=== PATIENT | female | born 1960 | race Caucasian/White ===

== ENCOUNTER → 2016-07-17 | Outpatient (CLI) | payer OTHER, MEDICARE ==
[~2016-07-17] MED LIST: ALBINS/ INH; ALBU18002 INH; ALBU2SYP9 NEB; AMLH/550 PO; AMT50 PO; ANT25 PO; ASCO10003 PO; ASPEC81 PO; ASPI81TA28 PO; ATV/1 PO; AZITTAB PO; BMX1 PO; BUME2TAB3 PO; BUPR100T13 PO; BUPR200T2 PO; CALC600T9; CALC625T PO; CHOL1000 PO; CHOL1TAB42 PO; CLON0.5T3 PO; CRAN1TAB9; CRAN500C2 PO; CRFUDL PO; CYCL5TAB PO; CYM/30 PO; CYM/60 PO; CYNI1000 IM; CYNI1000 INJ; DFL100 PO; DIPH25CA65 PO; DIPH25TA; DIPH50TA10 PO; DOCU-94 PO; DULO60CA44 PO; FISHOIL PO; FLUO40CA8 PO; FLUT0.15 NAE; FRS/40 PO; GABA1CAP5 PO; GABA400C PO; GREE1CAP; HYDR-3126 PO; IMP/50 PO; IPRASOL4 INH; LAMO100T16 PO; LDDP5 TD; LMC100 PO; LORA-741 PO; LVQ750 PO; MAGN400T6 PO; MCRK20 PO; MECL-91 PO; MELA1CAP9 PO; METHTAB2 PO; METO2.5T PO; MGCCMP100 MT; MGNO400 PO; MOME200A INH; MOML PO; NITR-5 PO; NITR1CAP16 PO; NITR1CAP33 PO; NORT50CA PO; OMEG10007 PO; OXYC-106 PO; OXYC-57 PO; OXYC-59 PO; OXYC1TAB3 PO; PANT40TA PO; POTA-327 PO; POTA20TA16 PO; PRENTAB26 PO; SENN-61 PO; SULF800T23 PO; TRAZ1TAB5 PO; TRAZ50TA35 PO; TRIM100T20 PO; VITA400C15 PO; VITAMIN B12 INJ; VNTHFA/IN INH; ZTHM250 PO
== END | disposition home or self-care (01) ==
LOC: C.LABPBG 14:42
PROVIDERS: ATTEND Urology
DX: N39.0 Urinary tract infection, site not specified (principal)

== ENCOUNTER 2016-07-29 12:44 | Emergency (ER) | payer OTHER, MEDICARE ==
[~2016-07-29] VITALS: Ht 167.6 cm; Wt 166.0 kg
[~2016-07-29 12:44] MED LIST changes: -ALBINS/ INH; -ALBU18002 INH; -ALBU2SYP9 NEB; -AMLH/550 PO; -ANT25 PO; -ASCO10003 PO; -ASPI81TA28 PO; -ATV/1 PO; -AZITTAB PO; -BMX1 PO; -BUME2TAB3 PO; -BUPR100T13 PO; -BUPR200T2 PO; -CALC625T PO; -CHOL1000 PO; -CHOL1TAB42 PO; -CRAN500C2 PO; -CRFUDL PO; -CYCL5TAB PO; -CYM/30 PO; -CYM/60 PO; -CYNI1000 IM; -CYNI1000 INJ; -DFL100 PO; -DIPH25CA65 PO; -DOCU-94 PO; -DULO60CA44 PO; -FLUT0.15 NAE; -GABA1CAP5 PO; -GABA400C PO; -IPRASOL4 INH; -LAMO100T16 PO; -LDDP5 TD; -LMC100 PO; -MAGN400T6 PO; -MCRK20 PO; -MECL-91 PO; -METO2.5T PO; -MGCCMP100 MT; -MGNO400 PO; -MOME200A INH; -MOML PO; -NITR-5 PO; -NITR1CAP16 PO; -NITR1CAP33 PO; -NORT50CA PO; -OMEG10007 PO; -OXYC-106 PO; -OXYC-59 PO; -OXYC1TAB3 PO; -PANT40TA PO; -POTA20TA16 PO; -SENN-61 PO; -SULF800T23 PO; -TRAZ1TAB5 PO; -TRAZ50TA35 PO; -TRIM100T20 PO; -VITAMIN B12 INJ; -VNTHFA/IN INH; -ZTHM250 PO
[2016-07-29 12:45] VITALS: TEMP 36.7; Ht 167.6 cm; Wt 166.0 kg
[2016-07-29] MEDS ORDERED: HYDROmorphone INJ 1 MG/ML SYR IM STA ×2 (13:15→14:45)
--- NOTE | 2016-07-29 13:23 | EMERGENCY ROOM VISIT NOTE ---
History First contact with patient: 13:05 Chief Complaint: FALL Stated Complaint: FALL/KNEE PAIN/SOB History of Present Illness The patient is a 56 year old female who presents to the Emergency Room via ALS for evaluation of a fall. The patient reports that she lost her balance while getting out of bed this morning and fell between the bed and the wall. She reports having difficulty getting up after falling. She states that she did hit her head and complains of pain in her head, neck, low back, bilateral shoulders and bilateral knees. She believes that the shoulder pain is due to pushing herself up after she fell. There was no loss of consciousness. She took hydrocodone prior to arrival with no relief. She rates her overall discomfort a 9/10. The patient does have a history of asthma and reports that she was having difficulty breathing after the fall. She received a DuoNeb treatment en route with relief of shortness of breath. The fall was not associated with chest pain, dizziness or lightheadedness. She denies any chest pain, abdominal pain, numbness, weakness, nausea/vomiting, blurred vision or slurred speech. Review of Systems A complete 6 point review of systems was reviewed with the patient with pertinent positives and negatives as per history of present illness. All else were negative. Past Medical/Surgical History Medical Problems: (1) DJD (degenerative joint disease) of knee Surgical Problems: (1) Hx of gastric bypass (2) Hx of hysterectomy (3) Hx of shoulder surgery Social History Smoking Status: Former Smoker Alcohol Use: none Marital Status: Housing Status: lives with family Occupation Status: unemployed Current/Historical Medications Scheduled Albuterol Sulf (Proventil 0.083% 2.5MG/3ML), 2.5 MG INH QID Ascorbic Acid (Vitamin C), 1,000 MG PO DAILY Aspirin (Aspirin Ec), 81 MG PO DAILY Bumetanide (Bumex), 2 MG PO QAM Bupropion (Wellbutrin Sr), 400 MG PO DAILY Calcium Polycarbophil (Fibercon), 1 TAB PO DAILY Cholecalciferol (Vitamin D3), 5,000 UNITS PO DAILY Cranberry (Vaccinium Macrocarp (Cranberry), 500 MG PO DAILY Diphenhydramine Hcl (Benadryl Allergy), 75 MG PO HS Duloxetine HCl (Cymbalta), 30 MG PO DAILY Duloxetine Hcl (Cymbalta), 60 MG PO DAILY Fish Oil ([place]-3), 1 CAP PO DAILY Fluticasone Propionate (Nasal) (Flonase Allergy Relief), 2 SPRAYS EDITH HS Hydroxyzine Hcl (Atarax), 50 MG PO TID Lamotrigine (Lamictal), 100 MG PO DAILY Metolazone (Zaroxolyn), 2.5 MG PO 3XWK Mometasone Furoate-Formoterol (Dulera 200/5 Mcg), 2 PUFFS INH BID Nortriptyline (Pamelor), 50 MG PO HS Pantoprazole (Protonix), 40 MG PO DAILY Trazodone Hcl (Trazodone), 50 MG PO HS Trimethoprim (Proloprim), 100 MG PO HS Scheduled PRN Albuterol Hfa (Ventolin Hfa), 2-4 PUFFS INH QID PRN for SOB/Wheezing Cyclobenzaprine Hcl (Flexeril), 5 MG PO TID PRN for Muscle Spasms Lorazepam (Ativan), 1 MG PO BID PRN for Anxiety Oxycodone/Acetaminophen 10MG/325MG (Percocet 10MG/325MG), 1 TAB PO Q6H PRN for Pain Allergies Coded Allergies: Adhesives (Verified Allergy, Intermediate, REDNESS WITH BANDAIDS, 07/29/16) Cephalexin (Verified Allergy, Unknown, ?, 07/29/16) Physical Exam Vital Signs Date Time Temp Pulse Resp B/P Pulse Ox O2 Delivery O2 Flow Rate FiO2 07/29/16 16:00 81 16 113/74 92 07/29/16 14:38 85 20 113/77 97 Nasal Cannula 3.0 07/29/16 13:42 84 07/29/16 13:38 96 Nasal Cannula 3.0 07/29/16 13:30 96 Nasal Cannula 3.0 07/29/16 13:28 83 Room Air 07/29/16 12:45 36.7 81 15 112/58 92 Room Air Physical Exam VITALS: Vitals are noted on the nurse's note and reviewed by myself. Vital signs stable. GENERAL: This is a 56-year-old female, morbidly obese, lying supine in no acute distress. SKIN: Capillary reflex less than 2 seconds. HEENT: Normocephalic. PERRLA. EOMI. TMs clear bilaterally with no hemotympanum. Nares patent. Mucous membranes moist. NECK: Point tenderness over the lower cervical spine. HEART: Regular rate and rhythm without murmurs gallops or rubs. LUNGS: Clear to auscultation bilaterally without wheezes, rales or rhonchi. No retractions or accessory muscle use. ABDOMEN: Positive bowel sounds x 4. Soft, nontender to palpation. MUSCULOSKELETAL: There is tenderness of the lumbar spine. There is ecchymosis at the right medial tibia/fibula. There is tenderness to palpation of bilateral knees in the right proximal tib/fib. NEURO: Patient was alert and oriented to person place and time. Normal sensation to light and sharp touch. No focal neurological deficits. Medical Decision & Procedures ER Provider Diagnostic Interpretation: CT HEAD WITHOUT CONTRAST (CT) IMPRESSION: No acute intracranial findings CT OF THE CERVICAL SPINE IMPRESSION: No evidence of acute fracture or traumatic subluxation. LUMBAR SPINE 5 VIEWS IMPRESSION: 1. No acute bony abnormality is identified in the lumbosacral spine. 2. Osteopenia and mild spondylotic change as above. LEFT KNEE 3 VIEWS IMPRESSION: 1. Mild soft tissue swelling and small joint effusion. No fracture is seen. 2. A left knee arthroplasty is in near-anatomic alignment. RIGHT KNEE 3 VIEWS IMPRESSION: Postsurgical changes. No acute fractures identified. RIGHT TIBIA AND FIBULA 2 VIEWS IMPRESSION: Mild soft tissue swelling with no radiographic evidence of right tibial or fibular fracture. RIGHT HIP 2 VIEWS IMPRESSION: No fracture or dislocation within the right hip. Medications Administered Medications (Trade) Dose Ordered Sig/Lilly Route Start Time Stop Time Status Last Admin Dose Admin Hydromorphone HCl (Dilaudid Inj) 1 mg NOW STAT IM 07/29/16 13:15 07/29/16 13:20 DC 07/29/16 13:31 1 MG Hydromorphone HCl (Dilaudid Inj) 1 mg NOW STAT IM 07/29/16 14:45 07/29/16 14:46 DC 07/29/16 14:57 1 MG Medical Decision Differential diagnosis includes intracranial hemorrhage, closed head injury, contusion, sprain, fracture, among others. The patient was evaluated as above. Imaging studies were performed and read by radiology as above. The patient was medicated with 1 mg Dilaudid IM. She did require an additional dose of 1 mg Dilaudid. The patient was reassessed multiple times during their stay in the emergency department and remained in stable condition. The patient is a 56-year-old female who presents today for evaluation after a ground-level fall. Due to the patient's complaints, multiple imaging studies were performed and read by radiology. CT of the head and neck were unremarkable. X-rays of bilateral knees, lumbar spine and right hip were performed and show no acute fractures. The patient does have an area of ecchymosis over the right tibia/fibula, but no fractures identified in the area. She does have bilateral knee replacements and was instructed to follow- up with her orthopedic surgeon. The patient has hydrocodone at home which she will continue to use for pain. She did have an asthma exacerbation prior to arrival in the emergency department which had resolved. She requested a refill of her albuterol nebulizer treatments and was given this. Conservative measures were discussed with the patient. She was instructed to follow-up with her primary care provider in 2-3 days for further evaluation and return for any worsening symptoms. Based on the patient's presentation, lab results, and imaging studies, I feel the patient is stable for outpatient treatment. Discharge instructions were reviewed with the patient. The patient was independently evaluated by Dr. Hernandez, ED attending physician, who agreed with my assessment and treatment plan. The patient verbalized understanding of my assessment and treatment plan and was discharged home in good condition. Impression Primary Impression: Fall Additional Impression: Contusion of multiple sites Departure Information Dispostion Home / Self-Care Condition GOOD Prescriptions Albuterol Sulf (PROVENTIL 0.083% 2.5MG/3ML) 2.5 Mg/3 Ml Nebu 2.5 MG INH QID, #10 EA Prov: Yoselyn Camilo .JT 07/29/16 Referrals Troy Aparicio M.D. (PCP) Patient Instructions My [facility] Additional Instructions You were treated today for a fall. X-rays and CT scans did not show any acute fractures. You do have some swelling of the right knee and should follow-up with orthopedics within one week for evaluation. Use the walker at home. Continue hydrocodone at home as needed for pain. Follow-up with your primary care provider within 3-4 days for a recheck. Problem Qualifiers Primary Impression: Fall Encounter type: initial encounter Qualified Codes: W19.XXXA - Unspecified fall, initial encounter
[2016-07-29 13:30] VITALS: O2SAT 96
[2016-07-29] MEDS ORDERED: BUME2TAB3 PO ×2 (13:35→13:50)
[2016-07-29] MEDS ORDERED: CYM/30 PO (13:50)
[2016-07-29] MEDS ORDERED: CALC625T PO (13:50)
[2016-07-29] MEDS ORDERED: VNTHFA/IN INH (13:50)
[2016-07-29] MEDS ORDERED: TRAZ50TA35 PO (13:50)
[2016-07-29] MEDS ORDERED: DIPH25CA65 PO (13:50)
[2016-07-29] MEDS ORDERED: NORT50CA PO (13:50)
[2016-07-29] MEDS ORDERED: ATV/1 PO (13:50)
[2016-07-29] MEDS ORDERED: METO2.5T PO (13:50)
[2016-07-29] MEDS ORDERED: CHOL1000 PO (13:50)
[2016-07-29] MEDS ORDERED: FLUT0.15 NAE (13:50)
[2016-07-29] MEDS ORDERED: LAMO100T16 PO (13:50)
[2016-07-29] MEDS ORDERED: HYDR-3126 PO (13:50)
[2016-07-29] MEDS ORDERED: CYCL5TAB PO (13:50)
[2016-07-29] MEDS ORDERED: OMEG10007 PO (13:50)
[2016-07-29] MEDS ORDERED: ASCO10003 PO (13:50)
[2016-07-29] MEDS ORDERED: PANT40TA PO (13:50)
[2016-07-29] MEDS ORDERED: TRIM100T20 PO (13:50)
[2016-07-29] MEDS ORDERED: BUPR200T2 PO (13:50)
[2016-07-29] MEDS ORDERED: CRAN500C2 PO (13:50)
[2016-07-29] MEDS ORDERED: OXYC-59 PO (13:50)
[2016-07-29] MEDS ORDERED: DULO60CA44 PO (13:50)
--- NOTE | 2016-07-29 13:56 | DIAGNOSTIC IMAGING REPORT ---
CT HEAD WITHOUT CONTRAST (CT) CLINICAL HISTORY: Head pain status post trauma COMPARISON STUDY: No previous studies for comparison. TECHNIQUE: Axial CT of the brain is performed from the vertex to the skull base. IV contrast was not administered for this examination. CT DOSE: FINDINGS: No intra or extra-axial mass lesions are visualized. There is no CT evidence of acute cortical infarction. There is no evidence of midline shift. There is no acute hemorrhage. No calvarial fractures are visualized. There is no evidence of pathologic ventricular dilatation. There is a small amount of fluid within the left maxillary sinus. IMPRESSION: No acute intracranial findings Electronically signed by: Bandar Palacios M.D. 07/29/2016 1:55 PM Dictated Date/Time: 07/29/2016 1:54 PM
--- NOTE | 2016-07-29 13:59 | DIAGNOSTIC IMAGING REPORT ---
CT OF THE CERVICAL SPINE CLINICAL HISTORY: Neck pain status post trauma COMPARISON STUDY: No previous studies for comparison. CT DOSE: 1182.01 mGy.cm TECHNIQUE: CT scan of the cervical spine was performed from the skull base to the thoracic inlet. Images are reviewed in the axial, sagittal, and coronal planes. IV contrast was not administered for this examination. FINDINGS: The visualized portions of the lung apices reveal no evidence of pneumothorax. The prevertebral soft tissues are normal. No fractures or subluxations are visualized. There are mild degenerative changes present. There is a corticated ossicle adjacent the odontoid tip which is felt to be old. IMPRESSION: No evidence of acute fracture or traumatic subluxation. Electronically signed by: Bandar Palacios M.D. 07/29/2016 1:57 PM Dictated Date/Time: 07/29/2016 1:55 PM
--- NOTE | 2016-07-29 14:46 | DIAGNOSTIC IMAGING REPORT ---
RIGHT KNEE 3 VIEWS CLINICAL HISTORY: Right knee pain status post trauma COMPARISON: None. DISCUSSION: There are postsurgical changes of a total right knee arthroplasty. No acute fractures or dislocations are visualized. IMPRESSION: Postsurgical changes. No acute fractures identified. Electronically signed by: Bandar Palacios M.D. 07/29/2016 2:45 PM Dictated Date/Time: 07/29/2016 2:45 PM
--- NOTE | 2016-07-29 14:47 | DIAGNOSTIC IMAGING REPORT ---
LUMBAR SPINE 5 VIEWS CLINICAL HISTORY: Fall with low back pain. FINDINGS: Five views of the lumbar spine are correlated with abdominal CT dated 12/21/2014. The examination is degraded by large body habitus. The skeletal structures are osteopenic. There is no radiographic evidence of fracture or malalignment. Vertebral body height and alignment are maintained throughout the lumbar spine. The transverse and spinous processes appear intact. There is no evidence of spondylolysis. Small anterior osteophytes are seen throughout. Facet arthropathy is noted in the lower lumbar region. Mild degenerative disc space narrowing is present at L4-L5 and L5-S1. The remaining disc spaces appear preserved. The visualized sacrum and bony pelvis appear intact. Sclerotic change is noted in the sacroiliac joints. There is a nonobstructed abdominal bowel gas pattern noting mild to moderate colonic fecal retention. IMPRESSION: 1. No acute bony abnormality is identified in the lumbosacral spine. 2. Osteopenia and mild spondylotic change as above. Dictated: 07/29/2016 2:43 PM Transcribed: 07/29/2016 2:46 PM [facility] Electronically signed by: Luiz Welsh M.D. 07/29/2016 2:47 PM Dictated Date/Time: 07/29/2016 2:43 PM
--- NOTE | 2016-07-29 14:47 | DIAGNOSTIC IMAGING REPORT ---
LEFT KNEE 3 VIEWS CLINICAL HISTORY: Fall with left knee pain. FINDINGS: AP, crosstable lateral, and sunrise views of the left knee are compared to study dated 03/09/2012. The skeletal structures are osteopenic. No fracture is identified. A left knee arthroplasty is in near anatomic alignment. There has been undersurface remodeling of the patella. A small joint effusion is noted. There is mild prepatellar soft tissue swallowing. IMPRESSION: 1. Mild soft tissue swelling and small joint effusion. No fracture is seen. 2. A left knee arthroplasty is in near-anatomic alignment. Electronically signed by: Luiz Welsh M.D. 07/29/2016 2:46 PM Dictated Date/Time: 07/29/2016 2:45 PM
--- NOTE | 2016-07-29 14:50 | DIAGNOSTIC IMAGING REPORT ---
RIGHT TIBIA AND FIBULA 2 VIEWS CLINICAL HISTORY: Fall with right leg pain. FINDINGS: AP and crosstable lateral views of the right tibia and fibula are correlated with radiographs of the right knee performed concurrently on 07/29/2016. The skeletal structures are osteopenic. No fracture is identified. A right knee arthroplasty is partially visualized. The ankle joint is grossly maintained. Mild soft tissue edema is present in the calf. There is a large dorsal calcaneal enthesophyte. IMPRESSION: Mild soft tissue swelling with no radiographic evidence of right tibial or fibular fracture. Electronically signed by: Luiz Welsh M.D. 07/29/2016 2:49 PM Dictated Date/Time: 07/29/2016 2:48 PM
--- NOTE | 2016-07-29 15:01 | DIAGNOSTIC IMAGING REPORT ---
RIGHT HIP 2 VIEWS HISTORY: right hip pain, fall Right COMPARISON: None. FINDINGS: There is no fracture or dislocation. Soft tissues are unremarkable. Mild osteoarthritis within the right hip. The visualized pelvic bones are intact. IMPRESSION: No fracture or dislocation within the right hip. Electronically signed by: Layton Regalado M.D. 07/29/2016 3:00 PM Dictated Date/Time: 07/29/2016 2:58 PM
[2016-07-29] MEDS ORDERED: ALBINS/ INH (15:21)
[2016-07-29 16:00] VITALS: BP 113/74; PULSE 81; O2SAT 92
--- NOTE | 2016-07-29 16:20 | EMERGENCY ROOM VISIT NOTE ---
ED Visit Note First contact with patient: 13:05 I have personally seen and evaluated the patient with the physician assistant coach. I agree with the diagnostic/management decisions and have personally been involved in these decisions and agree with the diagnosis.
[2016-09-09] MEDS ORDERED: MGNO400 PO (11:50)
[2016-09-09] MEDS ORDERED: BMX1 PO (11:50)
[2016-09-09] MEDS ORDERED: MCRK20 PO (11:50)
[2016-10-01] MEDS ORDERED: BUPR100T13 PO (10:19)
[2016-10-01] MEDS ORDERED: PANT40TA PO (10:19)
[2016-10-01] MEDS ORDERED: SENN-61 PO (10:19)
[2016-10-01] MEDS ORDERED: LAMO100T16 PO (10:19)
[2016-10-01] MEDS ORDERED: NITR1CAP16 PO (10:19)
[2016-10-01] MEDS ORDERED: OXYC1TAB3 PO (10:19)
[2016-10-01] MEDS ORDERED: METO2.5T PO (10:19)
[2016-10-01] MEDS ORDERED: VITAMIN B12 INJ (10:20)
[2016-10-07] MEDS ORDERED: PANT40TA PO (13:04)
[2016-10-07] MEDS ORDERED: LMC100 PO (13:04)
[2016-10-07] MEDS ORDERED: OXYC1TAB3 PO (13:04)
[2016-10-07] MEDS ORDERED: CRFUDL PO (13:04)
[2016-10-07] MEDS ORDERED: AMLH/550 PO (13:04)
[2016-10-07] MEDS ORDERED: DFL100 PO (13:04)
[2016-11-04] MEDS ORDERED: ALBU2SYP9 NEB (10:19)
[2016-11-04] MEDS ORDERED: TRAZ1TAB5 PO (10:19)
[2016-11-04] MEDS ORDERED: GABA400C PO (10:19)
[2016-11-04] MEDS ORDERED: NORT50CA PO (10:19)
[2016-11-04] MEDS ORDERED: DOCU-94 PO (10:19)
[2016-11-04] MEDS ORDERED: CYM/60 PO (10:19)
[2016-11-04] MEDS ORDERED: POTA20TA16 PO (10:19)
[2016-11-04] MEDS ORDERED: FLUT0.15 NAE (10:19)
[2016-11-04] MEDS ORDERED: CHOL1TAB42 PO (10:20)
[2016-11-04] MEDS ORDERED: MOML PO (10:20)
[2016-11-04] MEDS ORDERED: ALBU18002 INH (12:08)
[2016-11-04] MEDS ORDERED: ASPI81TA28 PO (13:50)
[2016-11-04] MEDS ORDERED: MOME200A INH (13:50)
[2016-11-04] MEDS ORDERED: BUME2TAB3 PO (17:37)
[2016-11-06] MEDS ORDERED: ZTHM250 PO (07:37)
[2017-01-11] MEDS ORDERED: LDDP5 TD (11:10)
[2017-01-11] MEDS ORDERED: MGCCMP100 MT (11:10)
== END 2016-07-29 16:00 | disposition home or self-care (01) ==
LOC: EDBD 12:44 → C.EDC 12:48
DX: S80.11XA Contusion of right lower leg, initial encounter (principal); W06.XXXA Fall from bed, initial encounter; E66.01 Morbid (severe) obesity due to excess calories; J45.909 Unspecified asthma, uncomplicated; Z87.891 Personal history of nicotine dependence; Z96.653 Presence of artificial knee joint, bilateral; Z98.84 Bariatric surgery status; Z79.82 Long term (current) use of aspirin

== ENCOUNTER 2016-08-29 11:12 | Inpatient (IN) | payer OTHER, MEDICARE ==
[~2016-08-29] VITALS: Ht 165.1 cm; Wt 174.1 kg
[~2016-08-29 11:12] MED LIST changes: +ALBINS/ INH; -AMT50 PO; +ASCO10003 PO; -ASPEC81 PO; +ATV/1 PO; +BUME2TAB3 PO; +BUPR200T2 PO; -CALC600T9; +CALC625T PO; +CHOL1000 PO; -CLON0.5T3 PO; -CRAN1TAB9; +CRAN500C2 PO; +CYCL5TAB PO; +CYM/30 PO; +DIPH25CA65 PO; -DIPH25TA; -DIPH50TA10 PO; +DULO60CA44 PO; -FISHOIL PO; -FLUO40CA8 PO; +FLUT0.15 NAE; -FRS/40 PO; -GREE1CAP; -IMP/50 PO; +LAMO100T16 PO; -LORA-741 PO; -LVQ750 PO; -MELA1CAP9 PO; -METHTAB2 PO; +METO2.5T PO; +NORT50CA PO; +OMEG10007 PO; -OXYC-57 PO; +OXYC-59 PO; +PANT40TA PO; -POTA-327 PO; -PRENTAB26 PO; +TRAZ50TA35 PO; +TRIM100T PO; -VITA400C15 PO; +VNTHFA/IN INH
[2016-08-29 12:03] LABS: BASO % 0.2 %; BASO ABS # 0.02 K/uL (0-0.2); COMPLETE YES; EOS % 1.4 %; HEMATOCRIT 33.1 % (37-47); IG% 1.6 %; LYMPH % 18.2 %; MEAN CELL VOLUME 82.3 fL (80-100); MEAN CORPUSCULAR HEMOGLOBIN 26.9 pg (25-34); MEAN CORPUSCULAR HGB CONC 32.6 g/dl (32-36); MEAN PLATELET VOLUME 9.6 fL (7.4-10.4); MONO % 8.9 %; NEUT % 69.7 %; PLATELET COUNT 340 K/uL (130-400); RED BLOOD COUNT 4.02 M/uL (4.2-5.4); WHITE BLOOD COUNT 8.79 K/uL (4.8-10.8)
[2016-08-29] MEDS ORDERED: CYNI1000 INJ (12:08)
[2016-08-29] MEDS ORDERED: GABA1CAP5 PO (12:08)
[2016-08-29] MEDS ORDERED: NITR1CAP33 PO (12:08)
--- NOTE | 2016-08-29 12:08 | EMERGENCY ROOM VISIT NOTE ---
History Report prepared by Rudy: Zachary Cano Under the Supervision of: Rosalio CalixO. First contact with patient: 11:23 Chief Complaint: FALL Stated Complaint: FALL/ LF HIP PAIN History of Present Illness The patient is a 56 year old female who presents to the Emergency Room with complaints of persistent leg pain that started yesterday after a fall. The patient is currently at 76% oxygen on 2 liters nasal cannula. The patient fell last evening at her house. She stepped back into a laundry basket, and fell into the basket. She hit her head on the dresser. EMS was called and put the patient back into bed. The patient notes that she felt a bit lightheaded prior to the fall, but did not have any chest pain. Ever since the fall, she has had bilateral leg pain, especially her left leg, which is very painful. Today, the patient fell again while in the bathroom due to the leg injury. She now has left hip pain and back pain in addition to the leg pain. The patient was incontinent of both bowels and urine while on the floor today waiting for EMS. She denies any loss of consciousness or neck pain. The patient was recently diagnosed with pneumonia and was in the hospital for 5 days. She checked out 3 days ago against medical advice. She has asthma and chronic back problems. The patient is on 81 mg Aspirin daily. She does not smoke or drink alcohol. She has a history of a hysterectomy. Source of History: patient Onset: Yesterday Position: leg (bilateral, but more severe in left) Timing: other (persistent) Associated Symptoms: + back pain, No LOC, No chest pain, No neck pain Note: Associated symptoms: Bit lightheaded prior to fall last evening. Left hip pain, back pain. Incontinent of both bowels and urine while on floor waiting for EMS today. Review of Systems See HPI for pertinent positives & negatives. A total of 10 systems reviewed and were otherwise negative. Past Medical & Surgical Medical Problems: (1) Acute diastolic heart failure (2) DJD (degenerative joint disease) of knee Surgical Problems: (1) Hx of gastric bypass (2) Hx of hysterectomy (3) Hx of shoulder surgery Family History FHx: aneurysm FHx: dementia Social History Smoking Status: Former Smoker Alcohol Use: none Marital Status: Housing Status: lives with family Occupation Status: unemployed Current/Historical Medications Scheduled Albuterol Sulf (Proventil 0.083% 2.5MG/3ML), 2.5 MG INH QID Albuterol Sulfate (Proair Respiclick), 90 MCG INH QID Ascorbic Acid (Vitamin C), 1,000 MG PO DAILY Aspirin (Aspirin Ec), 81 MG PO DAILY Bumetanide (Bumex), 2 MG PO QAM Bupropion (Wellbutrin Sr), 400 MG PO DAILY Calcium Polycarbophil (Fibercon), 1 TAB PO DAILY Cholecalciferol (Vitamin D3), 5,000 UNITS PO DAILY Cranberry (Vaccinium Macrocarp (Cranberry), 500 MG PO DAILY Cyanocobalamin (Cyanocobalamin), 1 DOSE INJ MONTHLY Diphenhydramine Hcl (Benadryl Allergy), 75 MG PO HS Duloxetine HCl (Cymbalta), 30 MG PO DAILY Duloxetine Hcl (Cymbalta), 60 MG PO DAILY Fish Oil ([place]-3), 1 CAP PO DAILY Fluticasone Propionate (Nasal) (Flonase Allergy Relief), 2 SPRAYS EDITH HS Gabapentin (Neurontin), 400 MG PO TID Hydroxyzine Hcl (Atarax), 50 MG PO TID Lamotrigine (Lamictal), 100 MG PO DAILY Metolazone (Zaroxolyn), 2 MG PO 3XWK Mometasone Furoate-Formoterol (Dulera 200/5 Mcg), 2 PUFFS INH BID Nitrofurantoin Macrocrystals (Macrodantin), 50 MG PO HS Nortriptyline (Pamelor), 50 MG PO HS Pantoprazole (Protonix), 40 MG PO DAILY Trazodone Hcl (Trazodone), 50 MG PO HS Scheduled PRN Cyclobenzaprine Hcl (Flexeril), 5 MG PO TID PRN for Muscle Spasms Lorazepam (Ativan), 1 MG PO BID PRN for Anxiety Oxycodone/Acetaminophen 10MG/325MG (Percocet 10MG/325MG), 1 TAB PO Q6H PRN for Pain Allergies Coded Allergies: Adhesives (Verified Allergy, Intermediate, REDNESS WITH BANDAIDS, 08/29/16) Cephalexin (Verified Allergy, Unknown, ?, 08/29/16) Physical Exam Vital Signs Date Time Temp Pulse Resp B/P Pulse Ox O2 Delivery O2 Flow Rate FiO2 08/29/16 16:05 80 18 110/68 93 Nasal Cannula 4.0 08/29/16 15:31 78 18 103/59 98 Nasal Cannula 4.0 08/29/16 14:59 96 Nasal Cannula 4.0 08/29/16 12:00 83 08/29/16 11:35 92 Room Air 08/29/16 11:18 36.7 96 20 145/57 Nasal Cannula 2.0 Physical Exam GENERAL: Patient is awake, alert, very anxious appearing and uncomfortable appearing. Appears tearful at times. EYES: The conjunctivae are clear. The pupils are round and reactive. EARS, NOSE, MOUTH AND THROAT: The nose is without any evidence of any deformity. Mucous membranes are moist tongue is midline NECK: The neck is nontender and supple. RESPIRATORY: Lung sounds diminished throughout. Diffuse rhonchi, but no significant tachypnea or conversational dyspnea noted. CARDIOVASCULAR: Regular rate and rhythm noted there no murmurs rubs or gallops normal S1 normal S2 GASTROINTESTINAL: The abdomen is obese but tender, no specific guarding or rigidity noted. BACK: Low lumbar tenderness to palpation, range of motion elicited significant pain. MUSCULOSKELETAL/EXTREMITIES: Ecchymosis over both knees, pain with any range of motion of knees, significant pain was noted with range of motion of left hip, no shortening appreciated. SKIN: Pedal edema bilaterally, skin was warm and dry, pulses symmetric. NEUROLOGIC: Patient is awake alert and oriented x3 strength is symmetric patellar reflexes are 2+ bilaterally Medical Decision & Procedures ER Provider Diagnostic Interpretation: Radiology results as stated below per my review and radiologist interpretation: CT LUMBAR SPINE WITHOUT CT DOSE: 2223.52 mGy.cm CLINICAL HISTORY: Back pain status post trauma TECHNIQUE: Helical images were acquired in transverse plane. Reformatted sagittal and coronal images were reviewed. CONTRAST: No contrast was administered COMPARISON STUDY: Conventional radiographic study dated 07/29/2016 FINDINGS: L1-2 level: There is no evidence of significant disc bulge or focal herniation. There is no evidence of spinal or foraminal stenosis. There is calcification of posterior longitudinal ligament. L2-3 level: There is no evidence of significant disc bulge or focal herniation. There is no evidence of spinal or foraminal stenosis. L3-4 level: There is a mild circumferential disc bulge. There is minimal triangular spinal canal narrowing. L4-5 level: There is a circumferential disc bulge with mild to moderate spinal stenosis. L5-S1 level: There is no evidence of significant disc bulge or focal herniation. There is no evidence of spinal or foraminal stenosis. No acute fractures or traumatic subluxations are visualized. IMPRESSION: No fractures or subluxations are visualized. Electronically signed by: Bandar Palacios M.D. 08/29/2016 1:18 PM Dictated Date/Time: 08/29/2016 1:15 PM RIGHT KNEE 1 OR 2 VIEWS ROUTINE CLINICAL HISTORY: fall Right trauma COMPARISON: None DISCUSSION: Subtle linear lucency overlying the medial aspect fibular head as well as medial tibial plateau. This cannot be localized on prior study dated 07/29/2016 the total right knee prosthetic appears to be intact. IMPRESSION: Subtle linear lucency medially inferior to the tibial prosthetic and overlying the fibular head on the AP projection. Although of low suspicion, I cannot entirely exclude an incomplete cortical fracture Electronically signed by: Xavier Lugo M.D. 08/29/2016 2:25 PM Dictated Date/Time: 08/29/2016 2:17 PM LEFT KNEE 1 OR 2 VIEWS ROUTINE CLINICAL HISTORY: Left knee pain status post trauma COMPARISON: None. DISCUSSION: The study is somewhat limited from a positioning standpoint. There are postsurgical changes of a total left knee arthroplasty. No fractures or dislocations are visualized. IMPRESSION: No fractures identified. Electronically signed by: Bandar Palacios M.D. 08/29/2016 2:22 PM Dictated Date/Time: 08/29/2016 2:21 PM AP PELVIS AND LEFT HIP 7 VIEWS CLINICAL HISTORY: Pelvic pain status post trauma COMPARISON STUDY: No previous studies for comparison. FINDINGS: No fractures or dislocations are visualized. There are no erosive or destructive changes. IMPRESSION: No fractures or dislocations identified. Electronically signed by: Bandar Palacios M.D. 08/29/2016 2:17 PM Dictated Date/Time: 08/29/2016 2:[address]AST CT DOSE: 614.27 mGy.cm HISTORY: Trauma. Mental status change. fall TECHNIQUE: Multiaxial CT images of the head were performed without the use of intravenous contrast. Comparison: 07/29/2016 Findings: The paranasal sinuses and mastoid air cells are clear. The calvarium and skull base are intact. The ventricles and sulci are within normal limits. There is no mass, hematoma, midline shift, or acute infarct. Impression: No acute intracranial abnormality. Electronically signed by: Xavier Lugo M.D. 08/29/2016 1:16 PM Dictated Date/Time: 08/29/2016 1:14 PM CHEST ONE VIEW PORTABLE CLINICAL HISTORY: Sepsis COMPARISON STUDY: 07/06/2013 FINDINGS: The heart is enlarged. There is elevation of the interstitium consistent with pulmonary vascular congestion. An interstitial inflammatory process could appear similar. There is no lobar consolidation. There are no pleural effusions. Evaluation is mildly limited due to the patient's large body habitus.[ IMPRESSION: Diffuse elevation of the interstitium, likely secondary to congestive failure/fluid overload. Clinical and radiographic follow up is recommended Electronically signed by: Bandar Palacios M.D. 08/29/2016 2:18 PM Dictated Date/Time: 08/29/2016 2:17 PM Laboratory Results 08/29/16 11:30 Red Blood Count 4.02, Mean Corpuscular Volume 82.3, Mean Corpuscular Hemoglobin 26.9, Mean Corpuscular Hemoglobin Concent 32.6, Mean Platelet Volume 9.6, Neutrophils (%) (Auto) 69.7, Lymphocytes (%) (Auto) 18.2, Monocytes (%) (Auto) 8.9, Eosinophils (%) (Auto) 1.4, Basophils (%) (Auto) 0.2, Neutrophils # (Auto) 6.13, Lymphocytes # (Auto) 1.60, Monocytes # (Auto) 0.78, Eosinophils # (Auto) 0.12, Basophils # (Auto) 0.02 08/29/16 11:30 Test 08/29/16 11:30 08/29/16 12:34 08/29/16 12:38 08/29/16 14:55 White Blood Count 8.79 K/uL (4.8-10.8) Red Blood Count 4.02 M/uL (4.2-5.4) Hemoglobin 10.8 g/dL (12.0-16.0) Hematocrit 33.1 % (37-47) Mean Corpuscular Volume 82.3 fL (80-100) Mean Corpuscular Hemoglobin 26.9 pg (25-34) Mean Corpuscular Hemoglobin Concent 32.6 g/dl (32-36) Platelet Count 340 K/uL (130-400) Mean Platelet Volume 9.6 fL (7.4-10.4) Neutrophils (%) (Auto) 69.7 % Lymphocytes (%) (Auto) 18.2 % Monocytes (%) (Auto) 8.9 % Eosinophils (%) (Auto) 1.4 % Basophils (%) (Auto) 0.2 % Neutrophils # (Auto) 6.13 K/uL (1.4-6.5) Lymphocytes # (Auto) 1.60 K/uL (1.2-3.4) Monocytes # (Auto) 0.78 K/uL (0.11-0.59) Eosinophils # (Auto) 0.12 K/uL (0-0.5) Basophils # (Auto) 0.02 K/uL (0-0.2) RDW Standard Deviation 53.2 fL (36.4-46.3) RDW Coefficient of Variation 17.8 % (11.5-14.5) Immature Granulocyte % (Auto) 1.6 % Immature Granulocyte # (Auto) 0.14 K/uL (0.00-0.02) Nucleated RBC Absolute Count (auto) 0.03 K/uL (0-0) Nucleated Red Blood Cells % 0.3 % Erythrocyte Sedimentation Rate > 90 mm/hr (0-21) Prothrombin Time 11.4 SECONDS (9.0-12.0) Prothromb Time International Ratio 1.1 (0.9-1.1) Activated Partial Thromboplast Time 25.6 SECONDS (21.0-31.0) Partial Thromboplastin Ratio 1.0 Anion Gap 9.0 mmol/L (3-11) Est Creatinine Clear Calc Drug Dose 82.8 ml/min Estimated GFR () 53.5 Estimated GFR (Non- 46.1 BUN/Creatinine Ratio 13.2 (10-20) Calcium Level 8.6 mg/dl (8.5-10.1) Phosphorus Level 4.2 mg/dl (2.5-4.9) Magnesium Level 2.3 mg/dl (1.8-2.4) Total Bilirubin 0.4 mg/dl (0.2-1) Aspartate Amino Transf (AST/SGOT) 40 U/L (15-37) Alanine Aminotransferase (ALT/SGPT) 38 U/L (12-78) Alkaline Phosphatase 84 U/L (45-117) Total Creatine Kinase 71 U/L (26-192) Creatine Kinase MB 0.9 ng/ml (0.5-3.6) Creatine Kinase MB Ratio 1.3 (0-3.0) Troponin I 0.018 ng/ml (0-0.045) C-Reactive Protein 19.20 mg/dl (0-0.29) Pro-B-Type Natriuretic Peptide 3062 pg/ml (0-900) Total Protein 7.1 gm/dl (6.4-8.2) Albumin 2.4 gm/dl (3.4-5.0) Globulin 4.7 gm/dl (2.5-4.0) Albumin/Globulin Ratio 0.5 (0.9-2) Lipase 116 U/L (73-393) Venous Blood pH 7.50 (7.36-7.41) Venous Blood Partial Pressure CO2 41 mmHg (38.0-50.0) Venous Blood Partial Pressure O2 40 mmHg Venous Blood HCO3 32 mmol/L Venous Blood Oxygen Saturation 75.3 % Venous Blood Base Excess 7.7 mmol/L Ferritin 77.7 ng/ml (8.0-388.0) Rheumatoid Factor < 10.0 U/mL (0-15) Bedside Lactic Acid Venous 0.88 mmol/L (0.90-1.70) Urine Color YELLOW Urine Appearance CLEAR (CLEAR) Urine pH 5.5 (4.5-7.5) Urine Specific [place] 1.015 (1.000-1.030) Urine Protein NEG (NEG) Urine Glucose (UA) NEG (NEG) Urine Ketones NEG (NEG) Urine Occult Blood NEG (NEG) Urine Nitrite NEG (NEG) Urine Bilirubin NEG (NEG) Urine Urobilinogen NEG (NEG) Urine Leukocyte Esterase SMALL (NEG) Urine WBC (Auto) 1-5 /hpf (0-5) Urine RBC (Auto) 0-4 /hpf (0-4) Urine Hyaline Casts (Auto) 1-5 /lpf (0-5) Urine Epithelial Cells (Auto) >30 /lpf (0-5) Urine Bacteria (Auto) NEG (NEG) Test 08/29/16 14:59 08/29/16 16:35 08/29/16 16:42 08/29/16 16:43 Laboratory results per my review. Medications Administered Medications (Trade) Dose Ordered Sig/Lilly Route Start Time Stop Time Status Last Admin Dose Admin Fentanyl Citrate (Fentanyl Inj) 100 mcg Q15M PRN IV 08/29/16 12:30 09/12/16 12:29 08/29/16 13:14 100 MCG Ondansetron HCl (Zofran Inj) 4 mg NOW STAT IV 08/29/16 12:30 08/29/16 12:31 DC 08/29/16 12:39 4 MG Furosemide (Lasix Inj) 40 mg NOW STAT IV 08/29/16 15:42 08/29/16 15:43 DC 08/29/16 16:12 40 MG Lorazepam (Ativan Inj) 1 mg NOW STAT IV 08/29/16 16:05 08/29/16 16:06 DC 08/29/16 16:12 1 MG ECG Indication: other (fall) Rate (beats per minute): 81 Rhythm: normal sinus Findings: no ectopy, other (no acute ST segment abnormalities) Change: no significant change (from July 05 2013) ED Course 1147: The patient was evaluated in room B2. A complete history and physical examination were performed. 1230: Ordered Zofran Inj 4 mg IV, Fentanyl Inj 100 mcg IV PRN. 1542: Ordered Lasix Inj 40 mg IV. 1530: I reevaluated the patient and she is resting comfortably. The patient verbally expressed understanding and agreement with the treatment plan. The patient will be evaluated for further treatment. 1538: I discussed the patient with Dr. Bardales [facility] hospitalist. He will evaluate the patient for further treatment. Medical Decision Differential diagnosis: Etiologies such as fracture, dislocation, intra-abdominal, pneumothorax, intrathoracic , intracranial, neurologic, as well as other traumatic pathologies were entertained. Nursing notes reviewed. The patient is a 56-year-old female who presented to the emergency department by ambulance for an evaluation after a fall. The patient's history appears to be very complicated. It sounds though the patient fell and had significant pain in her left hip as well as her lumbar spine. She also has been having difficulty ambulating and noticing difficulty breathing and swelling in her legs. The patient was noted to have a very low oxygen saturation prior to arrival. Reportedly her oxygen saturation was in the seventies. She was treated with IV pain medication and IV antiemetics. She was also given IV Lasix for presumed pulmonary edema. Because the patient's overall condition I discussed her case with the on-call [facility] hospitalist. They've agreed to evaluate the patient in the emergency department for further management and disposition. The patient was found have elevated inflammatory markers but no definite source for infection could be found. The patient did not appear to have signs of pneumonia. Urinalysis did not appear to be consistent with urinary tract infection. Consults Time Called: 153 Consulting Physician: Dr. Catia TATUM hospitalist Returned Call: [phone] I discussed the patient with Dr. Catia TATUM hospitalist. He will evaluate the patient for further treatment. Impression Primary Impression: Pulmonary edema Additional Impressions: Hypoxia Fall Lumbar contusion Contusion of lower extremity Scribe Attestation The scribe's documentation has been prepared under my direction and personally reviewed by me in its entirety. I confirm that the note above accurately reflects all work, treatment, procedures, and medical decision making performed by me. Departure Information Dispostion Being Evaluated By Hospitalist Referrals Troy Aparicio M.D. (PCP) Patient Instructions My [facility] Problem Qualifiers Primary Impression: Pulmonary edema Chronicity: acute Qualified Codes: J81.0 - Acute pulmonary edema Additional Impressions: Fall Encounter type: initial encounter Qualified Codes: W19.XXXA - Unspecified fall, initial encounter Lumbar contusion Encounter type: initial encounter Qualified Codes: S30.0XXA - Contusion of lower back and pelvis, initial encounter Contusion of lower extremity Encounter type: initial encounter Laterality: left Qualified Codes: S80.12XA - Contusion of left lower leg, initial encounter
[2016-08-29 12:09] LABS: INR 1.1 (0.9-1.1); PROTHROMBIN TIME (PATIENT) 11.4 SECONDS (9.0-12.0)
[2016-08-29 12:21] LABS: BUN/CREATININE RATIO 13.2 (10-20); CALCIUM 8.6 mg/dl (8.5-10.1); CREATININE 1.3 mg/dl (0.60-1.20); MAGNESIUM 2.3 mg/dl (1.8-2.4); POTASSIUM 3.2 mmol/L (3.5-5.1)
[2016-08-29 12:30] LABS: ALB/GLOB RATIO 0.5 (0.9-2); C-REACTIVE PROTEIN 19.2 mg/dl (0-0.29); CKMB/CK RATIO 1.3 (0-3.0); PHOSPHORUS 4.2 mg/dl (2.5-4.9)
[2016-08-29] MEDS ORDERED: ONDANSETRON INJ 2 MG/ML 2 ML VIAL IV STA (12:30)
[2016-08-29] MEDS: FENTANYL CITRATE INJ 50 MCG/1 ML 2 ML VIAL IV PRN ×2 (12:39→13:14)
[2016-08-29 12:53] LABS: VEN BLD GAS O2 SATURATION 75.3 %; VEN BLOOD GAS BASE EXCESS 7.7 mmol/L
--- NOTE | 2016-08-29 13:19 | DIAGNOSTIC IMAGING REPORT ---
HEAD CT NONCONTRAST CT DOSE: 614.27 mGy.cm HISTORY: Trauma. Mental status change. fall TECHNIQUE: Multiaxial CT images of the head were performed without the use of intravenous contrast. Comparison: 07/29/2016 Findings: The paranasal sinuses and mastoid air cells are clear. The calvarium and skull base are intact. The ventricles and sulci are within normal limits. There is no mass, hematoma, midline shift, or acute infarct. Impression: No acute intracranial abnormality. Electronically signed by: Xavier Lugo M.D. 08/29/2016 1:16 PM Dictated Date/Time: 08/29/2016 1:14 PM
--- NOTE | 2016-08-29 13:20 | DIAGNOSTIC IMAGING REPORT ---
CT LUMBAR SPINE WITHOUT CT DOSE: 2223.52 mGy.cm CLINICAL HISTORY: Back pain status post trauma TECHNIQUE: Helical images were acquired in transverse plane. Reformatted sagittal and coronal images were reviewed. CONTRAST: No contrast was administered COMPARISON STUDY: Conventional radiographic study dated 07/29/2016 FINDINGS: L1-2 level: There is no evidence of significant disc bulge or focal herniation. There is no evidence of spinal or foraminal stenosis. There is calcification of posterior longitudinal ligament. L2-3 level: There is no evidence of significant disc bulge or focal herniation. There is no evidence of spinal or foraminal stenosis. L3-4 level: There is a mild circumferential disc bulge. There is minimal triangular spinal canal narrowing. L4-5 level: There is a circumferential disc bulge with mild to moderate spinal stenosis. L5-S1 level: There is no evidence of significant disc bulge or focal herniation. There is no evidence of spinal or foraminal stenosis. No acute fractures or traumatic subluxations are visualized. IMPRESSION: No fractures or subluxations are visualized. Electronically signed by: Bandar Palacios M.D. 08/29/2016 1:18 PM Dictated Date/Time: 08/29/2016 1:15 PM
--- NOTE | 2016-08-29 14:19 | DIAGNOSTIC IMAGING REPORT ---
AP PELVIS AND LEFT HIP 7 VIEWS CLINICAL HISTORY: Pelvic pain status post trauma COMPARISON STUDY: No previous studies for comparison. FINDINGS: No fractures or dislocations are visualized. There are no erosive or destructive changes. IMPRESSION: No fractures or dislocations identified. Electronically signed by: Bandar Palacios M.D. 08/29/2016 2:17 PM Dictated Date/Time: 08/29/2016 2:17 PM
--- NOTE | 2016-08-29 14:20 | DIAGNOSTIC IMAGING REPORT ---
CHEST ONE VIEW PORTABLE CLINICAL HISTORY: Sepsis COMPARISON STUDY: 07/06/2013 FINDINGS: The heart is enlarged. There is elevation of the interstitium consistent with pulmonary vascular congestion. An interstitial inflammatory process could appear similar. There is no lobar consolidation. There are no pleural effusions. Evaluation is mildly limited due to the patient's large body habitus.[ IMPRESSION: Diffuse elevation of the interstitium, likely secondary to congestive failure/fluid overload. Clinical and radiographic follow up is recommended Electronically signed by: Bandar Palacios M.D. 08/29/2016 2:18 PM Dictated Date/Time: 08/29/2016 2:17 PM
--- NOTE | 2016-08-29 14:24 | DIAGNOSTIC IMAGING REPORT ---
LEFT KNEE 1 OR 2 VIEWS ROUTINE CLINICAL HISTORY: Left knee pain status post trauma COMPARISON: None. DISCUSSION: The study is somewhat limited from a positioning standpoint. There are postsurgical changes of a total left knee arthroplasty. No fractures or dislocations are visualized. IMPRESSION: No fractures identified. Electronically signed by: Bandar Palacios M.D. 08/29/2016 2:22 PM Dictated Date/Time: 08/29/2016 2:21 PM
--- NOTE | 2016-08-29 14:28 | DIAGNOSTIC IMAGING REPORT ---
RIGHT KNEE 1 OR 2 VIEWS ROUTINE CLINICAL HISTORY: fall Right trauma COMPARISON: None DISCUSSION: Subtle linear lucency overlying the medial aspect fibular head as well as medial tibial plateau. This cannot be localized on prior study dated 07/29/2016 the total right knee prosthetic appears to be intact. IMPRESSION: Subtle linear lucency medially inferior to the tibial prosthetic and overlying the fibular head on the AP projection. Although of low suspicion, I cannot entirely exclude an incomplete cortical fracture Electronically signed by: Xavier Lugo M.D. 08/29/2016 2:25 PM Dictated Date/Time: 08/29/2016 2:17 PM
[2016-08-29 15:09] LABS: URINE APPEARANCE CLEAR (CLEAR); URINE BILIRUBIN NEG (NEG); URINE COLOR YELLOW; URINE EPITHELIAL CELL AUTO >30 /lpf (0-5); URINE NITRITE NEG (NEG); URINE PH 5.5 (4.5-7.5); URINE SPECIFIC GRAVITY 1.015 (1.000-1.030); UROBILINOGEN NEG (NEG); ZZURINE CULT IF INDIC CATH NO
[2016-08-29 15:16] LABS: MANUAL MICROSCOPIC REQUIRED? NO; REVIEW REQ? NO
[2016-08-29] MEDS ORDERED: FUROSEMIDE 40 MG/4 ML VIAL IV STA (15:42)
[2016-08-29] MEDS ORDERED: LORAZEPAM 2 MG/ML 1 ML VIAL IV STA (16:05)
[2016-08-29] MEDS ORDERED: OXYCODONE/ACETAMINOPHEN 10/325MG TAB PO PRN (16:15)
[2016-08-29 16:29] LABS: FERRITIN 77.7 ng/ml (8.0-388.0); RHEUMATOID FACTOR < 10.0 U/mL (0-15)
[2016-08-29] MEDS ORDERED: ENOXAPARIN 40 MG/0.4 ML SYR SQ SCH (16:45)
[2016-08-29 17:11] LABS: BENZODIAZEPINE, URINE NEG (NEG); COCAINE,URINE NEG (NEG); PHENCYCLIDINE, URINE NEG (NEG)
--- NOTE | 2016-08-29 17:41 | HISTORY & PHYSICAL EXAMINATION ---
DATE OF ADMISSION: 08/29/2016 CHIEF COMPLAINT: Lower extremity pain and inability to walk distances. ADMITTING DIAGNOSES: 1. Acute diastolic heart failure. 2. Persistent pneumonia. 3. Marked leg pain with elevated sedimentation rate. HISTORY OF PRESENT ILLNESS: Ms. Cho is a 56-year-old female who presents to the hospital after not being here since 2013. Her previous hospital stay is related to orthopedic admissions. The patient presents after leaving AMA from [facility] on this Thursday, the August 25, which she was treated for pneumonia. The patient states since that time she has continuing to cough mucopurulent mucus. She has been persistently dyspneic and she has been falling down at home because she has been so weak. She arrived by ambulance. In the Emergency Department, her evaluation showed, likely looks like heart failure on a chest x-ray. She had a CT scan of her head and lumbar spine which shows no acute intracranial abnormalities or lumbar spine injuries and she had hip and pelvic x-rays as well as knee x-rays because of complaints of orthopedic pain, particularly her lower extremities are markedly tender in the anterior covarrubias, the left leg worse than the right. The patient states that she is retained a lot of fluid but always been told she has had a strong heart. She has never been told she had diagnosis of heart failure and she said that she even had a right heart catheterization in [facility] at one point in time that she said her heart was okay. Incidentally, her right knee which is at least tender xray of her knees shows a subtle linear lucency medially inferior to the tibial prosthetic overlying the fibular head which is of low suspicion for cortical fracture but certainly not displaced. There is no point tenderness in this area. The patient states she also was hypokalemic. She is recommended for admission to try to sort out other multiple medical problems to improve her shortness of breath and her leg pain. PAST MEDICAL HISTORY: For hysterectomy, gastric bypass, bilateral shoulder surgeries, bilateral total knee replacements, most current history of pneumonia in [place] and hypokalemia. MEDICATIONS: Include albuterol inhalers q.i.d., aspirin 81 a day, Bumex 2 mg a day, Wellbutrin-SR 400 a day, vitamin D 5000 a day, cyanocobalamin 1000 once a week, Flexeril 5 t.i.d., Benadryl as needed for sleep 75 at bedtime, Cymbalta 90 a day, fish oil once a day, Neurontin 400 t.i.d., Atarax 50 t.i.d.; Lamictal 100 a day, unknown reason; lorazepam p.r.n., Zaroxolyn 2 mg 3 times a week; Macrobid, most recently treated and she is unclear why; oxycodone 10/325 p.r.n. pain, Protonix 40 a day, trazodone 50 a day, Dulera 1 inhalation twice a day, Pamelor 20 at bedtime. SOCIAL HISTORY: She smoked for 40 years, quit this past June; does not drink alcohol and is accompanied by her . FAMILY HISTORY: Positive for rheumatoid arthritis, she believes in her father and diabetes in her mother. REVIEW OF SYSTEMS: Multiple systems are positive. The patient states she has not been able to eat or drink. She has been markedly thirsty. She has had the urinary incontinence. She has had no diarrhea. She has got marked lower extremity pain and abdominal pain. She has had itchiness of her skin. She picks some sores open on her abdomen. Otherwise, 10 systems were reviewed and are negative unless listed. PHYSICAL EXAMINATION: GENERAL: She is morbidly obese. VITAL SIGNS: Temperature 36.7, pulse 80, respiration rate is 18, BP 110/68, O2 sat 93% on 4 liters. HEENT: PERRL. Oropharynx shows dry mucous membranes. There is no evidence of exudates. NECK: Without lymphadenopathy. Trachea is midline. HEART: Very distant and appears regular. LUNGS: Also distant, they are coarse. There is rales heard bilaterally. NECK: I cannot assess JVD. ABDOMEN: Markedly obese. She is soft, bowel sounds are present, intertrigo is not present. EXTREMITIES: With multiple bruises about her anterior tibia, could be reminiscent of erythema nodosum. There are some ecchymotic areas, she said she has been following. Her feet, otherwise are with 1-2+ edema. Her hands shows no evidence osteoarthritic changes, no tendered joints or muscles or bones of her hands or upper arms. Her pain is mostly centered around anterior lower legs, not calf of thigh. LABORATORY DATA: The patient has had multiple evaluations in the ER with radiological evaluations. Her EKG shows sinus rhythm. H\T\H 10 and 33, platelet count 340. Her sed rate is greater than 90 and her CRP is also elevated. Potassium is 3.2, BUN and creatinine are 17 and 1.3, glucose is 96. Her BNP is 3062 and urinalysis shows small leukocyte esterase. ASSESSMENT: A 56-year-old female here with recent treatment for pneumonia who looks clinically to have likely acute diastolic heart failure, but concern for elevated sed rate and possibly nodosum. PLAN: For the patient's heart failure, the patient will be given Bumex 2 mg IV b.i.d., potassium 40 b.i.d. with an additional dose of 40. An echocardiogram will be obtained and old records will be obtained from [place]. For the possibility that this is being inflammatory disease, this may be reminiscent of her pneumonia; therefore, we will treat her pneumonia with levofloxacin and blood cultures are obtained. We will send away labs. Her rheumatoid factor is negative currently, will send away other labs for rheumatological abnormalities. Regarding her lower leg pain, Dopplers will be performed. She will be put on DVT prevention with Lovenox. Regarding her other chronic pain, we will maintain her antidepressants of Cymbalta, Neurontin, Lamictal p.r.n., Atarax, use hydromorphone for pain with p.r.n. oxycodone. Will maintain her trazodone for sleep. Will maintain on Dulera and albuterol for breathing with supplemental oxygen. Will check a troponin in the morning. MTDD
--- NOTE | 2016-08-29 18:10 | DIAGNOSTIC IMAGING REPORT ---
BILATERAL LOWER EXTREMITY VENOUS DOPPLER HISTORY: Left leg pain. COMPARISON STUDY: None. FINDINGS: There is normal compressibility, flow, and augmentation within the bilateral lower extremity deep venous systems. IMPRESSION: No DVT within the right or left lower extremity. Electronically signed by: Layton Regalado M.D. 08/29/2016 6:08 PM Dictated Date/Time: 08/29/2016 6:07 PM
[2016-08-29] MEDS: HYDROmorphone INJ 0.5 MG/0.5 ML SYR IV STA ×2 (19:10→19:20)
[2016-08-29] MEDS ORDERED: LEVAQUIN 750MG / 150ML D5W IV ONE (19:11)
[2016-08-29] MEDS ORDERED: POTASSIUM CHLORIDE 10 MEQ TABCR PO ONE (19:15)
[2016-08-29 19:45] VITALS: BP 138/80; PULSE 75; TEMP 36.5; O2SAT 95; Ht 165.1 cm; Wt 174.1 kg
[2016-08-29] MEDS ORDERED: MAGNESIUM SULFATE 1GM / D5W 1 GM in PREMIXED IN D5W 100 ML IV ONE (19:45)
[2016-08-29] MEDS: ALBUTEROL 0.083% NEBU SOLN 3 ML VIAL INH SCH (21:00)
[2016-08-29 21:01] VITALS: PULSE 80; O2SAT 93
[2016-08-29] MEDS: HYDROmorphone INJ 1 MG/ML SYR IV PRN (21:41)
[2016-08-29] MEDS: FLUTICASONE PROPIONATE NA SPR 16 GM BTL NAE SCH (21:42)
[2016-08-29] MEDS: BUMETANIDE IV 2 MG in SYRINGE 0 ML IV SCH (21:42)
[2016-08-29] MEDS: TRAZODONE HCL 50 MG TAB PO SCH (21:43)
[2016-08-29] MEDS: ENOXAPARIN 40 MG/0.4 ML SYR SC SCH (21:43)
[2016-08-29] MEDS: GABAPENTIN 400 MG CAP PO SCH (21:43)
[2016-08-29] MEDS: NORTRIPTYLINE HCL 25 MG CAP PO SCH (21:44)
[2016-08-29] MEDS: hydrOXYzine HCL 25 MG TAB PO PRN (22:39)
[2016-08-29] MEDS ORDERED: IV FLUIDS COMPLETED PRN (22:45)
[2016-08-29 23:01] VITALS: BP 143/66; PULSE 77; TEMP 36.9; O2SAT 93
[2016-08-30] VITALS (10 sets, daily range): BP systolic 103–137; BP diastolic 70–83; PULSE 76–87; TEMP 36.5–36.7; O2SAT 91–99
[2016-08-30] MEDS: HYDROmorphone INJ 1 MG/ML SYR IV PRN ×5 (03:23→20:14)
[2016-08-30 06:13] LABS: ESTIMATED AVERAGE GLUCOSE 120 mg/dl; HA1C FLAG Normal (Normal)
[2016-08-30] MEDS: OXYCODONE HCL IR 5 MG TAB (IMMEDIATE RELEASE) PO PRN ×3 (06:40→21:55)
[2016-08-30] MEDS: ALBUTEROL 0.083% NEBU SOLN 3 ML VIAL INH SCH ×4 (07:10→19:16)
[2016-08-30 07:12] LABS: HEMATOCRIT 32.7 % (37-47); MEAN CELL VOLUME 83.8 fL (80-100); MEAN CORPUSCULAR HEMOGLOBIN 26.9 pg (25-34); MEAN CORPUSCULAR HGB CONC 32.1 g/dl (32-36); MEAN PLATELET VOLUME 9.5 fL (7.4-10.4); PLATELET COUNT 322 K/uL (130-400); WHITE BLOOD COUNT 7.15 K/uL (4.8-10.8)
[2016-08-30 07:48] LABS: BLOOD UREA NITROGEN 14 mg/dl (7-18); BUN/CREATININE RATIO 10.7 (10-20); CALCIUM 8.8 mg/dl (8.5-10.1); CARBON DIOXIDE 35 mmol/L (21-32); CHLORIDE 97 mmol/L (98-107); GLUCOSE 111 mg/dl (70-99); MAGNESIUM 2.2 mg/dl (1.8-2.4); POTASSIUM 2.9 mmol/L (3.5-5.1); SODIUM 139 mmol/L (136-145)
[2016-08-30] MEDS: PANTOprazole SOD 40 MG TAB PO SCH (07:49)
[2016-08-30] MEDS: DULOXETINE (CYMBALTA) 30 MG CAP PO SCH (07:49)
[2016-08-30] MEDS: ASPIRIN 81 MG ECTAB PO SCH (07:49)
[2016-08-30] MEDS: BuPROPion SR 100 MG TABCR PO SCH (07:49)
[2016-08-30] MEDS: DULOXETINE HCL 60 MG CAP PO SCH (07:50)
[2016-08-30] MEDS: GABAPENTIN 400 MG CAP PO SCH ×3 (07:50→20:15)
[2016-08-30] MEDS ORDERED: INFLUENZA VIRUS QUAD VACCINE 0.5 ML SYR IM. ONE (08:00)
[2016-08-30] MEDS ORDERED: PNEUMOCOCCAL POLYSACCHARIDES 25 MCG/0.5 ML VIAL/SYR IM. ONE (08:00)
[2016-08-30] MEDS: POTASSIUM CHLORIDE 20 MEQ TABCR PO SCH ×2 (08:44→20:16)
--- NOTE | 2016-08-30 09:56 | DIAGNOSTIC IMAGING REPORT ---
CHEST 2 VIEWS ROUTINE CLINICAL HISTORY: Congestive failure COMPARISON STUDY: 08/29/2016 FINDINGS: The heart remains enlarged. There is persistent elevation of the interstitium consistent with congestive failure. There are posterior basilar opacities on the lateral view, likely secondary to a combination of pleural fluid and atelectatic change. IMPRESSION: 1. Continued radiographic evidence of congestive failure/fluid overload 2. Posterior basilar opacities in the lateral view, likely secondary to accommodation of pleural fluid and atelectatic change Electronically signed by: Bandar Palacios M.D. 08/30/2016 9:54 AM Dictated Date/Time: 08/30/2016 9:52 AM
[2016-08-30] MEDS: BUMETANIDE IV 2 MG in SYRINGE 0 ML IV SCH ×2 (10:32→17:53)
[2016-08-30] MEDS ORDERED: POTASSIUM CHLORIDE 20 MEQ TABCR PO ONE (11:00)
[2016-08-30] MEDS ORDERED: PERFLUTREN LIPID MICROSPHERE (DEFINITY) IV ONE (14:03)
--- NOTE | 2016-08-30 16:16 | Progress Note ---
Subjective Date of Service: Aug 30, 2016. Subjective Pt evaluation today including: conversation w/ patient, conversation w/ family , physical exam, lab review, review of studies, review of inpatient medication list Voiding: bernardo catheter in place Patient seen and examined by me. Patient denies chest pain, shortness of breath , dizziness, palpitation and loss of consciousness. Patient denies abdominal pain and urinary symptoms. Patient denies fever, chills, rigors and sweats. Patient states that she feels much better compared to yesterday. Problem List Medical Problems: (1) Contusion of lower extremity Status: Acute (2) Contusion of multiple sites Status: Acute (3) Fall Status: Acute (4) Fall Status: Acute (5) Hypoxia Status: Acute (6) Lumbar contusion Status: Acute (7) Pulmonary edema Status: Acute Review of Systems All Other Systems: Reviewed and Negative Medications Medications (Trade) Dose Ordered Sig/Lilly Route Start Time Stop Time Status Last Admin Dose Admin Albuterol Sulfate (Ventolin 0.083% 2.5MG/3ML Neb) 2.5 mg QIDR INH 08/29/16 20:00 09/28/16 19:59 08/30/16 11:05 2.5 MG Aspirin (Ecotrin Tab) 81 mg DAILY PO 08/30/16 09:00 09/29/16 08:59 08/30/16 07:49 81 MG Bupropion HCl (Wellbutrin-Sr Tab) 400 mg DAILY PO 08/30/16 09:00 09/29/16 08:59 08/30/16 07:49 400 MG Duloxetine HCl (Cymbalta Cap) 30 mg DAILY PO 08/30/16 09:00 09/29/16 08:59 08/30/16 07:49 30 MG Duloxetine HCl (Cymbalta Cap) 60 mg DAILY PO 08/30/16 09:00 09/29/16 08:59 08/30/16 07:50 60 MG Fluticasone Propionate (Flonase Nasal [place]) 2 sprays HS EDITH 08/29/16 21:00 09/28/16 20:59 08/29/16 21:42 2 SPRAYS Gabapentin (Neurontin Cap) 400 mg TID PO 08/29/16 21:00 09/28/16 20:59 08/30/16 13:50 400 MG Hydroxyzine HCl (Vistaril Tab) 50 mg TID PRN PO 08/29/16 16:15 09/28/16 16:14 08/29/16 22:39 50 MG Lamotrigine (Lamictal Tab) 100 mg DAILY PO 08/30/16 09:00 09/29/16 08:59 08/30/16 07:49 100 MG Nortriptyline HCl (Pamelor Cap) 50 mg HS PO 08/29/16 21:00 09/28/16 20:59 08/29/16 21:44 50 MG Pantoprazole Sodium (Protonix Tab) 40 mg DAILY PO 08/30/16 09:00 09/29/16 08:59 08/30/16 07:49 40 MG Trazodone HCl 50 mg 50 mg HS PO 08/29/16 21:00 09/28/16 20:59 08/29/16 21:43 50 MG Bumetanide/Syringe (Bumex IV/ Syringe) 8 ml @ 4 mls/min DAILY@ IV 08/29/16 20:00 09/28/16 19:59 08/30/16 10:32 4 MLS/MIN Hydromorphone HCl (Dilaudid Inj) 1 mg Q4 PRN IV 08/29/16 16:45 09/12/16 16:44 08/30/16 12:10 1 MG Hydromorphone HCl (Dilaudid Inj) 0.5 mg NOW STAT IV 08/29/16 16:36 08/29/16 16:55 DC 08/29/16 19:20 0.5 MG Enoxaparin Sodium (Lovenox Inj) 40 mg HS SC 08/29/16 21:00 09/28/16 20:59 08/29/16 21:43 40 MG Potassium Chloride (Klor-Con Tab) 40 meq BID PO 08/30/16 09:00 09/29/16 08:59 08/30/16 08:44 40 MEQ Potassium Chloride 40 meq 40 meq ONE ONCE PO 08/29/16 19:15 08/29/16 19:16 DC 08/29/16 19:11 40 MEQ Magnesium Sulfate/ Prmx (Magnesium Sulfate/Premixed D5W) 100 ml @ 100 mls/hr TODAY@1945 ONCE IV 08/29/16 19:45 08/29/16 20:44 DC 08/29/16 21:42 100 MLS/HR Oxycodone HCl (Roxicodone Immediate Rel Tab) 10 mg Q6 PRN PO 08/29/16 17:00 09/12/16 16:59 08/30/16 12:57 10 MG Levofloxacin (Levaquin / D5W) 750 mg STK-MED ONCE IV 08/29/16 19:11 08/29/16 19:12 DC 08/29/16 19:11 750 MG Potassium Chloride (Klor-Con Tab) 40 meq NOW ONCE PO 08/30/16 11:00 08/30/16 11:01 DC 08/30/16 12:11 40 MEQ Perflutren Lipid Microsphere (Definity) 4 ml ONE ONCE IV 08/30/16 14:03 08/30/16 14:08 DC 08/30/16 14:08 4 ML Objective Vital Signs Date Time Temp Pulse Resp B/P Pulse Ox O2 Delivery O2 Flow Rate FiO2 08/30/16 12:00 Nasal Cannula 2.0 08/30/16 11:05 77 20 99 Nasal Cannula 4.0 08/30/16 11:00 36.7 80 20 103/83 99 4.0 08/30/16 08:00 Nasal Cannula 4.0 08/30/16 07:46 36.6 76 20 117/70 91 CPAP 08/30/16 07:19 80 20 97 BiPAP/CPAP 4.0 08/30/16 04:00 CPAP 4.0 08/30/16 03:25 36.5 78 22 137/82 97 CPAP 4.0 08/29/16 23:59 CPAP 4.0 08/29/16 23:01 36.9 77 20 143/66 93 CPAP 08/29/16 21:01 80 20 93 Nasal Cannula 4.0 08/29/16 19:45 36.5 75 22 138/80 95 Nasal Cannula 4.0 08/29/16 19:45 36.5 75 22 138/80 95 Nasal Cannula 4.0 08/29/16 19:37 81 18 93 08/29/16 18:46 79 18 117/55 100 Room Air 08/29/16 17:19 80 18 126/69 95 Room Air 08/29/16 16:05 80 18 110/68 93 Nasal Cannula 4.0 Physical Exam General Appearance: no apparent distress, + obese Neck: supple, no adenopathy, no JVD Respiratory/Chest: no respiratory distress, no accessory muscle use (coarse breath sounds bilaterally), + wheezing Cardiovascular: regular rate, rhythm, no murmur, + pertinent finding (1+ edema of bilateral lower extremity.) Abdomen: normal bowel sounds, non tender, soft, no organomegaly Neurologic/Psychiatric: supervisor plate forming II-XII nml as tested, no motor/sensory deficits, alert, normal mood/affect Skin: no rash Laboratory Results Last 24 Hours Test 08/29/16 16:42 08/30/16 06:58 White Blood Count 7.15 K/uL Red Blood Count 3.90 M/uL Hemoglobin 10.5 g/dL Hematocrit 32.7 % Mean Corpuscular Volume 83.8 fL Mean Corpuscular Hemoglobin 26.9 pg Mean Corpuscular Hemoglobin Concent 32.1 g/dl RDW Standard Deviation 54.1 fL RDW Coefficient of Variation 17.8 % Platelet Count 322 K/uL Mean Platelet Volume 9.5 fL Sodium Level 139 mmol/L Potassium Level 2.9 mmol/L Chloride Level 97 mmol/L Carbon Dioxide Level 35 mmol/L Anion Gap 7.0 mmol/L Blood Urea Nitrogen 14 mg/dl Creatinine 1.30 mg/dl Est Creatinine Clear Calc Drug Dose 81.4 ml/min Estimated GFR () 53.5 Estimated GFR (Non- 46.1 BUN/Creatinine Ratio 10.7 Random Glucose 111 mg/dl Calcium Level 8.8 mg/dl Magnesium Level 2.2 mg/dl Troponin I < 0.015 ng/ml Assessment and Plan A 56-year-old female here with recent treatment for pneumonia who looks clinically to have likely acute diastolic heart failure, but concern for elevated sed rate and possibly nodosum. - Continue IV Levaquin, pending blood cultures. WBC trending downward. No lymphocyte shifts - Continue IV Bumex 2 mg IV b.i.d. Continue potassium replacement based on daily potassium levels. - Chest x-ray: 1. Continued radiographic evidence of congestive failure/fluid overload 2. Posterior basilar opacities in the lateral view, likely secondary to accommodation of pleural fluid and atelectatic change - Echocardiogram will be obtained and old records will be obtained from [place]. Currently pending echocardiogram results. - Continue Ventolin and supplement oxygen. Hypokalemia - Potassium of 2.9, we will replete as well as continue with KCl 40 meq BID. Lower leg pain, - negative Doppler ultrasound of lower extremities. - DVT prevention with Lovenox. Chronic pain syndrome, Cymbalta, Neurontin, Lamictal p.r.n, Atarax, Cont with hydromorphone for pain with p.r.n. oxycodone. Insomnia Continue trazodone for now. . Continued [facility] stay due to: multiple IV medications needed Discharge planning: home
--- NOTE | 2016-08-30 17:11 | ECHOCARDIOGRAM REPORT ---
*NOTICE TO RECEIVING DEMOCRAT AGENCY This information is strictly Confidential and protected under [place] law. [place] law prohibits you from making any further disclosure of this information unless further disclosure is expressly permitted by the written consent of the person to whom it pertains or is authorized by law. A general authorization for the release of medical or other information is not sufficient for this purpose. Hospital accepts no responsibility if the information is made available to any other person, INCLUDING THE PATIENT. Interpretation Summary * Name: EDIS GARAY Study Date: 08/30/2016 01:48 PM BP: 137/82 mmHg * Patient Location: .2T\S\E217\S\1 HR: 80 * : 1960 (M/d/yyyy) Gender: Female Height: 65 in * Age: 56 yrs Ethnicity: CA Weight: 402 lb * Ordering Physician: Joe Bardales * Referring Physician: Self, Referred * Performed By: Layo Lieberman RDCS * * Reason For Study: CHF * BSA: 2.7 m2 * -- Conclusions -- * The study was technically limited. * There is mild concentric left ventricular hypertrophy. * Left ventricular systolic function is normal. * The left atrium is moderately dilated. Procedure Details * A complete two-dimensional transthoracic echocardiogram was performed (2D, M-mode, Doppler and color flow Doppler). * The study was technically limited. * There were technical limitations due to patient'sbody habitus * The study was technically difficult, but visualization was adequate with the administration of Definity ultrasound contrast. * A contrast injection of Definity was performed to improve assessment of LV function. * Contrast was injected into an intravenous site in the right arm. * One vial of Definity ultrasound contrast was diluted in normal saline to a total volume of 10 ml. A total of '4' ml of solution was administered during imaging. * Lot # [id number] of Definity utilized for procedure. * Expiration date 1APR18. * The attending nurse who injected the contrast agent was OTILIA Carmona. Left Ventricle * The left ventricle is normal in size. * There is mild concentric left ventricular hypertrophy. * Left ventricular systolic function is normal. * Ejection Fraction = 55-60%. Right Ventricle * The right ventricle is normal size. * The right ventricular systolic function is normal. Atria * The left atrium is moderately dilated. * Right atrium not well visualized. Mitral Valve * The mitral valve is grossly normal. * Significant mitral regurgitation is absent. Tricuspid Valve * The tricuspid valve is not well visualized. * Significant tricuspid regurgitation is absent. Aortic Valve * The aortic valve is not well visualized. * No hemodynamically significant valvular aortic stenosis. * There is no significant aortic regurgitation. Great Vessels * The aortic root is normal size. Pericardium/Pleural * There is no pericardial effusion. MMode 2D Measurements and Calculations IVSd 1.4 cm IVSs 2.1 cm LVIDd 4.1 cm LVIDs 2.7 cm LVPWd 1.4 cm LVPWs 1.9 cm IVS/LVPW 1.0 FS 33.0 % EDV(Teich) 74.1 ml ESV(Teich) 28.2 ml EF(Teich) 62.0 % EDV(cubed) 68.8 ml ESV(cubed) 20.7 ml EF(cubed) 69.9 % % IVS thick 46.0 % % LVPW thick 39.9 % LV mass(C)d 212.9 grams LV mass(C)dI 80.0 grams/m\S\2 LV mass(C)s 234.6 grams LV mass(C)sI 88.1 grams/m\S\2 SV(Teich) 46.0 ml SI(Teich) 17.3 ml/m\S\2 SV(cubed) 48.1 ml SI(cubed) 18.1 ml/m\S\2 Ao root diam 3.4 cm Ao root area 8.9 cm\S\2 LA dimension 4.9 cm asc Aorta Diam 2.8 cm LA/Ao 1.5 LVOT diam 2.0 cm LVOT area 3.2 cm\S\2 LVAd ap4 32.4 cm\S\2 LVLd ap4 7.7 cm EDV(MOD-sp4) 111.0 ml LVAs ap4 20.2 cm\S\2 LVLs ap4 6.8 cm ESV(MOD-sp4) 49.0 ml EF(MOD-sp4) 55.9 % LVAd ap2 36.2 cm\S\2 LVLd ap2 8.3 cm EDV(MOD-sp2) 132.0 ml LVAs ap2 23.0 cm\S\2 LVLs ap2 7.7 cm ESV(MOD-sp2) 55.0 ml EF(MOD-sp2) 58.3 % SV(MOD-sp4) 62.0 ml SI(MOD-sp4) 23.3 ml/m\S\2 SV(MOD-sp2) 77.0 ml SI(MOD-sp2) 28.9 ml/m\S\2 Doppler Measurements and Calculations MV E max august 107.1 cm/sec MV A max august 101.2 cm/sec MV E/A 1.1 MV dec time 0.18 sec Ao V2 max 187.0 cm/sec Ao max PG 14.0 mmHg Ao max PG (full) 9.9 mmHg JULIO(V,A) 1.8 cm\S\2 JULIO(V,D) 1.8 cm\S\2 LV V1 max PG 4.1 mmHg LV V1 max 101.5 cm/sec PA V2 max 103.2 cm/sec PA max PG 4.3 mmHg
[2016-08-30] MEDS: FLUTICASONE PROPIONATE NA SPR 16 GM BTL NAE SCH (20:14)
[2016-08-30] MEDS: LEVOFLOXACIN / D5W 750 MG in PREMIXED IN D5W 150 ML IV SCH (20:14)
[2016-08-30] MEDS: NORTRIPTYLINE HCL 25 MG CAP PO SCH (20:15)
[2016-08-30] MEDS: ENOXAPARIN 40 MG/0.4 ML SYR SC SCH (20:15)
[2016-08-30] MEDS: hydrOXYzine HCL 25 MG TAB PO PRN (21:55)
[2016-08-30] MEDS: TRAZODONE HCL 50 MG TAB PO SCH (21:55)
[2016-08-31] VITALS (12 sets, daily range): BP systolic 108–135; BP diastolic 65–78; PULSE 78–90; TEMP 36.7–36.9; O2SAT 92–97
[2016-08-31] MEDS: HYDROmorphone INJ 1 MG/ML SYR IV PRN ×5 (02:53→21:48)
[2016-08-31 07:01] LABS: BUN/CREATININE RATIO 10.3 (10-20); CALCIUM 8.7 mg/dl (8.5-10.1); CREATININE 1.3 mg/dl (0.60-1.20); POTASSIUM 3.2 mmol/L (3.5-5.1)
[2016-08-31] MEDS: ALBUTEROL 0.083% NEBU SOLN 3 ML VIAL INH SCH ×4 (07:03→19:48)
[2016-08-31] MEDS: GABAPENTIN 400 MG CAP PO SCH ×3 (07:37→21:47)
[2016-08-31] MEDS: PANTOprazole SOD 40 MG TAB PO SCH (07:38)
[2016-08-31] MEDS: BuPROPion SR 100 MG TABCR PO SCH (07:38)
[2016-08-31] MEDS: DULOXETINE (CYMBALTA) 30 MG CAP PO SCH (07:38)
[2016-08-31] MEDS: DULOXETINE HCL 60 MG CAP PO SCH (07:38)
[2016-08-31] MEDS: ASPIRIN 81 MG ECTAB PO SCH (07:38)
[2016-08-31] MEDS: POTASSIUM CHLORIDE 20 MEQ TABCR PO SCH ×2 (07:40→21:46)
[2016-08-31] MEDS ORDERED: POTASSIUM CHLORIDE 20 MEQ TABCR PO STA (08:08)
[2016-08-31] MEDS: BUMETANIDE IV 2 MG in SYRINGE 0 ML IV SCH ×2 (08:23→17:09)
[2016-08-31] MEDS: OXYCODONE HCL IR 5 MG TAB (IMMEDIATE RELEASE) PO PRN ×2 (12:49→19:03)
--- NOTE | 2016-08-31 15:14 | Progress Note ---
Subjective Date of Service: Aug 31, 2016. Subjective Pt evaluation today including: conversation w/ patient, physical exam, chart review, lab review, review of studies, review of inpatient medication list Pain: deines pain PO Intake: good Voiding: bernardo catheter in place Pt is seen and examined by me. Pt feels ramona good, and denies Cp, Sob, dizziness , palpitation, nausea, vomiting and diarrhea. Problem List Medical Problems: (1) Contusion of lower extremity Status: Acute (2) Contusion of multiple sites Status: Acute (3) Fall Status: Acute (4) Fall Status: Acute (5) Hypoxia Status: Acute (6) Lumbar contusion Status: Acute (7) Pulmonary edema Status: Acute Review of Systems All Other Systems: Reviewed and Negative Medications Medications (Trade) Dose Ordered Sig/Lilly Route Start Time Stop Time Status Last Admin Dose Admin Levofloxacin/Prmx (Levaquin / D5W/ Premixed D5W) 150 ml @ 100 mls/hr Q24H IV 08/30/16 19:00 09/06/16 18:59 08/30/16 20:14 100 MLS/HR Potassium Chloride (Klor-Con Tab) 40 meq NOW STAT PO 08/31/16 08:08 08/31/16 08:19 DC 08/31/16 08:34 40 MEQ Objective Vital Signs Date Time Temp Pulse Resp B/P Pulse Ox O2 Delivery O2 Flow Rate FiO2 08/31/16 12:00 Nasal Cannula 2.0 08/31/16 11:56 83 20 97 Nasal Cannula 2.0 08/31/16 11:19 36.9 82 20 116/78 96 2.5 08/31/16 08:00 Nasal Cannula 2.0 08/31/16 07:40 36.7 81 20 135/76 94 CPAP 08/31/16 07:03 81 20 94 Nasal Cannula 2.0 08/31/16 04:00 Nasal Cannula 2.0 08/31/16 02:57 36.7 83 18 130/67 97 BiPAP 08/31/16 00:12 36.7 80 18 108/65 93 CPAP 08/30/16 23:59 Nasal Cannula 2.0 08/30/16 20:00 Nasal Cannula 2.0 08/30/16 19:20 36.7 85 22 126/79 93 Nasal Cannula 2.0 08/30/16 19:19 81 20 92 Nasal Cannula 2.0 08/30/16 17:11 95 Nasal Cannula 2.0 08/30/16 16:00 79 20 95 Nasal Cannula 2.0 08/30/16 15:55 36.5 87 20 120/77 94 Nasal Cannula 2.0 Physical Exam General Appearance: WD/WN, no apparent distress, + obese Neck: supple Respiratory/Chest: lungs clear, normal breath sounds, no respiratory distress Cardiovascular: regular rate, rhythm, no edema, no murmur Abdomen: normal bowel sounds, non tender, soft Extremities: non-tender, no calf tenderness, + pertinent finding (1+ edema of B /L LE) Neurologic/Psychiatric: alert, normal mood/affect, oriented x 3 Skin: no rash Lymphatic: no adenopathy Laboratory Results Last 24 Hours Test 08/31/16 05:39 Sodium Level 140 mmol/L Potassium Level 3.2 mmol/L Chloride Level 96 mmol/L Carbon Dioxide Level 36 mmol/L Anion Gap 8.0 mmol/L Blood Urea Nitrogen 13 mg/dl Creatinine 1.30 mg/dl Est Creatinine Clear Calc Drug Dose 80.2 ml/min Estimated GFR () 53.5 Estimated GFR (Non- 46.1 BUN/Creatinine Ratio 10.3 Random Glucose 113 mg/dl Calcium Level 8.7 mg/dl Assessment and Plan A 56-year-old female here with recent treatment for pneumonia who looks clinically to have likely acute diastolic heart failure, but concern for elevated sed rate and possibly nodosum. - Feeling much better, possible switch to Bumex po tomorrow and discharge. - Continue IV Levaquin, blood cultures no growth so far. WBC trending downward. No lymphocyte shifts - Continue IV Bumex 2 mg IV b.i.d. Continue potassium replacement based on daily potassium levels. - 2 D Echo unremarkable - Chest x-ray: 1. Continued radiographic evidence of congestive failure/fluid overload 2. Posterior basilar opacities in the lateral view, likely secondary to accommodation of pleural fluid and atelectatic change - Echocardiogram will be obtained and old records will be obtained from [place]. Currently pending echocardiogram results. - Continue Ventolin and supplement oxygen. Hypokalemia - Potassium of 3.2, we will replete as well as continue with KCl 40 meq BID. Lower leg pain, - negative Doppler ultrasound of lower extremities. - DVT prevention with Lovenox. Chronic pain syndrome, Cymbalta, Neurontin, Lamictal p.r.n, Atarax, Cont with hydromorphone for pain with p.r.n. oxycodone. Insomnia Continue trazodone for now. . Continued [facility] stay due to: multiple IV medications needed Discharge planning: home
[2016-08-31] MEDS: LEVOFLOXACIN / D5W 750 MG in PREMIXED IN D5W 150 ML IV SCH (19:00)
[2016-08-31] MEDS ORDERED: NURSING VERBAL MED ORDER ONE (20:15)
[2016-08-31] MEDS: MICONAZOLE NITRATE POWDER 43 GM EXT PRN (21:45)
[2016-08-31] MEDS: TRAZODONE HCL 50 MG TAB PO SCH (21:46)
[2016-08-31] MEDS: NORTRIPTYLINE HCL 25 MG CAP PO SCH (21:47)
[2016-08-31] MEDS: ENOXAPARIN 40 MG/0.4 ML SYR SC SCH (21:48)
[2016-08-31] MEDS: FLUTICASONE PROPIONATE NA SPR 16 GM BTL NAE SCH (21:49)
[2016-09-01] VITALS (14 sets, daily range): BP systolic 109–157; BP diastolic 61–78; PULSE 79–97; TEMP 36.5–37.1; O2SAT 91–98
[2016-09-01 07:00] LABS: HEMATOCRIT 32.5 % (37-47); MEAN CELL VOLUME 83.1 fL (80-100); MEAN CORPUSCULAR HEMOGLOBIN 26.3 pg (25-34); MEAN CORPUSCULAR HGB CONC 31.7 g/dl (32-36); MEAN PLATELET VOLUME 9.3 fL (7.4-10.4); PLATELET COUNT 349 K/uL (130-400); RED BLOOD COUNT 3.91 M/uL (4.2-5.4); WHITE BLOOD COUNT 8.16 K/uL (4.8-10.8)
[2016-09-01] MEDS: ALBUTEROL 0.083% NEBU SOLN 3 ML VIAL INH SCH (07:05)
[2016-09-01 07:30] LABS: CALCIUM 8.7 mg/dl (8.5-10.1); CREATININE 1.3 mg/dl (0.60-1.20); MAGNESIUM 1.7 mg/dl (1.8-2.4); POTASSIUM 3.3 mmol/L (3.5-5.1)
[2016-09-01] MEDS: OXYCODONE HCL IR 5 MG TAB (IMMEDIATE RELEASE) PO PRN (07:40)
[2016-09-01] MEDS: HYDROmorphone INJ 1 MG/ML SYR IV PRN ×2 (07:40→12:06)
[2016-09-01] MEDS: POTASSIUM CHLORIDE 20 MEQ TABCR PO SCH ×2 (07:41→20:14)
[2016-09-01] MEDS: PANTOprazole SOD 40 MG TAB PO SCH (07:42)
[2016-09-01] MEDS: DULOXETINE (CYMBALTA) 30 MG CAP PO SCH (07:42)
[2016-09-01] MEDS: BUMETANIDE IV 2 MG in SYRINGE 0 ML IV SCH ×2 (07:42→16:31)
[2016-09-01] MEDS: DULOXETINE HCL 60 MG CAP PO SCH (07:42)
[2016-09-01] MEDS: GABAPENTIN 400 MG CAP PO SCH ×3 (07:42→20:16)
[2016-09-01] MEDS: BuPROPion SR 100 MG TABCR PO SCH (07:43)
[2016-09-01] MEDS: ASPIRIN 81 MG ECTAB PO SCH (07:43)
[2016-09-01] MEDS ORDERED: MAGNESIUM SULFATE 1GM / D5W 1 GM in PREMIXED IN D5W 100 ML IV ONE (08:15)
[2016-09-01] MEDS: MAGNESIUM OXIDE 400 MG TAB PO SCH ×2 (09:50→20:15)
[2016-09-01] MEDS: POTASSIUM CHLR 10 MEQ / WTR 10 MEQ in PREMIXED WATER 100 ML IV SCH ×2 (10:18→11:21)
--- NOTE | 2016-09-01 10:39 | Progress Note ---
Subjective Date of Service: Sep 01, 2016. Subjective Pt evaluation today including: conversation w/ patient, conversation w/ family , chart review, lab review, review of studies, conversation w/ internal consultant, review of inpatient medication list Feeling tired, still difficult breathing with cough and sputum, some wheezing report has probably more fluid retention in the bilateral flank area Does not need oxygen at home, was able to off of bed to chair prior to admission Problem List Medical Problems: (1) Contusion of lower extremity Status: Acute (2) Contusion of multiple sites Status: Acute (3) Fall Status: Acute (4) Fall Status: Acute (5) Hypoxia Status: Acute (6) Lumbar contusion Status: Acute (7) Pulmonary edema Status: Acute Review of Systems Constitutional: + fatigue, + weakness, No chills, No fever, No problem reported , No sweats, No weight loss Eyes: No diplopia, No discharge, No eye pain, No redness, No worsening of vision ENT: No dental problems, No hearing loss, No nasal symptoms, No sore throat, No tinnitus, No trouble swallowing, No unusual epistaxis Respiratory: + cough, + shortness of breath, + wheezing, No dyspnea at rest, No dyspnea on exertion, No hemoptysis, No sputum Cardiac: + edema, No PND, No chest pain, No claudication, No orthopnea, No palpitations Abdomen: No constipation, No diarrhea, No nausea, No pain, No vomiting Musculoskeletal: No calf pain, No joint pain, No muscle pain, No swelling Female : No abnormal vaginal bleeding, No dysuria, No hematuria, No incontinence, No urinary frequency, No vaginal discharge Neurologic: No balance problems, No memory loss, No numbness/tingling, No paralysis, No vertigo, No weakness Psychiatric: No anhedonism, No anxiety, No depression symptoms, No insomnia, No substance abuse Heme: No abnormal bleeding/bruising, No clotting problems, No night sweats, No swollen lymph nodes Endo: No excessive thirst, No excessive urination, No fatigue Skin: No bleeding, No color change, No itch, No new/changing skin lesions, No rash Objective Vital Signs Date Time Temp Pulse Resp B/P Pulse Ox O2 Delivery O2 Flow Rate FiO2 09/01/16 08:40 36.6 82 20 141/78 92 Nasal Cannula 2.0 09/01/16 04:00 CPAP 2.0 09/01/16 03:57 36.5 80 18 124/74 91 CPAP 09/01/16 00:05 37.1 83 18 113/61 93 CPAP 09/01/16 00:00 CPAP 2.0 08/31/16 20:00 96 Nasal Cannula 2.0 08/31/16 19:55 86 20 96 Nasal Cannula 2.0 08/31/16 19:50 36.7 90 24 135/67 94 Nasal Cannula 3.0 08/31/16 16:00 94 Nasal Cannula 08/31/16 15:40 78 20 92 Nasal Cannula 2.0 08/31/16 15:29 36.7 90 20 135/67 94 Nasal Cannula 3.0 08/31/16 12:00 Nasal Cannula 2.0 08/31/16 11:56 83 20 97 Nasal Cannula 2.0 08/31/16 11:19 36.9 82 20 116/78 96 2.5 Physical Exam General Appearance: WD/WN, no apparent distress, + obese Eyes: normal inspection, PERRL, EOMI, sclerae normal ENT: normal ENT inspection, hearing grossly normal, pharynx normal Neck: supple, no adenopathy, thyroid normal, no JVD, no carotid bruits, trachea midline Respiratory/Chest: chest non-tender, lungs clear, normal breath sounds, no respiratory distress, no accessory muscle use, + decreased breath sounds Cardiovascular: regular rate, rhythm, no gallop, no JVD, no murmur, + pertinent finding (edema) Abdomen: normal bowel sounds, non tender, soft, no organomegaly, no pulsatile mass Extremities: normal range of motion, non-tender, normal inspection, no pedal edema, no calf tenderness, normal capillary refill, pelvis stable 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, no motor/sensory deficits, alert, normal mood/affect, oriented x 3 Skin: normal color, warm/dry, no rash Lymphatic: no adenopathy Laboratory Results Last 24 Hours Test 09/01/16 06:48 White Blood Count 8.16 K/uL Red Blood Count 3.91 M/uL Hemoglobin 10.3 g/dL Hematocrit 32.5 % Mean Corpuscular Volume 83.1 fL Mean Corpuscular Hemoglobin 26.3 pg Mean Corpuscular Hemoglobin Concent 31.7 g/dl RDW Standard Deviation 52.7 fL RDW Coefficient of Variation 17.5 % Platelet Count 349 K/uL Mean Platelet Volume 9.3 fL Sodium Level 137 mmol/L Potassium Level 3.3 mmol/L Chloride Level 97 mmol/L Carbon Dioxide Level 33 mmol/L Anion Gap 7.0 mmol/L Blood Urea Nitrogen 12 mg/dl Creatinine 1.30 mg/dl Est Creatinine Clear Calc Drug Dose 79.4 ml/min Estimated GFR () 53.5 Estimated GFR (Non- 46.1 BUN/Creatinine Ratio 9.0 Random Glucose 108 mg/dl Calcium Level 8.7 mg/dl Magnesium Level 1.7 mg/dl Assessment and Plan A 56-year-old female admitted on 08/29/2016 with recent treatment for pneumonia who looks clinically to have likely acute diastolic heart failure, but concern for elevated sed rate and possibly nodosum. Possible CHF exacerbation diastolic, and fluid overload has been around 4 L negative input and output and consistent with 4 kg weight lost since admission Possible pneumonia prior to admission Continue IV Levaquin, blood cultures no growth so far. WBC trending downward. No lymphocyte shifts Changed duo neb to scheduled plus as needed Continue IV Bumex 2 mg IV b.i.d. Continue potassium replacement based on daily potassium levels. - 2 D Echo unremarkable, normal LVEF, therefore patient possible has diastolic dysfunction, need to have fluid restriction, and continue diuretic - Chest x-ray: 1. Continued radiographic evidence of congestive failure/fluid overload 2. Posterior basilar opacities in the lateral view, likely secondary to accommodation of pleural fluid and atelectatic change - Echocardiogram will be obtained and old records will be obtained from [facility]. Currently pending echocardiogram results. - Continue Ventolin and supplement oxygen. Hypokalemia Lower leg pain, - negative Doppler ultrasound of lower extremities. - DVT prevention with Lovenox. Chronic pain syndrome, Cymbalta, Neurontin, Lamictal p.r.n, Atarax, Cont with hydromorphone for pain with p.r.n. oxycodone. Discuss with patient to use as less as possible of IV Dilaudid patient agreed Insomnia Continue trazodone for now. 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
[2016-09-01] MEDS: ALBUT/IPRATROP 3MG/0.5MG NEB 3 ML VIAL INH SCH ×3 (11:14→19:32)
[2016-09-01] MEDS: LEVOFLOXACIN 750 MG TAB PO SCH (16:30)
[2016-09-01] MEDS: HYDROmorphone INJ 0.5 MG/0.5 ML SYR IV PRN ×2 (16:31→20:30)
[2016-09-01] MEDS: FLUTICASONE PROPIONATE NA SPR 16 GM BTL NAE SCH (20:13)
[2016-09-01] MEDS: TRAZODONE HCL 50 MG TAB PO SCH (20:14)
[2016-09-01] MEDS: ENOXAPARIN 40 MG/0.4 ML SYR SC SCH (20:16)
[2016-09-01] MEDS: NORTRIPTYLINE HCL 25 MG CAP PO SCH (20:16)
[2016-09-02] VITALS (12 sets, daily range): BP systolic 97–158; BP diastolic 54–84; PULSE 68–87; TEMP 36.5–36.9; O2SAT 91–98
[2016-09-02] MEDS: OXYCODONE HCL IR 5 MG TAB (IMMEDIATE RELEASE) PO PRN ×3 (06:33→23:43)
[2016-09-02 06:43] LABS: BUN/CREATININE RATIO 7.6 (10-20); CREATININE 1.3 mg/dl (0.60-1.20); POTASSIUM 3.5 mmol/L (3.5-5.1)
[2016-09-02] MEDS: ALBUT/IPRATROP 3MG/0.5MG NEB 3 ML VIAL INH SCH ×4 (07:20→19:01)
[2016-09-02] MEDS: HYDROmorphone INJ 1 MG/ML SYR IV PRN ×2 (07:48→13:17)
[2016-09-02] MEDS: BuPROPion SR 100 MG TABCR PO SCH (07:52)
[2016-09-02] MEDS: PANTOprazole SOD 40 MG TAB PO SCH (07:52)
[2016-09-02] MEDS: DULOXETINE HCL 60 MG CAP PO SCH (07:52)
[2016-09-02] MEDS: ASPIRIN 81 MG ECTAB PO SCH (07:52)
[2016-09-02] MEDS: BUMETANIDE IV 2 MG in SYRINGE 0 ML IV SCH (07:52)
[2016-09-02] MEDS: MAGNESIUM OXIDE 400 MG TAB PO SCH ×2 (07:52→20:34)
[2016-09-02] MEDS: DULOXETINE (CYMBALTA) 30 MG CAP PO SCH (07:53)
[2016-09-02] MEDS: GABAPENTIN 400 MG CAP PO SCH ×3 (07:54→20:34)
[2016-09-02] MEDS: POTASSIUM CHLORIDE 20 MEQ TABCR PO SCH ×2 (07:54→20:35)
[2016-09-02] MEDS: LEVOFLOXACIN 750 MG TAB PO SCH (10:24)
--- NOTE | 2016-09-02 11:25 | Progress Note ---
Subjective Date of Service: Sep 02, 2016. Subjective Pt evaluation today including: conversation w/ patient, conversation w/ family , physical exam, chart review, lab review, review of studies, conversation w/ healthcare risk control consultant, review of inpatient medication list Feeling okay, still complaining possible fluid retention in bilateral jose area especially in the left flank, difficult breathing is better Problem List Medical Problems: (1) Contusion of lower extremity Status: Acute (2) Contusion of multiple sites Status: Acute (3) Fall Status: Acute (4) Fall Status: Acute (5) Hypoxia Status: Acute (6) Lumbar contusion Status: Acute (7) Pulmonary edema Status: Acute Review of Systems Constitutional: + fatigue, No chills, No fever, No problem reported, No sweats , No weakness, No weight loss Eyes: No diplopia, No discharge, No eye pain, No redness, No worsening of vision ENT: No dental problems, No hearing loss, No nasal symptoms, No sore throat, No tinnitus, No trouble swallowing, No unusual epistaxis Respiratory: + shortness of breath, No cough, No dyspnea at rest, No dyspnea on exertion, No hemoptysis, No sputum, No wheezing Cardiac: + edema, No PND, No chest pain, No claudication, No orthopnea, No palpitations Abdomen: No constipation, No diarrhea, No nausea, No pain, No vomiting Musculoskeletal: No calf pain, No joint pain, No muscle pain, No swelling Female : No abnormal vaginal bleeding, No dysuria, No hematuria, No incontinence, No urinary frequency, No vaginal discharge Neurologic: No balance problems, No memory loss, No numbness/tingling, No paralysis, No vertigo, No weakness Psychiatric: No anhedonism, No anxiety, No depression symptoms, No insomnia, No substance abuse Heme: No abnormal bleeding/bruising, No clotting problems, No night sweats, No swollen lymph nodes Endo: No excessive thirst, No excessive urination, No fatigue Skin: No bleeding, No color change, No itch, No new/changing skin lesions, No rash Objective Vital Signs Date Time Temp Pulse Resp B/P Pulse Ox O2 Delivery O2 Flow Rate FiO2 09/02/16 07:43 36.9 85 20 146/71 93 Room Air 09/02/16 07:20 87 14 98 BiPAP/CPAP 2.0 09/02/16 04:02 36.8 87 22 158/63 94 CPAP 09/02/16 04:00 CPAP 2.0 09/02/16 00:00 CPAP 2.0 09/01/16 23:54 84 24 93 CPAP 09/01/16 20:06 36.9 79 22 109/67 95 Nasal Cannula 2.0 09/01/16 20:00 96 Room Air 09/01/16 19:32 85 20 98 Nasal Cannula 2.0 09/01/16 16:57 37.0 84 22 157/61 91 Nasal Cannula 2.0 09/01/16 16:00 95 Nasal Cannula 2.0 09/01/16 15:36 80 97 09/01/16 15:06 86 20 98 Nasal Cannula 2.0 09/01/16 12:00 Nasal Cannula 2.0 Physical Exam General Appearance: WD/WN, no apparent distress, + obese Eyes: normal inspection, PERRL, EOMI, sclerae normal ENT: normal ENT inspection, hearing grossly normal, pharynx normal Neck: supple, no adenopathy, thyroid normal, no JVD, no carotid bruits, trachea midline Respiratory/Chest: chest non-tender, normal breath sounds, no respiratory distress, no accessory muscle use, + decreased breath sounds, + wheezing ( occasional) Cardiovascular: regular rate, rhythm, no gallop, no JVD, no murmur, + pertinent finding (1+) Abdomen: normal bowel sounds, non tender, soft, no organomegaly, no pulsatile mass Extremities: normal range of motion, non-tender, normal inspection, no pedal edema, no calf tenderness, normal capillary refill, pelvis stable 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, no motor/sensory deficits, alert, normal mood/affect, oriented x 3 Skin: normal color, warm/dry, no rash Lymphatic: no adenopathy Laboratory Results Last 24 Hours Test 09/02/16 05:55 Sodium Level 139 mmol/L Potassium Level 3.5 mmol/L Chloride Level 98 mmol/L Carbon Dioxide Level 33 mmol/L Anion Gap 8.0 mmol/L Blood Urea Nitrogen 10 mg/dl Creatinine 1.30 mg/dl Est Creatinine Clear Calc Drug Dose 80.2 ml/min Estimated GFR () 53.5 Estimated GFR (Non- 46.1 BUN/Creatinine Ratio 7.6 Random Glucose 116 mg/dl Calcium Level 9.0 mg/dl Assessment and Plan A 56-year-old female admitted on 08/29/2016 with recent treatment for pneumonia who looks clinically to have likely acute diastolic heart failure, but concern for elevated sed rate and possibly nodosum. Possible CHF exacerbation diastolic, and fluid overload , continue to be stable has been more than 4 L negative input and output Possible pneumonia prior to admission, repeated chest x-ray not really has infiltration Has been on IV Levaquin, blood cultures no growth so far. WBC trending downward. No lymphocyte shifts, Will change Levaquin to oral for total 7 days Changed duo neb to scheduled plus as needed Has been on IV Bumex 2 mg IV b.i.d. kidney function tolerated well Planning to discharge home or discharge plan, has switch Bumex 4 mg by mouth twice a day, follow-up renal function Has talked about fluid restriction, for 1.5 L daily, heart healthy diet, will discontinue Blount catheter today, - 2 D Echo unremarkable, normal LVEF, therefore patient possible has diastolic dysfunction, need to have fluid restriction, and continue diuretic - Chest x-ray: 1. Continued radiographic evidence of congestive failure/fluid overload 2. Posterior basilar opacities in the lateral view, likely secondary to accommodation of pleural fluid and atelectatic change Hypokalemia Lower leg pain, - negative Doppler ultrasound of lower extremities. - DVT prevention with Lovenox. Chronic pain syndrome, Cymbalta, Neurontin, Lamictal p.r.n, Atarax, Cont with hydromorphone for pain with p.r.n. oxycodone. Discuss with patient to use as less as possible of IV Dilaudid patient agreed Insomnia Continue trazodone for now. 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
[2016-09-02 14:35] LABS: LUPUS ANTICOAGULANT** TC36573X Positive (Negative); MYELOPEROXIDASE AB <1.0 AI (<1.0)
[2016-09-02] MEDS: BUMETANIDE 1 MG TAB PO SCH (16:34)
[2016-09-02] MEDS: FLUTICASONE PROPIONATE NA SPR 16 GM BTL NAE SCH (21:51)
[2016-09-02] MEDS: ENOXAPARIN 40 MG/0.4 ML SYR SC SCH (21:52)
[2016-09-02] MEDS: TRAZODONE HCL 50 MG TAB PO SCH (21:52)
[2016-09-02] MEDS: NORTRIPTYLINE HCL 25 MG CAP PO SCH (21:52)
[2016-09-03] VITALS (7 sets, daily range): BP systolic 130–142; BP diastolic 59–74; PULSE 76–100; TEMP 36.5–36.8; O2SAT 90–98
[2016-09-03 00:31] LABS: COD UR NEGATIVE NG/ML (CUTOFF=50); HYDROCOD UR NEGATIVE NG/ML (CUTOFF=50); HYDROMOR UR NEGATIVE NG/ML (CUTOFF=50); MORPHINE UR NEGATIVE NG/ML (CUTOFF=50); NORHYDROCODONE CONF UR NEGATIVE NG/ML (CUTOFF=50); OXYMORPH UR NEGATIVE NG/ML (CUTOFF=50)
[2016-09-03] MEDS: ALBUT/IPRATROP 3MG/0.5MG NEB 3 ML VIAL INH SCH ×4 (07:14→19:09)
[2016-09-03 07:34] LABS: HEMATOCRIT 33.3 % (37-47); MEAN CELL VOLUME 83.9 fL (80-100); MEAN CORPUSCULAR HGB CONC 32.1 g/dl (32-36); MEAN PLATELET VOLUME 9.2 fL (7.4-10.4); PLATELET COUNT 378 K/uL (130-400); RED BLOOD COUNT 3.97 M/uL (4.2-5.4); WHITE BLOOD COUNT 6.31 K/uL (4.8-10.8)
[2016-09-03 07:53] LABS: BLOOD UREA NITROGEN 9 mg/dl (7-18); BUN/CREATININE RATIO 6.9 (10-20); CARBON DIOXIDE 32 mmol/L (21-32); CHLORIDE 100 mmol/L (98-107); GLUCOSE 103 mg/dl (70-99); SODIUM 139 mmol/L (136-145)
[2016-09-03] MEDS: ASPIRIN 81 MG ECTAB PO SCH (08:25)
[2016-09-03] MEDS: BuPROPion SR 100 MG TABCR PO SCH (08:25)
[2016-09-03] MEDS: GABAPENTIN 400 MG CAP PO SCH ×3 (08:25→20:22)
[2016-09-03] MEDS: BUMETANIDE 1 MG TAB PO SCH ×2 (08:25→16:33)
[2016-09-03] MEDS: DULOXETINE (CYMBALTA) 30 MG CAP PO SCH (08:25)
[2016-09-03] MEDS: PANTOprazole SOD 40 MG TAB PO SCH (08:25)
[2016-09-03] MEDS: DULOXETINE HCL 60 MG CAP PO SCH (08:25)
[2016-09-03] MEDS: MAGNESIUM OXIDE 400 MG TAB PO SCH ×2 (08:25→20:20)
[2016-09-03] MEDS: POTASSIUM CHLORIDE 20 MEQ TABCR PO SCH ×2 (08:26→20:21)
[2016-09-03] MEDS ORDERED: POTASSIUM CHLORIDE 20 MEQ TABCR PO ONE (10:15)
--- NOTE | 2016-09-03 10:23 | Hospitalist Progress Note ---
Hospitalist Progress Note Date of Service Sep 03, 2016. Subjective Pt evaluation today including: conversation w/ patient, physical exam, chart review, lab review, review of studies, review of inpatient medication list Voiding: no voiding problems, no incontinence Patient states she is feeling well. Patient denies any fever, chills, sweats, lightheadedness, dizziness, vision changes, CP, palpitations, edema, SOB, wheezing, cough, abdominal pain, nausea, vomiting, diarrhea, urinary symptoms, melena, numbness/tingling, weakness, muscle/joint pain, anxiety/depression, active bleeding, or new skin discoloration/changes. Medications Current Inpatient Medications Medications (Trade) Dose Ordered Sig/Lilly Route Start Time Stop Time Status Last Admin Dose Admin Aspirin (Ecotrin Tab) 81 mg DAILY PO 08/30/16 09:00 09/29/16 08:59 09/03/16 08:25 81 MG Bupropion HCl (Wellbutrin-Sr Tab) 400 mg DAILY PO 08/30/16 09:00 09/29/16 08:59 09/03/16 08:25 400 MG Duloxetine HCl (Cymbalta Cap) 30 mg DAILY PO 08/30/16 09:00 09/29/16 08:59 09/03/16 08:25 30 MG Duloxetine HCl (Cymbalta Cap) 60 mg DAILY PO 08/30/16 09:00 09/29/16 08:59 09/03/16 08:25 60 MG Fluticasone Propionate (Flonase Nasal [place]) 2 sprays HS EDITH 08/29/16 21:00 09/28/16 20:59 09/02/16 21:51 2 SPRAYS Gabapentin (Neurontin Cap) 400 mg TID PO 08/29/16 21:00 09/28/16 20:59 09/03/16 08:25 400 MG Hydroxyzine HCl (Vistaril Tab) 50 mg TID PRN PO 08/29/16 16:15 09/28/16 16:14 08/30/16 21:55 50 MG Lamotrigine (Lamictal Tab) 100 mg DAILY PO 08/30/16 09:00 09/29/16 08:59 09/03/16 08:25 100 MG Nortriptyline HCl (Pamelor Cap) 50 mg HS PO 08/29/16 21:00 09/28/16 20:59 09/02/16 21:52 50 MG Pantoprazole Sodium (Protonix Tab) 40 mg DAILY PO 08/30/16 09:00 09/29/16 08:59 09/03/16 08:25 40 MG Trazodone HCl (Desyrel Tab) 50 mg HS PO 08/29/16 21:00 09/28/16 20:59 09/02/16 21:52 50 MG Miscellaneous Information (Order Awaiting Action) 1 ea QS N/A 08/30/16 00:00 09/29/16 00:00 Hydromorphone HCl (Dilaudid Inj) 0.5 mg Q4 PRN IV 08/29/16 16:45 09/12/16 16:44 09/01/16 20:30 0.5 MG Hydromorphone HCl (Dilaudid Inj) 1 mg Q4 PRN IV 08/29/16 16:45 09/12/16 16:44 09/02/16 13:17 1 MG Polyethylene (Miralax Powder Packet) 17 gm DAILY PRN PO 08/29/16 17:00 09/28/16 16:59 Ondansetron HCl (Zofran Inj) 4 mg Q6H PRN IV 08/29/16 16:45 09/28/16 16:44 Enoxaparin Sodium (Lovenox Inj) 40 mg HS SC 08/29/16 21:00 09/28/16 20:59 09/02/16 21:52 40 MG Potassium Chloride (Klor-Con Tab) 40 meq BID PO 08/30/16 09:00 09/29/16 08:59 09/03/16 08:26 40 MEQ Oxycodone HCl (Roxicodone Immediate Rel Tab) 10 mg Q6 PRN PO 08/29/16 17:00 09/12/16 16:59 09/02/16 23:43 10 MG Miscellaneous (Iv Fluids Completed) 1 ea PRN PRN N/A 08/29/16 22:45 08/29/17 22:44 Miconazole Nitrate (Desenex Powder) 1 appln PRN PRN EXT 08/31/16 21:00 09/30/16 20:59 08/31/16 21:45 1 APPLN Magnesium Oxide (Mag-Ox Tab) 400 mg BID PO 09/01/16 09:00 10/01/16 08:59 09/03/16 08:25 400 MG Albuterol/ Ipratropium (Duoneb) 3 ml QIDR INH 09/01/16 12:00 10/01/16 11:59 09/03/16 11:39 3 ML Bumetanide (Bumex Tab) 4 mg BID17 PO 09/02/16 17:00 10/02/16 16:59 09/03/16 08:25 4 MG Levofloxacin (Levaquin Tab) 750 mg DAILY@11 PO 09/03/16 11:00 09/10/16 10:59 09/03/16 11:05 750 MG Objective Vital Signs Date Time Temp Pulse Resp B/P Pulse Ox O2 Delivery O2 Flow Rate FiO2 09/03/16 08:00 Room Air 09/03/16 07:14 81 14 92 BiPAP/CPAP 21 09/03/16 07:02 36.5 76 18 142/74 98 Room Air 09/03/16 00:00 92 Room Air CPAP 09/02/16 23:54 36.7 72 18 110/68 97 Room Air 09/02/16 20:00 92 Room Air CPAP 09/02/16 19:01 85 14 92 Room Air 09/02/16 16:00 Nasal Cannula 2.0 09/02/16 15:12 36.7 80 20 117/54 91 Room Air 09/02/16 15:03 68 14 95 Nasal Cannula 2.0 09/02/16 13:15 Nasal Cannula 2.0 09/02/16 13:13 36.8 80 20 97/60 94 Nasal Cannula 2.0 09/02/16 12:51 36.5 68 14 95 2.0 09/02/16 12:00 Room Air 09/02/16 11:18 68 14 95 Nasal Cannula 2.0 09/02/16 10:28 36.5 85 20 125/84 91 Nasal Cannula 2.0 Physical Exam General Appearance: no apparent distress, + obese Eyes: normal inspection, PERRL ENT: hearing grossly normal Neck: supple Respiratory/Chest: lungs clear, no respiratory distress, no accessory muscle use, + decreased breath sounds Cardiovascular: regular rate, rhythm Abdomen: normal bowel sounds, non tender, soft Extremities: no pedal edema, no calf tenderness Neurologic/Psychiatric: alert, normal mood/affect, oriented x 3, + pertinent finding (+tremor ) Skin: normal color, warm/dry, no rash Laboratory Results Last 24 Hours Test 09/03/16 07:10 09/03/16 07:15 09/03/16 08:50 Sodium Level 139 mmol/L Potassium Level mmol/L 3.0 mmol/L Chloride Level 100 mmol/L Carbon Dioxide Level 32 mmol/L Anion Gap 7.0 mmol/L Blood Urea Nitrogen 9 mg/dl Creatinine 1.30 mg/dl Est Creatinine Clear Calc Drug Dose 80.2 ml/min Estimated GFR () 53.5 Estimated GFR (Non- 46.1 BUN/Creatinine Ratio 6.9 Random Glucose 103 mg/dl Calcium Level 8.3 mg/dl Magnesium Level mg/dl 2.0 mg/dl White Blood Count 6.31 K/uL Red Blood Count 3.97 M/uL Hemoglobin 10.7 g/dL Hematocrit 33.3 % Mean Corpuscular Volume 83.9 fL Mean Corpuscular Hemoglobin 27.0 pg Mean Corpuscular Hemoglobin Concent 32.1 g/dl RDW Standard Deviation 53.9 fL RDW Coefficient of Variation 17.6 % Platelet Count 378 K/uL Mean Platelet Volume 9.2 fL Assessment and Plan 56-year-old female here with recent treatment for pneumonia who looks clinically to have likely acute diastolic heart failure, but concern for elevated sed rate and possibly nodosum: Persistent PNA: - Continue Levaquin 750 mg PO daily (treatment started on 08/29)- completed course on 09/04 - BCx NGTD - Speech therapy consulted- recommending andreafski swallow/video swallow on 09/04- NPO after midnight- aspiration precautions ?Acute diastolic CHF: - Bumex 4 mg PO BID - Monitor I&Os- continues to have good UO - ECHO on 09/01- There is mild concentric left ventricular hypertrophy. Left ventricular systolic function is normal. The left atrium is moderately dilated. - DuoNeb QID - O2 protocol, wean as tolerated Hypokalemia: - KCl 40 mEq BID - Extra KCl 40 mEq on 09/03 due to K of 3.0 - Follow PRP, replete PRN CKD, stage III- stable: Follow PRP Lower leg pain: Negative Doppler ultrasound of lower extremities Chronic pain syndrome: - Cymbalta, Neurontin, Lamictal PRN, Atarax, - Continue with Hydromorphone for pain with PRN Oxycodone Insomnia: Continue Trazodone DVT prophylaxis: Lovenox 40 mg SQ q24 hrs, SHERIN and SCDs Dispo: - PT/OT recommending acute rehab- pt refusing - Discharge uncertain at this time
[2016-09-03] MEDS: LEVOFLOXACIN 750 MG TAB PO SCH (11:05)
[2016-09-03] MEDS: OXYCODONE HCL IR 5 MG TAB (IMMEDIATE RELEASE) PO PRN ×2 (13:32→20:27)
[2016-09-03] MEDS: HYDROmorphone INJ 1 MG/ML SYR IV PRN (16:37)
[2016-09-03] MEDS: NORTRIPTYLINE HCL 25 MG CAP PO SCH (20:20)
[2016-09-03] MEDS: TRAZODONE HCL 50 MG TAB PO SCH (20:21)
[2016-09-03] MEDS: ENOXAPARIN 40 MG/0.4 ML SYR SC SCH (20:22)
[2016-09-03] MEDS: FLUTICASONE PROPIONATE NA SPR 16 GM BTL NAE SCH (20:22)
[2016-09-03] MEDS: HYDROmorphone INJ 0.5 MG/0.5 ML SYR IV PRN (22:32)
[2016-09-04 07:58] VITALS: PULSE 77; O2SAT 92
[2016-09-04] MEDS: ALBUT/IPRATROP 3MG/0.5MG NEB 3 ML VIAL INH SCH ×4 (08:00→19:11)
[2016-09-04 08:09] VITALS: BP 156/82; PULSE 84; TEMP 36.4; O2SAT 92
[2016-09-04] MEDS: PANTOprazole SOD 40 MG TAB PO SCH (08:29)
[2016-09-04] MEDS: GABAPENTIN 400 MG CAP PO SCH ×3 (08:29→20:35)
[2016-09-04] MEDS: BuPROPion SR 100 MG TABCR PO SCH (08:29)
[2016-09-04] MEDS: MAGNESIUM OXIDE 400 MG TAB PO SCH ×2 (08:29→20:36)
[2016-09-04] MEDS: ASPIRIN 81 MG ECTAB PO SCH (08:29)
[2016-09-04] MEDS: DULOXETINE HCL 60 MG CAP PO SCH (08:29)
[2016-09-04] MEDS: DULOXETINE (CYMBALTA) 30 MG CAP PO SCH (08:30)
[2016-09-04] MEDS: POTASSIUM CHLORIDE 20 MEQ TABCR PO SCH ×3 (08:30→20:36)
[2016-09-04] MEDS: BUMETANIDE 1 MG TAB PO SCH ×2 (08:31→16:35)
--- NOTE | 2016-09-04 08:31 | Hospitalist Progress Note ---
Hospitalist Progress Note Date of Service Sep 04, 2016. Subjective Pt evaluation today including: conversation w/ patient, physical exam, chart review, lab review Voiding: no voiding problems, no incontinence Patient states she is feeling well. Receiving nebulizer treatment. Currently NPO pending swallow studies this afternoon. +SOB. Patient denies any fever, chills, sweats, lightheadedness, dizziness, vision changes, CP, palpitations, edema, wheezing, cough, abdominal pain, nausea, vomiting, diarrhea, urinary symptoms, melena, numbness/tingling, weakness, muscle/joint pain, anxiety/ depression, active bleeding, or new skin discoloration/changes. Medications Current Inpatient Medications Medications (Trade) Dose Ordered Sig/Lilly Route Start Time Stop Time Status Last Admin Dose Admin Aspirin (Ecotrin Tab) 81 mg DAILY PO 08/30/16 09:00 09/29/16 08:59 09/03/16 08:25 81 MG Bupropion HCl (Wellbutrin-Sr Tab) 400 mg DAILY PO 08/30/16 09:00 09/29/16 08:59 09/03/16 08:25 400 MG Duloxetine HCl (Cymbalta Cap) 30 mg DAILY PO 08/30/16 09:00 09/29/16 08:59 09/03/16 08:25 30 MG Duloxetine HCl (Cymbalta Cap) 60 mg DAILY PO 08/30/16 09:00 09/29/16 08:59 09/03/16 08:25 60 MG Fluticasone Propionate (Flonase Nasal [place]) 2 sprays HS EDITH 08/29/16 21:00 09/28/16 20:59 09/03/16 20:22 2 SPRAYS Gabapentin (Neurontin Cap) 400 mg TID PO 08/29/16 21:00 09/28/16 20:59 09/03/16 20:22 400 MG Hydroxyzine HCl (Vistaril Tab) 50 mg TID PRN PO 08/29/16 16:15 09/28/16 16:14 08/30/16 21:55 50 MG Lamotrigine (Lamictal Tab) 100 mg DAILY PO 08/30/16 09:00 09/29/16 08:59 09/03/16 08:25 100 MG Nortriptyline HCl (Pamelor Cap) 50 mg HS PO 08/29/16 21:00 09/28/16 20:59 09/03/16 20:20 50 MG Pantoprazole Sodium (Protonix Tab) 40 mg DAILY PO 08/30/16 09:00 09/29/16 08:59 09/03/16 08:25 40 MG Trazodone HCl (Desyrel Tab) 50 mg HS PO 08/29/16 21:00 09/28/16 20:59 09/03/16 20:21 50 MG Miscellaneous Information (Order Awaiting Action) 1 ea QS N/A 08/30/16 00:00 09/29/16 00:00 Hydromorphone HCl (Dilaudid Inj) 0.5 mg Q4 PRN IV 08/29/16 16:45 09/12/16 16:44 09/03/16 22:32 0.5 MG Hydromorphone HCl (Dilaudid Inj) 1 mg Q4 PRN IV 08/29/16 16:45 09/12/16 16:44 09/03/16 16:37 1 MG Polyethylene (Miralax Powder Packet) 17 gm DAILY PRN PO 08/29/16 17:00 09/28/16 16:59 Ondansetron HCl (Zofran Inj) 4 mg Q6H PRN IV 08/29/16 16:45 09/28/16 16:44 Enoxaparin Sodium (Lovenox Inj) 40 mg HS SC 08/29/16 21:00 09/28/16 20:59 09/03/16 20:22 40 MG Potassium Chloride (Klor-Con Tab) 40 meq BID PO 08/30/16 09:00 09/29/16 08:59 09/03/16 20:21 40 MEQ Oxycodone HCl (Roxicodone Immediate Rel Tab) 10 mg Q6 PRN PO 08/29/16 17:00 09/12/16 16:59 09/03/16 20:27 10 MG Miscellaneous (Iv Fluids Completed) 1 ea PRN PRN N/A 08/29/16 22:45 08/29/17 22:44 Miconazole Nitrate (Desenex Powder) 1 appln PRN PRN EXT 08/31/16 21:00 09/30/16 20:59 08/31/16 21:45 1 APPLN Magnesium Oxide (Mag-Ox Tab) 400 mg BID PO 09/01/16 09:00 10/01/16 08:59 09/03/16 20:20 400 MG Albuterol/ Ipratropium (Duoneb) 3 ml QIDR INH 09/01/16 12:00 10/01/16 11:59 09/03/16 19:09 3 ML Bumetanide (Bumex Tab) 4 mg BID17 PO 09/02/16 17:00 10/02/16 16:59 09/03/16 16:33 4 MG Levofloxacin (Levaquin Tab) 750 mg DAILY@11 PO 09/03/16 11:00 09/10/16 10:59 09/03/16 11:05 750 MG Objective Vital Signs Date Time Temp Pulse Resp B/P Pulse Ox O2 Delivery O2 Flow Rate FiO2 09/04/16 08:09 36.4 84 20 156/82 92 Room Air 09/04/16 00:00 Room Air 09/03/16 20:00 Room Air 09/03/16 19:09 84 14 92 Room Air 09/03/16 16:00 Room Air 09/03/16 15:57 90 14 92 Room Air 09/03/16 15:17 36.8 85 20 130/59 90 Room Air 09/03/16 11:40 100 14 92 Room Air 21 Physical Exam General Appearance: no apparent distress, + obese Eyes: normal inspection, PERRL ENT: hearing grossly normal Neck: supple Respiratory/Chest: no respiratory distress, no accessory muscle use, + decreased breath sounds (throughout all lung pool ) Cardiovascular: regular rate, rhythm Abdomen: normal bowel sounds, non tender, soft Extremities: no calf tenderness, + swelling (+1 pitting edema of bilateral lower extremity (thigh to distal extremityl)), + pertinent finding (erythema noted to left anterior covarrubias ) Neurologic/Psychiatric: alert, normal mood/affect, oriented x 3 Skin: normal color, warm/dry, no rash Laboratory Results Last 24 Hours Test 09/03/16 08:50 09/04/16 07:51 Potassium Level 3.0 mmol/L Magnesium Level 2.0 mg/dl Assessment and Plan 56-year-old female here with recent treatment for pneumonia who looks clinically to have likely acute diastolic heart failure, but concern for elevated sed rate and possibly nodosum: Persistent PNA: - Continue Levaquin 750 mg PO daily (treatment started on 08/29)- completed on for 10 days course - BCx NG - Speech therapy consulted- recommending [place] swallow/video swallow on 09/04 ?Acute diastolic CHF: - Bumex 4 mg PO BID - Monitor I&Os- continues to have good UO w/ negative fluid balance - ECHO on 09/01- There is mild concentric left ventricular hypertrophy. Left ventricular systolic function is normal. The left atrium is moderately dilated. - DuoNeb QID - O2 protocol, wean as tolerated Hypokalemia- improving: - KCl 40 mEq BID increased to TID - Follow PRP, replete PRN CKD stage III- STABLE: - Bump in cr. from 1.3 on 09/03 to 1.5 on 09/04, likely secondary to Bumex treatment- continues to have good UO, will reassess kidney function tomorrow; if worsening, will decrease Bumex dosage - Follow PRP Lower leg pain: Negative Doppler ultrasound of lower extremities Chronic pain syndrome: - Cymbalta, Neurontin, Lamictal PRN, Atarax - Continue PRN Oxycodone - Will hold IV Dilaudid to prepare for discharge Insomnia: Continue Trazodone DVT prophylaxis: Lovenox 40 mg SQ q24 hrs, SHERIN and SCDs Dispo: - PT/OT recommending acute rehab- pt refusing - Discharge to home once medically stable, hopefully within the next 1-2 days
[2016-09-04] MEDS: OXYCODONE HCL IR 5 MG TAB (IMMEDIATE RELEASE) PO PRN ×2 (08:39→14:37)
[2016-09-04] MEDS: LEVOFLOXACIN 750 MG TAB PO SCH (08:41)
[2016-09-04 08:46] LABS: BLOOD UREA NITROGEN 9 mg/dl (7-18); BUN/CREATININE RATIO 5.9 (10-20); CARBON DIOXIDE 20 mmol/L (21-32); CHLORIDE 107 mmol/L (98-107); GLUCOSE 92 mg/dl (70-99); SODIUM 141 mmol/L (136-145)
[2016-09-04] MEDS ORDERED: POTASSIUM CHLORIDE 20 MEQ TABCR PO ONE (10:00)
[2016-09-04] MEDS ORDERED: NURSING VERBAL MED ORDER ONE (10:30)
[2016-09-04 11:52] VITALS: PULSE 84; O2SAT 92
--- NOTE | 2016-09-04 15:03 | DIAGNOSTIC IMAGING REPORT ---
VIDEO SWALLOW STUDY CLINICAL HISTORY: Aspiration. COMPARISON STUDY: No priors. Fluoroscopy time: 2.4 minutes. FINDINGS: Fluoroscopic guidance was provided to the Department of Speech Pathology in performing a video swallow study. The patient consumed barium-impregnated pudding, cracker with paste, nectar thick liquid, and thin barium while the swallowing mechanism was observed in real-time. There was pharyngeal penetration seen with thin barium. No aspiration was seen with any of the sampled textures. IMPRESSION: 1. There is pharyngeal penetration identified with thin barium. 2. No aspiration was seen with any of the sampled textures. 3. See dedicated Speech Pathology report for detailed findings and recommendations. Dictated: 09/04/2016 2:31 PM Transcribed: 09/04/2016 3:02 PM Philip Electronically signed by: Luiz Welsh M.D. 09/04/2016 3:06 PM Dictated Date/Time: 09/04/2016 2:31 PM
[2016-09-04 15:43] LABS: CALCIUM 8.4 mg/dl (8.5-10.1)
[2016-09-04 16:13] VITALS: BP 135/64; PULSE 83; TEMP 36.6; O2SAT 97
[2016-09-04 19:11] VITALS: PULSE 84; O2SAT 97
[2016-09-04 20:19] LABS: CALCIUM 8.3 mg/dl (8.5-10.1)
[2016-09-04] MEDS: NORTRIPTYLINE HCL 25 MG CAP PO SCH (20:35)
[2016-09-04] MEDS: FLUTICASONE PROPIONATE NA SPR 16 GM BTL NAE SCH (20:36)
[2016-09-04] MEDS: TRAZODONE HCL 50 MG TAB PO SCH (20:36)
[2016-09-04] MEDS: ENOXAPARIN 40 MG/0.4 ML SYR SC SCH (20:36)
[2016-09-04 22:35] VITALS: BP 123/70; PULSE 85; TEMP 36.8; O2SAT 92
[2016-09-05] VITALS (8 sets, daily range): BP systolic 116–127; BP diastolic 59–73; PULSE 81–94; TEMP 36.7–36.9; O2SAT 93–97
[2016-09-05 06:24] LABS: HEMATOCRIT 30.9 % (37-47); MEAN CORPUSCULAR HEMOGLOBIN 26.5 pg (25-34); MEAN CORPUSCULAR HGB CONC 32.4 g/dl (32-36); MEAN PLATELET VOLUME 8.8 fL (7.4-10.4); PLATELET COUNT 393 K/uL (130-400); RED BLOOD COUNT 3.77 M/uL (4.2-5.4)
[2016-09-05 07:13] LABS: BUN/CREATININE RATIO 5.2 (10-20); CALCIUM 8.3 mg/dl (8.5-10.1); CREATININE 1.4 mg/dl (0.60-1.20); MAGNESIUM 2.3 mg/dl (1.8-2.4); POTASSIUM 3.2 mmol/L (3.5-5.1)
[2016-09-05] MEDS: ALBUT/IPRATROP 3MG/0.5MG NEB 3 ML VIAL INH SCH ×4 (07:29→19:22)
[2016-09-05] MEDS: OXYCODONE HCL IR 5 MG TAB (IMMEDIATE RELEASE) PO PRN ×2 (08:12→18:27)
[2016-09-05] MEDS: ASPIRIN 81 MG ECTAB PO SCH (08:12)
[2016-09-05] MEDS: GABAPENTIN 400 MG CAP PO SCH ×3 (08:12→20:38)
[2016-09-05] MEDS: BuPROPion SR 100 MG TABCR PO SCH (08:12)
[2016-09-05] MEDS: DULOXETINE HCL 60 MG CAP PO SCH (08:13)
[2016-09-05] MEDS: LEVOFLOXACIN 750 MG TAB PO SCH (08:13)
[2016-09-05] MEDS: PANTOprazole SOD 40 MG TAB PO SCH (08:13)
[2016-09-05] MEDS: BUMETANIDE 1 MG TAB PO SCH ×2 (08:13→16:49)
[2016-09-05] MEDS: POTASSIUM CHLORIDE 20 MEQ TABCR PO SCH ×3 (08:13→20:38)
[2016-09-05] MEDS: DULOXETINE (CYMBALTA) 30 MG CAP PO SCH (08:14)
[2016-09-05] MEDS: MAGNESIUM OXIDE 400 MG TAB PO SCH ×2 (09:00→20:38)
[2016-09-05] MEDS ORDERED: NURSING VERBAL MED ORDER ONE ×2 (10:00→16:45)
[2016-09-05] MEDS: ONDANSETRON INJ 2 MG/ML 2 ML VIAL IV PRN ×2 (10:13→20:37)
--- NOTE | 2016-09-05 10:32 | Gastrointestinal Consultation ---
Gastrointestinal Consultation Date of Consultation: Sep 05, 2016 Attending Physician: Dr. Santa Consulting Physician: Dr. Antunez/VANDANA Null Reason for Consultation: Dysphagia, abnormal video swallow History of Present Illness Patient is a 56 year old female with a history of asthma and COPD admitted after a recent hospitalization at [facility] in [place], [place] for pneumonia. She apparently left the hospital AMA and was subsequently re-admitted to our facility for persistent pneumonia and newly diagnosed acute diastolic heart failure. She has been recovering in this regard but has been having difficulty with eating. She informs me that she has been having dysphagia for approximately 6 months. She describes her symptoms as "I feel like I am gonna choke when I eat". Symptoms occur only with solids. She denies any difficulty swallowing liquids. She denies any pyrosis or odynophagia. States she has not had any reflux symptoms since she underwent her gastric bypass surgery in the past. Patient further denies any nausea or vomiting, abdominal pain, diarrhea, constipation, melena, hematochezia or fatigue. Patient underwent a speech language evaluation yesterday and was noted to have "mild to moderate" oropharyngeal dysphagia. She was recommended to a moist, dental soft diet with strict aspiration precautions with safe swallow strategies and to remain upright after meals. It was noted that the patient appeared anxious during the study and this was suggested as a possible etiology to the problem. Past Medical/Surgical History Medical Problems: (1) Contusion of lower extremity Status: Acute (2) Contusion of multiple sites Status: Acute (3) Fall Status: Acute (4) Fall Status: Acute (5) Hypoxia Status: Acute (6) Lumbar contusion Status: Acute (7) Pulmonary edema Status: Acute Past Medical History: 1. CKD, stage II-III 2. Morbid obesity 3. Lymphedema 4. GERD 5. Hyperlipidemia 6. COPD 7. Asthma 8. DJD 9. OA 10. Chronic tremor 11. Depression and anxiety 12. UTI 13. Hypertension 14. Hyperlipidemia 15. Vitamin D deficiency 16. Obstructive sleep apnea 17. Migraines 18. Pickwickian syndrome Past Surgical History: 1. Hysterectomy 2. Bypass surgery 3. Tubal ligation 4. Bilateral TKA 5. Bilateral shoulder surgery 6. Complete colonoscopy Family History FHx: aneurysm FHx: dementia Negative for GI malignancy or IBD Social History Smoking Status: Former Smoker Alcohol Use: none Marital Status: Housing Status: lives with family Occupation Status: unemployed Allergies Coded Allergies: Adhesives (Verified Allergy, Intermediate, REDNESS WITH BANDAIDS, 08/29/16) Cephalexin (Verified Allergy, Unknown, ?, 08/29/16) Current Medications Home Meds and Scripts Medications Dose Route/Sig Max Daily Dose Days Date Category Dose Instructions Proair Respiclick (Albuterol Sulfate) 108 Mcg/Act Aer 90 Mcg INH QID 08/29/16 Reported Neurontin (Gabapentin) 400 Mg Cap 400 Mg PO TID 08/29/16 Reported Cyanocobalamin 1,000 Mcg/Ml Inj 1 Dose INJ MONTHLY 08/29/16 Reported Macrodantin (Nitrofurantoin Macrocrystals) 50 Mg Cap 50 Mg PO HS 08/29/16 Reported Proventil 0.083% 2.5MG/3ML (Albuterol Sulf) 2.5 Mg/3 Ml Nebu 2.5 Mg INH QID 07/29/16 Rx Pamelor (Nortriptyline HCl) 50 Mg Cap 50 Mg PO HS 07/29/16 Reported Zaroxolyn (Metolazone) 2.5 Mg Tab 2 Mg PO 3XWK 07/29/16 Reported Cranberry (Cranberry (Vaccinium Macrocarp) 500 Mg Cap 500 Mg PO DAILY 07/29/16 Reported Vitamin D3 (Cholecalciferol) 1,000 Unit Tab 5,000 Units PO DAILY 90 07/29/16 Reported Vitamin C (Ascorbic Acid) 1,000 Mg Tab 1,000 Mg PO DAILY 07/29/16 Reported [place]-3 (Fish Oil) 1 Ea Cap 1 Cap PO DAILY 07/29/16 Reported Aspirin Ec (Aspirin) 81 Mg Tab 81 Mg PO DAILY 07/29/16 Reported Fibercon (Calcium Polycarbophil) Unknown Strength Tab 1 Tab PO DAILY 07/29/16 Reported Percocet 10MG/325MG (Oxycodone/Acetaminophen 10MG/325MG) 1 Tab Tab 1 Tab PO Q6H PRN 07/29/16 Reported Trazodone (Trazodone HCl) 50 Mg Tab 50 Mg PO HS 07/29/16 Reported Lamictal (Lamotrigine) 100 Mg Tab 100 Mg PO DAILY 07/29/16 Reported Atarax (Hydroxyzine Hcl) 50 Mg Tab 50 Mg PO TID 07/29/16 Reported Benadryl Allergy (Diphenhydramine Hcl) 25 Mg Cap 75 Mg PO HS 30 07/29/16 Reported Flonase Allergy Relief (Fluticasone Propionate (Nasal)) 50 Mcg/Act Spr 2 Sprays EDITH HS 07/29/16 Reported Flexeril (Cyclobenzaprine Hcl) 5 Mg Tab 5 Mg PO TID PRN 07/29/16 Reported PRN Dulera 200/5 Mcg (Mometasone Furoate-Formoterol) 1 Aer Aer 2 Puffs INH BID 30 07/29/16 Reported Ativan (Lorazepam) 1 Mg Tab 1 Mg PO BID PRN 07/29/16 Reported Cymbalta (Duloxetine HCl) 30 Mg Cap 30 Mg PO DAILY 30 07/29/16 Reported TAKE WITH 60MG FOR A TOTAL DOSE OF 90MG Cymbalta (Duloxetine Hcl) 60 Mg Cap 60 Mg PO DAILY 07/29/16 Reported TAKE WITH 30MG FOR A TOTAL DOSE OF 90MG Wellbutrin Sr (Bupropion HCl) 200 Mg Ertab 400 Mg PO DAILY 07/29/16 Reported Protonix (Pantoprazole Sodium) 40 Mg Tab 40 Mg PO DAILY 07/29/16 Reported Bumex (Bumetanide) 2 Mg Tab 2 Mg PO QAM 07/29/16 Reported Review of Systems Constitutional: + fatigue, No chills, No fever Eyes: No problem reported ENT: + see HPI Respiratory: + cough, + shortness of breath Cardiac: No chest pain, No palpitations Abdomen: + see HPI Musculoskeletal: + joint pain, + swelling Female : No problem reported Neuro: No problem reported Psych: No problem reported Skin: + problem reported (bilateral lower extremity edema) Physical Exam Date Time Temp Pulse Resp B/P Pulse Ox O2 Delivery O2 Flow Rate FiO2 09/05/16 08:02 36.7 87 20 127/67 93 Room Air 09/05/16 08:00 Room Air 09/05/16 07:29 81 16 93 Room Air 09/05/16 00:00 BiPAP 09/04/16 22:35 36.8 85 20 123/70 92 BiPAP 09/04/16 19:11 84 16 97 Room Air 09/04/16 16:13 36.6 83 20 135/64 97 Room Air 09/04/16 16:00 Room Air 09/04/16 11:52 84 12 92 Room Air General Appearance: WD/WN, no apparent distress Eyes: EOMI ENT: hearing grossly normal Neck: supple Respiratory/Chest: + decreased breath sounds (mid-lung), + crackles (bases) Cardiovascular: regular rate, rhythm, no gallop, no murmur Abdomen: normal bowel sounds, non tender, soft Extremities: + swelling, + pertinent finding (bilateral lower extremity erythema) Neurologic/Psych: alert, normal mood/affect, oriented x 3 Skin: warm/dry Laboratory Results Last 24 Hours Test 09/05/16 06:00 White Blood Count 5.90 K/uL Red Blood Count 3.77 M/uL Hemoglobin 10.0 g/dL Hematocrit 30.9 % Mean Corpuscular Volume 82.0 fL Mean Corpuscular Hemoglobin 26.5 pg Mean Corpuscular Hemoglobin Concent 32.4 g/dl RDW Standard Deviation 53.1 fL RDW Coefficient of Variation 17.8 % Platelet Count 393 K/uL Mean Platelet Volume 8.8 fL Sodium Level 143 mmol/L Potassium Level 3.2 mmol/L Chloride Level 103 mmol/L Carbon Dioxide Level 29 mmol/L Anion Gap 11.0 mmol/L Blood Urea Nitrogen 7 mg/dl Creatinine 1.40 mg/dl Est Creatinine Clear Calc Drug Dose 74.4 ml/min Estimated GFR () 48.9 Estimated GFR (Non- 42.2 BUN/Creatinine Ratio 5.2 Random Glucose 103 mg/dl Calcium Level 8.3 mg/dl Magnesium Level 2.3 mg/dl Impression Patient is a 56 year old female with a history of asthma and COPD admitted with persistent pneumonia and acute diastolic heart failure with ongoing symptoms of dysphagia (~6 months duration) with abnormal video swallow and PCA evaluation consistent with mild to moderate oropharyngeal dysphagia. Plan 1. Recommend strict aspiration precautions. 2. Continue PCA recommendations. 3. Consider MRI brain and or neurology consultation. 4. No role for upper endoscopy in oropharyngeal dysphagia although consider barium swallow study as no aspiration was elicited. 5. Supportive measures per primary team. Thank you for allowing us to participate in the care of this pleasant patient. If you have any questions or concerns, please do not hesitate to contact us. Agree with VANDANA Null as above Abd: Soft, NT, ND, +BS Recommend Neuro consult and MRI brain Consider Barium swallow + or - a formal esophageal motility study when she recovers from acute illness.
[2016-09-05] MEDS: POLYETHYLENE (MIRALAX) 17 GM PACK PO PRN (11:11)
[2016-09-05] MEDS: DOCUSATE SODIUM 100 MG CAP PO SCH ×2 (11:12→20:38)
--- NOTE | 2016-09-05 11:34 | Hospitalist Progress Note ---
Hospitalist Progress Note Date of Service Sep 05, 2016. Subjective Pt evaluation today including: conversation w/ patient, physical exam, chart review, lab review, review of studies, review of inpatient medication list Voiding: no voiding problems, no incontinence Patient states she is not feeling well. +chronic back pain worsening. +lower extremity pruritus- occurs from [id number], uses topical steroids. +tremor worsening. +nausea. +constipation. Patient denies any fever, chills, sweats, lightheadedness, dizziness, vision changes, CP, palpitations, edema, SOB, wheezing, cough, abdominal pain, vomiting, diarrhea, urinary symptoms, melena, numbness/tingling, weakness, muscle/joint pain, anxiety/depression, active bleeding, or new skin discoloration/changes. Medications Last 24 Hours Test 09/05/16 06:00 White Blood Count 5.90 K/uL Red Blood Count 3.77 M/uL Hemoglobin 10.0 g/dL Hematocrit 30.9 % Mean Corpuscular Volume 82.0 fL Mean Corpuscular Hemoglobin 26.5 pg Mean Corpuscular Hemoglobin Concent 32.4 g/dl RDW Standard Deviation 53.1 fL RDW Coefficient of Variation 17.8 % Platelet Count 393 K/uL Mean Platelet Volume 8.8 fL Sodium Level 143 mmol/L Potassium Level 3.2 mmol/L Chloride Level 103 mmol/L Carbon Dioxide Level 29 mmol/L Anion Gap 11.0 mmol/L Blood Urea Nitrogen 7 mg/dl Creatinine 1.40 mg/dl Est Creatinine Clear Calc Drug Dose 74.4 ml/min Estimated GFR () 48.9 Estimated GFR (Non- 42.2 BUN/Creatinine Ratio 5.2 Random Glucose 103 mg/dl Calcium Level 8.3 mg/dl Magnesium Level 2.3 mg/dl Objective Vital Signs Date Time Temp Pulse Resp B/P Pulse Ox O2 Delivery O2 Flow Rate FiO2 09/05/16 08:02 36.7 87 20 127/67 93 Room Air 09/05/16 08:00 Room Air 09/05/16 07:29 81 16 93 Room Air 09/05/16 00:00 BiPAP 09/04/16 22:35 36.8 85 20 123/70 92 BiPAP 09/04/16 19:11 84 16 97 Room Air 09/04/16 16:13 36.6 83 20 135/64 97 Room Air 09/04/16 16:00 Room Air 09/04/16 11:52 84 12 92 Room Air Physical Exam General Appearance: no apparent distress, + obese Eyes: normal inspection, PERRL ENT: hearing grossly normal Neck: supple Respiratory/Chest: no respiratory distress, no accessory muscle use, + decreased breath sounds (throughout all lung pool ) Cardiovascular: regular rate, rhythm Abdomen: normal bowel sounds, non tender, soft Extremities: + swelling (bilateral lower extremities ), + pertinent finding (+ erythema noted to bilateral anterior shins ) Neurologic/Psychiatric: alert, + pertinent finding (anxious ) Skin: normal color, warm/dry, no rash Laboratory Results Last 24 Hours Test 09/05/16 06:00 White Blood Count 5.90 K/uL Red Blood Count 3.77 M/uL Hemoglobin 10.0 g/dL Hematocrit 30.9 % Mean Corpuscular Volume 82.0 fL Mean Corpuscular Hemoglobin 26.5 pg Mean Corpuscular Hemoglobin Concent 32.4 g/dl RDW Standard Deviation 53.1 fL RDW Coefficient of Variation 17.8 % Platelet Count 393 K/uL Mean Platelet Volume 8.8 fL Sodium Level 143 mmol/L Potassium Level 3.2 mmol/L Chloride Level 103 mmol/L Carbon Dioxide Level 29 mmol/L Anion Gap 11.0 mmol/L Blood Urea Nitrogen 7 mg/dl Creatinine 1.40 mg/dl Est Creatinine Clear Calc Drug Dose 74.4 ml/min Estimated GFR () 48.9 Estimated GFR (Non- 42.2 BUN/Creatinine Ratio 5.2 Random Glucose 103 mg/dl Calcium Level 8.3 mg/dl Magnesium Level 2.3 mg/dl Assessment and Plan 56-year-old female here with recent treatment for pneumonia who looks clinically to have likely acute diastolic heart failure, but concern for elevated sed rate and possibly nodosum: Persistent PNA: - Continue Levaquin 750 mg PO daily (treatment started on 08/29)- completed on for 10 days course - BCx NG - Swallow study on 09/04 -- There is pharyngeal penetration identified with thin barium -- No aspiration was seen with any of the sampled textures - Speech therapy following- continue recommendations - Consulted GI, appreciate recommendations - No role for upper endoscopy in oropharyngeal dysphagia although consider barium swallow study as no aspiration was elicited Mouth discomfort, ?thrush w/ white lesions on tongue: Magic mouthwash ?Acute diastolic CHF: - Bumex 4 mg PO BID--> decreased to 2 mg BID due to bump in kidney function - Monitor I&Os- continues to have good UO w/ negative fluid balance - ECHO on 09/01- There is mild concentric left ventricular hypertrophy. Left ventricular systolic function is normal. The left atrium is moderately dilated. - DuoNeb QID - O2 protocol, wean as tolerated Hypokalemia- improving: - KCl 40 mEq BID increased to TID - Follow PRP, replete PRN CKD stage III- STABLE: - Decreased Bumex - Follow PRP Lower leg pain: Negative Doppler ultrasound of lower extremities Chronic pain syndrome: - Cymbalta, Neurontin, Lamictal PRN, Atarax - Continue PRN Oxycodone - Resume IV Dilaudid Tremor- worsening, ?secondary to anxiety: - Continue to monitor, consider neurology consult - Obtain outpt neurology records- Follows w/ Johnnie Russo in [place] - Gabapentin 400 mg TID Insomnia: Continue Trazodone GI Prophylaxis: Protonix daily, IV Zofran PRN, Colace and/or MiraLAX DVT prophylaxis: Lovenox 40 mg SQ q24 hrs, SHERIN and SCDs Dispo: - PT/OT recommending acute rehab- pt refusing - Discharge to home once medically stable, hopefully within the next 1-2 days
[2016-09-05] MEDS: HYDROmorphone INJ 1 MG/ML SYR IV PRN ×3 (11:41→20:37)
[2016-09-05] MEDS ORDERED: MAGIC MOUTHWASH PO SCH (12:00)
[2016-09-05] MEDS: DEXAMETHASONE CONC SOLN 3.75 MG, NYSTATIN SUSP 30 ML, DiphenhydrAMINE HCL SYRUP 300 MG,... PO SCH ×10 (17:00→20:39)
[2016-09-05] MEDS ORDERED: LORAZEPAM 0.5 MG TAB PO ONE (17:00)
[2016-09-05] MEDS: TRAZODONE HCL 50 MG TAB PO SCH (20:38)
[2016-09-05] MEDS: NORTRIPTYLINE HCL 25 MG CAP PO SCH (20:38)
[2016-09-05] MEDS: ENOXAPARIN 40 MG/0.4 ML SYR SC SCH (20:38)
[2016-09-05] MEDS: FLUTICASONE PROPIONATE NA SPR 16 GM BTL NAE SCH (20:38)
[2016-09-06] VITALS (9 sets, daily range): BP systolic 133–135; BP diastolic 76–80; PULSE 80–102; TEMP 36.6–36.9; O2SAT 90–98
[2016-09-06] MEDS: OXYCODONE HCL IR 5 MG TAB (IMMEDIATE RELEASE) PO PRN ×2 (00:23→20:07)
[2016-09-06] MEDS: ALBUT/IPRATROP 3MG/0.5MG NEB 3 ML VIAL INH SCH ×5 (07:36→22:55)
[2016-09-06 07:46] LABS: CALCIUM 8.5 mg/dl (8.5-10.1); CREATININE 1.5 mg/dl (0.60-1.20); MAGNESIUM 2.5 mg/dl (1.8-2.4); POTASSIUM 3.9 mmol/L (3.5-5.1)
[2016-09-06] MEDS: MAGNESIUM OXIDE 400 MG TAB PO SCH ×2 (07:55→20:07)
[2016-09-06] MEDS: DOCUSATE SODIUM 100 MG CAP PO SCH ×2 (09:18→20:07)
[2016-09-06] MEDS: DULOXETINE HCL 60 MG CAP PO SCH (09:19)
[2016-09-06] MEDS: POTASSIUM CHLORIDE 20 MEQ TABCR PO SCH ×3 (09:20→20:07)
[2016-09-06] MEDS: BUMETANIDE 1 MG TAB PO SCH ×2 (09:20→18:02)
[2016-09-06] MEDS: DEXAMETHASONE CONC SOLN 3.75 MG, NYSTATIN SUSP 30 ML, DiphenhydrAMINE HCL SYRUP 300 MG,... PO SCH ×20 (09:20→20:15)
[2016-09-06] MEDS: GABAPENTIN 400 MG CAP PO SCH ×3 (09:21→20:08)
[2016-09-06] MEDS: DULOXETINE (CYMBALTA) 30 MG CAP PO SCH (09:21)
[2016-09-06] MEDS: ASPIRIN 81 MG ECTAB PO SCH (09:21)
[2016-09-06] MEDS: PANTOprazole SOD 40 MG TAB PO SCH (09:21)
[2016-09-06] MEDS: BuPROPion SR 100 MG TABCR PO SCH (09:23)
[2016-09-06] MEDS: HYDROmorphone INJ 1 MG/ML SYR IV PRN ×2 (09:40→13:45)
--- NOTE | 2016-09-06 10:02 | Neurology Consultation ---
Neurology Consultation Date of Consultation: Sep 06, 2016. Attending Physician: Brando Santa MD, PhD Primary Care Physician: Troy Aparicio M.D. Reason for Consultation: Tremor History of Present Illness Source: patient, clinic records, hospital records The patient is a 56-year-old female with a chief complaint of tremor that began about 5 years ago. The tremor affects both hands and is worse with activities such as eating and handwriting and improves at rest. Over the past few years, the tremor has become more generalized involving the legs as well. About 6 months ago, the patient began experiencing sudden, involuntary jerking movements of the limbs, especially the left leg. These movements are brief and occur without obvious trigger. Past medical history is notable for multiple psychiatric issues, chronic low back pain, history of gastric bypass surgery, persistent morbid obesity, asthma, chronic kidney disease, history of overuse of diuretic medications, and a recent admission to [facility] for pneumonia with the patient leaving AGAINST MEDICAL ADVICE just prior to presenting to [facility] for further evaluation and treatment. She is prescribed bupropion 400 mg per day, Cymbalta 90 mg per day, gabapentin 400 mg 3 times per day, Lamictal 100 mg per day, nortriptyline 50 mg at bedtime, trazodone 50 mg at bedtime, and has prescriptions for Flexeril, lorazepam, and Percocet to be used on an as-needed basis. The patient had presented to our emergency department on August 29 after a reported fall at home. She was complaining of persistent left hip pain and low back pain at that time. She was noted to have incontinence of bowel and bladder as well. She reportedly tripped on a laundry basket and also hit her head on a dresser at the time of the incident. A CT of the lumbar spine was unremarkable without evidence of acute fracture or significant process. A CT of the head was unremarkable as well , no evidence of hemorrhage or acute process. A chest x-ray suggested congestive heart failure. Electrocardiogram revealed a sinus rhythm, 81 bpm. A transesophageal echocardiogram reveals mild left ventricular hypertrophy, a moderately dilated left atrium, and an ejection fraction of 55-60%. She has been admitted to [facility] with a diagnosis of acute diastolic heart failure, pneumonia, and persistent lower extremity pain following the fall at home. This patient has been following with Dr. Darby, neurology, at [facility] for tremor. I reviewed his clinic notes. She was last seen in his office on 08/18/2016. In addition to her upper extremity tremor he noted the brief involuntary jerking movements of the lower limb and considered the possibility of myoclonus. He ordered some lab work as well as an EEG. She has been prescribed gabapentin for her tremor. The patient does not believe this medication has been very helpful for either her tremor or any associated anxiety. Past Medical/Surgical History Medical Problems: (1) Contusion of lower extremity Status: Acute (2) Contusion of multiple sites Status: Acute (3) Fall Status: Acute (4) Fall Status: Acute (5) Hypoxia Status: Acute (6) Lumbar contusion Status: Acute (7) Pulmonary edema Status: Acute Family History The patient denies a family history of tremor in either parent. Family history notable for possible rheumatoid arthritis in the father, diabetes mellitus in the mother. Social History Smoking Status: Former smoker Marital Status: Housing Status: lives with family Occupation Status: unemployed Allergies Coded Allergies: Adhesives (Verified Allergy, Intermediate, REDNESS WITH BANDAIDS, 08/29/16) Cephalexin (Verified Allergy, Unknown, ?, 08/29/16) Current Inpatient Medications Current Inpatient Medications Medications (Trade) Dose Ordered Sig/Lilly Route Start Time Stop Time Status Last Admin Dose Admin Aspirin (Ecotrin Tab) 81 mg DAILY PO 08/30/16 09:00 09/29/16 08:59 09/05/16 08:12 81 MG Bupropion HCl (Wellbutrin-Sr Tab) 400 mg DAILY PO 08/30/16 09:00 09/29/16 08:59 09/05/16 08:12 400 MG Duloxetine HCl (Cymbalta Cap) 30 mg DAILY PO 08/30/16 09:00 09/29/16 08:59 09/05/16 08:14 30 MG Duloxetine HCl (Cymbalta Cap) 60 mg DAILY PO 08/30/16 09:00 09/29/16 08:59 09/05/16 08:13 60 MG Fluticasone Propionate (Flonase Nasal [place]) 2 sprays HS EDITH 08/29/16 21:00 09/28/16 20:59 09/05/16 20:38 2 SPRAYS Gabapentin (Neurontin Cap) 400 mg TID PO 08/29/16 21:00 09/28/16 20:59 09/05/16 20:38 400 MG Hydroxyzine HCl (Vistaril Tab) 50 mg TID PRN PO 08/29/16 16:15 09/28/16 16:14 08/30/16 21:55 50 MG Lamotrigine (Lamictal Tab) 100 mg DAILY PO 08/30/16 09:00 09/29/16 08:59 09/05/16 08:13 100 MG Nortriptyline HCl (Pamelor Cap) 50 mg HS PO 08/29/16 21:00 09/28/16 20:59 09/05/16 20:38 50 MG Pantoprazole Sodium (Protonix Tab) 40 mg DAILY PO 08/30/16 09:00 09/29/16 08:59 09/05/16 08:13 40 MG Trazodone HCl (Desyrel Tab) 50 mg HS PO 08/29/16 21:00 09/28/16 20:59 09/05/16 20:38 50 MG Miscellaneous Information (Order Awaiting Action) 1 ea QS N/A 08/30/16 00:00 09/29/16 00:00 Hydromorphone HCl (Dilaudid Inj) 0.5 mg Q4 PRN IV 08/29/16 16:45 09/12/16 16:44 Future hold 09/03/16 22:32 0.5 MG Hydromorphone HCl (Dilaudid Inj) 1 mg Q4 PRN IV 08/29/16 16:45 09/12/16 16:44 Future hold 09/05/16 20:37 1 MG Polyethylene (Miralax Powder Packet) 17 gm DAILY PRN PO 08/29/16 17:00 09/28/16 16:59 09/05/16 11:11 17 GM Ondansetron HCl (Zofran Inj) 4 mg Q6H PRN IV 08/29/16 16:45 09/28/16 16:44 09/05/16 20:37 4 MG Enoxaparin Sodium (Lovenox Inj) 40 mg HS SC 08/29/16 21:00 09/28/16 20:59 09/05/16 20:38 40 MG Oxycodone HCl (Roxicodone Immediate Rel Tab) 10 mg Q6 PRN PO 08/29/16 17:00 09/12/16 16:59 09/06/16 00:23 10 MG Miscellaneous (Iv Fluids Completed) 1 ea PRN PRN N/A 08/29/16 22:45 08/29/17 22:44 Miconazole Nitrate (Desenex Powder) 1 appln PRN PRN EXT 08/31/16 21:00 09/30/16 20:59 08/31/16 21:45 1 APPLN Magnesium Oxide (Mag-Ox Tab) 400 mg BID PO 09/01/16 09:00 10/01/16 08:59 09/05/16 20:38 400 MG Albuterol/ Ipratropium (Duoneb) 3 ml QIDR INH 09/01/16 12:00 10/01/16 11:59 09/06/16 07:36 3 ML Levofloxacin (Levaquin Tab) 750 mg DAILY@11 PO 09/03/16 11:00 09/08/16 00:00 09/05/16 08:13 750 MG Potassium Chloride (Klor-Con Tab) 40 meq TID PO 09/04/16 14:00 10/04/16 13:59 09/05/16 20:38 40 MEQ Bumetanide (Bumex Tab) 2 mg BID17 PO 09/04/16 17:00 10/04/16 16:59 09/05/16 16:49 2 MG Docusate Sodium 100 mg BID PO 09/05/16 11:00 10/05/16 10:59 09/05/16 20:38 100 MG Dexamethasone/ Nystatin/ Diphenhydramine HCl/Sucrose/ Microcrystalline Cellulose/Barcode (Decadron Conc Soln/Mycostatin Susp/Benadryl Syrup/Ora-Sweet Syrup/Ora-Plus Susp. Vehicle) QID PO 09/05/16 17:00 10/05/16 16:59 09/05/16 20:39 5 ML Review of Systems The patient complains of fatigue, weight gain, shortness of breath, coughing, chronic low back pain, persistent left lower extremity pain mostly at the hip and knee, chronic numbness affecting both feet, feelings of depression and anxiety, poor sleep, easy bruising The patient denies fevers, vision changes, hearing changes, palpitations, dysuria, nausea or vomiting, swollen glands A full 10 point review of systems was obtained from this patient with pertinent positives and negatives in the history of present illness and otherwise listed above. Physical Exam Vital Signs (Past 24 Hrs): Date Time Temp Pulse Resp B/P Pulse Ox O2 Delivery O2 Flow Rate FiO2 09/06/16 07:56 36.6 82 20 133/77 95 Room Air 09/06/16 07:36 83 18 96 Room Air 09/06/16 00:01 Room Air 09/05/16 23:56 36.7 88 20 122/73 96 Room Air 09/05/16 20:00 Room Air 09/05/16 19:22 84 18 97 Room Air 09/05/16 18:26 86 125/72 09/05/16 16:00 Room Air 09/05/16 15:52 36.9 84 20 116/59 97 Room Air 09/05/16 15:50 85 18 97 Room Air 09/05/16 11:53 94 16 Room Air The patient is a morbidly obese, chronically ill appearing, middle aged to elderly female. She is lying comfortably in bed. She is alert and oriented to person place and time. Attention and concentration normal. Recent and remote memory intact. She exhibits a normal spontaneous speech pattern, is able to name objects and repeat phrases. The patient exhibits an age-appropriate fund of knowledge and normal vocabulary. Visual pool full to confrontation. Visual acuity normal. Pupils equal round reactive to light and accommodation. Eye movements normal. No nystagmus. Facial sensation intact. There is no facial droop. Facial strength normal. Palate elevates to midline. Tongue protrudes to midline. Shoulder shrug and hearing intact. Sensation intact to light touch, temperature, vibration, and proprioception in all 4 limbs. Deep tendon reflexes are difficult to obtain due to patient's morbid obesity, they are diminished in a symmetric fashion. Plantar responses downgoing bilaterally. There is no dysmetria with finger to nose or heel to covarrubias. He does have moderate difficulty with heel to covarrubias bilaterally due to her morbid obesity, however. The movements do not appear grossly dysmetria or ataxic however. Ophthalmoscopic examination reveals normal-appearing optic nerves and posterior elements. No papilledema or hemorrhages. No carotid bruits to auscultation although examination limited due to morbid obesity. Musculoskeletal examination is also limited due to patient's morbid obesity, bedbound state, and suspected significant deconditioning. However strength is estimated to be full in all 4 limbs and seems to be symmetrical. There is no hemiparesis or paraparesis present. There is a coarse- appearing, bilateral upper extremity postural and action tremor. There is no rest tremor. The legs do not appear tremulous at this time although I do appreciate occasional, irregular jerking movements of the lower limbs, primarily the left leg. This patient's tremor and regular movements are modestly distractible. Muscle tone is normal throughout. No rigidity. No spasticity. There is no obvious atrophy. Gait and station cannot be safely tested. Laboratory Results Past 24 Hours: 09/06/16 06:34 Test 09/05/16 16:17 09/06/16 06:34 09/06/16 08:10 Thyroid Stimulating Hormone (TSH) 5.040 uIu/ml (0.300-4.500) Anion Gap 8.0 mmol/L (3-11) Est Creatinine Clear Calc Drug Dose 69.5 ml/min Estimated GFR () 45.0 Estimated GFR (Non- 38.8 BUN/Creatinine Ratio 6.0 (10-20) Calcium Level 8.5 mg/dl (8.5-10.1) Magnesium Level 2.5 mg/dl (1.8-2.4) Free Thyroxine 1.60 ng/dl (0.80-1.60) Imaging I reviewed the images and radiologist's interpretation of the CT of the head completed at her time of presentation. There is no evidence of hemorrhage, acute process, hydrocephalus, or chronic stroke. The study is unremarkable. Additional radiographic studies were reviewed including a CT of the lumbar spine as well as x-rays of the knees, left hip, and pelvis. There is no evidence of an acute fracture or subluxation on CT of the lumbar spine. No evidence of fracture or other pathology involving the left hip or pelvis. No evidence of an acute fracture involving the left knee or problems with its associated prosthesis. An incomplete cortical fracture involving the right fibular head could not be excluded although the finding was subtle and felt to be of low probability. Impression 56-year-old female with a five-year history of course, bilateral upper extremity postural and action tremor. The tremor is modestly distractible and irregular in character. She may have benign essential tremor with anxiety as an augmenting factor. This patient does not have signs or symptoms suggestive of Parkinson's disease at this time. This patient may also have periodic limb movement disorder which may be related to COPD, sleep apnea, congestive heart failure, and polypharmacy with multiple medications for psychiatric issues. Myoclonus also possible. Plan I discussed a potential trial of primidone for treatment of her tremor as gabapentin has reportedly been of limited benefit. However, before starting primidone, I would recommend checking an ammonia level which could be a factor in possible myoclonus. Periodic limb movement disorder could be diagnosed with greater certainty with an outpatient polysomnogram if not done recently. She may continue with gabapentin at the current dosage for the time being. Some individuals with periodic limb movement disorder may benefit from a trial of a dopamine agonist such as Mirapex or Requip. This patient will need to follow-up with Dr. Darby, neurology at [facility], for ongoing evaluation and management of her tremor and suspected PLMD after discharge.
[2016-09-06] MEDS: LEVOFLOXACIN 750 MG TAB PO SCH (13:36)
[2016-09-06] MEDS ORDERED: NURSING VERBAL MED ORDER ONE (14:00)
[2016-09-06] MEDS ORDERED: CLOBETASOL PROPIONATE EXT PRN (16:15)
[2016-09-06] MEDS: FLUTICASONE PROPIONATE NA SPR 16 GM BTL NAE SCH (22:29)
[2016-09-06] MEDS: TRAZODONE HCL 50 MG TAB PO SCH (22:30)
[2016-09-06] MEDS: NORTRIPTYLINE HCL 25 MG CAP PO SCH (22:30)
[2016-09-06] MEDS: ENOXAPARIN 40 MG/0.4 ML SYR SC SCH (22:31)
[2016-09-06] MEDS: MICONAZOLE NITRATE POWDER 43 GM EXT PRN (22:32)
[2016-09-06] MEDS: HYDROmorphone INJ 0.5 MG/0.5 ML SYR IV PRN (23:25)
[2016-09-07] VITALS (7 sets, daily range): BP systolic 108–130; BP diastolic 49–79; PULSE 80–89; TEMP 36.5–36.8; O2SAT 90–99
[2016-09-07 06:52] LABS: HEMATOCRIT 32.4 % (37-47); MEAN CELL VOLUME 84.8 fL (80-100); MEAN CORPUSCULAR HGB CONC 31.8 g/dl (32-36); MEAN PLATELET VOLUME 8.8 fL (7.4-10.4); PLATELET COUNT 394 K/uL (130-400); RED BLOOD COUNT 3.82 M/uL (4.2-5.4)
[2016-09-07] MEDS: ALBUT/IPRATROP 3MG/0.5MG NEB 3 ML VIAL INH SCH ×4 (07:45→19:38)
[2016-09-07] MEDS: DULOXETINE HCL 60 MG CAP PO SCH (09:45)
[2016-09-07] MEDS: PANTOprazole SOD 40 MG TAB PO SCH (09:47)
[2016-09-07] MEDS: GABAPENTIN 400 MG CAP PO SCH ×3 (09:47→19:43)
[2016-09-07] MEDS: BUMETANIDE 1 MG TAB PO SCH ×2 (09:47→16:58)
[2016-09-07] MEDS: DEXAMETHASONE CONC SOLN 3.75 MG, NYSTATIN SUSP 30 ML, DiphenhydrAMINE HCL SYRUP 300 MG,... PO SCH ×20 (09:48→19:41)
[2016-09-07] MEDS: ASPIRIN 81 MG ECTAB PO SCH (09:48)
[2016-09-07] MEDS: DOCUSATE SODIUM 100 MG CAP PO SCH ×2 (09:48→19:42)
[2016-09-07] MEDS: DULOXETINE (CYMBALTA) 30 MG CAP PO SCH (09:49)
[2016-09-07] MEDS: BuPROPion SR 100 MG TABCR PO SCH (09:49)
[2016-09-07] MEDS: MAGNESIUM OXIDE 400 MG TAB PO SCH ×2 (09:50→19:40)
[2016-09-07] MEDS: POTASSIUM CHLORIDE 20 MEQ TABCR PO SCH ×3 (09:50→19:41)
[2016-09-07] MEDS: OXYCODONE HCL IR 5 MG TAB (IMMEDIATE RELEASE) PO PRN (09:51)
[2016-09-07] MEDS ORDERED: POLYETHYLENE (MIRALAX) 17 GM PACK PO STA (12:03)
[2016-09-07] MEDS ORDERED: SOD PHOSPHATE/SOD BIPHOSPHATE ENEMA 132 ML BTL PR STA (13:24)
--- NOTE | 2016-09-07 13:33 | Progress Note ---
Subjective Date of Service: Sep 07, 2016. Subjective Pt evaluation today including: conversation w/ patient, physical exam, chart review, lab review, review of studies, review of inpatient medication list Generally feeling okay but complaining about lower back pain, which is not new Problem List Medical Problems: (1) Contusion of lower extremity Status: Acute (2) Contusion of multiple sites Status: Acute (3) Fall Status: Acute (4) Fall Status: Acute (5) Hypoxia Status: Acute (6) Lumbar contusion Status: Acute (7) Pulmonary edema Status: Acute Review of Systems Constitutional: + fatigue, No chills, No fever, No problem reported, No sweats , No weakness, No weight loss Eyes: No diplopia, No discharge, No eye pain, No redness, No worsening of vision ENT: No dental problems, No hearing loss, No nasal symptoms, No sore throat, No tinnitus, No trouble swallowing, No unusual epistaxis Respiratory: No cough, No dyspnea at rest, No dyspnea on exertion, No hemoptysis, No shortness of breath, No sputum, No wheezing Cardiac: No PND, No chest pain, No claudication, No edema, No orthopnea, No palpitations Abdomen: + constipation, No diarrhea, No nausea, No pain, No vomiting Musculoskeletal: + joint pain, No calf pain, No muscle pain, No swelling Female : No abnormal vaginal bleeding, No dysuria, No hematuria, No incontinence, No urinary frequency, No vaginal discharge Neurologic: No balance problems, No memory loss, No numbness/tingling, No paralysis, No vertigo, No weakness Psychiatric: No anhedonism, No anxiety, No depression symptoms, No insomnia, No substance abuse Heme: No abnormal bleeding/bruising, No clotting problems, No night sweats, No swollen lymph nodes Endo: No excessive thirst, No excessive urination, No fatigue Skin: No bleeding, No color change, No itch, No new/changing skin lesions, No rash Objective Vital Signs Date Time Temp Pulse Resp B/P Pulse Ox O2 Delivery O2 Flow Rate FiO2 09/07/16 12:11 87 18 93 Room Air 09/07/16 09:45 85 130/72 09/07/16 08:00 Room Air 09/07/16 07:50 36.5 80 20 108/49 90 Room Air 09/07/16 07:45 89 18 90 BiPAP/CPAP 0.2 09/07/16 00:00 Room Air CPAP 09/06/16 23:48 36.8 102 18 133/80 94 Room Air 09/06/16 22:56 84 18 93 Room Air 09/06/16 20:00 Room Air 09/06/16 19:25 83 18 91 Room Air 09/06/16 16:00 Room Air 09/06/16 15:59 36.9 84 20 135/76 91 Room Air 09/06/16 15:22 86 18 90 Room Air Physical Exam General Appearance: WD/WN, no apparent distress, + obese Eyes: normal inspection, PERRL, EOMI, sclerae normal ENT: normal ENT inspection, hearing grossly normal, pharynx normal Neck: supple, no adenopathy, thyroid normal, no JVD, no carotid bruits, trachea midline Respiratory/Chest: chest non-tender, normal breath sounds, no respiratory distress, no accessory muscle use, + decreased breath sounds Cardiovascular: regular rate, rhythm, no edema, no gallop, no JVD, no murmur Abdomen: normal bowel sounds, non tender, soft, no organomegaly, no pulsatile mass Extremities: normal range of motion, non-tender, normal inspection, no pedal edema, no calf tenderness, normal capillary refill, pelvis stable, + swelling (1 +) Neurologic/Psychiatric: underground repairer II-XII nml as tested, no motor/sensory deficits, alert, normal mood/affect, oriented x 3 Skin: normal color, warm/dry, no rash Lymphatic: no adenopathy Laboratory Results Last 24 Hours Test 09/07/16 06:40 09/07/16 12:03 White Blood Count 7.30 K/uL Red Blood Count 3.82 M/uL Hemoglobin 10.3 g/dL Hematocrit 32.4 % Mean Corpuscular Volume 84.8 fL Mean Corpuscular Hemoglobin 27.0 pg Mean Corpuscular Hemoglobin Concent 31.8 g/dl RDW Standard Deviation 55.1 fL RDW Coefficient of Variation 17.8 % Platelet Count 394 K/uL Mean Platelet Volume 8.8 fL Magnesium Level 2.4 mg/dl Assessment and Plan A 56-year-old female admitted on 08/29/2016 with recent treatment for pneumonia who looks clinically to have likely acute diastolic heart failure, but concern for elevated sed rate and possibly nodosum. Possible CHF exacerbation diastolic, and fluid overload , continue to be stable , so far about 8 L negative Possible pneumonia prior to admission, repeated chest x-ray not really has infiltration Has been on IV Levaquin, blood cultures no growth so far. WBC trending downward. No lymphocyte shifts, Has change Levaquin to oral for total 7 days, tomorrow we'll be last day Changed duo neb to scheduled plus as needed Has been on IV Bumex 2 mg IV b.i.d. kidney function tolerated well was changed to by mouth 2 mg twice a day, Has ordered and this morning no resolve yet, Continue Bumex and dosing will be dependent on renal function to see if she tolerated Has talked about fluid restriction, for 1.5 L daily, heart healthy diet, will discontinue Blount catheter today, - 2 D Echo unremarkable, normal LVEF, therefore patient possible has diastolic dysfunction, need to have fluid restriction, and continue diuretic - Chest x-ray: 1. Continued radiographic evidence of congestive failure/fluid overload 2. Posterior basilar opacities in the lateral view, likely secondary to accommodation of pleural fluid and atelectatic change Hypokalemia Lower leg pain, - negative Doppler ultrasound of lower extremities. - DVT prevention with Lovenox. Chronic pain syndrome, Cymbalta, Neurontin, Lamictal p.r.n, Atarax, Cont with hydromorphone for pain as needed, adding heating pack today for lower back pain, use Dilaudid IV as less as possible, and decreased the frequency, patient agreed Continue with p.r.n. oxycodone. Constipation, bowel regimen, and free in edema today Patient has an elevated ESR and double-stranded DNA, I told her need to follow- up with yard demurrage clerk as outpatient she agreed Out of bed, PTOT recommend possible acute rehabilitation, talked to patient about rehabilitation, and try to completing her need to go, she seems hesitating possible discharge in day 1 or 2 to rehabilitation torpedo worker for discharge plan Lovenox for DVT prophylaxis Continued [facility] stay due to: multiple IV medications needed Discharge planning: home
[2016-09-07] MEDS: LEVOFLOXACIN 750 MG TAB PO SCH (13:51)
[2016-09-07] MEDS ORDERED: HYDROmorphone INJ 0.5 MG/0.5 ML SYR IV PRN (14:00)
[2016-09-07 14:40] LABS: BUN/CREATININE RATIO 7.2 (10-20); CALCIUM 8.6 mg/dl (8.5-10.1); CREATININE 1.5 mg/dl (0.60-1.20); MAGNESIUM 2.3 mg/dl (1.8-2.4); POTASSIUM 4.8 mmol/L (3.5-5.1)
[2016-09-07] MEDS: TRAZODONE HCL 50 MG TAB PO SCH (22:16)
[2016-09-07] MEDS: FLUTICASONE PROPIONATE NA SPR 16 GM BTL NAE SCH (22:16)
[2016-09-07] MEDS: NORTRIPTYLINE HCL 25 MG CAP PO SCH (22:17)
[2016-09-07] MEDS: ENOXAPARIN 40 MG/0.4 ML SYR SC SCH (22:17)
[2016-09-07] MEDS: MICONAZOLE NITRATE POWDER 43 GM EXT PRN (22:17)
[2016-09-08] VITALS (9 sets, daily range): BP systolic 117–154; BP diastolic 65–72; PULSE 67–88; TEMP 36.5–36.9; O2SAT 90–95
[2016-09-08 07:35] LABS: BUN/CREATININE RATIO 7.9 (10-20); CREATININE 1.3 mg/dl (0.60-1.20); MAGNESIUM 2.6 mg/dl (1.8-2.4); POTASSIUM 3.9 mmol/L (3.5-5.1)
[2016-09-08] MEDS: MAGNESIUM OXIDE 400 MG TAB PO SCH ×2 (07:38→22:48)
[2016-09-08] MEDS: ALBUT/IPRATROP 3MG/0.5MG NEB 3 ML VIAL INH SCH ×4 (08:03→19:56)
[2016-09-08] MEDS: GABAPENTIN 400 MG CAP PO SCH ×3 (08:54→22:48)
[2016-09-08] MEDS: DEXAMETHASONE CONC SOLN 3.75 MG, NYSTATIN SUSP 30 ML, DiphenhydrAMINE HCL SYRUP 300 MG,... PO SCH ×20 (08:54→22:51)
[2016-09-08] MEDS: POTASSIUM CHLORIDE 20 MEQ TABCR PO SCH ×3 (08:55→22:47)
[2016-09-08] MEDS: DOCUSATE SODIUM 100 MG CAP PO SCH ×2 (08:55→22:47)
[2016-09-08] MEDS: BUMETANIDE 1 MG TAB PO SCH ×2 (08:55→18:47)
[2016-09-08] MEDS: DULOXETINE (CYMBALTA) 30 MG CAP PO SCH (08:56)
[2016-09-08] MEDS: PANTOprazole SOD 40 MG TAB PO SCH (08:56)
[2016-09-08] MEDS: BuPROPion SR 100 MG TABCR PO SCH (08:56)
[2016-09-08] MEDS: DULOXETINE HCL 60 MG CAP PO SCH (08:56)
[2016-09-08] MEDS: ASPIRIN 81 MG ECTAB PO SCH (08:56)
[2016-09-08] MEDS: OXYCODONE HCL IR 5 MG TAB (IMMEDIATE RELEASE) PO PRN ×3 (09:05→22:50)
[2016-09-08] MEDS: POLYETHYLENE (MIRALAX) 17 GM PACK PO PRN (09:05)
--- NOTE | 2016-09-08 12:20 | Progress Note ---
Subjective Date of Service: Sep 08, 2016. Subjective Pt evaluation today including: conversation w/ patient, physical exam, chart review, lab review, review of studies, review of inpatient medication list Pt states still worsening shortness of breath on exertion No cough No fevers or chills States swelling get worse Problem List Medical Problems: (1) Contusion of lower extremity Status: Acute (2) Contusion of multiple sites Status: Acute (3) Fall Status: Acute (4) Fall Status: Acute (5) Hypoxia Status: Acute (6) Lumbar contusion Status: Acute (7) Pulmonary edema Status: Acute Review of Systems Constitutional: No chills, No fever Respiratory: + dyspnea on exertion, No cough, No shortness of breath, No sputum Cardiac: No chest pain, No orthopnea Abdomen: No diarrhea, No nausea, No pain, No vomiting Musculoskeletal: No joint pain, No muscle pain Female : No dysuria, No urinary frequency Objective Vital Signs Date Time Temp Pulse Resp B/P Pulse Ox O2 Delivery O2 Flow Rate FiO2 09/08/16 11:39 81 18 95 Room Air 09/08/16 08:03 82 18 91 BiPAP/CPAP 21 09/08/16 08:00 Room Air 09/08/16 07:07 36.6 80 16 117/72 94 BiPAP 09/08/16 00:24 36.8 88 20 154/65 90 CPAP 09/08/16 00:00 Room Air CPAP 09/07/16 20:00 Room Air CPAP 09/07/16 19:38 85 18 91 Room Air 09/07/16 16:00 Room Air 09/07/16 15:30 36.8 84 20 114/79 95 Room Air 09/07/16 15:28 83 18 99 Room Air Physical Exam General Appearance: WD/WN, no apparent distress, + obese Neck: supple, no adenopathy Respiratory/Chest: lungs clear, normal breath sounds Cardiovascular: no gallop, no JVD Neurologic/Psychiatric: alert, oriented x 3 Laboratory Results Last 24 Hours Test 09/07/16 13:56 09/08/16 06:45 Sodium Level 143 mmol/L 141 mmol/L Potassium Level 4.8 mmol/L 3.9 mmol/L Chloride Level 106 mmol/L 105 mmol/L Carbon Dioxide Level 26 mmol/L 28 mmol/L Anion Gap 11.0 mmol/L 8.0 mmol/L Blood Urea Nitrogen 11 mg/dl 10 mg/dl Creatinine 1.50 mg/dl 1.30 mg/dl Est Creatinine Clear Calc Drug Dose 69.5 ml/min 80.2 ml/min Estimated GFR () 45.0 53.5 Estimated GFR (Non- 38.8 46.1 BUN/Creatinine Ratio 7.2 7.9 Random Glucose 119 mg/dl 100 mg/dl Calcium Level 8.6 mg/dl 9.0 mg/dl Magnesium Level 2.3 mg/dl 2.6 mg/dl Assessment and Plan A 56-year-old female admitted on 08/29/2016 with recent treatment for pneumonia who looks clinically to have likely acute diastolic heart failure Possible CHF exacerbation diastolic, and fluid overload, continue to be stable Possible pneumonia prior to admission, repeated chest x-ray not really has infiltration Has been on IV Levaquin, blood cultures no growth so far. WBC trending downward. No lymphocyte shifts, Has change Levaquin to oral for total 7 days, end date 09/09 Changed duo neb to scheduled plus as needed Has been on IV Bumex 2 mg IV b.i.d. kidney function tolerated well was changed to by mouth 2 mg twice a day, Has ordered and this morning no resolve yet, Continue Bumex and dosing will be dependent on renal function to see if she tolerated Has talked about fluid restriction, for 1.5 L daily, heart healthy diet, will discontinue Blount catheter today, - 2 D Echo unremarkable, normal LVEF, therefore patient possible has diastolic dysfunction, need to have fluid restriction, and continue diuretic - Chest x-ray: 1. Continued radiographic evidence of congestive failure/fluid overload 2. Posterior basilar opacities in the lateral view, likely secondary to accommodation of pleural fluid and atelectatic change Hypokalemia Lower leg pain, - negative Doppler ultrasound of lower extremities. - DVT prevention with Lovenox. Chronic pain syndrome, Cymbalta, Neurontin, Lamictal p.r.n, Atarax, Cont with hydromorphone for pain as needed, adding heating pack today for lower back pain, use Dilaudid IV as less as possible, and decreased the frequency, patient agreed Continue with p.r.n. oxycodone. Constipation, bowel regimen, and free in edema today Patient has an elevated ESR and double-stranded DNA, I told her need to follow- up with travel pta as outpatient she agreed Out of bed, PTOT recommend possible acute rehabilitation, talked to patient about rehabilitation, and try to completing her need to go, she seems hesitating possible discharge in day 1 or 2 to rehabilitation direct service worker for discharge plan Lovenox for DVT prophylaxis Continued [facility] stay due to: multiple IV medications needed Discharge planning: home
[2016-09-08] MEDS ORDERED: MAGNESIUM HYDROXIDE SUSP 30 ML UDC PO PRN (14:00)
[2016-09-08] MEDS ORDERED: LORATADINE/PSEUDOEPHEDRINE 1 TAB TABCR PO ONE (14:01)
[2016-09-08] MEDS: TRAZODONE HCL 50 MG TAB PO SCH (22:48)
[2016-09-08] MEDS: FLUTICASONE PROPIONATE NA SPR 16 GM BTL NAE SCH (22:48)
[2016-09-08] MEDS: ENOXAPARIN 40 MG/0.4 ML SYR SC SCH (22:49)
[2016-09-08] MEDS: NORTRIPTYLINE HCL 25 MG CAP PO SCH (22:49)
[2016-09-09 07:24] VITALS: BP 113/69; PULSE 79; TEMP 36.7; O2SAT 90
[2016-09-09 07:46] VITALS: PULSE 78; O2SAT 92
[2016-09-09] MEDS: ALBUT/IPRATROP 3MG/0.5MG NEB 3 ML VIAL INH SCH ×2 (07:46→12:05)
[2016-09-09] MEDS ORDERED: LORATADINE/PSEUDOEPHEDRINE 1 TAB TABCR PO SCH (08:00)
[2016-09-09] MEDS: GABAPENTIN 400 MG CAP PO SCH ×2 (08:41→13:39)
[2016-09-09] MEDS: BuPROPion SR 100 MG TABCR PO SCH (08:41)
[2016-09-09] MEDS: MAGNESIUM OXIDE 400 MG TAB PO SCH (08:41)
[2016-09-09] MEDS: ASPIRIN 81 MG ECTAB PO SCH (08:41)
[2016-09-09] MEDS: BUMETANIDE 1 MG TAB PO SCH (08:42)
[2016-09-09] MEDS: DULOXETINE HCL 60 MG CAP PO SCH (08:42)
[2016-09-09] MEDS: DULOXETINE (CYMBALTA) 30 MG CAP PO SCH (08:42)
[2016-09-09] MEDS: PANTOprazole SOD 40 MG TAB PO SCH (08:42)
[2016-09-09] MEDS: DOCUSATE SODIUM 100 MG CAP PO SCH (08:42)
[2016-09-09] MEDS: POTASSIUM CHLORIDE 20 MEQ TABCR PO SCH ×2 (08:42→13:39)
[2016-09-09] MEDS: DEXAMETHASONE CONC SOLN 3.75 MG, NYSTATIN SUSP 30 ML, DiphenhydrAMINE HCL SYRUP 300 MG,... PO SCH ×10 (08:43→12:00)
[2016-09-09] MEDS: OXYCODONE HCL IR 5 MG TAB (IMMEDIATE RELEASE) PO PRN (08:48)
--- NOTE | 2016-09-09 08:49 | DIAGNOSTIC IMAGING REPORT ---
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 Persistent prominence pulmonary vasculature. Improved findings suggestive of congestive failure. Diaphragms smooth. IMPRESSION: Mildly improved components of congestive heart failure Electronically signed by: Xavier Lugo M.D. 09/09/2016 8:47 AM Dictated Date/Time: 09/09/2016 8:46 AM
[2016-09-09] MEDS ORDERED: SOD PHOSPHATE/SOD BIPHOSPHATE ENEMA 132 ML BTL PR ONE (09:15)
[2016-09-09] MEDS ORDERED: MCRK20 PO (11:50)
[2016-09-09] MEDS ORDERED: BMX1 PO (11:50)
[2016-09-09] MEDS ORDERED: MGNO400 PO (11:50)
--- NOTE | 2016-09-09 11:54 | Discharge Instructions ---
Discharge Instructions Date of Service Sep 09, 2016. Admission Reason for Admission: Acute Diastolic Heart Failure Discharge Discharge Diagnosis / Problem: Acute diastolic heart failure Discharge Goals Goal(s): Decrease discomfort, Improve function, Increase independence, Improve disease control, Learn about illness, Diagnostic testing, Therapeutic intervention Activity Recommendations Activity Limitations: resume your previous activity Exercise/Sports Limitations: none . Instructions / Follow-Up Instructions / Follow-Up [facility] Medication changes as follows: Bumex 2 mg tablet twice a day Potassium 40 meq tablet three times a day Magnesium oxide 400 mg tablet twice a day If worsening swelling or 2-3 lb weight gain in one day, can take extra bumex dose Please follow up with Dr Aparicio in 1-2 weeks Current Hospital Diet Patient's current hospital diet: Regular Diet, Low Sodium Diet (2gm Na) Discharge Diet Recommended Diet: Low Sodium Diet (2gm Na) Pending Studies Studies pending at discharge: no Laboratory Results Hemoglobin A1c Test 08/29/16 11:30 Range/Units Estimated Average Glucose 120 mg/dl Hemoglobin A1c 5.8 H 4.5-5.6 % Medical Emergencies . Who to Call and When: Medical Emergencies: If at any time you feel your situation is an emergency, please call 911 immediately. . Non-Emergent Contact Non-Emergency issues call your: Primary Care Provider Call Non-Emergent contact if: you have a fever, your pain is worsening . . "Provider Documentation" section prepared by Surya Zuniga. VTE Core Measure Inpt VTE Proph given/why not?: Enoxaparin (Lovenox)SQ
[2016-09-09 12:05] VITALS: PULSE 79; O2SAT 94
[2016-09-09 12:57] VITALS: BP 113/69; PULSE 79; TEMP 36.7; O2SAT 94
--- NOTE | 2016-09-09 13:53 | Discharge Summary ---
Discharge Summary Date of Service Sep 09, 2016. Discharge Summary Admission Date: Aug 29, 2016 at 16:42 Discharge Date: Sep 09, 2016 Discharge Disposition: Rehab ([facility]) Principal Diagnosis: Acute CHF exacerbation Immunizations: Have You Had Influenza Vaccine: Yes History of Tetanus Vaccine?: No History of Pneumococcal: No History of Hepatitis B Vaccine: No Medication Reconciliation New Medications: Bumetanide (Bumetanide) 1 Mg Tab 2 MG PO BID17 for 30 Days, #60 TAB Magnesium Oxide (Magnesium-Oxide) 400 Mg Tab 400 MG PO BID for 30 Days, #60 TAB Potassium Chloride (Klor-Con M20) 20 Meq Tabcr 40 MEQ PO TID for 30 Days, #90 TABS Continued Medications: Albuterol Sulf (Proventil 0.083% 2.5MG/3ML) 2.5 Mg/3 Ml Nebu 2.5 MG INH QID, #10 EA Albuterol Sulfate (Proair Respiclick) 108 Mcg/Act Aer 90 MCG INH QID Ascorbic Acid (Vitamin C) 1,000 Mg Tab 1000 MG PO DAILY Aspirin (Aspirin Ec) 81 Mg Tab 81 MG PO DAILY Bupropion (Wellbutrin Sr) 200 Mg Ertab 400 MG PO DAILY, TAB Calcium Polycarbophil (Fibercon) Unknown Strength Tab 1 TAB PO DAILY, CPLT Cholecalciferol (Vitamin D3) 1,000 Unit Tab 5000 UNITS PO DAILY for 90 Days, TAB 3 Refills Cranberry (Vaccinium Macrocarp (Cranberry) 500 Mg Cap 500 MG PO DAILY Cyanocobalamin (Cyanocobalamin) 1,000 Mcg/Ml Inj 1 DOSE INJ MONTHLY Cyclobenzaprine Hcl (Flexeril) 5 Mg Tab 5 MG PO TID PRN for Muscle Spasms, TAB PRN Diphenhydramine Hcl (Benadryl Allergy) 25 Mg Cap 75 MG PO HS for 30 Days, #30 CAP Duloxetine Hcl (Cymbalta) 60 Mg Cap 60 MG PO DAILY, CAP TAKE WITH 30MG FOR A TOTAL DOSE OF 90MG Duloxetine HCl (Cymbalta) 30 Mg Cap 30 MG PO DAILY for 30 Days, #30 CAP 2 Refills TAKE WITH 60MG FOR A TOTAL DOSE OF 90MG Fish Oil ([place]-3) 1 Ea Cap 1 CAP PO DAILY, CAP Fluticasone Propionate (Nasal) (Flonase Allergy Relief) 50 Mcg/Act Spr 2 SPRAYS EDITH HS Gabapentin (Neurontin) 400 Mg Cap 400 MG PO TID, CAP Hydroxyzine Hcl (Atarax) 50 Mg Tab 50 MG PO TID, TAB Lamotrigine (Lamictal) 100 Mg Tab 100 MG PO DAILY, TAB Lorazepam (Ativan) 1 Mg Tab 1 MG PO BID PRN for Anxiety, TAB Metolazone (Zaroxolyn) 2.5 Mg Tab 2 MG PO 3XWK Mometasone Furoate-Formoterol (Dulera 200/5 Mcg) 1 Aer Aer 2 PUFFS INH BID for 30 Days, #13 GM 3 Refills Nitrofurantoin Macrocrystals (Macrodantin) 50 Mg Cap 50 MG PO HS, CAP Nortriptyline (Pamelor) 50 Mg Cap 50 MG PO HS, CAP Oxycodone/Acetaminophen 10MG/325MG (Percocet 10MG/325MG) 1 Tab Tab 1 TAB PO Q6H PRN for Pain, TAB Pantoprazole (Protonix) 40 Mg Tab 40 MG PO DAILY, #30 TAB Trazodone Hcl (Trazodone) 50 Mg Tab 50 MG PO HS, TAB Discontinued Medications: Bumetanide (Bumex) 2 Mg Tab 2 MG PO QAM, TAB Discharge Exam Review of Systems: Constitutional: + fatigue, + weakness, No chills, No fever Respiratory: No cough, No sputum Cardiovascular: + edema, No chest pain, No orthopnea Abdomen: No nausea, No vomiting Musculoskeletal: No joint pain, No muscle pain Genitourinary - Female: No dysuria, No urinary frequency, No urinary urgency Neurologic: No numbness/tingling, No paralysis, No weakness Physical Exam: General Appearance: WD/WN, no apparent distress Neck: supple, no adenopathy Respiratory/Chest: lungs clear, + decreased breath sounds Cardiovascular: regular rate, rhythm, no gallop Abdomen / GI: non tender, soft Neurologic/Psychiatric: alert, oriented x 3 Hospital Course A 56-year-old female admitted on 08/29/2016 with recent treatment for pneumonia who looks clinically to have likely acute diastolic heart failure Possible CHF exacerbation diastolic, and fluid overload, continue to be stable Possible pneumonia prior to admission, repeated chest x-ray not really has infiltration Has been on IV Levaquin, blood cultures no growth. WBC trending downward. No lymphocyte shifts, Has change Levaquin to oral for total 7 days, end date 09/09 Changed duo neb to scheduled plus as needed Has been on IV Bumex 2 mg IV b.i.d. kidney function tolerated well was changed to by mouth 2 mg twice a day, Has ordered and this morning no resolve yet, Continue Bumex and dosing will be dependent on renal function to see if she tolerated, dced with home dose and instructed to take extra dose if 2-3 wt lb gain in one day Has talked about fluid restriction, for 1.5 L daily, heart healthy diet, will discontinue Blount catheter today, - 2 D Echo unremarkable, normal LVEF, therefore patient possible has diastolic dysfunction, need to have fluid restriction, and continue diuretic Hypokalemia- DC on replacement Hypomagnesemia - DC on replacement Lower leg pain, - negative Doppler ultrasound of lower extremities. - DVT prevention with Lovenox. Chronic pain syndrome, Cymbalta, Neurontin, Lamictal p.r.n, Atarax, Cont with hydromorphone for pain as needed, adding heating pack today for lower back pain, use Dilaudid IV as less as possible, and decreased the frequency, patient agreed Continue with p.r.n. oxycodone. Constipation, bowel regimen, and free in edema today Patient has an elevated ESR and double-stranded DNA, I told her need to follow- up with [facility] as outpatient she agreed Total Time Spent: Greater than 30 minutes This includes examination of the patient, discharge planning, medication reconciliation, and communication with other providers. Discharge Instructions Please refer to the electronic Patient Visit Report (Discharge Instructions) for additional information. Additional Copies To Troy Aparicio M.D.
[2016-10-01] MEDS ORDERED: SENN-61 PO (10:19)
[2016-10-01] MEDS ORDERED: OXYC1TAB3 PO (10:19)
[2016-10-01] MEDS ORDERED: LAMO100T16 PO (10:19)
[2016-10-01] MEDS ORDERED: METO2.5T PO (10:19)
[2016-10-01] MEDS ORDERED: BUPR100T13 PO (10:19)
[2016-10-01] MEDS ORDERED: PANT40TA PO (10:19)
[2016-10-01] MEDS ORDERED: NITR1CAP16 PO (10:19)
[2016-10-01] MEDS ORDERED: VITAMIN B12 INJ (10:20)
[2016-11-04] MEDS ORDERED: POTA20TA16 PO (10:19)
[2016-11-04] MEDS ORDERED: GABA400C PO (10:19)
[2016-11-04] MEDS ORDERED: TRAZ-120 PO (10:19)
[2016-11-04] MEDS ORDERED: FLUT0.15 NAE (10:19)
[2016-11-04] MEDS ORDERED: CYM/60 PO (10:19)
[2016-11-04] MEDS ORDERED: NORT50CA PO (10:19)
[2016-11-04] MEDS ORDERED: DOCU-94 PO (10:19)
[2016-11-04] MEDS ORDERED: ALBU2SYP9 NEB (10:19)
[2016-11-04] MEDS ORDERED: CHOL1TAB42 PO (10:20)
[2016-11-04] MEDS ORDERED: MOML PO (10:20)
[2016-11-04] MEDS ORDERED: ALBU18002 INH (12:08)
[2016-11-04] MEDS ORDERED: MOME200A INH (13:50)
[2016-11-04] MEDS ORDERED: ASPI81TA28 PO (13:50)
[2016-11-04] MEDS ORDERED: BUME2TAB3 PO (17:37)
== END 2016-09-09 14:00 | DRG 291 ==
LOC: ENRESERVTM → ENRESERVDT → EDBD 11:12 → C.EDB 11:17 → C.2T 16:42 → C.MS4W 09-02 13:00
PROVIDERS: ADMIT Internal Medicine; ATTEND Hospitalist
DX: I50.33 Acute on chronic diastolic (congestive) heart failure (principal); J18.9 Pneumonia, unspecified organism; Z68.44 Body mass index [BMI] 60.0-69.9, adult; B37.0 Candidal stomatitis; E87.6 Hypokalemia; E83.42 Hypomagnesemia; R13.12 Dysphagia, oropharyngeal phase; G25.0 Essential tremor; G47.61 Periodic limb movement disorder; M54.5 Low back pain; M79.605 Pain in left leg; M79.604 Pain in right leg; S80.02XA Contusion of left knee, initial encounter; S80.01XA Contusion of right knee, initial encounter; S30.0XXA Contusion of lower back and pelvis, initial encounter; W18.31XA Fall on same level due to stepping on an object, initial encounter; Y92.002 Bathroom of unspecified non-institutional (private) residence as the place of occurrence of the external cause; R70.0 Elevated erythrocyte sedimentation rate; R29.6 Repeated falls; K59.00 Constipation, unspecified; J44.9 Chronic obstructive pulmonary disease, unspecified; N18.3 Chronic kidney disease, stage 3 (moderate); G89.4 Chronic pain syndrome; G47.00 Insomnia, unspecified; E66.01 Morbid (severe) obesity due to excess calories; Z96.653 Presence of artificial knee joint, bilateral; Z98.84 Bariatric surgery status; Z87.891 Personal history of nicotine dependence; Z82.61 Family history of arthritis; Z79.82 Long term (current) use of aspirin; Z79.899 Other long term (current) drug therapy; Z79.891 Long term (current) use of opiate analgesic

== ENCOUNTER → 2016-09-19 | Outpatient (CLI) | payer OTHER, MEDICARE ==
[~2016-09-19] MED LIST changes: +ALBU18002 INH; +ALBU2SYP9 NEB; +AMLH/550 PO; +ANT25 PO; +ASPI81TA28 PO; +AZIT-57 PO; +AZITTAB PO; +BMX1 PO; +BUPR100T13 PO; +CHOL1TAB42 PO; +CRFUDL PO; +CYM/60 PO; +CYNI1000 IM; +CYNI1000 INJ; +DFL100 PO; +DOCU-94 PO; +GABA1CAP5 PO; +GABA400C PO; +IPRASOL4 INH; +LDDP5 TD; +LMC100 PO; +MAGN400T6 PO; +MCRK20 PO; +MECL-91 PO; +MGCCMP100 MT; +MGNO400 PO; +MOME200A INH; +MOML PO; +NITR-5 PO; +NITR1CAP16 PO; +NITR1CAP33 PO; +OXYC-106 PO; +OXYC1TAB3 PO; +POTA20TA16 PO; +SENN-61 PO; +SULF800T23 PO; +TRAZ-120 PO; -TRIM100T PO; +VITAMIN B12 INJ; -VNTHFA/IN INH
[2016-09-19 17:15] LABS: BLOOD UREA NITROGEN 17 mg/dl (7-18); CALCIUM 8.8 mg/dl (8.5-10.1); CARBON DIOXIDE 35 mmol/L (21-32); CHLORIDE 96 mmol/L (98-107); GLUCOSE 84 mg/dl (70-99); POTASSIUM 3.7 mmol/L (3.5-5.1); SODIUM 135 mmol/L (136-145)
== END | disposition home or self-care (01) ==
LOC: C.LABSPEC 14:15
PROVIDERS: ATTEND Internal Medicine Critical Care Medicine
DX: E87.6 Hypokalemia (principal)

== ENCOUNTER 2016-10-03 08:42 | Inpatient (IN) | payer OTHER, MEDICARE ==
[2016-10-01 10:20] VITALS: BMI 55.0
[~2016-10-03] VITALS: Ht 165.1 cm; Wt 145.2 kg
[~2016-10-03 08:42] MED LIST changes: -ALBINS/ INH; -ALBU18002 INH; -ALBU2SYP9 NEB; -AMLH/550 PO; -ANT25 PO; -ASCO10003 PO; -ASPI81TA28 PO; -ATV/1 PO; -AZIT-57 PO; -AZITTAB PO; -BUME2TAB3 PO; -BUPR200T2 PO; -CALC625T PO; -CHOL1000 PO; -CHOL1TAB42 PO; -CRAN500C2 PO; -CRFUDL PO; -CYCL5TAB PO; -CYM/30 PO; -CYM/60 PO; -CYNI1000 IM; -CYNI1000 INJ; -DFL100 PO; -DIPH25CA65 PO; -DOCU-94 PO; -DULO60CA44 PO; -FLUT0.15 NAE; -GABA1CAP5 PO; -GABA400C PO; -HYDR-3126 PO; -IPRASOL4 INH; -LDDP5 TD; -LMC100 PO; -MAGN400T6 PO; -MCRK20 PO; -MECL-91 PO; -MGCCMP100 MT; -MGNO400 PO; -MOME200A INH; -MOML PO; -NITR-5 PO; -NITR1CAP33 PO; -NORT50CA PO; -OMEG10007 PO; -OXYC-106 PO; -OXYC-59 PO; -POTA20TA16 PO; -SULF800T23 PO; -TRAZ-120 PO; -TRAZ50TA35 PO
[2016-10-03] MEDS ORDERED: SODIUM CHLORIDE 0.9% 500ML 500 ML IV ONE (09:03)
--- NOTE | 2016-10-03 09:05 | Endo History and Physical ---
History & Physical Date of Service: October 03, 2016. Chief Complaint: Dysphagia Referring Physician: Dr. Aparicio History of Present Illness 56 yo CF who presents for EGD secondary to dysphagia. Past Surgical History Hx Cardiac Surgery: No Hx Internal Defibrillator: No Hx Pacemaker: No Hx Abdominal Surgery: Yes (GATRIC BYPASS, COSTA BSO, LAPAROSCOPY, ECTOPIC SX) Hx of Implantable Prosthesis: No Hx Post-Op Nausea and Vomiting: No Hx Cancer Surgery: No Hx Thoracic Surgery: No Hx Orthopedic: Yes (RT/LEFT TKA, LEFT/RT SHOULDER ARTHROSCOPY) Hx Urinary Tract Surgery: No Family History None Social History Smoking Status: Former Smoker Hx Substance Use: No Hx Alcohol Use: No Allergies Coded Allergies: Adhesives (Verified Allergy, Intermediate, REDNESS WITH BANDAIDS, 10/03/16) Cephalexin (Verified Allergy, Unknown, ?, 10/03/16) Current Medications Reported Home Medications Medications Dose Route/Sig Max Daily Dose Days Date Category Milk Of Magnesia (Magnesium Hydroxide) 30 Ml Susp 30 Ml PO DAILY PRN 10/01/16 Reported Vitamin D (Cholecalciferol) 5,000 Unit Tab 1 Tab PO QAM 10/01/16 Reported [Vitamin B12] 1 Dose INJ MONTHLY 10/01/16 Reported Desyrel (Trazodone Hcl) 50 Mg Tab 50 Mg PO HS 10/01/16 Reported Senokot (Senna) 8.6 Mg Tab 1 Tab PO DAILY 10/01/16 Reported Klor-Con (Potassium Chloride) 20 Meq Tabcr 2 Tab PO AC 10/01/16 Reported Protonix (Pantoprazole Sodium) 40 Mg Tab 40 Mg PO QAM 10/01/16 Reported Roxicodone Ir (Oxycodone HCl) 5 Mg Tab 10 Mg PO Q6H PRN 10/01/16 Reported Pamelor (Nortriptyline HCl) 50 Mg Cap 50 Mg PO QAM 10/01/16 Reported Macrobid (Nitrofurantoin Macrocrystals) 100 Mg Cap 100 Mg PO BID PRN 10/01/16 Reported Zaroxolyn (Metolazone) 2.5 Mg Tab 2.5 Mg PO 3XWK 10/01/16 Reported Lamictal (Lamotrigine) 100 Mg Tab 100 Mg PO QAM 10/01/16 Reported Neurontin (Gabapentin) 400 Mg Cap 400 Mg PO TID 10/01/16 Reported Flonase Allergy Relief (Fluticasone Propionate (Nasal)) 50 Mcg/Act Spr 2 [place] EDITH HS 10/01/16 Reported Colace (Docusate Sodium) 100 Mg Cap 1 Cap PO QAM 30 10/01/16 Reported Cymbalta (Duloxetine HCl) 60 Mg Cap 1 Cap PO TID 10/01/16 Reported Wellbutrin (Bupropion Hcl) 100 Mg Tab 100 Mg PO QID 10/01/16 Reported Ventolin (Albuterol Sulfate) 2 Mg/5 Ml Syrp 1 Dose INH QID PRN 10/01/16 Reported Bumetanide 1 Mg Tab 2 Mg PO BID17 30 09/09/16 Rx Proair Respiclick (Albuterol Sulfate) 108 Mcg/Act Aer 90 Mcg INH QID PRN 08/29/16 Reported Aspirin Ec (Aspirin) 81 Mg Tab 81 Mg PO QAM 07/29/16 Reported Dulera 200/5 Mcg (Mometasone Furoate-Formoterol) 1 Aer Aer 2 Puffs INH BID 30 07/29/16 Reported Vital Signs Weight (Kilograms): 150 Height (Feet): 5 Height (Inches): 5 Physical Exam General Appearance: WD/WN, no apparent distress Respiratory/Chest: Auscultation: breath sounds normal Cardiovascular: Heart Auscultation: RRR Abdomen: Bowel Sounds: normal Inspection & Palpation: soft, non-distended, no tenderness, guarding & rebound Assessment and Plan Assessment: 56 yo CF who presents for EGD secondary to dysphagia. Plan: Proceed with EGD.
[2016-10-03] MEDS ORDERED: LIDOCAINE HCL 2% 2 ML VIAL (20MG/ML) ONE (09:11)
[2016-10-03] MEDS ORDERED: PROPOFOL IV EMULSION 10 MG/ML 20 ML VIAL IV ONE (09:11)
--- NOTE | 2016-10-03 10:00 | GI REPORT ---
Procedure Date: 10/03/2016 9:30 AM Procedure: Upper GI endoscopy Indications: Dysphagia Medicines: Monitored Anesthesia Care Complications: No immediate complications. Estimated Blood Loss: Estimated blood loss: none. Procedure: Pre-Anesthesia Assessment: - Prior to the procedure, a History and Physical was performed, and patient medications and allergies were reviewed. The patient's tolerance of previous anesthesia was also reviewed. The risks and benefits of the procedure and the sedation options and risks were discussed with the patient. All questions were answered, and informed consent was obtained. Prior Anticoagulants: The patient has taken aspirin, last dose was 3 days prior to procedure. ASA Grade Assessment: III - A patient with severe systemic disease. After reviewing the risks and benefits, the patient was deemed in satisfactory condition to undergo the procedure. After obtaining informed consent, the endoscope was passed under direct vision. Throughout the procedure, the patient's blood pressure, pulse, and oxygen saturations were monitored continuously. The Scope was introduced through the mouth, and advanced to the second part of duodenum. The upper GI endoscopy was accomplished without difficulty. The patient tolerated the procedure well. Findings: Multiple 2 mm plaques were found in the upper third of the esophagus. Cells for cytology were obtained by brushing. One non-bleeding cratered gastric ulcer with adherent clot was found in the stomach. The lesion was 15 mm in largest dimension. This was biopsied with a cold forceps for histology. Area was successfully injected with 3 mL of a 1:10,000 solution of epinephrine for hemostasis. Fulguration to ablate the lesion by heater probe was successful. Evidence of a Elaine-en-Y gastrojejunostomy was found. The gastrojejunal anastomosis was characterized by healthy appearing mucosa. This was traversed. The kzwai-uc-zlyofyn limb was characterized by healthy appearing mucosa. Impression: - Multiple plaques in the upper third of the esophagus. Cells for cytology obtained. - Non-bleeding gastric ulcer with adherent clot. Biopsied. Injected. Treated with a heater probe. - Elaine-en-Y gastrojejunostomy with gastrojejunal anastomosis characterized by healthy appearing mucosa. Recommendation: - Admit the patient to [facility] for ongoing care. - Clear liquid diet. - Give Protonix (pantoprazole): initiate therapy with 80 mg IV bolus, then 8 mg/hr IV by continuous infusion for 3 days. - Use sucralfate suspension 1 gram PO QID for 10 days. - Await pathology results. Clifton Sidhu Tulio, DO 10/03/2016 10:00:02 AM This report has been signed electronically. Note Initiated On: 10/03/2016 9:30 AM I attest to the content of the Intraoperative Record and orders documented therein, exceptions below
--- NOTE | 2016-10-03 10:26 | Anesthesiology Progress Note ---
Anesthesia Post Op Note Date & Time October 03, 2016 at 10:27 Vital Signs Pain Intensity: 3 Vital Signs Past 12 Hours Date Time Temp Pulse Resp B/P Pulse Ox O2 Delivery O2 Flow Rate FiO2 10/03/16 10:15 83 24 163/84 96 Room Air 10/03/16 10:02 36.4 85 24 147/82 96 Room Air 10/03/16 09:22 36.8 84 24 184/81 95 Room Air Notes Mental Status: alert / awake / arousable, participated in evaluation Pt Amnestic to Procedure: Yes Nausea / Vomiting: adequately controlled Pain: adequately controlled Airway Patency, RR, SpO2: stable & adequate BP & HR: stable & adequate Hydration State: stable & adequate Anesthetic Complications: no major complications apparent
[2016-10-03] MEDS ORDERED: ONDANSETRON INJ 2 MG/ML 2 ML VIAL ONE (10:41)
[2016-10-03] MEDS ORDERED: ONDANSETRON INJ 2 MG/ML 2 ML VIAL IV STA (10:55)
[2016-10-03] MEDS ORDERED: ONDANSETRON INJ 2 MG/ML 2 ML VIAL IV PRN (11:45)
[2016-10-03] MEDS ORDERED: MAGNESIUM HYDROXIDE SUSP 30 ML UDC PO PRN ×2 (11:45)
[2016-10-03] MEDS ORDERED: ZOLPIDEM TARTRATE 5 MG TAB PO PRN (11:45)
[2016-10-03] MEDS ORDERED: POLYETHYLENE (MIRALAX) 17 GM PACK PO PRN (11:45)
[2016-10-03] MEDS ORDERED: ALUMINUM/MAGNESIUM/SIMETH (MAALOX MAX) 30 ML UDC PO PRN (11:45)
--- NOTE | 2016-10-03 12:12 | Gastrointestinal Consultation ---
Gastrointestinal Consultation Date of Consultation: October 03, 2016 Attending Physician: Dr. Santa Consulting Physician: Dr. Antunez/VANDANA Null Reason for Consultation: Gastric ulceration History of Present Illness Patient is a 56 year old female with a history of morbid obesity as well as asthma and COPD recently admitted with pneumonia approximately two weeks ago. At that time, she was also noted to reports symptoms of dysphagia. She did undergo a video swallow which demonstrated penetration without overt aspiration. She was unable to undergo an investigative endoscopy at that time due to medical comorbidities. Testing was therefore scheduled as an outpatient and was performed this morning. During the procedure, she was noted to have possible aleksandr esophagitis (which could explain her dysphagia) and an incidental finding of gastric ulceration with stigmata of bleeding. The ulcer was treated with Epinephrine and Bicap heater probe cauterization. Since the procedure, she reports symptoms of nausea and mild LUQ discomfort but no chest pain, palpitations, shortness or breath or other complaints. She is being admitted for ongoing medical management and observation in this regard. Past Medical/Surgical History Medical Problems: (1) Contusion of lower extremity Status: Acute (2) Contusion of multiple sites Status: Acute (3) Fall Status: Acute (4) Fall Status: Acute (5) Hypoxia Status: Acute (6) Lumbar contusion Status: Acute (7) Pulmonary edema Status: Acute Past Medical History: 1. CKD, stage II-III 2. Morbid obesity 3. Lymphedema 4. GERD 5. Hyperlipidemia 6. COPD 7. Asthma 8. DJD 9. OA 10. Chronic tremor 11. Depression and anxiety 12. UTI 13. Hypertension 14. Hyperlipidemia 15. Vitamin D deficiency 16. Obstructive sleep apnea 17. Migraines 18. Pickwickian syndrome Past Surgical History: 1. Hysterectomy 2. Bypass surgery 3. Tubal ligation 4. Bilateral TKA 5. Bilateral shoulder surgery 6. Complete colonoscopy Family History FHx: aneurysm FHx: dementia Negative for GI malignancy or IBD Social History Smoking Status: Former Smoker Alcohol Use: none Marital Status: Housing Status: lives with family Occupation Status: unemployed Allergies Coded Allergies: Adhesives (Verified Allergy, Intermediate, REDNESS WITH BANDAIDS, 10/03/16) Cephalexin (Verified Allergy, Unknown, ?, 10/03/16) Current Medications Home Meds and Scripts Medications Dose Route/Sig Max Daily Dose Days Date Category Milk Of Magnesia (Magnesium Hydroxide) 30 Ml Susp 30 Ml PO DAILY PRN 10/01/16 Reported Vitamin D (Cholecalciferol) 5,000 Unit Tab 1 Tab PO QAM 10/01/16 Reported [Vitamin B12] 1 Dose INJ MONTHLY 10/01/16 Reported Desyrel (Trazodone Hcl) 50 Mg Tab 50 Mg PO HS 10/01/16 Reported Senokot (Senna) 8.6 Mg Tab 1 Tab PO DAILY 10/01/16 Reported Klor-Con (Potassium Chloride) 20 Meq Tabcr 2 Tab PO AC 10/01/16 Reported Protonix (Pantoprazole Sodium) 40 Mg Tab 40 Mg PO QAM 10/01/16 Reported Roxicodone Ir (Oxycodone HCl) 5 Mg Tab 10 Mg PO Q6H PRN 10/01/16 Reported Pamelor (Nortriptyline HCl) 50 Mg Cap 50 Mg PO QAM 10/01/16 Reported Macrobid (Nitrofurantoin Macrocrystals) 100 Mg Cap 100 Mg PO BID PRN 10/01/16 Reported Zaroxolyn (Metolazone) 2.5 Mg Tab 2.5 Mg PO 3XWK 10/01/16 Reported Lamictal (Lamotrigine) 100 Mg Tab 100 Mg PO QAM 10/01/16 Reported Neurontin (Gabapentin) 400 Mg Cap 400 Mg PO TID 10/01/16 Reported Flonase Allergy Relief (Fluticasone Propionate (Nasal)) 50 Mcg/Act Spr 2 [place] EDITH HS 10/01/16 Reported Colace (Docusate Sodium) 100 Mg Cap 1 Cap PO QAM 30 10/01/16 Reported Cymbalta (Duloxetine HCl) 60 Mg Cap 1 Cap PO TID 10/01/16 Reported Wellbutrin (Bupropion Hcl) 100 Mg Tab 100 Mg PO QID 10/01/16 Reported Ventolin (Albuterol Sulfate) 2 Mg/5 Ml Syrp 1 Dose INH QID PRN 10/01/16 Reported Bumetanide 1 Mg Tab 2 Mg PO BID17 30 09/09/16 Rx Proair Respiclick (Albuterol Sulfate) 108 Mcg/Act Aer 90 Mcg INH QID PRN 08/29/16 Reported Aspirin Ec (Aspirin) 81 Mg Tab 81 Mg PO QAM 07/29/16 Reported Dulera 200/5 Mcg (Mometasone Furoate-Formoterol) 1 Aer Aer 2 Puffs INH BID 30 07/29/16 Reported Review of Systems Constitutional: No chills, No fever Eyes: No problem reported ENT: + see HPI Respiratory: + see HPI Cardiac: + see HPI Abdomen: + see HPI Musculoskeletal: No problem reported Female : No problem reported Neuro: No problem reported Psych: No problem reported Endo: No problem reported Skin: No problem reported Physical Exam Date Time Temp Pulse Resp B/P Pulse Ox O2 Delivery O2 Flow Rate FiO2 10/03/16 11:57 87 24 162/86 96 Nasal Cannula 2 10/03/16 11:45 87 24 178/82 94 Nasal Cannula 2 10/03/16 11:15 87 24 172/88 94 Nasal Cannula 2 10/03/16 11:00 85 24 164/85 94 Nasal Cannula 2 10/03/16 10:45 83 24 178/97 92 Room Air 10/03/16 10:31 84 24 181/61 96 Room Air 10/03/16 10:15 83 24 163/84 96 Room Air 10/03/16 10:02 36.4 85 24 147/82 96 Room Air 10/03/16 09:22 36.8 84 24 184/81 95 Room Air General Appearance: WD/WN, no apparent distress Eyes: EOMI ENT: hearing grossly normal Neck: supple Respiratory/Chest: lungs clear, normal breath sounds, no respiratory distress Cardiovascular: regular rate, rhythm, no gallop, no murmur Abdomen: normal bowel sounds, non tender, soft Extremities: + swelling Neurologic/Psych: alert, normal mood/affect, oriented x 3 Skin: warm/dry Laboratory Results Last 24 Hours Test 10/03/16 11:36 Impression Patient is a 56 year old female with a history of obesity, asthma, COPD and dysphagia status post EGD with findings of possible aleksandr esophagitis as well as incidental finding of gastric ulcer with stigmata status post hemostasis with Epinephrine and Bicap therapy. Plan 1. Clear liquid diet. 2. Protonix gtt at 8 mg/hr for 72 hours, then Protonix 40 mg BID. 3. Await brushings. If positive for aleksandr, recommend Diflucan 400 mg x 1, then 200 mg daily x 20 days. 4. Supportive management per primary care. Agree with VANDANA Null as above Abd: Soft, NT, ND, +BS Continue current therapy Recommend Protonix gtt x 72 hours then twice daily PPI for 8 weeks, then daily PPI thereafter. Dr. Xie will be covering this weekend
[2016-10-03 12:15] VITALS: BP 128/62; PULSE 88; TEMP 37; O2SAT 90
--- NOTE | 2016-10-03 13:03 | Progress Note ---
Progress Note Date of Service October 03, 2016. Progress Note [id number] gastric ulceration,
[2016-10-03 13:06] LABS: BASO % 0.5 %; BASO ABS # 0.04 K/uL (0-0.2); COMPLETE YES; EOS % 1.2 %; HEMATOCRIT 40.1 % (37-47); IG% 0.3 %; LYMPH % 18.6 %; LYMPH ABS # 1.44 K/uL (1.2-3.4); MEAN CELL VOLUME 84.6 fL (80-100); MEAN CORPUSCULAR HGB CONC 31.9 g/dl (32-36); MEAN PLATELET VOLUME 10.6 fL (7.4-10.4); MONO % 6.5 %; NEUT % 72.9 %; PLATELET COUNT 296 K/uL (130-400); RED BLOOD COUNT 4.74 M/uL (4.2-5.4); WHITE BLOOD COUNT 7.73 K/uL (4.8-10.8)
[2016-10-03] MEDS ORDERED: FLUCONAZOLE 100 MG TAB PO ONE (13:30)
[2016-10-03] MEDS: PANTOprazole INJ 40 MG in DEXTROSE 5% 100ML IV SCH ×3 (13:48→23:34)
[2016-10-03] MEDS: DULOXETINE HCL 60 MG CAP PO SCH ×2 (13:48→21:00)
[2016-10-03] MEDS: NSS + 20MEQ KCL 1000ML 1,000 ML IV SCH (13:48)
[2016-10-03] MEDS: GABAPENTIN 400 MG CAP PO SCH ×2 (13:48→19:01)
[2016-10-03] MEDS: OXYCODONE HCL IR 5 MG TAB (IMMEDIATE RELEASE) PO PRN ×2 (14:00→21:11)
[2016-10-03 14:11] LABS: BUN/CREATININE RATIO 17.6 (10-20); CREATININE 1.3 mg/dl (0.60-1.20); MAGNESIUM 2.5 mg/dl (1.8-2.4); POTASSIUM 3.2 mmol/L (3.5-5.1)
[2016-10-03 14:28] LABS: HEMATOCRIT 39.9 % (37-47)
[2016-10-03 14:57] VITALS: Ht 165.1 cm; Wt 145.2 kg
[2016-10-03 16:00] VITALS: BP 122/65; PULSE 81; TEMP 37; O2SAT 94
--- NOTE | 2016-10-03 16:11 | HISTORY & PHYSICAL EXAMINATION ---
DATE OF ADMISSION: 10/03/2016 This is a level 2 inpatient admission, 25 minutes. CHIEF COMPLAINT: Gastric ulceration and possible fungal esophagitis. HISTORY OF PRESENT ILLNESS: The patient is a 56-year-old white female who has significant past medical history of diastolic CHF, pneumonia, morbid obesity, chronic lower back pain and epigastric pain was direct admission from GI lab. The patient was discharged from last month on 09/09/2016 with medical conditions of CHF exacerbation and possible pneumonia. She was having epigastric pain. In the previous admission, the patient was seen by GI. Was planned to have outpatient EGD studies. Therefore, today patient has EGD studies with Dr. Antunez. During the procedure, the patient found to have possible Sylvia esophagitis and gastric ulceration. During the procedure, the patient got epinephrine injection for gastric ulcer. GI recommend to admit to the hospital for further evaluation of bleeding and Protonix drip. When I interviewed with the patient, she is awake, alert, and orientated, pleasant, mild anxious, which is not new for her. Chronic lower back pain is not new for her. She is happy about today's care from the GI service. Denied fever, chill, cough, sputum, or shortness of breath. Denied nausea, vomiting, abdominal pain, diarrhea, or constipation. Denied chest pain, palpitation. Lower extremity has been significantly improved. Denied dysuria, urgency and frequency. ALLERGIES: ALLERGY TO ADHESIVE AND KEFLEX. PAST SURGICAL HISTORY: Also include hysterectomy, gastric bypass, bilateral shoulder surgeries, bilateral knee replacements, and pneumonia. SOCIAL HISTORY: History of smoking more than 40 years, quit recently about 3 months ago. Denied alcohol abuse disorder, denied illicit drug abuse. FAMILY HISTORY: Positive for rheumatoid arthritis. Her father and mother are diabetic. REVIEW OF SYSTEMS: Please see HPI, otherwise 14 points organized system review were negative. CURRENT MEDICATIONS: Taking at home which includes Wellbutrin 100 mg p.o. q.i.d., Colace 100 mg p.o. daily, Cymbalta 60 mg p.o. t.i.d., Flonase nasal spray at bedtime, gabapentin 400 mg p.o. t.i.d., milk of magnesia 30 mL suspension p.o. daily p.r.n., nortriptyline 50 mg p.o. q.a.m., oxycodone 10 mg p.o. q. 6 hours p.r.n. for the pain, trazodone 50 mg p.o. at bedtime. Albuterol sulfate 90 mcg inhaler q.i.d. p.r.n. for shortness of breath, vitamin D 5000 units 1 tab p.o. q.a.m., Dulera 200/5 mcg 2 puff inhaled b.i.d., vitamin B12 1 dose q. monthly. Aspirin 81 mg p.o. q.a.m., Bumex 2 mg p.o. b.i.d., Lamictal 100 mg p.o. q.a.m., Zaroxolyn 2.5 mg p.o. 3 times per week, Macrobid 100 mg p.o. b.i.d., Protonix 40 mg p.o. q.a.m., potassium chloride 20 mEq 2 tab p.o. a.c., senna 1 tab p.o. daily. PHYSICAL EXAMINATION: VITAL SIGNS: Temperature 36.4, pulse 87, respiration rate 24, blood pressure 162/86, pulse ox was 96% was on 2 liters. GENERAL: The patient is a white female, awake, alert and orientated HEAD: Normocephalic. EYES: Pupils equal, round responds to light. EARS: Ear was normal. NOSE: Normal. NECK: Supple. Thyroid no enlargement. Trachea midline. HEART: Regular rhythm. S1, S2. LUNGS: Decreased breathing sounds. There was no wheezing, rhonchi and crackles. There were decreased breathing sounds. ABDOMEN: Obese, nontender. Bowel sounds positive. Bilateral CVA was nontender. GENITOURINARY AND RECTAL: Deferred. BILATERAL LOWER EXTREMITIES: Only trace edema which is significantly better, when I saw her last time in the previous admission, which was 2+. NEUROLOGIC: Cranial nerves II-XII was intact. There were no local deficits. LABORATORY STUDIES: Today's lab is pending because of direct admission. Today's EGD studies like I mentioned in above. ASSESSMENT AND PLAN: A 56-year-old white female with the problem below: 1. Possible Sylvia esophagitis and gastric ulceration, status post hemostasis with epinephrine 2. History of chronic obstructive pulmonary disease, diastolic congestive heart failure, dysphagia, history of asthma, morbid obesity, history of chronic lower back pain. Per GI recommendation, will continue clear liquid diet. Protonix drip for 72 hours, then 40 mg p.o. b.i.d. and GI recommend awaiting blushing results. If positive for candidiasis, will start Diflucan 400 mg x1 and then 200 mg p.o. for 20 days. Will continue supportive care. For other conditions, likely chronic obstructive pulmonary disease, chronic diastolic congestive heart failure, chronic lower back pain is stable. Continue home medications. Gastrointestinal and deep vein thrombosis prophylaxis is covered. The patient is full code. Discussed with patient about the care plan and answered all the questions. LALO
[2016-10-03] MEDS ORDERED: NITR-5 PO (17:37)
[2016-10-03] MEDS ORDERED: LAMO100T16 PO (17:37)
[2016-10-03] MEDS ORDERED: METO2.5T PO (17:37)
[2016-10-03] MEDS ORDERED: NURSING VERBAL MED ORDER ONE ×4 (17:45)
[2016-10-03] MEDS ORDERED: METOLAZONE 2.5 MG TAB PO SCH (18:00)
[2016-10-03] MEDS: BUMETANIDE 1 MG TAB PO SCH (18:59)
[2016-10-03] MEDS: NITROFURANTOIN MONOHYDRATE 100 MG CAP PO SCH (19:01)
[2016-10-03 19:33] VITALS: BP 130/69; PULSE 77; TEMP 36.9; O2SAT 90
[2016-10-03] MEDS: TRAZODONE HCL 50 MG TAB PO SCH (21:03)
[2016-10-03] MEDS: FLUTICASONE PROPIONATE NA SPR 16 GM BTL NAE SCH (21:03)
[2016-10-03] MEDS: NORTRIPTYLINE HCL 25 MG CAP PO SCH (21:05)
[2016-10-03 22:31] LABS: HEMATOCRIT 37.4 % (37-47)
[2016-10-03 23:07] VITALS: BP 137/75; PULSE 89; TEMP 37; O2SAT 91
[2016-10-04] VITALS (7 sets, daily range): BP systolic 89–152; BP diastolic 41–82; PULSE 73–83; TEMP 36.2–36.8; O2SAT 89–94
[2016-10-04] MEDS: NSS + 20MEQ KCL 1000ML 1,000 ML IV SCH ×2 (02:42→13:45)
[2016-10-04] MEDS: OXYCODONE HCL IR 5 MG TAB (IMMEDIATE RELEASE) PO PRN ×2 (03:06→19:16)
[2016-10-04] MEDS: PANTOprazole INJ 40 MG in DEXTROSE 5% 100ML IV SCH ×5 (04:53→23:45)
[2016-10-04 06:37] LABS: BASO % 0.6 %; BASO ABS # 0.04 K/uL (0-0.2); COMPLETE YES; EOS % 2.9 %; HEMATOCRIT 37.5 % (37-47); IG% 0.3 %; LYMPH % 28.9 %; LYMPH ABS # 1.91 K/uL (1.2-3.4); MEAN CELL VOLUME 84.5 fL (80-100); MEAN CORPUSCULAR HEMOGLOBIN 25.9 pg (25-34); MEAN CORPUSCULAR HGB CONC 30.7 g/dl (32-36); MEAN PLATELET VOLUME 9.9 fL (7.4-10.4); MONO % 7.7 %; NEUT % 59.6 %; PLATELET COUNT 247 K/uL (130-400); RED BLOOD COUNT 4.44 M/uL (4.2-5.4); WHITE BLOOD COUNT 6.62 K/uL (4.8-10.8)
[2016-10-04 07:15] LABS: BUN/CREATININE RATIO 15.2 (10-20); CALCIUM 8.7 mg/dl (8.5-10.1); CREATININE 1.3 mg/dl (0.60-1.20); MAGNESIUM 2.4 mg/dl (1.8-2.4); POTASSIUM 2.6 mmol/L (3.5-5.1)
[2016-10-04] MEDS: GABAPENTIN 400 MG CAP PO SCH ×3 (07:35→21:09)
[2016-10-04] MEDS: DULOXETINE HCL 60 MG CAP PO SCH ×3 (07:35→21:00)
[2016-10-04] MEDS: DOCUSATE SODIUM 100 MG CAP PO SCH (07:35)
[2016-10-04] MEDS: BUMETANIDE 1 MG TAB PO SCH ×2 (07:36→17:08)
[2016-10-04] MEDS: NITROFURANTOIN MONOHYDRATE 100 MG CAP PO SCH ×2 (07:37→21:09)
[2016-10-04] MEDS ORDERED: POTASSIUM CHLORIDE 10 MEQ TABCR PO ONE (08:30)
[2016-10-04] MEDS: POTASSIUM CHLR 10 MEQ / WTR 10 MEQ in PREMIXED WATER 100 ML IV SCH ×2 (08:35→10:23)
[2016-10-04] MEDS ORDERED: OXYCODONE HCL IR 5 MG TAB (IMMEDIATE RELEASE) ONE (08:40)
[2016-10-04] MEDS ORDERED: FLUCONAZOLE 100 MG TAB PO SCH (09:00)
[2016-10-04] MEDS: POTASSIUM CHLORIDE 10 MEQ TABCR PO SCH ×2 (11:59→21:10)
[2016-10-04] MEDS ORDERED: SUMATRIPTAN SUCCINATE 6 MG/0.5 ML VIAL SQ ONE (14:00)
[2016-10-04] MEDS ORDERED: ONDANSETRON INJ 8 MG in DEXTROSE 5% 50ML 50 ML IV ONE (14:00)
[2016-10-04 14:25] LABS: HEMATOCRIT 35.6 % (37-47)
[2016-10-04] MEDS: FLUTICASONE PROPIONATE NA SPR 16 GM BTL NAE SCH (21:08)
[2016-10-04] MEDS: NORTRIPTYLINE HCL 25 MG CAP PO SCH (21:09)
[2016-10-04] MEDS: TRAZODONE HCL 50 MG TAB PO SCH (21:09)
--- NOTE | 2016-10-04 21:19 | Progress Note ---
Subjective Date of Service: October 04, 2016. Subjective Pt evaluation today including: conversation w/ patient, physical exam, chart review, lab review, review of inpatient medication list Pain: severe frontal headache, left side - typical migraine PO Intake: tolerating clears w/o abdominal pain Voiding: no voiding problems telemetry stable overnight main complaint is that of frontal headache has had migraines since her 20s and her daughter has migraines +photophobia, +phonophobia, and nausea admits to frequent use of oxycodone at home not only for chronic low back but her headaches gets at least 2-3 headaches/week for the last few months took imitrex up until 3-4 years ago and it helped her headaches denies any GI complaints Problem List Medical Problems: (1) Contusion of lower extremity Status: Acute (2) Contusion of multiple sites Status: Acute (3) Fall Status: Acute (4) Fall Status: Acute (5) Hypoxia Status: Acute (6) Lumbar contusion Status: Acute (7) Pulmonary edema Status: Acute Review of Systems Constitutional: No chills, No fever Respiratory: No shortness of breath Cardiac: No chest pain, No orthopnea Abdomen: + nausea, No GI bleeding, No pain, No vomiting Objective Vital Signs Date Time Temp Pulse Resp B/P Pulse Ox O2 Delivery O2 Flow Rate FiO2 10/04/16 20:00 Room Air 10/04/16 19:08 36.8 73 16 130/70 93 Room Air 10/04/16 16:00 Room Air CPAP 10/04/16 15:43 36.5 77 18 146/79 94 CPAP 10/04/16 12:00 Room Air CPAP 10/04/16 11:45 36.2 80 20 152/73 91 Room Air 10/04/16 08:12 74 150/82 10/04/16 08:00 Room Air CPAP 10/04/16 07:46 36.5 74 18 89/41 91 Room Air 10/04/16 04:00 Room Air 10/04/16 03:05 36.6 83 19 115/56 89 CPAP 10/03/16 23:59 Room Air 10/03/16 23:07 37.0 89 19 137/75 91 Room Air Physical Exam General Appearance: + mild distress (holding head in discomfort ), + obese Eyes: PERRL, EOMI, + pertinent finding (no nystagmus) ENT: pharynx normal Neck: no JVD Respiratory/Chest: lungs clear, no respiratory distress, no accessory muscle use Cardiovascular: regular rate, rhythm, no gallop, no murmur Abdomen: normal bowel sounds, non tender, soft, no organomegaly Extremities: no pedal edema Neurologic/Psychiatric: no motor/sensory deficits, alert, oriented x 3 Skin: no rash Laboratory Results Last 24 Hours Test 10/03/16 22:25 10/04/16 06:24 10/04/16 06:29 10/04/16 14:00 Hemoglobin 12.0 g/dL 11.5 g/dL 11.6 g/dL Hematocrit 37.4 % 37.5 % 35.6 % Sodium Level 137 mmol/L Potassium Level 2.6 mmol/L Chloride Level 94 mmol/L Carbon Dioxide Level 39 mmol/L Anion Gap 4.0 mmol/L Blood Urea Nitrogen 20 mg/dl Creatinine 1.30 mg/dl Est Creatinine Clear Calc Drug Dose 73.0 ml/min Estimated GFR () 53.5 Estimated GFR (Non- 46.1 BUN/Creatinine Ratio 15.2 Random Glucose 120 mg/dl Calcium Level 8.7 mg/dl Magnesium Level 2.4 mg/dl White Blood Count 6.62 K/uL Red Blood Count 4.44 M/uL Mean Corpuscular Volume 84.5 fL Mean Corpuscular Hemoglobin 25.9 pg Mean Corpuscular Hemoglobin Concent 30.7 g/dl Platelet Count 247 K/uL Mean Platelet Volume 9.9 fL Neutrophils (%) (Auto) 59.6 % Lymphocytes (%) (Auto) 28.9 % Monocytes (%) (Auto) 7.7 % Eosinophils (%) (Auto) 2.9 % Basophils (%) (Auto) 0.6 % Neutrophils # (Auto) 3.95 K/uL Lymphocytes # (Auto) 1.91 K/uL Monocytes # (Auto) 0.51 K/uL Eosinophils # (Auto) 0.19 K/uL Basophils # (Auto) 0.04 K/uL RDW Standard Deviation 50.3 fL RDW Coefficient of Variation 16.3 % Immature Granulocyte % (Auto) 0.3 % Immature Granulocyte # (Auto) 0.02 K/uL Assessment and Plan 56yo female with: 1. gastric ulcer - clear liquids only. PPI drip x 3 days; today is day #1-2. H/H stable. No gastric symptoms at this time. 2. h/o gastric bypass - noted. 3. severe headache - has known, chronic headaches. Limited choices for abortive Rx given #1. BPs are reasonable. Will Rx with SQ imitrex w/ zofran. If not helpful then try demerol or fioricet but these options are less than optimal. Sed rate in August was >90. Repeat in AM to r/o temporal arteritis. Obesity makes pseudotumor cerebri possible. If headache persists then MRI, diagnostic/therapeutic LP, etc. Of note - has had multiple CT heads this year - all normal. 4. ?candidal esophagitis - awaiting path and culture. 5. COPD - not in exacerbation. 6. hypokalemia - 2nd to chronic diuretic use. Replete, repeat level am. 7. chronic pain syndrome - on oxycodone at home. 8. morbid obesity w/ BMI 55 - noted. 9. JANELLE - CPAP. 10. depression/anxiety - continue complicated outpatient regimen. 11. FEN - stop fluids. Continued [facility] stay due to: inadequate po fluid intake, inadequate oral pain control, multiple IV medications needed Discharge planning: home
[2016-10-05 03:36] VITALS: BP 144/75; PULSE 75; TEMP 36.8; O2SAT 88
[2016-10-05] MEDS: PANTOprazole INJ 40 MG in DEXTROSE 5% 100ML IV SCH ×4 (05:01→21:07)
[2016-10-05 06:41] VITALS: BP 149/67; PULSE 74; TEMP 36.5; O2SAT 93
[2016-10-05 06:54] LABS: MEAN CELL VOLUME 85.8 fL (80-100); MEAN CORPUSCULAR HEMOGLOBIN 26.6 pg (25-34); MEAN CORPUSCULAR HGB CONC 31.1 g/dl (32-36); MEAN PLATELET VOLUME 10.5 fL (7.4-10.4); PLATELET COUNT 240 K/uL (130-400); RED BLOOD COUNT 4.43 M/uL (4.2-5.4); WHITE BLOOD COUNT 6.33 K/uL (4.8-10.8)
[2016-10-05 07:33] LABS: BUN/CREATININE RATIO 12.8 (10-20); CALCIUM 8.7 mg/dl (8.5-10.1); CREATININE 1.2 mg/dl (0.60-1.20); POTASSIUM 2.6 mmol/L (3.5-5.1)
[2016-10-05] MEDS: DOCUSATE SODIUM 100 MG CAP PO SCH (08:34)
[2016-10-05] MEDS: GABAPENTIN 400 MG CAP PO SCH ×3 (08:35→21:00)
[2016-10-05] MEDS: NITROFURANTOIN MONOHYDRATE 100 MG CAP PO SCH ×2 (08:35→20:59)
[2016-10-05] MEDS: DULOXETINE HCL 60 MG CAP PO SCH ×3 (08:36→21:01)
[2016-10-05] MEDS: POTASSIUM CHLORIDE 10 MEQ TABCR PO SCH (08:37)
[2016-10-05] MEDS: OXYCODONE HCL IR 5 MG TAB (IMMEDIATE RELEASE) PO PRN ×3 (08:39→21:39)
[2016-10-05] MEDS: POTASSIUM CHLR 10 MEQ / WTR 10 MEQ in PREMIXED WATER 100 ML IV SCH ×2 (10:00→10:35)
[2016-10-05 11:22] VITALS: BP 158/58; TEMP 36.8; O2SAT 92
[2016-10-05] MEDS ORDERED: POTASSIUM CHLORIDE 10 MEQ TABCR PO SCH (14:00)
[2016-10-05 15:29] VITALS: BP 125/71; PULSE 83; TEMP 36.6; O2SAT 90
[2016-10-05] MEDS ORDERED: FLUCONAZOLE 100 MG TAB PO ONE (16:30)
[2016-10-05] MEDS ORDERED: BISACODYL 5 MG TABEC PO ONE (17:00)
[2016-10-05] MEDS: POLYETHYLENE (MIRALAX) 17 GM PACK PO SCH ×2 (17:00→21:00)
[2016-10-05 19:28] VITALS: BP 144/76; PULSE 71; TEMP 36.8; O2SAT 92
[2016-10-05] MEDS ORDERED: POTASSIUM CHLR 20 MEQ / WTR 20 MEQ in PREMIXED WATER 100 ML IV STA (19:37)
[2016-10-05] MEDS: FLUTICASONE PROPIONATE NA SPR 16 GM BTL NAE SCH (20:58)
[2016-10-05] MEDS: POTASSIUM CHLR 10MEQ / WTR IV SCH ×2 (20:58→23:14)
[2016-10-05] MEDS: POTASSIUM CHLORIDE 20 MEQ TABCR PO SCH (20:59)
[2016-10-05] MEDS: TRAZODONE HCL 50 MG TAB PO SCH (21:01)
[2016-10-05 23:37] VITALS: BP 137/79; PULSE 74; TEMP 36.9; O2SAT 94
[2016-10-06] VITALS (9 sets, daily range): BP systolic 99–145; BP diastolic 68–76; PULSE 75–83; TEMP 36.5–36.9; O2SAT 89–94
--- NOTE | 2016-10-06 00:10 | Progress Note ---
Subjective Date of Service: October 05, 2016. Subjective Pt evaluation today including: conversation w/ patient, physical exam, chart review, lab review, conversation w/ technical solutions consultant (GI, by phone), review of inpatient medication list Pain: left side of abdomen - worse after eating, and intermittent (crampy) PO Intake: tolerating clears, desires more food Voiding: no voiding problems tele stable overnight her headache resolved following imitrex administration yesterday she reports mild, intermittent, crampy abdominal pain on the left side ( junction of LUQ and LLQ) last BM was 2 days ago and was very small despite the abdominal complaint she requests advancement in her diet denies any blood per rectum; denies nausea or emesis; denies dysphagia no sob Problem List Medical Problems: (1) Contusion of lower extremity Status: Acute (2) Contusion of multiple sites Status: Acute (3) Fall Status: Acute (4) Fall Status: Acute (5) Hypoxia Status: Acute (6) Lumbar contusion Status: Acute (7) Pulmonary edema Status: Acute Review of Systems Constitutional: No fever Respiratory: No dyspnea on exertion, No shortness of breath Cardiac: No PND, No chest pain, No edema, No orthopnea Abdomen: + constipation, + pain, + see HPI, No GI bleeding, No diarrhea, No nausea, No vomiting Objective Vital Signs Date Time Temp Pulse Resp B/P Pulse Ox O2 Delivery O2 Flow Rate FiO2 10/05/16 23:37 36.9 74 18 137/79 94 Room Air 10/05/16 20:30 Room Air 10/05/16 19:28 36.8 71 18 144/76 92 Room Air 10/05/16 16:00 Room Air 10/05/16 15:29 36.6 83 18 125/71 90 Room Air 10/05/16 12:00 Room Air 10/05/16 11:22 36.8 19 158/58 92 Room Air 10/05/16 08:00 Room Air 10/05/16 06:41 36.5 74 18 149/67 93 CPAP 10/05/16 04:00 Room Air 10/05/16 03:36 36.8 75 18 144/75 88 CPAP Physical Exam General Appearance: no apparent distress, + obese ENT: pharynx normal Neck: no JVD Respiratory/Chest: lungs clear, no respiratory distress, no accessory muscle use, + rales (minimal, bases) Cardiovascular: regular rate, rhythm, no gallop, no murmur Abdomen: normal bowel sounds, non tender, soft, no organomegaly Extremities: no pedal edema Neurologic/Psychiatric: alert, oriented x 3 Laboratory Results Last 24 Hours Test 10/05/16 06:39 10/05/16 17:30 White Blood Count 6.33 K/uL Red Blood Count 4.43 M/uL Hemoglobin 11.8 g/dL 11.8 g/dL Hematocrit 38.0 % Mean Corpuscular Volume 85.8 fL Mean Corpuscular Hemoglobin 26.6 pg Mean Corpuscular Hemoglobin Concent 31.1 g/dl RDW Standard Deviation 51.2 fL RDW Coefficient of Variation 16.3 % Platelet Count 240 K/uL Mean Platelet Volume 10.5 fL Erythrocyte Sedimentation Rate 52 mm/hr Sodium Level 140 mmol/L Potassium Level 2.6 mmol/L 2.6 mmol/L Chloride Level 96 mmol/L Carbon Dioxide Level 37 mmol/L Anion Gap 7.0 mmol/L Blood Urea Nitrogen 15 mg/dl Creatinine 1.20 mg/dl Est Creatinine Clear Calc Drug Dose 80.6 ml/min Estimated GFR () 58.9 Estimated GFR (Non- 50.8 BUN/Creatinine Ratio 12.8 Random Glucose 100 mg/dl Calcium Level 8.7 mg/dl Assessment and Plan 56yo female with: 1. gastric ulcer - stable H/H since Thursday. PPI drip x 72 hours which will take us to about noon on 10/06/16. At that time we can transition to PO PPI twice daily and carafate 1gm QID. Repeat h/h in am. 2. h/o gastric bypass - noted. Most recent b12 level was normal. 3. severe migraine headache - resolved s/p imitrex. Pt reports 2-3 days of headaches each week at home. Sed rate in August was >90. Repeat today to r/o temporal arteritis was much improved to the 50s. Obesity makes pseudotumor cerebri possible. Consider outpatient referral to neurology. Of note - has had multiple CT heads this year - all normal. 4. candidal esophagitis - fungal cx finally grew aleksandr. Start 21-day course of diflucan 200mg daily. 5. COPD - not in exacerbation. 6. hypokalemia - 2nd to chronic diuretic use (bumex and metazolone). Hold both diuretics. Replete IV and PO today. Repeat level later today. If still low replete gain. K in am. Could consider K-sparing diuretic at discharge to help keep K in normal range. 7. chronic pain syndrome - on oxycodone at home. 8. morbid obesity w/ BMI 55 - noted. 9. JANELLE - CPAP. 10. depression/anxiety - continue complicated outpatient regimen. 11. FEN - advance diet to full liquids; replete K. 12. left-sided abdominal discomfort - sounds like constipation. Start bowel regimen. If pain recurs/persists then KUB x-ray to assess stool vs CT. anticipate d/c to home tomorrow IF potassium is normal Continued [facility] stay due to: inadequate po fluid intake, multiple IV medications needed Discharge planning: home
[2016-10-06] MEDS: PANTOprazole INJ 40 MG in DEXTROSE 5% 100ML IV SCH ×3 (01:18→10:58)
[2016-10-06] MEDS: SUCRALFATE 1 GM/10 ML UDC PO SCH ×4 (06:30→20:21)
[2016-10-06] MEDS: GABAPENTIN 400 MG CAP PO SCH ×3 (08:07→20:22)
[2016-10-06] MEDS: NORTRIPTYLINE HCL 25 MG CAP PO SCH (08:07)
[2016-10-06] MEDS: DOCUSATE SODIUM 100 MG CAP PO SCH (08:07)
[2016-10-06] MEDS: POTASSIUM CHLORIDE 20 MEQ TABCR PO SCH ×3 (08:08→20:20)
[2016-10-06] MEDS: FLUCONAZOLE 100 MG TAB PO SCH (08:08)
[2016-10-06] MEDS: DULOXETINE HCL 60 MG CAP PO SCH ×3 (08:08→20:21)
[2016-10-06] MEDS: NITROFURANTOIN MONOHYDRATE 100 MG CAP PO SCH ×2 (08:08→20:22)
[2016-10-06] MEDS: POLYETHYLENE (MIRALAX) 17 GM PACK PO SCH ×2 (08:10→20:22)
[2016-10-06] MEDS: OXYCODONE HCL IR 5 MG TAB (IMMEDIATE RELEASE) PO PRN ×2 (08:13→13:43)
--- NOTE | 2016-10-06 08:18 | Anesthesiology Progress Note ---
Anesthesia Post Op Note Date & Time October 06, 2016 at 08:16 Vital Signs Pain Intensity: 4.0 Vital Signs Past 12 Hours Date Time Temp Pulse Resp B/P Pulse Ox O2 Delivery O2 Flow Rate FiO2 10/06/16 07:19 36.8 79 18 110/72 91 Room Air 10/06/16 04:00 89 CPAP 10/06/16 03:34 36.9 83 18 145/74 89 CPAP 2.0 10/06/16 00:01 94 Room Air 10/05/16 23:37 36.9 74 18 137/79 94 Room Air 10/05/16 20:30 Room Air Notes Mental Status: alert / awake / arousable, participated in evaluation Pt Amnestic to Procedure: Yes Nausea / Vomiting: adequately controlled Pain: adequately controlled Airway Patency, RR, SpO2: stable & adequate BP & HR: stable & adequate Hydration State: stable & adequate Anesthetic Complications: no major complications apparent
[2016-10-06 09:14] LABS: BUN/CREATININE RATIO 12.3 (10-20); CALCIUM 8.4 mg/dl (8.5-10.1); CREATININE 1.1 mg/dl (0.60-1.20)
--- NOTE | 2016-10-06 09:35 | Gastroenterology Progress Note ---
Progress Note Date of Service: October 06, 2016 Subjective Pt evaluation today including: conversation w/ patient, physical exam, lab review, review of studies, review of inpatient medication list Patient reports she is feeling well today. No abdominal pain, nausea or vomiting or melanotic stool. In fact, he has not passed a bowel movement over the past few days. She is tolerating a full liquid diet and is requesting dietary advancement. H&H is stable. PPI ggt has been continued and will be due for discontinuation at 1300 today. No new GI complaints. She was just started on Diflucan as her esophageal brushings returned positive for aleksandr. Review of Systems Constitutional: No problem reported Respiratory: No problem reported Cardiac: No problem reported Abdomen: + see HPI Skin: No problem reported Medications Current Inpatient Medications Medications (Trade) Dose Ordered Sig/Lilly Route Start Time Stop Time Status Last Admin Dose Admin Al Hydrox/Mg Hydrox/Simethicone (Maalox Max Susp) 15 ml Q4H PRN PO 10/03/16 11:45 11/02/16 11:44 Magnesium Hydroxide (Milk Of Magnesia Susp) 30 ml Q12H PRN PO 10/03/16 11:45 11/02/16 11:44 Ondansetron HCl (Zofran Inj) 4 mg Q6H PRN IV 10/03/16 11:45 11/02/16 11:44 10/05/16 10:35 4 MG Bupropion HCl (Wellbutrin Tab) 100 mg QID PO 10/03/16 13:00 11/02/16 12:59 10/06/16 08:07 100 MG Docusate Sodium (coLACE CAP) 100 mg QAM PO 10/04/16 09:00 11/03/16 08:59 10/06/16 08:07 100 MG Duloxetine HCl (Cymbalta Cap) 60 mg TID PO 10/03/16 14:00 11/02/16 13:59 10/06/16 08:08 60 MG Fluticasone Propionate (Flonase Nasal [place]) 2 sprays HS EDITH 10/03/16 21:00 11/02/16 20:59 10/05/16 20:58 2 SPRAYS Gabapentin (Neurontin Cap) 400 mg TID PO 10/03/16 14:00 11/02/16 13:59 10/06/16 08:07 400 MG Nortriptyline HCl (Pamelor Cap) 50 mg QAM PO 10/04/16 09:00 11/03/16 08:59 10/06/16 08:07 50 MG Trazodone HCl 50 mg 50 mg HS PO 10/03/16 21:00 11/02/16 20:59 10/05/16 21:01 50 MG Pantoprazole Sodium/Dextrose (Protonix Inj/D5 100ml) 100 ml @ 20 mls/hr Q5H IV 10/03/16 13:00 11/02/16 12:59 10/06/16 06:06 20 MLS/HR Nitrofurantoin Macrocrystals (Macrobid Cap) 100 mg BID PO 10/03/16 18:00 10/13/16 17:59 10/06/16 08:08 100 MG Lamotrigine (Lamictal Tab) 100 mg BID PO 10/03/16 18:00 11/02/16 17:59 10/06/16 08:07 100 MG Bumetanide (Bumex Tab) 2 mg BID17 PO 10/03/16 18:00 11/02/16 17:59 Future Hold 10/04/16 17:08 2 MG Metolazone (Zaroxolyn Tab) 2.5 mg MoWeFr@0830 PO 10/03/16 18:00 11/02/16 17:59 Future Hold 10/03/16 19:00 2.5 MG Oxycodone HCl (Roxicodone Immediate Rel Tab) 15 mg Q6H PRN PO 10/04/16 11:45 10/18/16 11:44 10/06/16 08:13 15 MG Polyethylene (Miralax Powder Packet) 17 gm BID PO 10/05/16 17:00 11/04/16 16:59 10/06/16 08:10 17 GM Fluconazole (Diflucan Tab) 200 mg QAM PO 10/06/16 09:00 10/15/16 08:59 10/06/16 08:08 200 MG Potassium Chloride (Klor-Con Tab) 60 meq TID PO 10/05/16 21:00 11/04/16 20:59 10/06/16 08:08 60 MEQ Sucralfate (Carafate Susp) 1 gm ACHS PO 10/06/16 07:00 11/05/16 06:59 10/06/16 06:30 1 GM Objective Vital Signs Date Time Temp Pulse Resp B/P Pulse Ox O2 Delivery O2 Flow Rate FiO2 10/06/16 08:00 Room Air 10/06/16 07:19 36.8 79 18 110/72 91 Room Air 10/06/16 04:00 89 CPAP 10/06/16 03:34 36.9 83 18 145/74 89 CPAP 2.0 10/06/16 00:01 94 Room Air 10/05/16 23:37 36.9 74 18 137/79 94 Room Air 10/05/16 20:30 Room Air 10/05/16 19:28 36.8 71 18 144/76 92 Room Air 10/05/16 16:00 Room Air 10/05/16 15:29 36.6 83 18 125/71 90 Room Air 10/05/16 12:00 Room Air 10/05/16 11:22 36.8 19 158/58 92 Room Air Physical Exam General Appearance: no apparent distress Eyes: EOMI ENT: hearing grossly normal Respiratory/Chest: lungs clear, normal breath sounds, no respiratory distress Cardiovascular: regular rate, rhythm, no gallop, no murmur Abdomen: normal bowel sounds, non tender, soft Neurologic/Psych: alert, normal mood/affect, oriented x 3 Skin: warm/dry Laboratory Results Last 24 Hours Test 10/05/16 17:30 10/06/16 06:52 Hemoglobin 11.8 g/dL 11.6 g/dL Potassium Level 2.6 mmol/L 3.0 mmol/L Sodium Level 136 mmol/L Chloride Level 96 mmol/L Carbon Dioxide Level 34 mmol/L Anion Gap 6.0 mmol/L Blood Urea Nitrogen 14 mg/dl Creatinine 1.10 mg/dl Est Creatinine Clear Calc Drug Dose 84.2 ml/min Estimated GFR () 65.5 Estimated GFR (Non- 56.5 BUN/Creatinine Ratio 12.3 Random Glucose 104 mg/dl Calcium Level 8.4 mg/dl Assessment and Plan Patient is a 56 year old female with a history of obesity, asthma, COPD and dysphagia status post EGD with findings of possible aleksandr esophagitis ( confirmed by brushings) as well as incidental finding of gastric ulcer with stigmata status post hemostasis with Epinephrine and Bicap therapy. 1. Diet advanced to regular, low sodium for lunch. 2. PPI ggt to be discontinued at 1300. Then, she will be started on Protonix 40 mg BID. 3. Continue Diflucan 200 mg daily for a total of 20 days. 4. Supportive care per primary team. 5. If patient tolerates solids, she will be clear from a GI standpoint for discharge. 6. Outpatient follow up and repeat EGD in 3 months. Agree with VANDANA Null as above Abd: Soft, NT, ND Feeling much better today Continue Protonix 40mg PO BID OK to discharge from GI standpoint
[2016-10-06] MEDS: AMILORIDE/HCTZ 5-50 MG TAB PO SCH (10:58)
[2016-10-06] MEDS: POTASSIUM CHLR 10 MEQ / WTR 10 MEQ in PREMIXED WATER 100 ML IV SCH ×3 (10:58→13:09)
--- NOTE | 2016-10-06 13:31 | Progress Note ---
Subjective Date of Service: October 06, 2016. Subjective reports of recurrent headache and some minor double vision similar to her home experienced migraines. discussed hypokalemia and change of meds to spare potassium Problem List Medical Problems: (1) Contusion of lower extremity Status: Acute (2) Contusion of multiple sites Status: Acute (3) Fall Status: Acute (4) Fall Status: Acute (5) Hypoxia Status: Acute (6) Lumbar contusion Status: Acute (7) Pulmonary edema Status: Acute Review of Systems Constitutional: No chills, No fever Respiratory: No cough, No shortness of breath Cardiac: + edema, No chest pain, No claudication Abdomen: No diarrhea, No nausea, No pain, No vomiting Neurologic: No memory loss, No paralysis Psychiatric: No anhedonism, No depression symptoms Objective Vital Signs Date Time Temp Pulse Resp B/P Pulse Ox O2 Delivery O2 Flow Rate FiO2 10/06/16 07:19 36.8 79 18 110/72 91 Room Air 10/06/16 04:00 89 CPAP 10/06/16 03:34 36.9 83 18 145/74 89 CPAP 2.0 10/06/16 00:01 94 Room Air 10/05/16 23:37 36.9 74 18 137/79 94 Room Air 10/05/16 20:30 Room Air 10/05/16 19:28 36.8 71 18 144/76 92 Room Air 10/05/16 16:00 Room Air 10/05/16 15:29 36.6 83 18 125/71 90 Room Air 10/05/16 12:00 Room Air 10/05/16 11:22 36.8 19 158/58 92 Room Air Physical Exam General Appearance: WD/WN, + mild distress Neck: supple, no JVD Respiratory/Chest: chest non-tender, lungs clear, normal breath sounds Cardiovascular: regular rate, rhythm, no murmur Abdomen: normal bowel sounds, non tender, soft Extremities: + pedal edema, + swelling Neurologic/Psychiatric: alert, oriented x 3 Laboratory Results Last 24 Hours Test 10/05/16 17:30 10/06/16 06:52 Hemoglobin 11.8 g/dL 11.6 g/dL Potassium Level 2.6 mmol/L Assessment and Plan 56yo female with newly found gastric ulcer with clot and profound hypokalemia in setting of gastric bypass gastric ulcer with clot-PPI drip x 72 hours which will take us to about noon on 10/06/16. At that time we can transition to PO PPI twice daily and carafate 1gm QID. stable hgb migraine headache - in the past has resolved s/p imitrex pt feels is not at that point currently. Pt reports 2-3 days of headaches each week at home. Obesity makes pseudotumor cerebri possible. Consider outpatient referral to neurology. but CT heads this year - 09/08 normal. candidal esophagitis - fungal cx finally grew aleksandr. Start 21-day course of diflucan 200mg daily. hypokalemia - 2nd to chronic diuretic use (bumex and metazolone). Hold both diuretics, last EF in august 2016 was good will try amiloride/hctz chronic pain syndrome - on oxycodone at home. morbid obesity w/ BMI 55 - noted. JANELLE - CPAP. Continued [facility] stay due to: inadequate po fluid intake, multiple IV medications needed Discharge planning: home
[2016-10-06] MEDS ORDERED: DiphenhydrAMINE HCL 50 MG/ML VIAL IV STA (15:20)
[2016-10-06] MEDS ORDERED: DiphenhydrAMINE HCL 50 MG/ML VIAL ONE (15:23)
[2016-10-06] MEDS ORDERED: DiphenhydrAMINE HCL 50 MG/ML VIAL IV PRN (15:30)
[2016-10-06] MEDS: PANTOprazole SOD 40 MG TAB PO SCH (20:19)
[2016-10-06] MEDS: TRAZODONE HCL 50 MG TAB PO SCH (20:21)
[2016-10-06] MEDS: FLUTICASONE PROPIONATE NA SPR 16 GM BTL NAE SCH (20:21)
[2016-10-07 04:25] VITALS: BP 148/80; PULSE 83; TEMP 36.6; O2SAT 95
[2016-10-07] MEDS: SUCRALFATE 1 GM/10 ML UDC PO SCH ×2 (07:10→12:21)
[2016-10-07] MEDS: NORTRIPTYLINE HCL 25 MG CAP PO SCH (07:12)
[2016-10-07] MEDS: DOCUSATE SODIUM 100 MG CAP PO SCH (07:12)
[2016-10-07] MEDS: PANTOprazole SOD 40 MG TAB PO SCH (07:12)
[2016-10-07] MEDS: DULOXETINE HCL 60 MG CAP PO SCH ×2 (07:12→13:51)
[2016-10-07 07:13] VITALS: BP 131/77; PULSE 80; TEMP 36.5; O2SAT 93
[2016-10-07] MEDS: AMILORIDE/HCTZ 5-50 MG TAB PO SCH (07:13)
[2016-10-07] MEDS: GABAPENTIN 400 MG CAP PO SCH ×2 (07:13→13:51)
[2016-10-07] MEDS: NITROFURANTOIN MONOHYDRATE 100 MG CAP PO SCH (07:13)
[2016-10-07] MEDS: FLUCONAZOLE 100 MG TAB PO SCH (07:13)
[2016-10-07] MEDS: POTASSIUM CHLORIDE 20 MEQ TABCR PO SCH (07:14)
[2016-10-07] MEDS: POLYETHYLENE (MIRALAX) 17 GM PACK PO SCH (07:14)
[2016-10-07] MEDS: OXYCODONE HCL IR 5 MG TAB (IMMEDIATE RELEASE) PO PRN ×2 (07:23→13:57)
[2016-10-07 08:00] VITALS: O2SAT 93
[2016-10-07 09:42] LABS: BUN/CREATININE RATIO 10.8 (10-20); CALCIUM 9.5 mg/dl (8.5-10.1); CREATININE 1.2 mg/dl (0.60-1.20); MAGNESIUM 2.2 mg/dl (1.8-2.4); POTASSIUM 4.6 mmol/L (3.5-5.1)
[2016-10-07 11:00] VITALS: BP 110/78; PULSE 78; TEMP 36.4; O2SAT 96
[2016-10-07] MEDS ORDERED: LMC100 PO (13:04)
[2016-10-07] MEDS ORDERED: AMLH/550 PO (13:04)
[2016-10-07] MEDS ORDERED: PANT40TA PO (13:04)
[2016-10-07] MEDS ORDERED: OXYC1TAB3 PO (13:04)
[2016-10-07] MEDS ORDERED: CRFUDL PO (13:04)
[2016-10-07] MEDS ORDERED: DFL100 PO (13:04)
--- NOTE | 2016-10-07 13:06 | Discharge Instructions ---
Discharge Instructions Date of Service October 07, 2016. Admission Reason for Admission: Gastric Ulceration Discharge Discharge Diagnosis / Problem: gastric ulcer with adherent clot Discharge Goals Goal(s): Diagnostic testing, Therapeutic intervention Activity Recommendations Activity Limitations: resume your previous activity . Current Hospital Diet Patient's current hospital diet: Regular Diet, Low Sodium Diet (2gm Na) Discharge Diet Recommended Diet: Regular Diet Procedures Procedures Performed: EGD WITH BIOSPY, ESPHAGEAL BRUSHING AND HEMOSTASIS Pending Studies Studies pending at discharge: no Laboratory Results Hemoglobin A1c Test 08/29/16 11:30 Range/Units Estimated Average Glucose 120 mg/dl Hemoglobin A1c 5.8 H 4.5-5.6 % Medical Emergencies . Who to Call and When: Medical Emergencies: If at any time you feel your situation is an emergency, please call 911 immediately. . Non-Emergent Contact Non-Emergency issues call your: Primary Care Provider Call Non-Emergent contact if: temperature is above 101, your pain is unusual for you . . "Provider Documentation" section prepared by Joe Bardales. . VTE Core Measure Inpt VTE Proph given/why not?: Unfractionated heparin SQ
[2016-10-07 14:04] VITALS: BP 110/78; PULSE 78; TEMP 36.4; O2SAT 96
--- NOTE | 2016-10-07 16:43 | Discharge Summary ---
Discharge Summary Date of Service October 07, 2016. Discharge Summary Admission Date: October 03, 2016 at 11:36 Discharge Date: October 07, 2016 Discharge Disposition: Home with services Principal Diagnosis: gastric ulcer with adherent clot, hypokalemia Immunizations: Have You Had Influenza Vaccine: Yes History of Tetanus Vaccine?: No History of Pneumococcal: No History of Hepatitis B Vaccine: No Procedures: egd Medication Reconciliation New Medications: Amiloride/Hctz (Amiloride/Hydrochlorothia 5-50 mg) 1 Ea Tab 1 TAB PO QAM, #30 TAB 6 Refills Fluconazole (Fluconazole) 100 Mg Tab 200 MG PO QAM, #7 TAB Lamotrigine (Lamotrigine) 100 Mg Tab 100 MG PO BID, #60 TAB Sucralfate (Sucralfate) 1 Gm/10 Ml Susp 1 GM PO ACHS, #28 DOSE Changed Medications: Pantoprazole (Protonix) 40 Mg Tab 40 MG PO BID, #60 TAB (Changed from: QAM; 30) Continued Medications: Albuterol Sulf (Ventolin) 2 Mg/5 Ml Syrp 1 DOSE INH QID PRN for Shortness of Breath Albuterol Sulfate (Proair Respiclick) 108 Mcg/Act Aer 90 MCG INH QID PRN for Shortness of Breath Aspirin (Aspirin Ec) 81 Mg Tab 81 MG PO QAM Bumetanide (Bumex) 2 Mg Tab 1 TAB PO BID for 30 Days, #60 TAB 5 Refills Bupropion Hcl (Wellbutrin) 100 Mg Tab 100 MG PO QID, TAB Cholecalciferol (Vitamin D) 5,000 Unit Tab 1 TAB PO QAM Docusate Sodium (Colace) 100 Mg Cap 1 CAP PO QAM for 30 Days, #30 CAP Duloxetine HCl (Cymbalta) 60 Mg Cap 1 CAP PO TID Fluticasone Propionate (Nasal) (Flonase Allergy Relief) 50 Mcg/Act Spr 2 SPRAY EDITH HS Gabapentin (Neurontin) 400 Mg Cap 400 MG PO TID, CAP Magnesium Hydroxide (Milk Of Magnesia) 30 Ml Susp 30 ML PO DAILY PRN for PRN, ML Mometasone Furoate-Formoterol (Dulera 200/5 Mcg) 1 Aer Aer 2 PUFFS INH BID for 30 Days, #13 GM 3 Refills Nortriptyline (Pamelor) 50 Mg Cap 50 MG PO QAM, CAP Oxycodone Ir (Roxicodone Ir) 5 Mg Tab 10 MG PO Q6H PRN for Pain, #30 TAB (This prescription has been renewed) Potassium Ext Rel (Klor-Con) 20 Meq Tabcr 2 TAB PO AC, TAB Senna (Senokot) 8.6 Mg Tab 1 TAB PO DAILY, TAB Trazodone Hcl (Desyrel) 50 Mg Tab 50 MG PO HS, TAB [Vitamin B12] () 1 DOSE INJ MONTHLY Discontinued Medications: Metolazone (Zaroxolyn) 2.5 Mg Tab 2.5 MG PO MWF, TAB Nitrofurantoin Monohyd Macrocr (Macrobid) 100 Mg Cap 100 MG PO BID, #6 CAP Discharge Exam Review of Systems: Constitutional: + chills, + fever Respiratory: + cough, + dyspnea on exertion, No shortness of breath Cardiovascular: + edema, No chest pain Abdomen: No nausea, No pain, No vomiting Musculoskeletal: + joint pain, + muscle pain Genitourinary - Female: No dysuria, No urinary frequency Neurologic: + weakness, No memory loss Endocrine: + fatigue Physical Exam: General Appearance: WD/WN, + mild distress, + obese Neck: supple, no JVD Respiratory/Chest: chest non-tender, lungs clear Cardiovascular: regular rate, rhythm, no murmur Abdomen / GI: normal bowel sounds, non tender, soft Extremities: + pedal edema, + swelling Neurologic/Psychiatric: alert, oriented x 3 Hospital Course 56yo female with newly found gastric ulcer with clot and profound hypokalemia in setting of gastric bypass gastric ulcer with clot-PPI drip x 72 hours now on PO PPI twice daily and carafate 1gm QID( carafate for one week) stable hgb migraine headache - in the past has resolved s/p imitrex pt feels is not at that point currently. Pt reports 2-3 days of headaches each week at home. Obesity makes pseudotumor cerebri possible. Consider outpatient referral to neurology. but CT heads this year - 09/08 normal. candidal esophagitis - fungal cx finally grew aleksandr. diflucan 200mg daily. hypokalemia - 2nd to chronic diuretic use (bumex and metazolone). last EF in august 2016 was good low Potassium resolved with amiloride/hctz, bumex and potassium oral supplementation, have home nursing check outpt labs, her morbid obesity makes outpt labs not possible due to edema issues with dependent legs chronic pain syndrome - on oxycodone at home. morbid obesity w/ BMI 55 - noted. JANELLE - CPAP. Total Time Spent: Greater than 30 minutes This includes examination of the patient, discharge planning, medication reconciliation, and communication with other providers. Discharge Instructions Please refer to the electronic Patient Visit Report (Discharge Instructions) for additional information.
[2016-10-07] MEDS ORDERED: POTASSIUM CHLORIDE 20 MEQ TABCR PO SCH (21:00)
[2016-11-04] MEDS ORDERED: DOCU-94 PO (10:19)
[2016-11-04] MEDS ORDERED: FLUT0.15 NAE (10:19)
[2016-11-04] MEDS ORDERED: NORT50CA PO (10:19)
[2016-11-04] MEDS ORDERED: POTA20TA16 PO (10:19)
[2016-11-04] MEDS ORDERED: CYM/60 PO (10:19)
[2016-11-04] MEDS ORDERED: ALBU2SYP9 NEB (10:19)
[2016-11-04] MEDS ORDERED: TRAZ-120 PO (10:19)
[2016-11-04] MEDS ORDERED: GABA400C PO (10:19)
[2016-11-04] MEDS ORDERED: MOML PO (10:20)
[2016-11-04] MEDS ORDERED: CHOL1TAB42 PO (10:20)
[2016-11-04] MEDS ORDERED: ALBU18002 INH (12:08)
[2016-11-04] MEDS ORDERED: ASPI81TA28 PO (13:50)
[2016-11-04] MEDS ORDERED: MOME200A INH (13:50)
[2016-11-04] MEDS ORDERED: BUME2TAB3 PO (17:37)
[2017-01-11] MEDS ORDERED: LDDP5 TD (11:10)
[2017-01-11] MEDS ORDERED: MGCCMP100 MT (11:10)
== END 2016-10-07 14:35 | disposition home health service (06) | DRG 369 ==
LOC: ENRESERVTM → ENRESERVDT → C.GI 08:42 → C.2T 11:36
PROVIDERS: ADMIT Hospitalist; ATTEND Internal Medicine
PROC: 0D568ZZ Destruction of Stomach, Via Natural or Artificial Opening Endoscopic (ICD-10-PCS; principal; 2016-10-03 09:20)
PROC: 0DB18ZX Excision of Upper Esophagus, Via Natural or Artificial Opening Endoscopic, Diagnostic (ICD-10-PCS; principal; 2016-10-03 09:20)
PROC: 0DB78ZX Excision of Stomach, Pylorus, Via Natural or Artificial Opening Endoscopic, Diagnostic (ICD-10-PCS; principal; 2016-10-03 09:20)
DX: B37.81 Candidal esophagitis (principal); Z68.43 Body mass index [BMI] 50.0-59.9, adult; I50.32 Chronic diastolic (congestive) heart failure; I74.8 Embolism and thrombosis of other arteries; K25.9 Gastric ulcer, unspecified as acute or chronic, without hemorrhage or perforation; K22.8 Other specified diseases of esophagus; E87.6 Hypokalemia; T50.2X5A Adverse effect of carbonic-anhydrase inhibitors, benzothiadiazides and other diuretics, initial encounter; G93.2 Benign intracranial hypertension; G43.909 Migraine, unspecified, not intractable, without status migrainosus; E66.01 Morbid (severe) obesity due to excess calories; K59.00 Constipation, unspecified; G89.29 Other chronic pain; G47.33 Obstructive sleep apnea (adult) (pediatric); M54.5 Low back pain; J45.909 Unspecified asthma, uncomplicated; J44.9 Chronic obstructive pulmonary disease, unspecified; N18.3 Chronic kidney disease, stage 3 (moderate); K21.9 Gastro-esophageal reflux disease without esophagitis; E78.5 Hyperlipidemia, unspecified; F32.9 Major depressive disorder, single episode, unspecified; F41.9 Anxiety disorder, unspecified; I12.9 Hypertensive chronic kidney disease with stage 1 through stage 4 chronic kidney disease, or unspecified chronic kidney disease; E55.9 Vitamin D deficiency, unspecified; Z79.899 Other long term (current) drug therapy; Z79.82 Long term (current) use of aspirin; Z98.84 Bariatric surgery status; Z87.01 Personal history of pneumonia (recurrent); Z82.49 Family history of ischemic heart disease and other diseases of the circulatory system; Z87.891 Personal history of nicotine dependence; Z81.8 Family history of other mental and behavioral disorders; Z83.3 Family history of diabetes mellitus; Z82.61 Family history of arthritis

== ENCOUNTER 2016-11-04 19:22 | Observation (INO) | payer OTHER, MEDICARE ==
[~2016-11-04] VITALS: Ht 167.6 cm; Wt 149.1 kg
[~2016-11-04 19:22] MED LIST changes: +ALBU18002 INH; +ALBU2SYP9 NEB; +AMLH/550 PO; +ASPI81TA28 PO; -BMX1 PO; +BUME2TAB3 PO; +CHOL1TAB42 PO; +CRFUDL PO; +CYM/60 PO; +DFL100 PO; +DOCU-94 PO; +FLUT0.15 NAE; +GABA400C PO; -LAMO100T16 PO; +LMC100 PO; -METO2.5T PO; +MOME200A INH; +MOML PO; -NITR1CAP16 PO; +NORT50CA PO; +POTA20TA16 PO; +TRAZ-120 PO
[2016-11-04] MEDS ORDERED: CYNI1000 IM (20:28)
[2016-11-04] MEDS ORDERED: BUPR200T2 PO (20:28)
[2016-11-04] MEDS ORDERED: PANT40TA PO (20:33)
[2016-11-04] MEDS ORDERED: LAMO100T16 PO (20:33)
[2016-11-04] MEDS ORDERED: AMLH/550 PO (20:33)
[2016-11-04] MEDS ORDERED: OXYC1TAB3 PO (20:33)
--- NOTE | 2016-11-04 20:47 | DIAGNOSTIC IMAGING REPORT ---
CHEST ONE VIEW PORTABLE CLINICAL HISTORY: Atypical chest pain shortness of breath COMPARISON STUDY: 09/09/2016 FINDINGS: The heart is mildly enlarged. There has been interval resolution of the previous described congestive failure.. There is no lobar consolidation. Linear opacities within left midlung zone are likely atelectatic.[ No pleural effusions are visualized. IMPRESSION: 1. Interval resolution of the previously described congestive failure. 2. No evidence of acute parenchymal consolidation Electronically signed by: Bandar Palacios M.D. 11/04/2016 8:46 PM Dictated Date/Time: 11/04/2016 8:44 PM
[2016-11-04 21:17] LABS: BASO % 0.4 %; BASO ABS # 0.04 K/uL (0-0.2); COMPLETE YES; EOS % 0.8 %; IG% 0.3 %; LYMPH % 17.5 %; LYMPH ABS # 1.86 K/uL (1.2-3.4); MEAN CORPUSCULAR HEMOGLOBIN 27.9 pg (25-34); MEAN CORPUSCULAR HGB CONC 33.3 g/dl (32-36); MEAN PLATELET VOLUME 10.4 fL (7.4-10.4); MONO % 6.9 %; NEUT % 74.1 %; PLATELET COUNT 313 K/uL (130-400); RED BLOOD COUNT 4.76 M/uL (4.2-5.4); WHITE BLOOD COUNT 10.61 K/uL (4.8-10.8)
[2016-11-04 21:30] LABS: PARTIAL THROMBOPLASTIN RATIO 1.1; PROTHROMBIN TIME (PATIENT) 10.4 SECONDS (9.0-12.0)
[2016-11-04 21:33] LABS: BUN/CREATININE RATIO 20.5 (10-20); CREATININE 1.9 mg/dl (0.60-1.20); POTASSIUM 4.1 mmol/L (3.5-5.1)
[2016-11-04 21:36] LABS: ALB/GLOB RATIO 0.7 (0.9-2)
[2016-11-04] MEDS ORDERED: SODIUM CHLORIDE 0.9% 500ML 500 ML IV STA (21:41)
[2016-11-04 21:54] LABS: CALCIUM 9.2 mg/dl (8.5-10.1)
--- NOTE | 2016-11-04 22:36 | DIAGNOSTIC IMAGING REPORT ---
ULTRASOUND VENOUS DOPPLER LWR EXT BILA CLINICAL HISTORY: Shortness of breath. Elevated d-dimer. History of prior DVT. COMPARISON STUDY: 08/29/2016 FINDINGS: Real-time and color flow Doppler imaging were performed. Flow was seen within the femoral, popliteal and calf veins with no intraluminal thrombus demonstrated. The saphenous vein is patent. Evaluation of the calf veins was somewhat limited due to the patient's large body habitus. IMPRESSION: No evidence of lower extremity DVT. Electronically signed by: Bandar Palacios M.D. 11/04/2016 10:35 PM Dictated Date/Time: 11/04/2016 10:33 PM
[2016-11-05] VITALS (8 sets, daily range): BP systolic 109–160; BP diastolic 48–77; PULSE 72–84; TEMP 36.4–36.8; O2SAT 91–98; Ht 167.6 cm; Wt 149.1 kg
--- NOTE | 2016-11-05 01:09 | EMERGENCY ROOM VISIT NOTE ---
History First contact with patient: 19:44 Chief Complaint: CHEST PAIN Stated Complaint: CHEST PAIN,BLOOD WORK @[facility] CRITICAL D-9 Nursing Triage Summary: Chest pain starting yesterday, no medications. Left side chest pain to collarbone. Increased SOB. History of Present Illness The patient is a 56 year old female who presents to the Emergency Room with complaints of left-sided chest pain which started yesterday. The patient reports associated shortness of breath and worse pain with a deep breath. She has had dizziness when standing and walking. The patient was seen at her primary care provider today and states she had a CT scan and blood work done. She was called due to an elevated d-dimer and told to go to the closest emergency department. She denies any recent leg pain or swelling. She has a history of CHF but denies any other cardiac history. She does report a history of a DVT as a teenager. She does not smoke or take control pills or hormone replacement. She denies recent travel. The patient has not taken any medication for pain. She rates her discomfort an 8/10. She denies any radiation of the pain. Review of Systems A complete 10 point review of systems was reviewed with the patient with pertinent positives and negatives as per history of present illness. All else were negative. Past Medical/Surgical History Medical Problems: (1) Acute diastolic heart failure (2) DJD (degenerative joint disease) of knee (3) Gastric ulceration (4) GASTRIC ULCERATION (5) Precordial chest pain Surgical Problems: (1) Hx of gastric bypass (2) Hx of hysterectomy (3) Hx of shoulder surgery Family History FHx: aneurysm FHx: dementia Social History Smoking Status: Former Smoker Alcohol Use: none Marital Status: Housing Status: lives with family Occupation Status: unemployed Current/Historical Medications Scheduled Amiloride/Hctz (Amiloride/Hydrochlorothia 5-50 mg), 1 TAB PO QAM Aspirin (Aspirin Ec), 81 MG PO QAM Azithromycin (Azithromycin), 250 MG PO QAM Bumetanide (Bumex), 2 MG PO BID Bupropion Hcl (Wellbutrin Sr), 200 MG PO BID Cholecalciferol (Vitamin D), 5,000 INTER.UNIT PO QAM Cyanocobalamin (Cyanocobalamin), 1,000 MCG IM MONTHLY Docusate Sodium (Colace), 100 MG PO QAM Duloxetine HCl (Cymbalta), 60 MG PO BID Fluticasone Propionate (Nasal) (Flonase Allergy Relief), 2 SPRAYS EDITH HS Gabapentin (Neurontin), 400 MG PO TID Lamotrigine (Lamictal), 100 MG PO BID Mometasone Furoate-Formoterol (Dulera 200/5 Mcg), 2 PUFFS INH BID Nortriptyline (Pamelor), 50 MG PO QAM Pantoprazole (Protonix), 40 MG PO BID Potassium Ext Rel (Klor-Con), 40 MEQ PO ACHS Trazodone Hcl (Desyrel), 50 MG PO HS Scheduled PRN Albuterol Sulf (Ventolin), 2 MG NEB QID PRN for Shortness of Breath Albuterol Sulfate (Proair Respiclick), 2 PUFFS INH QID PRN for Shortness of Breath Magnesium Hydroxide (Milk Of Magnesia), 30 ML PO DAILY PRN for Constipation Meclizine HCl (Meclizine HCl), 25 MG PO TID PRN for Dizziness Oxycodone Immediate Rel Tab (Roxicodone Ir), 10 MG PO Q6H PRN for Pain Allergies Coded Allergies: Adhesives (Verified Allergy, Intermediate, REDNESS WITH BANDAIDS, 10/03/16) Cephalexin (Verified Allergy, Unknown, ?, 10/03/16) Physical Exam Vital Signs Date Time Temp Pulse Resp B/P (MAP) Pulse Ox O2 Delivery O2 Flow Rate FiO2 11/05/16 01:30 86 26 11/05/16 01:24 134/66 11/05/16 01:00 87 20 11/05/16 00:30 90 17 11/05/16 00:00 110 19 11/04/16 23:30 90 18 11/04/16 23:07 91 11/04/16 23:00 91 16 11/04/16 21:54 89 22 113/53 95 Room Air 11/04/16 20:06 95 Room Air 11/04/16 19:51 84 11/04/16 19:30 36.4 89 18 117/55 96 Room Air Physical Exam VITALS: Vitals are noted on the nurse's note and reviewed by myself. Vital signs stable. GENERAL: This is an obese 56-year-old female, in no acute distress, nondiaphoretic, well-developed well-nourished. SKIN: Capillary reflex less than 2 seconds. HEENT: Normocephalic. PERRLA. EOMI. Nares patent. Mucous membranes moist. Neck is supple without nuchal rigidity. HEART: Regular rate and rhythm without murmurs gallops or rubs. LUNGS: Clear to auscultation bilaterally without wheezes, rales or rhonchi. No retractions or accessory muscle use. ABDOMEN: Soft, nontender to palpation. NEURO: Patient was alert and oriented to person place and time. Medical Decision & Procedures ER Provider Diagnostic Interpretation: CHEST ONE VIEW PORTABLE FINDINGS: The heart is mildly enlarged. There has been interval resolution of the previous described congestive failure.. There is no lobar consolidation. Linear opacities within left midlung zone are likely atelectatic.[ No pleural effusions are visualized. IMPRESSION: 1. Interval resolution of the previously described congestive failure. 2. No evidence of acute parenchymal consolidation ULTRASOUND VENOUS DOPPLER LWR EXT BILA FINDINGS: Real-time and color flow Doppler imaging were performed. Flow was seen within the femoral, popliteal and calf veins with no intraluminal thrombus demonstrated. The saphenous vein is patent. Evaluation of the calf veins was somewhat limited due to the patient's large body habitus. IMPRESSION: No evidence of lower extremity DVT. Laboratory Results Test 11/04/16 21:09 11/04/16 21:30 Prothrombin Time 10.4 SECONDS (9.0-12.0) Prothromb Time International Ratio 1.0 (0.9-1.1) Activated Partial Thromboplast Time 29.1 SECONDS (21.0-31.0) Partial Thromboplastin Ratio 1.1 D-Dimer 730 ug/L FEU (0-500) Bedside Troponin I < 0.030 ng/ml (0-0.045) Medications Administered Medications (Trade) Dose Ordered Sig/Lilly Route Start Time Stop Time Status Last Admin Dose Admin Sodium Chloride 500 ml @ 999 mls/hr Q31M STAT IV 11/04/16 21:41 11/04/16 22:11 DC 11/04/16 21:51 999 MLS/HR Oxycodone/ Acetaminophen (Percocet 10-325MG Tab) 1 tab NOW STAT PO 11/05/16 01:27 11/05/16 01:28 DC 6/14/17 01:43 1 TAB ECG Rate (beats per minute): 87 Rhythm: normal sinus Findings: no acute ischemic change, no ectopy Medical Decision Differential diagnosis includes acute coronary syndrome, pulmonary embolism, pneumothorax, pericarditis, myocarditis, endocarditis, anxiety, musculoskeletal pain, GERD, costochondritis, pneumonia, among others. The patient is a 56-year-old female who presents today complaining of left- sided chest pain 2 days. I was able to obtain her records from [facility]. The patient had a CT of the thorax without contrast performed today. I am unsure why this test was performed. She did apparently have an elevated d-dimer, but I was not able to see these results. Labs revealed no leukocytosis or anemia. [id number] troponin was not elevated. D-dimer was found to be elevated at 780. Unfortunately, the patient has an elevated creatinine and will not be able to undergo CT of the chest. Ultrasound of the lower extremities was ordered and interpreted by radiology with no evidence of DVT. The patient's creatinine was 1.9, which is above her baseline of 1.3-1.4. This may be due to excessive diuresis. Given the patient' s ongoing chest pain, risk factors and inability to completely rule out pulmonary embolism, I do feel she should be admitted/observed in the hospital. She was agreeable to this. [facility] Impression Primary Impression: Left sided chest pain Departure Information Prescriptions Meclizine HCl (Meclizine HCl) 25 Mg Tab 25 MG PO TID Y for Dizziness for 7 Days, #21 TAB Prov: Eli Mae PA-C 11/06/16 Azithromycin (Azithromycin) 250 Mg Tab 250 MG PO QAM for 3 Days, #3 TAB Start on 11/07 Prov: Eli Mae PA-C 11/06/16 Referrals Cathleen Meadows PA-C (PCP) Patient Instructions My [facility]
[2016-11-05] MEDS ORDERED: OXYCODONE/ACETAMINOPHEN 10/325MG TAB PO STA (01:27)
--- NOTE | 2016-11-05 01:55 | History and Physical ---
History & Physical Date & Time of Service: Nov 05, 2016 at 01:55 Chief Complaint: Chest Pain,Blood Work @[facility] Critical D-9 Primary Care Physician: Cathleen Meadows PA-C History of Present Illness Source: patient 56-year-old female presented to the ER with complaints of left-sided chest pain that started yesterday. She states the pain as 5-6 on a scale 10 in severity, worse with taking deep breaths and also has difficulty breathing and dizziness. Denies any palpitations, fevers or chills, cough. Denied any nausea, vomiting , abdominal pain or diarrhea. She was seen her PCP who ordered blood work and CT chest was found to have an elevated d-dimer. She states that she has a history of DVT as a teenager, is a former smoker, denies any recent long haul travels. Past Medical/Surgical History Medical Problems: (1) DJD (degenerative joint disease) of knee Status: Chronic Surgical Problems: (1) Hx of gastric bypass Status: Resolved (2) Hx of hysterectomy Status: Resolved (3) Hx of shoulder surgery Status: Resolved Family History FHx: aneurysm FHx: dementia Social History Smoking Status: Former Smoker Marital Status: Occupational Status: unemployed Immunizations History of Influenza Vaccine: Yes History of Tetanus Vaccine?: No History of Pneumococcal: No History of Hepatitis B Vaccine: No Multi-Drug Resistant Organisms History of MDRO: Yes Type of MDRO: MRSA Allergies Coded Allergies: Adhesives (Verified Allergy, Intermediate, REDNESS WITH BANDAIDS, 10/03/16) Cephalexin (Verified Allergy, Unknown, ?, 10/03/16) Home Medications Scheduled Amiloride/Hctz (Amiloride/Hydrochlorothia 5-50 mg), 1 TAB PO QAM Aspirin (Aspirin Ec), 81 MG PO QAM Azithromycin (Azithromycin), 250 MG PO QAM Bumetanide (Bumex), 2 MG PO BID Bupropion Hcl (Wellbutrin Sr), 200 MG PO BID Cholecalciferol (Vitamin D), 5,000 INTER.UNIT PO QAM Cyanocobalamin (Cyanocobalamin), 1,000 MCG IM MONTHLY Docusate Sodium (Colace), 100 MG PO QAM Duloxetine HCl (Cymbalta), 60 MG PO BID Fluticasone Propionate (Nasal) (Flonase Allergy Relief), 2 SPRAYS EDITH HS Gabapentin (Neurontin), 400 MG PO TID Lamotrigine (Lamictal), 100 MG PO BID Mometasone Furoate-Formoterol (Dulera 200/5 Mcg), 2 PUFFS INH BID Nortriptyline (Pamelor), 50 MG PO QAM Pantoprazole (Protonix), 40 MG PO BID Potassium Ext Rel (Klor-Con), 40 MEQ PO ACHS Trazodone Hcl (Desyrel), 50 MG PO HS Scheduled PRN Albuterol Sulf (Ventolin), 2 MG NEB QID PRN for Shortness of Breath Albuterol Sulfate (Proair Respiclick), 2 PUFFS INH QID PRN for Shortness of Breath Magnesium Hydroxide (Milk Of Magnesia), 30 ML PO DAILY PRN for Constipation Meclizine HCl (Meclizine HCl), 25 MG PO TID PRN for Dizziness Oxycodone Immediate Rel Tab (Roxicodone Ir), 10 MG PO Q6H PRN for Pain Review of Systems Constitutional: No fever, No chills Eyes: No worsening of vision ENT: + problem reported (dizziness), No hearing loss Respiratory: + shortness of breath, No cough Cardiovascular: + chest pain (left sided) Abdomen: No pain, No nausea Genitourinary - Female: No dysuria Neurologic: No memory loss Psychiatric: No depression symptoms Endocrine: No fatigue Hematologic / Lymphatic: No abnormal bleeding/bruising Physical Exam Vital Signs Date Time Temp Pulse Resp B/P (MAP) Pulse Ox O2 Delivery O2 Flow Rate FiO2 11/04/16 23:07 91 11/04/16 21:54 89 22 113/53 95 Room Air 11/04/16 20:06 95 Room Air 11/04/16 19:51 84 11/04/16 19:30 36.4 89 18 117/55 96 Room Air General Appearance: WD/WN, + obese Eyes: normal inspection ENT: normal ENT inspection, hearing grossly normal Neck: supple Respiratory/Chest: chest non-tender, lungs clear, normal breath sounds, no respiratory distress, no accessory muscle use Cardiovascular: regular rate, rhythm Abdomen/GI: normal bowel sounds, non tender, soft Neurologic/Psych: alert, normal mood/affect, oriented x 3 Diagnostics Laboratory Results Results Past 24 Hours Test 11/04/16 21:09 Range/Units White Blood Count 10.61 4.8-10.8 K/uL Red Blood Count 4.76 4.2-5.4 M/uL Hemoglobin 13.3 12.0-16.0 g/dL Hematocrit 40.0 37-47 % Mean Corpuscular Volume 84.0 80-100 fL Mean Corpuscular Hemoglobin 27.9 25-34 pg Mean Corpuscular Hemoglobin Concent 33.3 32-36 g/dl Platelet Count 313 130-400 K/uL Mean Platelet Volume 10.4 7.4-10.4 fL Neutrophils (%) (Auto) 74.1 % Lymphocytes (%) (Auto) 17.5 % Monocytes (%) (Auto) 6.9 % Eosinophils (%) (Auto) 0.8 % Basophils (%) (Auto) 0.4 % Neutrophils # (Auto) 7.87 1.4-6.5 K/uL Lymphocytes # (Auto) 1.86 1.2-3.4 K/uL Monocytes # (Auto) 0.73 0.11-0.59 K/uL Eosinophils # (Auto) 0.08 0-0.5 K/uL Basophils # (Auto) 0.04 0-0.2 K/uL RDW Standard Deviation 52.2 36.4-46.3 fL RDW Coefficient of Variation 16.9 11.5-14.5 % Immature Granulocyte % (Auto) 0.3 % Immature Granulocyte # (Auto) 0.03 0.00-0.02 K/uL Prothrombin Time 10.4 9.0-12.0 SECONDS Prothromb Time International Ratio 1.0 0.9-1.1 Activated Partial Thromboplast Time 29.1 21.0-31.0 SECONDS Partial Thromboplastin Ratio 1.1 D-Dimer 730 0-500 ug/L FEU Sodium Level 132 136-145 mmol/L Potassium Level 4.1 3.5-5.1 mmol/L Chloride Level 92 98-107 mmol/L Carbon Dioxide Level 28 21-32 mmol/L Anion Gap 12.0 3-11 mmol/L Blood Urea Nitrogen 39 7-18 mg/dl Creatinine 1.90 0.60-1.20 mg/dl Est Creatinine Clear Calc Drug Dose 50.5 ml/min Estimated GFR () 33.8 Estimated GFR (Non- 29.2 BUN/Creatinine Ratio 20.5 10-20 Random Glucose 112 70-99 mg/dl Calcium Level 9.2 8.5-10.1 mg/dl Total Bilirubin 0.4 0.2-1 mg/dl Aspartate Amino Transf (AST/SGOT) 23 15-37 U/L Alanine Aminotransferase (ALT/SGPT) 21 12-78 U/L Alkaline Phosphatase 82 45-117 U/L Total Protein 8.4 6.4-8.2 gm/dl Albumin 3.5 3.4-5.0 gm/dl Globulin 4.9 2.5-4.0 gm/dl Albumin/Globulin Ratio 0.7 0.9-2 Diagnostic Radiology CHEST ONE VIEW PORTABLE CLINICAL HISTORY: Atypical chest pain shortness of breath COMPARISON STUDY: 09/09/2016 FINDINGS: The heart is mildly enlarged. There has been interval resolution of the previous described congestive failure.. There is no lobar consolidation. Linear opacities within left midlung zone are likely atelectatic.[ No pleural effusions are visualized. IMPRESSION: 1. Interval resolution of the previously described congestive failure. 2. No evidence of acute parenchymal consolidation Electronically signed by: Bandar Palacios M.D. 11/04/2016 8:46 PM Dictated Date/Time: 11/04/2016 8:44 PM [~ rep ct add3]] ULTRASOUND VENOUS DOPPLER LWR EXT BILA CLINICAL HISTORY: Shortness of breath. Elevated d-dimer. History of prior DVT. COMPARISON STUDY: 08/29/2016 FINDINGS: Real-time and color flow Doppler imaging were performed. Flow was seen within the femoral, popliteal and calf veins with no intraluminal thrombus demonstrated. The saphenous vein is patent. Evaluation of the calf veins was somewhat limited due to the patient's large body habitus. IMPRESSION: No evidence of lower extremity DVT. Electronically signed by: Bandar Palacios M.D. 11/04/2016 10:35 PM Dictated Date/Time: 11/04/2016 10:33 PM Impression Assessment and Plan 56-year-old female presented to the ER with complaints of left-sided chest pain that started yesterday. She states the pain as 5-6 on a scale 10 in severity, worse with taking deep breaths and also has difficulty breathing and dizziness Left-sided chest pain: ACS versus PE vs GI - D-dimer positive - CT chest without contrast: 1. Interval resolution of the previously described congestive failure. 2. No evidence of acute parenchymal consolidation - Venous Dopplers negative for DVT - Initial troponin negative, troponins trended - V/Q scan ordered - continue aspirin Recent GI bleed: - Continue Protonix twice a day Chronic pain syndrome/neuropathy/depression - Continue Percocet home dose - Continue gabapentin, Cymbalta, nortriptyline HTN: continue amiloride-HCTZ DVT prophylaxis: - SCD, heparin SQ Full code disposition: Monitor in tele Level of Care Telemetry Resuscitation Status FULL RESUSCITATION VTE Prophylaxis VTE Risk Assessment Done? Y/N: Yes Risk Level: Moderate Resident Tracking Resident Involvement: Resident Care Provided Care Provided: Adult Hospital Medicine Assessment and Plan Attending Addendum: I have physically seen and examined this patient, have directed their medical care, have supervised the medical residents activities, and agree with the H&P as noted above, with the following changes: NONE
[2016-11-05] MEDS ORDERED: NITROGLYCERIN 0.4 MG SL PER TAB CHARGE SL PRN (02:00)
[2016-11-05] MEDS ORDERED: ACETAMINOPHEN 325 MG TAB PO PRN (02:00)
[2016-11-05] MEDS ORDERED: ALBUTEROL HFA 8 GM INHALER INH PRN (02:00)
[2016-11-05] MEDS ORDERED: ONDANSETRON INJ 2 MG/ML 2 ML VIAL IV PRN (02:00)
[2016-11-05] MEDS ORDERED: ALBUTEROL 0.5% NEB SOLN 2.5 MG/0.5 ML VIAL INH PRN (02:00)
[2016-11-05] MEDS ORDERED: POLYETHYLENE (MIRALAX) 17 GM PACK PO PRN (02:00)
[2016-11-05] MEDS: MoRPHine SULFATE 2 MG/ML CARP IV PRN ×5 (03:22→22:16)
[2016-11-05] MEDS ORDERED: IV FLUIDS COMPLETED PRN (05:30)
[2016-11-05] MEDS: DULERA~ORDER AWAITING ACTION SCH ×3 (08:00→23:43)
[2016-11-05 08:54] LABS: BASO % 0.4 %; BASO ABS # 0.03 K/uL (0-0.2); COMPLETE YES; EOS % 1.4 %; HEMATOCRIT 37.8 % (37-47); IG% 0.3 %; LYMPH ABS # 2.26 K/uL (1.2-3.4); MEAN CELL VOLUME 83.6 fL (80-100); MEAN CORPUSCULAR HEMOGLOBIN 26.1 pg (25-34); MEAN CORPUSCULAR HGB CONC 31.2 g/dl (32-36); MEAN PLATELET VOLUME 9.5 fL (7.4-10.4); MONO % 8.9 %; PLATELET COUNT 275 K/uL (130-400); RED BLOOD COUNT 4.52 M/uL (4.2-5.4); WHITE BLOOD COUNT 7.79 K/uL (4.8-10.8)
[2016-11-05] MEDS: OXYCODONE HCL IR 5 MG TAB (IMMEDIATE RELEASE) PO PRN ×2 (08:59→18:07)
[2016-11-05] MEDS ORDERED: AMILORIDE/HCTZ 5-50 MG TAB PO SCH (09:00)
[2016-11-05] MEDS ORDERED: BUMETANIDE 1 MG TAB PO SCH (09:00)
[2016-11-05] MEDS: PANTOprazole SOD 40 MG TAB PO SCH ×2 (09:01→22:15)
[2016-11-05] MEDS: POTASSIUM CHLORIDE 20 MEQ TABCR PO SCH ×4 (09:01→22:13)
[2016-11-05] MEDS: BuPROPion SR 100 MG TABCR PO SCH ×2 (09:01→22:15)
[2016-11-05] MEDS: DULOXETINE HCL 60 MG CAP PO SCH ×2 (09:02→22:12)
[2016-11-05] MEDS: ASPIRIN 81 MG ECTAB PO SCH (09:02)
[2016-11-05] MEDS: GABAPENTIN 400 MG CAP PO SCH ×3 (09:02→22:14)
[2016-11-05] MEDS: DOCUSATE SODIUM 100 MG CAP PO SCH (09:02)
[2016-11-05] MEDS: NORTRIPTYLINE HCL 25 MG CAP PO SCH (09:03)
[2016-11-05 09:11] LABS: CALCIUM 8.9 mg/dl (8.5-10.1)
[2016-11-05 09:15] LABS: ALT/SGPT 20 U/L (12-78); BLOOD UREA NITROGEN 38 mg/dl (7-18); BUN/CREATININE RATIO 20.9 (10-20); CARBON DIOXIDE 30 mmol/L (21-32); CHLORIDE 94 mmol/L (98-107); GLUCOSE 106 mg/dl (70-99); POTASSIUM 3.1 mmol/L (3.5-5.1); SODIUM 135 mmol/L (136-145)
[2016-11-05 09:17] LABS: ALB/GLOB RATIO 0.7 (0.9-2); ALKALINE PHOSPHATASE 69 U/L (45-117); AST/SGOT 19 U/L (15-37)
[2016-11-05] MEDS ORDERED: POTASSIUM CHLORIDE 10 MEQ TABCR PO STA (10:08)
--- NOTE | 2016-11-05 10:18 | DIAGNOSTIC IMAGING REPORT ---
LUNG IMAGING VQ HISTORY: Atypical chest pain. elevated d-dimer TECHNIQUE: Immediately following the inhalation of 33 mCi of technetium 99 M DTPA and the intravenous administration of 6 mCi of technetium 99 M MAA, anterior, posterior, oblique, lateral views of the chest were performed for the ventilation and perfusion scans. COMPARISON STUDY: Chest 11/04/2016. FINDINGS: Mild prominence of the cardiac silhouette. No significant perfusion or ventilation defects identified. No mismatch defects identified within the lungs. IMPRESSION: Above findings are consistent with a very low probability scan. Electronically signed by: Layton Regalado M.D. 11/05/2016 10:17 AM Dictated Date/Time: 11/05/2016 10:14 AM
[2016-11-05] MEDS: HEPARIN SOD 5000 UNIT/0.5 ML CARP SQ SCH ×2 (13:24→22:23)
[2016-11-05] MEDS ORDERED: SODIUM CHLORIDE 0.9% 1000ML 1,000 ML IV SCH (13:30)
[2016-11-05] MEDS ORDERED: MECLIZINE HCL 25 MG TAB PO PRN (13:30)
[2016-11-05] MEDS ORDERED: AZITHROMYCIN 250 MG TAB PO ONE (13:30)
--- NOTE | 2016-11-05 13:44 | Hospitalist Progress Note ---
Hospitalist Progress Note Date of Service Nov 05, 2016. Subjective Pt evaluation today including: conversation w/ patient, physical exam, chart review, lab review, review of studies, review of inpatient medication list Patient seen and evaluated. Complaining of L upper chest pain, bilateral shoulder pain, and back pain. Reports some relief with IV pain medications. Pain is reproducible and described as sharp. Reports she was supposed to follow- up with GI but never did as she reports chronic issues with swallowing and had gastric ulcer. On previous admissions she was advised to see Rheumatology but did not follow- up. Also complaining of productive cough and dizziness. Constitutional: + fatigue, No fever, No chills Eyes: No worsening of vision ENT: No sore throat, No trouble swallowing Respiratory: + cough, + sputum, + dyspnea on exertion, No dyspnea at rest Cardiovascular: + chest pain (L upper chest), No orthopnea, No palpitations Abdomen: No pain, No nausea, No vomiting, No diarrhea, No constipation Musculoskeletal: No swelling, No calf pain Female : No dysuria Neurologic: + vertigo Heme: No abnormal bleeding/bruising Skin: No rash Medications Current Inpatient Medications Medications (Trade) Dose Ordered Sig/Lilly Route Start Time Stop Time Status Last Admin Dose Admin Acetaminophen (Tylenol Tab) 650 mg Q4H PRN PO 11/05/16 02:00 12/05/16 01:59 Ondansetron HCl (Zofran Inj) 4 mg Q6H PRN IV 11/05/16 02:00 12/05/16 01:59 Nitroglycerin (Nitrostat Tab) 0.4 mg UD PRN SL 11/05/16 02:00 12/05/16 01:59 Morphine Sulfate (MoRPHine SULFATE INJ) 2 mg Q30M PRN IV 11/05/16 02:00 11/19/16 01:59 11/05/16 13:27 2 MG Polyethylene (Miralax Powder Packet) 17 gm DAILY PRN PO 11/05/16 02:00 12/05/16 01:59 Albuterol Sulfate (Ventolin 0.5% 2.5MG/0.5ML Neb) 2.5 mg QID PRN INH 11/05/16 02:00 12/05/16 01:59 Aspirin (Ecotrin Tab) 81 mg QAM PO 11/05/16 09:00 12/05/16 08:59 11/05/16 09:02 81 MG Bupropion HCl (Wellbutrin-Sr Tab) 200 mg BID PO 11/05/16 09:00 12/05/16 08:59 11/05/16 09:01 200 MG Docusate Sodium (coLACE CAP) 100 mg QAM PO 11/05/16 09:00 12/05/16 08:59 11/05/16 09:02 100 MG Duloxetine HCl (Cymbalta Cap) 60 mg BID PO 11/05/16 09:00 12/05/16 08:59 11/05/16 09:02 60 MG Fluticasone Propionate (Flonase Nasal [place]) 2 sprays HS EDITH 11/05/16 21:00 12/05/16 20:59 Gabapentin (Neurontin Cap) 400 mg TID PO 11/05/16 09:00 12/05/16 08:59 11/05/16 13:23 400 MG Lamotrigine (Lamictal Tab) 100 mg BID PO 11/05/16 09:00 12/05/16 08:59 11/05/16 09:01 100 MG Nortriptyline HCl (Pamelor Cap) 50 mg QAM PO 11/05/16 09:00 12/05/16 08:59 11/05/16 09:03 50 MG Oxycodone HCl (Roxicodone Immediate Rel Tab) 10 mg Q6H PRN PO 11/05/16 02:00 11/19/16 01:59 11/05/16 08:59 10 MG Pantoprazole Sodium (Protonix Tab) 40 mg BID PO 11/05/16 09:00 12/05/16 08:59 11/05/16 09:01 40 MG Potassium Chloride (Klor-Con Tab) 40 meq ACHS PO 11/05/16 07:00 12/05/16 06:59 11/05/16 11:00 40 MEQ Trazodone HCl (Desyrel Tab) 50 mg HS PO 11/05/16 21:00 12/05/16 20:59 Albuterol (Ventolin Hfa Inhaler) 2 puffs QID PRN INH 11/05/16 02:00 12/05/16 01:59 Miscellaneous Information (Order Awaiting Action) 1 ea QS N/A 11/05/16 08:00 12/05/16 07:59 Miscellaneous (Iv Fluids Completed) 1 ea PRN PRN N/A 11/05/16 05:30 11/05/17 05:29 Heparin Sodium (Porcine) (Heparin Sq 5000 Unit/0.5ml) 5,000 unit Q8 SQ 11/05/16 14:00 12/05/16 13:59 11/05/16 13:24 5,000 UNIT Sodium Chloride 1,000 ml @ 100 mls/hr Q10H IV 11/05/16 13:30 11/05/16 23:29 11/05/16 13:30 100 MLS/HR Meclizine HCl (Antivert Tab) 25 mg TID PRN PO 11/05/16 13:30 12/05/16 13:29 Azithromycin (Zithromax Tab) 500 mg NOW ONCE PO 11/05/16 13:30 11/05/16 13:31 Azithromycin (Zithromax Tab) 250 mg QAM PO 11/06/16 09:00 11/09/16 10:00 UNV Objective Vital Signs Date Time Temp Pulse Resp B/P (MAP) Pulse Ox O2 Delivery O2 Flow Rate FiO2 11/05/16 12:00 Room Air 11/05/16 11:43 36.4 80 18 109/67 (81) 91 Room Air 11/05/16 08:00 93 Room Air 11/05/16 07:35 36.7 72 18 116/72 (87) 96 CPAP 11/05/16 04:00 93 Room Air 11/05/16 02:57 36.8 83 27 160/77 (104) 94 Room Air 11/05/16 02:53 36.8 84 20 160/77 93 Room Air 11/05/16 02:00 93 15 11/05/16 01:30 86 26 11/05/16 01:24 134/66 11/05/16 01:00 87 20 11/05/16 00:30 90 17 11/05/16 00:00 110 19 11/04/16 23:30 90 18 11/04/16 23:07 91 11/04/16 23:00 91 16 11/04/16 21:54 89 22 113/53 95 Room Air 11/04/16 20:06 95 Room Air 11/04/16 19:51 84 11/04/16 19:30 36.4 89 18 117/55 96 Room Air Physical Exam General Appearance: WD/WN, no apparent distress, + obese Eyes: sclerae normal ENT: hearing grossly normal Neck: supple, no JVD, trachea midline Respiratory/Chest: lungs clear, normal breath sounds, no respiratory distress, no accessory muscle use, + decreased breath sounds (difficult exam due to body habitus), + pertinent finding (chest tender to palpation at approx. 2-3 L ribs reproducing subjective pain complaint) Cardiovascular: regular rate, rhythm, no gallop, no murmur, + pertinent finding (distant sounds likely from body habitus) Abdomen: normal bowel sounds, non tender, soft Extremities: no pedal edema, no calf tenderness Laboratory Results Last 24 Hours Test 11/04/16 21:09 11/04/16 21:30 11/05/16 08:48 White Blood Count 10.61 K/uL 7.79 K/uL Red Blood Count 4.76 M/uL 4.52 M/uL Hemoglobin 13.3 g/dL 11.8 g/dL Hematocrit 40.0 % 37.8 % Mean Corpuscular Volume 84.0 fL 83.6 fL Mean Corpuscular Hemoglobin 27.9 pg 26.1 pg Mean Corpuscular Hemoglobin Concent 33.3 g/dl 31.2 g/dl Platelet Count 313 K/uL 275 K/uL Mean Platelet Volume 10.4 fL 9.5 fL Neutrophils (%) (Auto) 74.1 % 60.0 % Lymphocytes (%) (Auto) 17.5 % 29.0 % Monocytes (%) (Auto) 6.9 % 8.9 % Eosinophils (%) (Auto) 0.8 % 1.4 % Basophils (%) (Auto) 0.4 % 0.4 % Neutrophils # (Auto) 7.87 K/uL 4.68 K/uL Lymphocytes # (Auto) 1.86 K/uL 2.26 K/uL Monocytes # (Auto) 0.73 K/uL 0.69 K/uL Eosinophils # (Auto) 0.08 K/uL 0.11 K/uL Basophils # (Auto) 0.04 K/uL 0.03 K/uL RDW Standard Deviation 52.2 fL 51.9 fL RDW Coefficient of Variation 16.9 % 16.8 % Immature Granulocyte % (Auto) 0.3 % 0.3 % Immature Granulocyte # (Auto) 0.03 K/uL 0.02 K/uL Prothrombin Time 10.4 SECONDS Prothromb Time International Ratio 1.0 Activated Partial Thromboplast Time 29.1 SECONDS Partial Thromboplastin Ratio 1.1 D-Dimer 730 ug/L FEU Sodium Level 132 mmol/L 135 mmol/L Potassium Level 4.1 mmol/L 3.1 mmol/L Chloride Level 92 mmol/L 94 mmol/L Carbon Dioxide Level 28 mmol/L 30 mmol/L Anion Gap 12.0 mmol/L 11.0 mmol/L Blood Urea Nitrogen 39 mg/dl 38 mg/dl Creatinine 1.90 mg/dl 1.80 mg/dl Est Creatinine Clear Calc Drug Dose 50.5 ml/min 53.1 ml/min Estimated GFR () 33.8 36.1 Estimated GFR (Non- 29.2 31.1 BUN/Creatinine Ratio 20.5 20.9 Random Glucose 112 mg/dl 106 mg/dl Calcium Level 9.2 mg/dl 8.9 mg/dl Total Bilirubin 0.4 mg/dl 0.5 mg/dl Aspartate Amino Transf (AST/SGOT) 23 U/L 19 U/L Alanine Aminotransferase (ALT/SGPT) 21 U/L 20 U/L Alkaline Phosphatase 82 U/L 69 U/L Total Protein 8.4 gm/dl 7.3 gm/dl Albumin 3.5 gm/dl 3.0 gm/dl Globulin 4.9 gm/dl 4.3 gm/dl Albumin/Globulin Ratio 0.7 0.7 Bedside Troponin I < 0.030 ng/ml Troponin I < 0.015 ng/ml Assessment and Plan 56-year-old female presented to the ER with complaints of left-sided chest pain that started yesterday. She states the pain as 5-6 on a scale 10 in severity, worse with taking deep breaths and also has difficulty breathing and dizziness Left-Sided Chest Pain: Musculoskeletal (Likely) with Poss. GI Component: - Pain is reproducible with deep palpation of L upper chest; reports chronic issues with swallowing issues to solids and liquids - VQ scanning reveals low probability of PE - ASA 81 mg daily Productive Cough and Dizziness: - Zithromax 500 mg x 1 dose then 250 mg x 4 days - Antivert 25 mg TID PRN Elevated Creatinine: Baseline 1.3 - NSS at 100 mL/hr x 1 bag - Hold Amiloride/HCTZ and Lasix - assess Cr in AM Recent GI bleed 2/2 Gastric Ulcer: September 2016 - Protonix 40 mg BID Chronic Pain Syndrome/Neuropathy/Depression: - Oxycodone 10 mg Q6H PRN - Wellbutrin 200 mg BID and Cymbalta 60 mg BID - Gabapentin 400 mg TID and Pamelor 50 mg daily HTN: - Hold diuretics as above DVT Prophylaxis: Heparin 5000 units SC Q8H Code Status: FULL RESUSCITATION Disposition: Transfer to Med/Surg - Hydrate today and trend Cr. - Plan for D/C tomorrow Continued [facility] stay due to: multiple IV medications needed Discharge planning: home
[2016-11-05] MEDS ORDERED: TRAZODONE HCL 50 MG TAB PO SCH (21:00)
[2016-11-05] MEDS ORDERED: FLUTICASONE PROPIONATE NA SPR 16 GM BTL NAE SCH (21:00)
[2016-11-06] MEDS: POTASSIUM CHLORIDE 20 MEQ TABCR PO SCH ×3 (05:55→17:17)
[2016-11-06] MEDS: HEPARIN SOD 5000 UNIT/0.5 ML CARP SQ SCH ×2 (05:56→14:00)
[2016-11-06] MEDS: OXYCODONE HCL IR 5 MG TAB (IMMEDIATE RELEASE) PO PRN (06:00)
[2016-11-06 07:14] VITALS: BP 128/66; PULSE 69; TEMP 36.6; O2SAT 95
[2016-11-06 07:22] LABS: BASO % 0.3 %; BASO ABS # 0.02 K/uL (0-0.2); COMPLETE YES; EOS % 2.7 %; HEMATOCRIT 37.5 % (37-47); IG% 0.2 %; LYMPH % 29.5 %; LYMPH ABS # 1.86 K/uL (1.2-3.4); MEAN CELL VOLUME 83.9 fL (80-100); MEAN CORPUSCULAR HEMOGLOBIN 26.2 pg (25-34); MEAN CORPUSCULAR HGB CONC 31.2 g/dl (32-36); MONO % 8.1 %; NEUT % 59.2 %; PLATELET COUNT 288 K/uL (130-400); RED BLOOD COUNT 4.47 M/uL (4.2-5.4); WHITE BLOOD COUNT 6.31 K/uL (4.8-10.8)
[2016-11-06] MEDS ORDERED: AZIT-57 PO (07:37)
--- NOTE | 2016-11-06 07:43 | Discharge Instructions ---
Discharge Instructions Date of Service Nov 06, 2016. Admission Reason for Admission: Precordial Chest Pain Discharge Discharge Diagnosis / Problem: Chest Pain Discharge Goals Goal(s): Decrease discomfort, Improve function, Increase independence Activity Recommendations Activity Limitations: resume your previous activity . Instructions / Follow-Up Instructions / Follow-Up Left-Sided Chest Pain: Musculoskeletal with Possible GI Component: - Imaging of your legs did not show a DVT/blood clot. Your VQ scan was performed that showed low probability of having a blood clot in your lungs. - The pain can be produced by pushing on that area and likely is originating from your shoulders or muscles. - With your history of swallowing issues there may be a GI component contributing to this pain but suspicion is higher for musculoskeletal - Upon review of previous admissions you had some blood work performed that was high for inflammation and recommendations given to see a automotive service consultant - this may be beneficial in regards to joint aches and pains and would recommend discussing with your family doctor about referral. Productive Cough: - You were started on Zithromax and had a dose yesterday and today. Take the next dose on 11/07 and finish course Recent GI bleed from Gastric Ulcer: September 2016 - Continue Protonix 40 mg twice a day. Avoid NSAIDs such as ibuprofen, motrin, or advil as these medications can be harsh on the stomach Follow-Up: Cathleen Meadows PA-C on ThursdayNovember 11 at 9:30 am Yoanna ROSS on November 13 at 3:40 pm Current Hospital Diet Patient's current hospital diet: AHA Diet (Heart Healthy) Discharge Diet Recommended Diet: AHA Diet (Heart Healthy) Pending Studies Studies pending at discharge: no Laboratory Results Hemoglobin A1c Test 08/29/16 11:30 Range/Units Estimated Average Glucose 120 mg/dl Hemoglobin A1c 5.8 H 4.5-5.6 % Lipid Panel Test 11/06/16 07:10 Range/Units Medical Emergencies . Who to Call and When: Medical Emergencies: If at any time you feel your situation is an emergency, please call 911 immediately. . Non-Emergent Contact Non-Emergency issues call your: Primary Care Provider Call Non-Emergent contact if: you have a fever, your pain is concerning you, you have any medication questions . . "Provider Documentation" section prepared by Eli Mae. . VTE Core Measure Inpt VTE Proph given/why not?: Unfractionated heparin SQ
[2016-11-06 07:58] LABS: BUN/CREATININE RATIO 22.3 (10-20); CREATININE 1.4 mg/dl (0.60-1.20); POTASSIUM 4.5 mmol/L (3.5-5.1)
[2016-11-06 07:59] LABS: ALB/GLOB RATIO 0.7 (0.9-2); CHOLESTEROL/HDL RATIO 3.2
[2016-11-06 08:00] VITALS: O2SAT 95
[2016-11-06] MEDS: DULERA~ORDER AWAITING ACTION SCH ×2 (08:00→16:00)
[2016-11-06] MEDS: PANTOprazole SOD 40 MG TAB PO SCH (08:59)
[2016-11-06] MEDS: DULOXETINE HCL 60 MG CAP PO SCH (08:59)
[2016-11-06] MEDS ORDERED: AZITHROMYCIN 250 MG TAB PO SCH (09:00)
[2016-11-06] MEDS: BuPROPion SR 100 MG TABCR PO SCH (09:00)
[2016-11-06] MEDS: ASPIRIN 81 MG ECTAB PO SCH (09:00)
[2016-11-06] MEDS: GABAPENTIN 400 MG CAP PO SCH ×2 (09:00→14:53)
[2016-11-06] MEDS: DOCUSATE SODIUM 100 MG CAP PO SCH (09:01)
[2016-11-06] MEDS: NORTRIPTYLINE HCL 25 MG CAP PO SCH (09:01)
[2016-11-06] MEDS ORDERED: ANT25 PO (09:42)
--- NOTE | 2016-11-06 09:53 | Discharge Summary ---
Discharge Summary Date of Service Nov 06, 2016. Discharge Summary Admission Date: Nov 05, 2016 at 01:54 Discharge Date: Nov 06, 2016 Discharge Disposition: Home Principal Diagnosis: Musculoskeletal Chest Pain and URI Problems/Secondary Diagnoses: 1. Gastric Ulcer - September 2016 2. Morbid Obesity S/P Elaine-en-Y Gastric Bypass 3. Chronic Kidney Disease 4. HTN 5. Chronic Pain Syndrome/Neuropathy Immunizations: Have You Had Influenza Vaccine: Yes History of Tetanus Vaccine?: No History of Pneumococcal: No History of Hepatitis B Vaccine: No Procedures: 1. CHEST ONE VIEW PORTABLE FINDINGS: The heart is mildly enlarged. There has been interval resolution of the previous described congestive failure.. There is no lobar consolidation. Linear opacities within left midlung zone are likely atelectatic.[ No pleural effusions are visualized. IMPRESSION: 1. Interval resolution of the previously described congestive failure. 2. No evidence of acute parenchymal consolidation 2. ULTRASOUND VENOUS DOPPLER LWR EXT BILA FINDINGS: Real-time and color flow Doppler imaging were performed. Flow was seen within the femoral, popliteal and calf veins with no intraluminal thrombus demonstrated. The saphenous vein is patent. Evaluation of the calf veins was somewhat limited due to the patient's large body habitus. IMPRESSION: No evidence of lower extremity DVT. 3. LUNG IMAGING VQ FINDINGS: Mild prominence of the cardiac silhouette. No significant perfusion or ventilation defects identified. No mismatch defects identified within the lungs. IMPRESSION: Above findings are consistent with a very low probability scan. Medication Reconciliation New Medications: Azithromycin (Azithromycin) 250 Mg Tab 250 MG PO QAM for 3 Days, #3 TAB Start on 11/07 Meclizine HCl (Meclizine HCl) 25 Mg Tab 25 MG PO TID PRN for Dizziness for 7 Days, #21 TAB Continued Medications: Albuterol Sulf (Ventolin) 2 Mg/5 Ml Syrp 2 MG NEB QID PRN for Shortness of Breath Albuterol Sulfate (Proair Respiclick) 108 Mcg/Act Aer 2 PUFFS INH QID PRN for Shortness of Breath Amiloride/Hctz (Amiloride/Hydrochlorothia 5-50 mg) 1 Ea Tab 1 TAB PO QAM Aspirin (Aspirin Ec) 81 Mg Tab 81 MG PO QAM Bumetanide (Bumex) 2 Mg Tab 2 MG PO BID, TAB Bupropion Hcl (Wellbutrin Sr) 200 Mg Tab 200 MG PO BID, TAB Cholecalciferol (Vitamin D) 5,000 Unit Tab 5000 INTER.UNIT PO QAM Cyanocobalamin (Cyanocobalamin) 1,000 Mcg/Ml Inj 1000 MCG IM MONTHLY Docusate Sodium (Colace) 100 Mg Cap 100 MG PO QAM, CAP Duloxetine HCl (Cymbalta) 60 Mg Cap 60 MG PO BID Fluticasone Propionate (Nasal) (Flonase Allergy Relief) 50 Mcg/Act Spr 2 SPRAYS EDITH HS Gabapentin (Neurontin) 400 Mg Cap 400 MG PO TID, CAP Lamotrigine (Lamictal) 100 Mg Tab 100 MG PO BID, TAB Magnesium Hydroxide (Milk Of Magnesia) 30 Ml Susp 30 ML PO DAILY PRN for Constipation, ML Mometasone Furoate-Formoterol (Dulera 200/5 Mcg) 1 Aer Aer 2 PUFFS INH BID, GM Nortriptyline (Pamelor) 50 Mg Cap 50 MG PO QAM, CAP Oxycodone Immediate Rel Tab (Roxicodone Ir) 5 Mg Tab 10 MG PO Q6H PRN for Pain, TAB Pantoprazole (Protonix) 40 Mg Tab 40 MG PO BID, TAB Potassium Ext Rel (Klor-Con) 20 Meq Tabcr 40 MEQ PO ACHS, TAB Trazodone Hcl (Desyrel) 50 Mg Tab 50 MG PO HS, TAB Discharge Exam REVIEW OF SYSTEMS Constitutional: + fatigue, No fever, No chills Eyes: No worsening of vision ENT: No sore throat, No trouble swallowing Respiratory: + cough, + sputum, + dyspnea on exertion, No dyspnea at rest Cardiovascular: + chest pain (L upper chest - improving), No orthopnea, No palpitations Abdomen: No pain, No nausea, No vomiting, No diarrhea, No constipation Musculoskeletal: No swelling, No calf pain Female : No dysuria Neurologic: + vertigo (improving) Heme: No abnormal bleeding/bruising Skin: No rash PHYSICAL EXAMINATION: General Appearance: WD/WN, no apparent distress, + obese Eyes: sclerae normal ENT: hearing grossly normal; pharynx without erythema or exudates Neck: supple, no JVD, trachea midline Respiratory/Chest: lungs clear, normal breath sounds, no respiratory distress, no accessory muscle use, + decreased breath sounds (difficult exam due to body habitus), + pertinent finding (chest tender to palpation at approx. 2-3 L ribs reproducing subjective pain complaint but improving) Cardiovascular: regular rate, rhythm, no gallop, no murmur, + pertinent finding (distant sounds likely from body habitus) Abdomen: normal bowel sounds, non tender, soft Extremities: no pedal edema, no calf tenderness Hospital Course ADMISSION: 56-year-old female presented to the ER with complaints of left-sided chest pain that started yesterday. She states the pain as 5-6 on a scale 10 in severity, worse with taking deep breaths and also has difficulty breathing and dizziness. Denies any palpitations, fevers or chills, cough. Denied any nausea , vomiting, abdominal pain or diarrhea. She was seen her PCP who ordered blood work and CT chest was found to have an elevated d-dimer. She states that she has a history of DVT as a teenager, is a former smoker, denies any recent long haul travels. HOSPITAL COURSE: Ms. Cho presented for L-sided CP with worsening if deep breathing. Outpatient labs showed elevated D-Dimer. VQ scan completed due to elevate Cr above her baseline which revealed low probability. B/L lower extremity U/S were negative for DVT. Serial troponins negative and EKG with NSR without ischemic changes. Pain was reproducible with palpation in the L upper chest close to her L shoulder. Suggest this is musculoskeletal. She also complained of chronic intermittent dizziness and productive cough. She received gentle hydration which improved Cr close to baseline of 1.3. Zithromax instituted for a 5 day course. An Rx was provided for Antivert 25 mg TID PRN. She reports she did not follow-up with GI after her EGD and gastric ulcer. An appointment was established as she also reports intermittent dysphagia with solids and liquids which prompted EGD per patient. Review of previous admission revealed an ESR >90 and positive double stranded DNA and may benefit from rheumatology referral but did not repeat ESR on this admission. She is reporting improvement in CP and dizziness and is optimal for D/C home with PCP follow-up. Total Time Spent: Greater than 30 minutes This includes examination of the patient, discharge planning, medication reconciliation, and communication with other providers. Discharge Instructions Please refer to the electronic Patient Visit Report (Discharge Instructions) for additional information. Additional Copies To Cathleen Meadows PA-C; Pedro Ames D.O.
[2016-11-06 15:26] VITALS: BP 110/70; PULSE 74; TEMP 36.5; O2SAT 99
[2016-11-06 17:51] VITALS: BP 110/70; PULSE 74; TEMP 36.5; O2SAT 99
[2017-01-11] MEDS ORDERED: MGCCMP100 MT (11:10)
[2017-01-11] MEDS ORDERED: LDDP5 TD (11:10)
== END 2016-11-06 18:00 | disposition home health service (06) ==
LOC: C.EDB 19:23 → C.2T 11-05 01:54 → ENRESERV 11-05 02:03 → C.MS2W 11-05 14:55
PROVIDERS: ADMIT Family Medicine; ATTEND Internal Medicine
DX: R07.89 Other chest pain (principal); J06.9 Acute upper respiratory infection, unspecified; I13.0 Hypertensive heart and chronic kidney disease with heart failure and stage 1 through stage 4 chronic kidney disease, or unspecified chronic kidney disease; N18.9 Chronic kidney disease, unspecified; N17.9 Acute kidney failure, unspecified; I50.31 Acute diastolic (congestive) heart failure; G89.4 Chronic pain syndrome; G62.9 Polyneuropathy, unspecified; F32.9 Major depressive disorder, single episode, unspecified; K25.9 Gastric ulcer, unspecified as acute or chronic, without hemorrhage or perforation; M17.10 Unilateral primary osteoarthritis, unspecified knee; Z86.718 Personal history of other venous thrombosis and embolism; Z98.84 Bariatric surgery status; Z87.891 Personal history of nicotine dependence; Z79.82 Long term (current) use of aspirin; Z79.899 Other long term (current) drug therapy

== ENCOUNTER → 2016-12-17 | Day surgery (SDC) | payer OTHER, MEDICARE ==
[2016-12-05 14:33] VITALS: BMI 55.0
[~2016-12-17] VITALS: Ht 165.1 cm; Wt 150.0 kg
[~2016-12-17] MED LIST changes: +AZITTAB PO; -BUPR100T13 PO; +BUPR200T2 PO; -CRFUDL PO; +CYNI1000 IM; -DFL100 PO; +DIPH25CA65 PO; +FENTANYL CITRATE INJ 50 MCG/1 ML 2 ML VIAL ONE; +IPRASOL4 INH; +LAMO100T16 PO; +LDDP5 TD; +LIDOCAINE HCL 2% 2 ML VIAL (20MG/ML) ONE; -LMC100 PO; +MAGN400T6 PO; +MECL-91 PO; +METO2.5T PO; +MGCCMP100 MT; +MIDAZOLAM HCL 1 MG/ML 2ML VIAL ONE; +OXYC-106 PO; +PROPOFOL IV EMULSION 10 MG/ML 20 ML VIAL IV ONE; -SENN-61 PO; +SODIUM CHLORIDE 0.9% 500ML 500 ML IV ONE; +SULF800T23 PO; -TRAZ-120 PO; +TRAZ1TAB5 PO; -VITAMIN B12 INJ; +ZTHM250 PO
[2016-12-17 08:54] VITALS: Ht 165.1 cm; Wt 150.0 kg
[2016-12-17 09:01] VITALS: TEMP 36.7
--- NOTE | 2016-12-17 09:08 | Endo History and Physical ---
History & Physical Date of Service: Dec 17, 2016. Chief Complaint: hx of ulcer, recheck Referring Physician: Dr. Aparicio History of Present Illness 56 yo CF who presents for EGD secondary to gastric ulcer. Past Surgical History Hx Cardiac Surgery: No Hx Internal Defibrillator: No Hx Pacemaker: No Hx Abdominal Surgery: Yes (Gastric Bypass, COSTA BSO, Laproscopy, Etopic SX) Hx of Implantable Prosthesis: No Hx Post-Op Nausea and Vomiting: No Hx Cancer Surgery: No Hx Thoracic Surgery: No Hx Orthopedic: Yes (RT/LT TKA, LEFT/RT SHOULDER ARTHROSCOPY) Hx Urinary Tract Surgery: No Family History None Social History Smoking Status: Former Smoker Hx Substance Use: No Hx Alcohol Use: Yes Allergies Coded Allergies: Adhesives (Verified Allergy, Intermediate, REDNESS WITH BANDAIDS, 12/05/16) Cephalexin (Verified Allergy, Unknown, ?, 12/17/16) Current Medications Reported Home Medications Medications Dose Route/Sig Max Daily Dose Days Date Category Amiloride/Hydrochlorothia 5-50 mg (Amiloride/HCTZ) 1 Ea Tab 1 Tab PO QAM 11/04/16 Reported Lamictal (Lamotrigine) 100 Mg Tab 100 Mg PO BID 11/04/16 Reported Roxicodone Ir (Oxycodone HCl) 5 Mg Tab 10 Mg PO Q6H PRN 11/04/16 Reported Protonix (Pantoprazole Sodium) 40 Mg Tab 40 Mg PO BID 11/04/16 Reported Cyanocobalamin 1,000 Mcg/Ml Inj 1,000 Mcg IM MONTHLY 11/04/16 Reported Wellbutrin Sr (Bupropion Hcl) 200 Mg Tab 200 Mg PO BID 11/04/16 Reported Bumex (Bumetanide) 2 Mg Tab 2 Mg PO BID 10/03/16 Reported Milk Of Magnesia (Magnesium Hydroxide) 30 Ml Susp 30 Ml PO DAILY PRN 10/01/16 Reported Vitamin D (Cholecalciferol) 5,000 Unit Tab 5,000 Inter.unit PO QAM 10/01/16 Reported Desyrel (Trazodone Hcl) 50 Mg Tab 50 Mg PO HS 10/01/16 Reported Klor-Con (Potassium Chloride) 20 Meq Tabcr 40 Meq PO ACHS 10/01/16 Reported Pamelor (Nortriptyline HCl) 50 Mg Cap 50 Mg PO QAM 10/01/16 Reported Neurontin (Gabapentin) 400 Mg Cap 400 Mg PO TID 10/01/16 Reported Flonase Allergy Relief (Fluticasone Propionate (Nasal)) 50 Mcg/Act Spr 2 Sprays EDITH HS 10/01/16 Reported Colace (Docusate Sodium) 100 Mg Cap 100 Mg PO QAM 10/01/16 Reported Cymbalta (Duloxetine HCl) 60 Mg Cap 60 Mg PO BID 10/01/16 Reported Ventolin (Albuterol Sulfate) 2 Mg/5 Ml Syrp 2 Mg NEB QID PRN 10/01/16 Reported Proair Respiclick (Albuterol Sulfate) 108 Mcg/Act Aer 2 Puffs INH QID PRN 08/29/16 Reported Aspirin Ec (Aspirin) 81 Mg Tab 81 Mg PO QAM 07/29/16 Reported Dulera 200/5 Mcg (Mometasone Furoate-Formoterol) 1 Aer Aer 2 Puffs INH BID 07/29/16 Reported Vital Signs Weight (Kilograms): 150.00 Height (Feet): 5 Height (Inches): 5 Date Time Temp Pulse Resp B/P (MAP) Pulse Ox O2 Delivery O2 Flow Rate FiO2 12/17/16 09:01 36.7 80 24 142/97 (112) 92 Room Air Physical Exam General Appearance: WD/WN, no apparent distress Respiratory/Chest: Auscultation: breath sounds normal Cardiovascular: Heart Auscultation: RRR Abdomen: Bowel Sounds: normal Inspection & Palpation: soft, non-distended, no tenderness, guarding & rebound Assessment and Plan Assessment: 56 yo CF who presents for EGD secondary to gastric ulcer. Plan: Proceed with EGD.
--- NOTE | 2016-12-17 09:20 | Discharge Instructions ---
Endoscopy Patient Instructions Date / Procedure(s) Performed Dec 17, 2016. EGD Allergy Information Coded Allergies: Adhesives (Verified Allergy, Intermediate, REDNESS WITH BANDAIDS, 12/05/16) Cephalexin (Verified Allergy, Unknown, ?, 12/17/16) Discharge Date / Findings Dec 17, 2016. Normal EGD s/p Elaine-En-Y gastric bypass Medication Instructions OK to resume all medications today as prescribed Reported Home Medications Medications Dose Route/Sig Max Daily Dose Days Date Category Amiloride/Hydrochlorothia 5-50 mg (Amiloride/HCTZ) 1 Ea Tab 1 Tab PO QAM 11/04/16 Reported Lamictal (Lamotrigine) 100 Mg Tab 100 Mg PO BID 11/04/16 Reported Roxicodone Ir (Oxycodone HCl) 5 Mg Tab 10 Mg PO Q6H PRN 11/04/16 Reported Protonix (Pantoprazole Sodium) 40 Mg Tab 40 Mg PO BID 11/04/16 Reported Cyanocobalamin 1,000 Mcg/Ml Inj 1,000 Mcg IM MONTHLY 11/04/16 Reported Wellbutrin Sr (Bupropion Hcl) 200 Mg Tab 200 Mg PO BID 11/04/16 Reported Bumex (Bumetanide) 2 Mg Tab 2 Mg PO BID 10/03/16 Reported Milk Of Magnesia (Magnesium Hydroxide) 30 Ml Susp 30 Ml PO DAILY PRN 10/01/16 Reported Vitamin D (Cholecalciferol) 5,000 Unit Tab 5,000 Inter.unit PO QAM 10/01/16 Reported Desyrel (Trazodone Hcl) 50 Mg Tab 50 Mg PO HS 10/01/16 Reported Klor-Con (Potassium Chloride) 20 Meq Tabcr 40 Meq PO ACHS 10/01/16 Reported Pamelor (Nortriptyline HCl) 50 Mg Cap 50 Mg PO QAM 10/01/16 Reported Neurontin (Gabapentin) 400 Mg Cap 400 Mg PO TID 10/01/16 Reported Flonase Allergy Relief (Fluticasone Propionate (Nasal)) 50 Mcg/Act Spr 2 Sprays EDITH HS 10/01/16 Reported Colace (Docusate Sodium) 100 Mg Cap 100 Mg PO QAM 10/01/16 Reported Cymbalta (Duloxetine HCl) 60 Mg Cap 60 Mg PO BID 10/01/16 Reported Ventolin (Albuterol Sulfate) 2 Mg/5 Ml Syrp 2 Mg NEB QID PRN 10/01/16 Reported Proair Respiclick (Albuterol Sulfate) 108 Mcg/Act Aer 2 Puffs INH QID PRN 08/29/16 Reported Aspirin Ec (Aspirin) 81 Mg Tab 81 Mg PO QAM 07/29/16 Reported Dulera 200/5 Mcg (Mometasone Furoate-Formoterol) 1 Aer Aer 2 Puffs INH BID 07/29/16 Reported Provider Instructions Activity Restrictions - No exercising or heavy lifting for 24 hours. - Do not drink alcohol the day of the procedure. - Do not drive a car or operate machinery until the day after the procedure. - Do not make any important decisions or sign important papers in 24 hours after the procedure. Following Day: - Return to full activity which may include returning to work/school. Diet Start your diet with liquids and light foods (jello, soup, juice, toast). Then eat your usual diet if not nauseated. Treatment For Common After Affects For mild abdominal pain, bloating, or excessive gas: - Rest - Eat lightly - Lie on right side Follow-Up Information Follow-up with Dr. Aparicio as scheduled Anesthesia Information What You Should Know You have had a procedure that required some medicine to reduce anxiety and discomfort. This treatment is called moderate sedation. After receiving the treatment, you may be sleepy, but you will be able to breathe on your own. The effects of the treatment may last for several hours. Follow these instructions along with Activity/Diet recommendations noted above: * Do NOT do anything where dizziness or clumsiness would be dangerous. * Rest quietly at home today, then you can be up and about tomorrow. * Have a responsible person stay with you the rest of today. * You may have had an I.V. today. If so, you may take the dressing off later today. Recommendations Call your doctor if: * Trouble breathing * Continuous vomiting for more than 24 hours * Temperature above 101 degrees * Severe abdominal pain or bloating * Pain not relieved by pain medicine ordered * There is increased drainage or redness from any incision * A large amount of rectal bleeding greater than 2-3 tablespoons. (If you had a polyp/s removed or have hemorrhoids, a small amount of blood - from the rectum is to be expected.) * You have any unanswered questions or concerns. IN THE EVENT OF A SERIOUS EMERGENCY, GO TO THE NEAREST EMERGENCY ROOM Your discharge instructions were prepared by provider Clifton Antunez. Patient Instructions Signature Page Cathryn Cho Patient (or Guardian) Signature/Date: I have read and understand the instructions given to me by my caregivers. Caregiver/RN/Doctor Signature/Date: The above-named patient and/or guardian has received patient instructions on this date. + Original Patient Signature Page (only) stays with chart. Please make copy for patient.
--- NOTE | 2016-12-17 09:27 | GI REPORT ---
Procedure Date: 12/17/2016 9:05 AM Procedure: Upper GI endoscopy Indications: Follow-up of acute gastric ulcer with hemorrhage Medicines: Monitored Anesthesia Care Complications: No immediate complications. Estimated Blood Loss: Estimated blood loss: none. Procedure: Pre-Anesthesia Assessment: - Prior to the procedure, a History and Physical was performed, and patient medications and allergies were reviewed. The patient's tolerance of previous anesthesia was also reviewed. The risks and benefits of the procedure and the sedation options and risks were discussed with the patient. All questions were answered, and informed consent was obtained. Prior Anticoagulants: The patient has taken aspirin, last dose was day of procedure. ASA Grade Assessment: III - A patient with severe systemic disease. After reviewing the risks and benefits, the patient was deemed in satisfactory condition to undergo the procedure. After obtaining informed consent, the endoscope was passed under direct vision. Throughout the procedure, the patient's blood pressure, pulse, and oxygen saturations were monitored continuously. The scope was introduced through the mouth, and advanced to the jejunum. The upper GI endoscopy was accomplished without difficulty. The patient tolerated the procedure well. Findings: The esophagus was normal. Evidence of a Elaine-en-Y gastrojejunostomy was found. The gastrojejunal anastomosis was characterized by healthy appearing mucosa. This was traversed. The [id number] limb was characterized by healthy appearing mucosa. The examined jejunum was normal. Impression: - Normal esophagus. - Elaine-en-Y gastrojejunostomy with gastrojejunal anastomosis characterized by healthy appearing mucosa. - Normal examined jejunum. - No specimens collected. Recommendation: - Resume previous diet. - Continue present medications. - Return to primary care physician as previously scheduled. Clifton Antunez, 12/17/2016 9:26:40 AM This report has been signed electronically. Note Initiated On: 12/17/2016 9:05 AM I attest to the content of the Intraoperative Record and orders documented therein, exceptions below
--- NOTE | 2016-12-17 10:01 | Anesthesiology Progress Note ---
Anesthesia Post Op Note Date & Time Dec 17, 2016 at 10:01 Vital Signs Pain Intensity: 0 Vital Signs Past 12 Hours Date Time Temp Pulse Resp B/P (MAP) Pulse Ox O2 Delivery O2 Flow Rate FiO2 12/17/16 09:50 80 18 106/55 (72) 95 Room Air 12/17/16 09:35 80 18 132/68 (89) 96 Room Air 12/17/16 09:20 79 18 142/63 (89) 94 Room Air 12/17/16 09:01 36.7 80 24 142/97 (112) 92 Room Air Notes Mental Status: alert / awake / arousable, participated in evaluation Pt Amnestic to Procedure: Yes Nausea / Vomiting: adequately controlled Pain: adequately controlled Airway Patency, RR, SpO2: stable & adequate BP & HR: stable & adequate Hydration State: stable & adequate Anesthetic Complications: no major complications apparent
[2016-12-17 10:05] VITALS: BP 110/72; PULSE 83; O2SAT 97
== END | disposition home or self-care (01) ==
LOC: C.GI 08:13
PROVIDERS: ATTEND Internal Medicine
DX: K25.9 Gastric ulcer, unspecified as acute or chronic, without hemorrhage or perforation (principal); Z98.84 Bariatric surgery status; Z90.710 Acquired absence of both cervix and uterus; Z96.653 Presence of artificial knee joint, bilateral; Z87.891 Personal history of nicotine dependence; Z79.82 Long term (current) use of aspirin; J45.909 Unspecified asthma, uncomplicated; G47.33 Obstructive sleep apnea (adult) (pediatric); K21.9 Gastro-esophageal reflux disease without esophagitis; F41.9 Anxiety disorder, unspecified; F32.9 Major depressive disorder, single episode, unspecified; Z86.14 Personal history of Methicillin resistant Staphylococcus aureus infection; E66.01 Morbid (severe) obesity due to excess calories

== ENCOUNTER → 2016-12-30 | Outpatient (CLI) | payer OTHER, MEDICARE ==
[~2016-12-30] MED LIST changes: -FENTANYL CITRATE INJ 50 MCG/1 ML 2 ML VIAL ONE; -LIDOCAINE HCL 2% 2 ML VIAL (20MG/ML) ONE; -MIDAZOLAM HCL 1 MG/ML 2ML VIAL ONE; -PROPOFOL IV EMULSION 10 MG/ML 20 ML VIAL IV ONE; -SODIUM CHLORIDE 0.9% 500ML 500 ML IV ONE; -ZTHM250 PO
== END | disposition home or self-care (01) ==
LOC: C.LABSPEC 13:40
PROVIDERS: ATTEND Nurse Practitioner Family
DX: R32 Unspecified urinary incontinence (principal); R31.9 Hematuria, unspecified

== ENCOUNTER 2017-01-07 20:06 | Emergency (ER) | payer OTHER, MEDICARE ==
[~2017-01-07] VITALS: Ht 167.6 cm; Wt 158.0 kg
[~2017-01-07 20:06] MED LIST changes: -AZITTAB PO; -DIPH25CA65 PO; -IPRASOL4 INH; -LDDP5 TD; -MAGN400T6 PO; -MECL-91 PO; -METO2.5T PO; -MGCCMP100 MT; -OXYC-106 PO; -SULF800T23 PO
[2017-01-07 20:15] VITALS: TEMP 36.8; Ht 167.6 cm; Wt 158.0 kg
[2017-01-07] MEDS ORDERED: ALBUT/IPRATROP 3MG/0.5MG NEB 3 ML VIAL INH STA (20:46)
[2017-01-07 20:56] VITALS: O2SAT 95
[2017-01-07] MEDS ORDERED: MoRPHine SULFATE 4 MG/ML 1 ML CARP\\VIAL IV STA (21:00)
[2017-01-07 21:36] LABS: BASO % 0.2 %; BASO ABS # 0.02 K/uL (0-0.2); COMPLETE YES; EOS % 2.6 %; HEMATOCRIT 31.6 % (37-47); IG% 0.5 %; LYMPH ABS # 1.95 K/uL (1.2-3.4); MEAN CELL VOLUME 85.6 fL (80-100); MEAN CORPUSCULAR HEMOGLOBIN 26.3 pg (25-34); MEAN CORPUSCULAR HGB CONC 30.7 g/dl (32-36); MEAN PLATELET VOLUME 9.6 fL (7.4-10.4); MONO % 9.5 %; NEUT % 72.2 %; PLATELET COUNT 374 K/uL (130-400); RED BLOOD COUNT 3.69 M/uL (4.2-5.4); WHITE BLOOD COUNT 13.03 K/uL (4.8-10.8)
[2017-01-07] MEDS ORDERED: METO2.5T PO (21:53)
[2017-01-07] MEDS ORDERED: MECL-91 PO (21:53)
[2017-01-07] MEDS ORDERED: DIPH25CA65 PO (21:53)
[2017-01-07] MEDS ORDERED: MAGN400T6 PO (21:53)
[2017-01-07] MEDS ORDERED: SULF800T23 PO (21:53)
[2017-01-07] MEDS ORDERED: IPRASOL4 INH (21:53)
[2017-01-07 21:58] LABS: ALT/SGPT 14 U/L (12-78); AST/SGOT 13 U/L (15-37); BLOOD UREA NITROGEN 31 mg/dl (7-18); BUN/CREATININE RATIO 17.3 (10-20); CALCIUM 8.6 mg/dl (8.5-10.1); CARBON DIOXIDE 33 mmol/L (21-32); CHLORIDE 94 mmol/L (98-107); GLUCOSE 78 mg/dl (70-99); POTASSIUM 2.9 mmol/L (3.5-5.1); SODIUM 134 mmol/L (136-145)
[2017-01-07 22:03] LABS: ALB/GLOB RATIO 0.6 (0.9-2); ALKALINE PHOSPHATASE 102 U/L (45-117)
--- NOTE | 2017-01-07 22:10 | DIAGNOSTIC IMAGING REPORT ---
LEFT RIBS UNILATERAL WITH PA CHEST CLINICAL HISTORY: fall, left-sided chest pain. Short of breath. COMPARISON STUDY: Chest 11/04/2016. FINDINGS: The heart remains mildly enlarged. Small left pleural effusion. No pneumothorax. Linear densities within the left midlung zone has slightly progressed. There is also been interval development of perihilar interstitial vascular thickening. This suggests mild pulmonary edema. No pneumothorax. Slightly displaced left lateral seventh, eighth, and ninth rib fractures. IMPRESSION: 1. Slightly displaced left lateral seventh through ninth rib fractures. No pneumothorax. 2. Small left pleural effusion. 3. Interval development of perihilar interstitial and vascular thickening. This suggest mild pulmonary edema. 4. Mild cardiomegaly. Electronically signed by: Layton Regalado M.D. 01/07/2017 10:08 PM Dictated Date/Time: 01/07/2017 10:05 PM
[2017-01-07] MEDS ORDERED: AZITHROMYCIN 250 MG TAB PO STA (22:42)
[2017-01-07] MEDS ORDERED: POTASSIUM CHLORIDE 10 MEQ TABCR PO STA (22:50)
[2017-01-07] MEDS ORDERED: AZITTAB PO (22:52)
--- NOTE | 2017-01-07 22:53 | EMERGENCY ROOM VISIT NOTE ---
History Report prepared by Rudy: Heather Dukes Under the Supervision of: Dr. Nolberto Hernandez D.O. First contact with patient: 20:45 Chief Complaint: RESPIRATORY PROBLEMS Stated Complaint: BREATHING DIFFICULTY, EXTREME PAIN History of Present Illness The patient is a 56 year old female who presents to the Emergency Room with complaints of persistent left sided chest pain that began two days ago. She currently rates her discomfort as an 8/10 in severity. Per the patient's , the patient fell on Thursday night. He states that since then the patient has experienced left chest wall pain and left rib pain since then. She states that she has increased pain with breathing. The patient's states that the patient's oxygen saturation at home was running in the 70s and the patient has been short of breath. He states that the patient is on a c-pap at home, but denies the patient being on any supplemental nasal cannula oxygen at home. The patient's states that the patient quit smoking in 2012. He states that the patient has noticed hemoptysis today. The patient denies any fever. The patient's states that the patient has become increasingly weak. He states that the patient is currently on Bactrim for a kidney infection, noting that she finishes the antibiotics on Thursday. The patient's states that the patient takes 10-325 Hydrocodone for her chronic back pain. He states that the patient has been using a walker to assist with her ambulation. The patient's states that the patient has been appearing confused. Source of History: patient, spouse/significant other () Onset: two days ago Position: chest (left) Symptom Intensity: 8/10 Timing: other (persistent) Modifying Factors (Worsening): breathing Associated Symptoms: + SOB, + weakness, No fevers Note: Associated Symptoms: left rib pain, confusion Review of Systems See HPI for pertinent positives & negatives. A total of 10 systems reviewed and were otherwise negative. Past Medical & Surgical Medical Problems: (1) Acute diastolic heart failure (2) DJD (degenerative joint disease) of knee (3) Gastric ulceration (4) GASTRIC ULCERATION (5) Precordial chest pain Surgical Problems: (1) Hx of gastric bypass (2) Hx of hysterectomy (3) Hx of shoulder surgery Family History FHx: aneurysm FHx: dementia Social History Smoking Status: Former Smoker Alcohol Use: none Marital Status: Housing Status: lives with family Occupation Status: unemployed Current/Historical Medications Scheduled Amiloride/Hctz (Amiloride/Hydrochlorothia 5-50 mg), 1 TAB PO QAM Aspirin (Aspirin Ec), 81 MG PO QAM Azithromycin (Zithromax Z-Derrick), 0 PO UD Bumetanide (Bumex), 4 MG PO BID Bupropion Hcl (Wellbutrin Sr), 200 MG PO BID Cholecalciferol (Vitamin D), 5,000 INTER.UNIT PO QAM Cyanocobalamin (Cyanocobalamin), 1,000 MCG IM MONTHLY Diphenhydramine Hcl (Benadryl Allergy), 3 CAP PO HS Docusate Sodium (Colace), 100 MG PO QAM Duloxetine HCl (Cymbalta), 60 MG PO BID Fluticasone Propionate (Nasal) (Flonase Allergy Relief), 2 SPRAYS EDITH HS Gabapentin (Neurontin), 400 MG PO TID Ipratropium-Albuterol (Duoneb), 1 TREATMENT INH Q4H Lamotrigine (Lamictal), 100 MG PO BID Magnesium Oxide (Mag-Ox), 400 MG PO BID Metolazone (Zaroxolyn), 2.5 MG PO BID Mometasone Furoate-Formoterol (Dulera 200/5 Mcg), 2 PUFFS INH BID Nortriptyline (Pamelor), 50 MG PO HS Pantoprazole (Protonix), 40 MG PO BID Potassium Ext Rel (Klor-Con), 40 MEQ PO ACHS Sulfa/Trimethoprim (Bactrim Ds 800MG/160MG), 1 TAB PO BID Trazodone Hcl (Desyrel), 50 MG PO HS Scheduled PRN Albuterol Sulf (Ventolin), 2 MG NEB QID PRN for Shortness of Breath Albuterol Sulfate (Proair Respiclick), 2 PUFFS INH QID PRN for Shortness of Breath Magnesium Hydroxide (Milk Of Magnesia), 30 ML PO DAILY PRN for Constipation Meclizine HCl (Meclizine 25), 1 TAB PO for Dizziness or Vertigo Oxycodone Immediate Rel Tab (Roxicodone Ir), 10 MG PO Q6H PRN for Pain Allergies Coded Allergies: Adhesives (Verified Allergy, Intermediate, REDNESS WITH BANDAIDS, 01/07/17) Cephalexin (Verified Allergy, Unknown, ?, 01/07/17) Physical Exam Vital Signs Date Time Temp Pulse Resp B/P (MAP) Pulse Ox O2 Delivery O2 Flow Rate FiO2 01/07/17 22:26 75 18 96 01/07/17 22:21 78 19 97 01/07/17 22:17 153/43 01/07/17 22:16 76 20 98 01/07/17 22:11 75 14 99 01/07/17 22:06 75 19 98 01/07/17 22:02 142/129 01/07/17 22:01 76 16 98 01/07/17 21:59 124/85 01/07/17 21:56 76 18 96 01/07/17 21:54 70/65 01/07/17 21:51 74 26 01/07/17 21:26 74 21 93 01/07/17 21:21 77 20 95 01/07/17 21:16 77 19 91 01/07/17 21:11 77 21 96 01/07/17 21:06 76 19 96 01/07/17 21:01 77 20 93 01/07/17 20:56 96 Nasal Cannula 2.0 01/07/17 20:56 78 15 01/07/17 20:56 95 Nasal Cannula 2.0 01/07/17 20:51 77 21 01/07/17 20:46 78 21 01/07/17 20:43 78 01/07/17 20:41 80 26 92 01/07/17 20:25 170/74 01/07/17 20:15 36.8 82 28 108/72 90 Room Air Physical Exam CONSTITUTIONAL/VITAL SIGNS: Reviewed / noted above. GENERAL: Non-toxic in appearance. INTEGUMENTARY: Warm, dry, and [place]. HEAD: Normocephalic. EYES: without scleral icterus or trauma. ENT/OROPHARYNX: clear and moist. LYMPHADENOPATHY/NECK: Is supple without lymphadenopathy or meningismus. CHEST WALL: Tenderness to palpation of the left lateral chest wall. RESPIRATORY: Rhonchi in the left lung. CARDIOVASCULAR: Regular rate and rhythm. GI/ABDOMEN: Soft and nontender. No organomegaly or pulsatile mass. No rebound or guarding. Normal bowel sounds. EXTREMITIES: Warm and well perfused. BACK: No CVA tenderness. NEUROLOGICAL: Intact without focal deficits. PSYCHIATRIC: normal affect. MUSCULOSKELETAL: Normally developed with good muscle tone. Medical Decision & Procedures ER Provider Diagnostic Interpretation: X ray results and stated below per my interpretation and radiology interpretation. LEFT RIBS UNILATERAL WITH PA CHEST CLINICAL HISTORY: fall, left-sided chest pain. Short of breath. COMPARISON STUDY: Chest 11/04/2016. FINDINGS: The heart remains mildly enlarged. Small left pleural effusion. No pneumothorax. Linear densities within the left midlung zone has slightly progressed. There is also been interval development of perihilar interstitial vascular thickening. This suggests mild pulmonary edema. No pneumothorax. Slightly displaced left lateral seventh, eighth, and ninth rib fractures. IMPRESSION: 1. Slightly displaced left lateral seventh through ninth rib fractures. No pneumothorax. 2. Small left pleural effusion. 3. Interval development of perihilar interstitial and vascular thickening. This suggest mild pulmonary edema. 4. Mild cardiomegaly. Electronically signed by: Layton Regalado M.D. 01/07/2017 10:08 PM Dictated Date/Time: 01/07/2017 10:05 PM Laboratory Results 01/07/17 21:15 Red Blood Count 3.69, Mean Corpuscular Volume 85.6, Mean Corpuscular Hemoglobin 26.3, Mean Corpuscular Hemoglobin Concent 30.7, Mean Platelet Volume 9.6, Neutrophils (%) (Auto) 72.2, Lymphocytes (%) (Auto) 15.0, Monocytes (%) (Auto) 9.5, Eosinophils (%) (Auto) 2.6, Basophils (%) (Auto) 0.2, Neutrophils # (Auto) 9.41, Lymphocytes # (Auto) 1.95, Monocytes # (Auto) 1.24, Eosinophils # (Auto) 0.34, Basophils # (Auto) 0.02 01/07/17 21:15 Test 01/07/17 21:15 01/07/17 21:26 White Blood Count 13.03 K/uL (4.8-10.8) Red Blood Count 3.69 M/uL (4.2-5.4) Hemoglobin 9.7 g/dL (12.0-16.0) Hematocrit 31.6 % (37-47) Mean Corpuscular Volume 85.6 fL (80-100) Mean Corpuscular Hemoglobin 26.3 pg (25-34) Mean Corpuscular Hemoglobin Concent 30.7 g/dl (32-36) Platelet Count 374 K/uL (130-400) Mean Platelet Volume 9.6 fL (7.4-10.4) Neutrophils (%) (Auto) 72.2 % Lymphocytes (%) (Auto) 15.0 % Monocytes (%) (Auto) 9.5 % Eosinophils (%) (Auto) 2.6 % Basophils (%) (Auto) 0.2 % Neutrophils # (Auto) 9.41 K/uL (1.4-6.5) Lymphocytes # (Auto) 1.95 K/uL (1.2-3.4) Monocytes # (Auto) 1.24 K/uL (0.11-0.59) Eosinophils # (Auto) 0.34 K/uL (0-0.5) Basophils # (Auto) 0.02 K/uL (0-0.2) RDW Standard Deviation 50.4 fL (36.4-46.3) RDW Coefficient of Variation 16.2 % (11.5-14.5) Immature Granulocyte % (Auto) 0.5 % Immature Granulocyte # (Auto) 0.07 K/uL (0.00-0.02) Anion Gap 7.0 mmol/L (3-11) Est Creatinine Clear Calc Drug Dose 55.1 ml/min Estimated GFR () 36.1 Estimated GFR (Non- 31.1 BUN/Creatinine Ratio 17.3 (10-20) Calcium Level 8.6 mg/dl (8.5-10.1) Total Bilirubin 0.4 mg/dl (0.2-1) Aspartate Amino Transf (AST/SGOT) 13 U/L (15-37) Alanine Aminotransferase (ALT/SGPT) 14 U/L (12-78) Alkaline Phosphatase 102 U/L (45-117) Total Creatine Kinase 58 U/L (26-192) Creatine Kinase MB 0.6 ng/ml (0.5-3.6) Creatine Kinase MB Ratio 1.0 (0-3.0) Troponin I < 0.015 ng/ml (0-0.045) Pro-B-Type Natriuretic Peptide 1501 pg/ml (0-900) Total Protein 7.8 gm/dl (6.4-8.2) Albumin 3.0 gm/dl (3.4-5.0) Globulin 4.8 gm/dl (2.5-4.0) Albumin/Globulin Ratio 0.6 (0.9-2) Bedside Lactic Acid Venous 1.57 mmol/L (0.90-1.70) Laboratory results as stated above per my review. Medications Administered Medications (Trade) Dose Ordered Sig/Lilly Route Start Time Stop Time Status Last Admin Dose Admin Albuterol/ Ipratropium (Duoneb) 3 ml NOW STAT INH 01/07/17 20:46 01/07/17 20:48 DC 01/07/17 21:07 3 ML Morphine Sulfate (MoRPHine SULFATE INJ) 4 mg NOW STAT IV 01/07/17 21:00 01/07/17 21:01 DC 01/07/17 21:28 4 MG ECG Indication: chest pain, SOB/dyspnea Rate (beats per minute): 77 Rhythm: normal sinus Findings: no acute ischemic change, no ectopy ED Course 2045: Ordered DuoNeb 3 ml INH. 2048: Previous medical records were reviewed. The patient was evaluated in room B8. A complete history and physical examination was performed. 2100: Ordered Morphine sulfate 4 mg IV. 7: I reevaluated the patient and she is resting. I discussed the exam findings with her and her and I discussed the treatment plan. They verbalized complete understanding and agreement. The patient is ready to go home. 4: Incentive spirometer and Zithromax 500mg PO. Kdur 40mEq po. Medical Decision Differentials considered include acute myocardial infarction, acute coronary syndrome, myocarditis, pericarditis, pericardial effusions /tamponade, esophageal perforation, pulmonary embolism, pneumonia, pneumothorax, cardiomyopathy, congestive heart, anemia, and COPD/asthma exacerbation. This is a 56-year-old female who presents to the ED with a chief complaint of left-sided chest wall pain. [place] patient [place] She presents today with continued pain as well as some shortness of breath. The patient's exam reveals tenderness in the left side chest. She also has some rhonchi on the left side on exam. reports that this is somewhat chronic although worse. The patient has history of smoking but quit in 2012. She had a cough productive of black sputum today. The patient's EKG shows a normal sinus rhythm. Chest x-ray reveals left lateral seventh through ninth rib fractures. There is a left pleural effusion that is small. Troponin was negative. Hemoglobin is 9.2. White blood cell count was 13. BUN is 31. Creatinine 1.8. Potassium is 2.9. Lactic acid was negative. The patient was told the results of the test. She wants to go home. She was given some oral potassium as well as Zithromax by mouth. She was given some IV morphine for pain. She does have CPAP at home which she is going to use. She is felt to be stable for discharge. I recommended follow-up with her PCP in 1-2 days for recheck. She will return for worsening. She is on Bactrim for UTI. Medication Reconcilliation Current Medication List: was personally reviewed by me Blood Pressure Screening Patient's blood pressure: Normal blood pressure Blood pressure disposition: Did not require urgent referral Impression Primary Impression: Multiple fractures of ribs of left side Additional Impressions: Hypokalemia Morbid obesity Scribe Attestation The scribe's documentation has been prepared under my direction and personally reviewed by me in its entirety. I confirm that the note above accurately reflects all work, treatment, procedures, and medical decision making performed by me. Departure Information Dispostion Home / Self-Care Prescriptions Azithromycin (ZITHROMAX Z-DERRICK) 250 Mg Tab 0 PO UD, #1 PKT 2 TABS DAY 1, THEN 1 TAB DAILY FOR 4 DAYS Prov: Nolberto Hernandez D.O. 01/07/17 Referrals Troy Aparicio M.D. (PCP) Forms HOME CARE DOCUMENTATION FORM, IMPORTANT VISIT INFORMATION, WORK / SCHOOL INSTRUCTIONS Patient Instructions My [facility] Additional Instructions Use incentive spirometer 6 times daily as demonstrated. Zithromax as prescribed. Continue your Bactrim. Return for worsening shortness of breath, fevers or other concerns. Use your CPAP as needed. Use your hydrocodone as needed for pain. Follow-up with your doctor in 1-2 days for recheck. Follow-up with your doctor for further care and evaluation in 1-2 days. Return to the emergency department for worsening or new symptoms or any concerns. You have been examined and treated today on an emergency basis only. This is not a substitute for, or an effort to provide, complete comprehensive medical care. It is impossible to recognize and treat all injuries or illnesses in a single emergency department visit. It is therefore important that you follow up closely with your doctor. Call as soon as possible for an appointment. Problem Qualifiers
[2017-01-07 23:14] VITALS: BP 138/85; PULSE 76; O2SAT 93
[2017-01-11] MEDS ORDERED: LDDP5 TD (11:10)
[2017-01-11] MEDS ORDERED: MGCCMP100 MT (11:10)
== END 2017-01-07 23:15 | disposition home or self-care (01) ==
LOC: C.EDB 20:07
DX: S22.42XA Multiple fractures of ribs, left side, initial encounter for closed fracture (principal); E87.6 Hypokalemia; E66.01 Morbid (severe) obesity due to excess calories; W19.XXXA Unspecified fall, initial encounter; I50.9 Heart failure, unspecified; M17.9 Osteoarthritis of knee, unspecified; Z87.891 Personal history of nicotine dependence; Z79.82 Long term (current) use of aspirin

== ENCOUNTER 2017-01-09 11:26 | Inpatient (IN) | payer OTHER, MEDICARE ==
[~2017-01-09] VITALS: Ht 165.1 cm; Wt 156.0 kg
[~2017-01-09 11:26] MED LIST changes: +AZITTAB PO; +DIPH25CA65 PO; +IPRASOL4 INH; +MAGN400T6 PO; +MECL-91 PO; +METO2.5T PO; +SULF800T23 PO
--- NOTE | 2017-01-09 11:51 | EMERGENCY ROOM VISIT NOTE ---
History Report prepared by Rudy: Gisela Her Under the Supervision of: Dr. Bernard Bonner D.O. First contact with patient: 11:45 Chief Complaint: SHORTNESS OF BREATH Stated Complaint: SOB, PAIN/SWELLING IN RIBS Nursing Triage Summary: pt fell and injured ribs 2 days ago seen in ER and d/c, returns for short of breath and pain pt has expiratory wheezes audible in triage hx sleep apnea pt has 4 fracture ribs History of Present Illness The patient is a 56 year old female who presents to the Emergency Room with complaints of constant shortness of breath beginning 5 days ago. The patient states that she fell and cracked four ribs 5 days ago. She denies being on any steroids. She also states that she has fluid built up. The patient reports that she has been eating and drinking normally. Source of History: patient Onset: 5 days ago Position: other (global) Quality: other (shortness of breath ) Timing: constant Note: additional symptom: built up fluid Review of Systems See HPI for pertinent positives & negatives. A total of 10 systems reviewed and were otherwise negative. Past Medical & Surgical Medical Problems: (1) Acute and chronic respiratory failure with hypoxia (2) Acute diastolic heart failure (3) DJD (degenerative joint disease) of knee (4) Gastric ulceration (5) GASTRIC ULCERATION (6) Precordial chest pain Surgical Problems: (1) Hx of gastric bypass (2) Hx of hysterectomy (3) Hx of shoulder surgery Family History FHx: aneurysm FHx: dementia Social History Smoking Status: Former Smoker Alcohol Use: none Marital Status: Housing Status: lives with family Occupation Status: unemployed Current/Historical Medications Scheduled Amiloride/Hctz (Amiloride/Hydrochlorothia 5-50 mg), 1 TAB PO QAM Aspirin (Aspirin Ec), 81 MG PO QAM Azithromycin (Zithromax Z-Derrick), 0 PO UD Bumetanide (Bumex), 2 MG PO BID Bupropion Hcl (Wellbutrin Sr), 200 MG PO BID Cholecalciferol (Vitamin D), 5,000 INTER.UNIT PO QAM Cyanocobalamin (Cyanocobalamin), 1,000 MCG IM MONTHLY Diphenhydramine Hcl (Benadryl Allergy), 3 CAP PO HS Docusate Sodium (Colace), 100 MG PO QAM Duloxetine HCl (Cymbalta), 60 MG PO BID Fluticasone Propionate (Nasal) (Flonase Allergy Relief), 2 SPRAYS EDITH HS Gabapentin (Neurontin), 400 MG PO TID Ipratropium-Albuterol (Duoneb), 1 TREATMENT INH Q4H Lamotrigine (Lamictal), 100 MG PO BID Magnesium Oxide (Mag-Ox), 400 MG PO BID Metolazone (Zaroxolyn), 2.5 MG PO BID Mometasone Furoate-Formoterol (Dulera 200/5 Mcg), 2 PUFFS INH BID Nortriptyline (Pamelor), 50 MG PO HS Pantoprazole (Protonix), 40 MG PO BID Potassium Ext Rel (Klor-Con), 40 MEQ PO ACHS Sulfa/Trimethoprim (Bactrim Ds 800MG/160MG), 1 TAB PO BID Trazodone Hcl (Desyrel), 50 MG PO HS Scheduled PRN Albuterol Sulf (Ventolin), 2 MG NEB QID PRN for Shortness of Breath Albuterol Sulfate (Proair Respiclick), 2 PUFFS INH QID PRN for Shortness of Breath Magnesium Hydroxide (Milk Of Magnesia), 30 ML PO DAILY PRN for Constipation Meclizine HCl (Meclizine 25), 1 TAB PO for Dizziness or Vertigo Oxycodone/Acetaminophen 10MG/325MG (Percocet 10MG/325MG), 1 TAB PO Q6 PRN for Pain Allergies Coded Allergies: Adhesives (Verified Allergy, Intermediate, REDNESS WITH BANDAIDS, 01/09/17) Cephalexin (Verified Allergy, Unknown, ?, 01/09/17) Physical Exam Vital Signs Date Time Temp Pulse Resp B/P (MAP) Pulse Ox O2 Delivery O2 Flow Rate FiO2 01/09/17 15:05 73 18 97 01/09/17 15:00 158/79 01/09/17 14:56 73 16 96 01/09/17 14:44 74 18 139/82 94 Room Air 01/09/17 14:44 139/82 01/09/17 14:43 166/133 01/09/17 13:47 132/59 01/09/17 13:46 132/59 01/09/17 13:46 87/61 01/09/17 13:45 76 20 95 01/09/17 13:26 19 01/09/17 13:06 94 Nasal Cannula 3.0 01/09/17 13:06 87 Room Air 01/09/17 13:01 101/70 01/09/17 12:56 75 16 91 01/09/17 12:26 80 22 83 01/09/17 12:11 78 01/09/17 12:01 101/73 01/09/17 11:48 94 Room Air 01/09/17 11:46 94 Room Air 01/09/17 11:29 36.9 84 28 134/56 95 Room Air Physical Exam GENERAL: Patient is awake, alert, and in no acute distress. Patient is resting comfortably and is somewhat anxious. EYES: The conjunctivae are clear. The pupils are round and reactive. EARS, NOSE, MOUTH AND THROAT: The nose is without any evidence of any deformity. Mucous membranes are moist tongue is midline NECK: The neck is nontender and supple. RESPIRATORY: Lung sound diminished throughout with diffuse expiratory wheezing in all pool. Mild tachypnea. CARDIOVASCULAR: Regular rate and rhythm noted there no murmurs rubs or gallops normal S1 normal S2 GASTROINTESTINAL: The abdomen is soft. Bowel sounds are present in all quadrants. Abdomen is nontender MUSCULOSKELETAL/EXTREMITIES: Ecchymosis over posterior left shoulder. ROM intact. SKIN: There is no obvious evidence of any rash. There are no petechiae, pallor or cyanosis noted. NEUROLOGIC: Patient is awake alert and oriented x3. Medical Decision & Procedures ER Provider Diagnostic Interpretation: X-ray results as stated below per interpretation by me and the radiologist. CHEST ONE VIEW PORTABLE CLINICAL HISTORY: Respiratory distress COMPARISON STUDY: 01/07/2017 FINDINGS: The heart remains enlarged. There is persistent interstitial pulmonary edema. There is no focal pulmonary consolidation. No definite pleural effusions are visualized on this AP portable study.[ IMPRESSION: Persistent interstitial pulmonary edema pattern. Electronically signed by: Bandar Palacios M.D. 01/09/2017 12:59 PM Dictated Date/Time: 01/09/2017 12:58 PM The status of this report is Signed. Laboratory Results 01/09/17 12:15 Red Blood Count 3.48, Mean Corpuscular Volume 84.2, Mean Corpuscular Hemoglobin 27.9, Mean Corpuscular Hemoglobin Concent 33.1, Mean Platelet Volume 9.0, Neutrophils (%) (Auto) 65.1, Lymphocytes (%) (Auto) 21.5, Monocytes (%) (Auto) 8.6, Eosinophils (%) (Auto) 3.7, Basophils (%) (Auto) 0.2, Neutrophils # (Auto) 6.24, Lymphocytes # (Auto) 2.06, Monocytes # (Auto) 0.82, Eosinophils # (Auto) 0.35, Basophils # (Auto) 0.02 01/09/17 12:15 Test 01/09/17 12:15 01/09/17 14:40 White Blood Count 9.58 K/uL (4.8-10.8) Red Blood Count 3.48 M/uL (4.2-5.4) Hemoglobin 9.7 g/dL (12.0-16.0) Hematocrit 29.3 % (37-47) Mean Corpuscular Volume 84.2 fL (80-100) Mean Corpuscular Hemoglobin 27.9 pg (25-34) Mean Corpuscular Hemoglobin Concent 33.1 g/dl (32-36) Platelet Count 343 K/uL (130-400) Mean Platelet Volume 9.0 fL (7.4-10.4) Neutrophils (%) (Auto) 65.1 % Lymphocytes (%) (Auto) 21.5 % Monocytes (%) (Auto) 8.6 % Eosinophils (%) (Auto) 3.7 % Basophils (%) (Auto) 0.2 % Neutrophils # (Auto) 6.24 K/uL (1.4-6.5) Lymphocytes # (Auto) 2.06 K/uL (1.2-3.4) Monocytes # (Auto) 0.82 K/uL (0.11-0.59) Eosinophils # (Auto) 0.35 K/uL (0-0.5) Basophils # (Auto) 0.02 K/uL (0-0.2) RDW Standard Deviation 49.6 fL (36.4-46.3) RDW Coefficient of Variation 16.2 % (11.5-14.5) Immature Granulocyte % (Auto) 0.9 % Immature Granulocyte # (Auto) 0.09 K/uL (0.00-0.02) Prothrombin Time 10.7 SECONDS (9.0-12.0) Prothromb Time International Ratio 1.0 (0.9-1.1) Activated Partial Thromboplast Time 32.5 SECONDS (21.0-31.0) Partial Thromboplastin Ratio 1.3 Anion Gap 7.0 mmol/L (3-11) Est Creatinine Clear Calc Drug Dose 54.1 ml/min Estimated GFR () 36.1 Estimated GFR (Non- 31.1 BUN/Creatinine Ratio 17.8 (10-20) Calcium Level 9.0 mg/dl (8.5-10.1) Total Bilirubin 0.3 mg/dl (0.2-1) Aspartate Amino Transf (AST/SGOT) 21 U/L (15-37) Alanine Aminotransferase (ALT/SGPT) 15 U/L (12-78) Alkaline Phosphatase 99 U/L (45-117) Troponin I < 0.015 ng/ml (0-0.045) Pro-B-Type Natriuretic Peptide 966 pg/ml (0-900) Total Protein 7.8 gm/dl (6.4-8.2) Albumin 3.0 gm/dl (3.4-5.0) Globulin 4.8 gm/dl (2.5-4.0) Albumin/Globulin Ratio 0.6 (0.9-2) Urine Color YELLOW Urine Appearance CLEAR (CLEAR) Urine pH 7.5 (4.5-7.5) Urine Specific [place] 1.013 (1.000-1.030) Urine Protein NEG (NEG) Urine Glucose (UA) NEG (NEG) Urine Ketones NEG (NEG) Urine Occult Blood NEG (NEG) Urine Nitrite NEG (NEG) Urine Bilirubin NEG (NEG) Urine Urobilinogen NEG (NEG) Urine Leukocyte Esterase NEG (NEG) Laboratory results per my review. Medications Administered Medications (Trade) Dose Ordered Sig/Lilly Route Start Time Stop Time Status Last Admin Dose Admin Sodium Chloride 1,000 ml @ 999 mls/hr Q1H1M STAT IV 01/09/17 11:52 01/09/17 12:52 DC 01/09/17 12:30 999 MLS/HR Albuterol/ Ipratropium (Duoneb) 3 ml NOW STAT INH 01/09/17 11:52 01/09/17 11:53 DC 01/09/17 12:31 3 ML Oxycodone HCl (Roxicodone Immediate Rel Tab) 10 mg NOW STAT PO 01/09/17 12:33 01/09/17 12:35 DC 01/09/17 12:41 10 MG Furosemide (Lasix Inj) 40 mg NOW STAT IV 01/09/17 14:41 01/09/17 14:42 DC 01/09/17 14:47 40 MG Oxycodone/ Acetaminophen (Percocet 10-325MG Tab) 1 tab Q6H PRN PO 01/09/17 15:30 01/23/17 15:29 01/09/17 17:32 1 TAB ECG Indication: SOB/dyspnea Rate (beats per minute): 82 Rhythm: normal sinus Findings: no ectopy, other (no acute ST segment abnormalities noted ) Change: no significant change (from January 07, 2017) ED Course 1147: The patient was evaluated in room B11. A complete history and physical examination were performed. 1152: Ordered Duoneb 3 ml INH, Sodium Chloride 1,000 ml @ 999 mls/hr IV. 1233: Ordered Oxycodone HCl 10 mg PO. 1427: The patient's stats are dropping. 1437: Dr. Bardales recommends Lasix for the patient. 1441: Ordered Lasix Inj 40 mg IV. 1450: Upon reevaluation, the patient is resting. I discussed results and treatment plan with her. She verbalizes agreement and understanding. I spoke with Dr. Bardales of the [facility]. The patient will be evaluated for further management and care. Medical Decision Differential diagnosis: Etiologies such as infections, reactive airway disease, pneumonia, pneumothorax , COPD, CHF, cardiac ischemia, pulmonary embolism, musculoskeletal, gastrointestinal, as well as others were entertained. Nursing notes reviewed. The patient is a 56-year-old female who presented to the emergency department for an evaluation of shortness of breath. She has a history of bronchospasm but was hypoxic on exertion and appears to have signs of pulmonary edema on radiographic and laboratory studies as well as by physical exam. The patient was recent seen in our facility and was diagnosed with multiple rib fractures. I 'm very concerned about the patient's overall condition. She appears a very significant shortness of breath especially with any exertion. I discussed the patient's laboratory and radiographic studies with her. She was treated with bronchodilators as well as Lasix. She was reevaluated multiple times. She appeared to be very dry on physical exam and was treated with IV fluids and I am unsure if this was the case given her physical exam. I discussed her case with the on-call [facility] hospitalist. They've agreed to evaluate the patient in the emergency department for further management and disposition. Medication Reconcilliation Current Medication List: was personally reviewed by me Blood Pressure Screening Patient's blood pressure: Normal blood pressure Consults Time Called: 1400 Consulting Physician: Dr. Bardales [facility] Returned Call: 1437 Dr. Bardales recommends Lasix for the patient. He will evaluate the patient for further treatment. Impression Primary Impression: Pulmonary edema Additional Impressions: SOB (shortness of breath) Hypoxia Rib fracture Scribe Attestation The scribe's documentation has been prepared under my direction and personally reviewed by me in its entirety. I confirm that the note above accurately reflects all work, treatment, procedures, and medical decision making performed by me. Departure Information Dispostion Being Evaluated By Hospitalist Referrals Troy Aparicio M.D. (PCP) Patient Instructions My [facility] Health Problem Qualifiers Primary Impression: Pulmonary edema Chronicity: acute Qualified Codes: J81.0 - Acute pulmonary edema Additional Impressions: Rib fracture Encounter type: subsequent encounter Rib fracture type: multiple ribs Fracture type: closed Laterality: left Fracture healing: with routine healing Qualified Codes: S22.42XD - Multiple fractures of ribs, left side, subsequent encounter for fracture with routine healing
[2017-01-09] MEDS ORDERED: ALBUT/IPRATROP 3MG/0.5MG NEB 3 ML VIAL INH STA (11:52)
[2017-01-09] MEDS ORDERED: SODIUM CHLORIDE 0.9% 1000ML 1,000 ML IV STA (11:52)
[2017-01-09] MEDS ORDERED: OXYC-106 PO (12:11)
[2017-01-09 12:28] LABS: BASO % 0.2 %; BASO ABS # 0.02 K/uL (0-0.2); COMPLETE YES; EOS % 3.7 %; HEMATOCRIT 29.3 % (37-47); IG% 0.9 %; LYMPH % 21.5 %; LYMPH ABS # 2.06 K/uL (1.2-3.4); MEAN CELL VOLUME 84.2 fL (80-100); MEAN CORPUSCULAR HEMOGLOBIN 27.9 pg (25-34); MEAN CORPUSCULAR HGB CONC 33.1 g/dl (32-36); MONO % 8.6 %; NEUT % 65.1 %; PLATELET COUNT 343 K/uL (130-400); RED BLOOD COUNT 3.48 M/uL (4.2-5.4); WHITE BLOOD COUNT 9.58 K/uL (4.8-10.8)
[2017-01-09] MEDS ORDERED: OXYCODONE HCL IR 5 MG TAB (IMMEDIATE RELEASE) PO STA (12:33)
[2017-01-09 12:44] LABS: ALT/SGPT 15 U/L (12-78); BLOOD UREA NITROGEN 32 mg/dl (7-18); BUN/CREATININE RATIO 17.8 (10-20); CARBON DIOXIDE 32 mmol/L (21-32); CHLORIDE 95 mmol/L (98-107); GLUCOSE 70 mg/dl (70-99); POTASSIUM 3.3 mmol/L (3.5-5.1); SODIUM 134 mmol/L (136-145)
[2017-01-09 12:45] LABS: PARTIAL THROMBOPLASTIN RATIO 1.3; PROTHROMBIN TIME (PATIENT) 10.7 SECONDS (9.0-12.0)
[2017-01-09 12:49] LABS: ALB/GLOB RATIO 0.6 (0.9-2); ALKALINE PHOSPHATASE 99 U/L (45-117); AST/SGOT 21 U/L (15-37)
--- NOTE | 2017-01-09 13:01 | DIAGNOSTIC IMAGING REPORT ---
CHEST ONE VIEW PORTABLE CLINICAL HISTORY: Respiratory distress COMPARISON STUDY: 01/07/2017 FINDINGS: The heart remains enlarged. There is persistent interstitial pulmonary edema. There is no focal pulmonary consolidation. No definite pleural effusions are visualized on this AP portable study.[ IMPRESSION: Persistent interstitial pulmonary edema pattern. Electronically signed by: Bandar Palacios M.D. 01/09/2017 12:59 PM Dictated Date/Time: 01/09/2017 12:58 PM
[2017-01-09] MEDS ORDERED: FUROSEMIDE 40 MG/4 ML VIAL IV STA (14:41)
[2017-01-09 14:53] LABS: MANUAL MICROSCOPIC REQUIRED? NO; REVIEW REQ? NO; URINE APPEARANCE CLEAR (CLEAR); URINE BILIRUBIN NEG (NEG); URINE COLOR YELLOW; URINE NITRITE NEG (NEG); URINE PH 7.5 (4.5-7.5); URINE SPECIFIC GRAVITY 1.013 (1.000-1.030); UROBILINOGEN NEG (NEG)
[2017-01-09] MEDS ORDERED: MAGNESIUM HYDROXIDE SUSP 30 ML UDC PO PRN ×2 (15:30→16:00)
[2017-01-09] MEDS ORDERED: ALBUT/IPRATROP 3MG/0.5MG NEB 3 ML VIAL INH PRN (15:30)
[2017-01-09] MEDS ORDERED: LEVOFLOXACIN / D5W 750 MG in PREMIXED IN D5W 150 ML IV SCH (16:00)
[2017-01-09] MEDS: ALBUT/IPRATROP 3MG/0.5MG NEB 3 ML VIAL INH SCH ×2 (16:00→19:26)
[2017-01-09] MEDS ORDERED: POLYETHYLENE (MIRALAX) 17 GM PACK PO PRN (16:00)
[2017-01-09] MEDS ORDERED: ONDANSETRON INJ 2 MG/ML 2 ML VIAL IV PRN (16:00)
[2017-01-09] MEDS ORDERED: ACETAMINOPHEN 325 MG TAB PO PRN (16:00)
[2017-01-09] MEDS ORDERED: POTASSIUM CHLORIDE 10 MEQ / 100ML WTR IV ONE (16:25)
[2017-01-09] MEDS ORDERED: LEVAQUIN 750MG / 150ML D5W ONE (16:25)
[2017-01-09] MEDS ORDERED: MAGNESIUM SULFATE 1GM / D5W 1 GM BAG ONE (16:26)
[2017-01-09] MEDS ORDERED: BUMETANIDE SOLN 1 MG/4 ML VIAL IV ONE (16:26)
--- NOTE | 2017-01-09 16:55 | History and Physical ---
History & Physical Date & Time of Service: Jan 09, 2017 at 16:34 Chief Complaint: Sob, Pain/Swelling In Ribs Primary Care Physician: Troy Aparicio M.D. History of Present Illness This patient 56-year-old female was seen in the ER 2 days ago after sustaining a fall and rib fractures. The patient however has had progressive shortness of breath since that time and feels that this actually preceded the rib fractures also. The patient was in a hospital approximately 4 months ago with concerns for diastolic heart failure was instituted on Bumex therapy the patient however recently had her Bumex discontinued by an outpatient physician due to elevation of creatinine. Patient feels that since that time she's gained 20 pounds she's had marked swelling of her legs and abdomen and back and the shortness of breath has progressed to the point where she is distant with only a few steps. The patient does suffer from sleep apnea she is morbidly obese with a BMI 57.6 and although treated for diastolic heart failure her last echocardiogram was unrevealing in August. The patient has difficulty breathing due for her rib fractures, she recently was diagnosed with a peptic ulcer by EGD by Dr. bocanegra. She feels that her oral thrush has returned. And is too weak to even walk or care for herself at home. She has had no chest pain with this she has a cough with productive green sputum but no fevers at home she also does not notice any dark bowel movements. Past Medical/Surgical History Medical Problems: (1) DJD (degenerative joint disease) of knee Status: Chronic Surgical Problems: (1) Hx of gastric bypass Status: Resolved (2) Hx of hysterectomy Status: Resolved (3) Hx of shoulder surgery Status: Resolved Family History FHx: aneurysm FHx: dementia Social History Smoking Status: Former Smoker Marital Status: Occupational Status: unemployed Immunizations History of Influenza Vaccine: Yes History of Tetanus Vaccine?: No History of Pneumococcal: No History of Hepatitis B Vaccine: No Multi-Drug Resistant Organisms History of MDRO: Yes Type of MDRO: MRSA Allergies Coded Allergies: Adhesives (Verified Allergy, Intermediate, REDNESS WITH BANDAIDS, 01/09/17) Cephalexin (Verified Allergy, Unknown, ?, 01/09/17) Home Medications Scheduled Amiloride/Hctz (Amiloride/Hydrochlorothia 5-50 mg), 1 TAB PO QAM Aspirin (Aspirin Ec), 81 MG PO QAM Azithromycin (Zithromax Z-Derrick), 0 PO UD Bumetanide (Bumex), 2 MG PO BID Bupropion Hcl (Wellbutrin Sr), 200 MG PO BID Cholecalciferol (Vitamin D), 5,000 INTER.UNIT PO QAM Cyanocobalamin (Cyanocobalamin), 1,000 MCG IM MONTHLY Diphenhydramine Hcl (Benadryl Allergy), 3 CAP PO HS Docusate Sodium (Colace), 100 MG PO QAM Duloxetine HCl (Cymbalta), 60 MG PO BID Fluticasone Propionate (Nasal) (Flonase Allergy Relief), 2 SPRAYS EDITH HS Gabapentin (Neurontin), 400 MG PO TID Ipratropium-Albuterol (Duoneb), 1 TREATMENT INH Q4H Lamotrigine (Lamictal), 100 MG PO BID Magnesium Oxide (Mag-Ox), 400 MG PO BID Metolazone (Zaroxolyn), 2.5 MG PO BID Mometasone Furoate-Formoterol (Dulera 200/5 Mcg), 2 PUFFS INH BID Nortriptyline (Pamelor), 50 MG PO HS Pantoprazole (Protonix), 40 MG PO BID Potassium Ext Rel (Klor-Con), 40 MEQ PO ACHS Sulfa/Trimethoprim (Bactrim Ds 800MG/160MG), 1 TAB PO BID Trazodone Hcl (Desyrel), 50 MG PO HS Scheduled PRN Albuterol Sulf (Ventolin), 2 MG NEB QID PRN for Shortness of Breath Albuterol Sulfate (Proair Respiclick), 2 PUFFS INH QID PRN for Shortness of Breath Magnesium Hydroxide (Milk Of Magnesia), 30 ML PO DAILY PRN for Constipation Meclizine HCl (Meclizine 25), 1 TAB PO for Dizziness or Vertigo Oxycodone/Acetaminophen 10MG/325MG (Percocet 10MG/325MG), 1 TAB PO Q6 PRN for Pain Review of Systems ROS: Morbidly obese No double vision blurry vision No problems with speech or swallowing No palpitations, chest pain or pressure Wheezing marked dyspnea with exertion and marked dyspnea at rest cough productive of green sputum No abdominal pain nausea vomiting diarrhea patient feels she's a 20 pound weight gain since stopping her diuretic she's had mild constipation No burning urine urine frequency or changes in color Diffuse joint pain and muscle pain especially over left flank where her fractured No skin rashes or oral lesions No unusual bruising or bleeding despite having fractured ribs No focused back pain or numbness or loss of strength No changes in memory or confusion Physical Exam Vital Signs Date Time Temp Pulse Resp B/P (MAP) Pulse Ox O2 Delivery O2 Flow Rate FiO2 01/09/17 15:00 158/79 01/09/17 14:56 73 16 96 01/09/17 14:44 74 18 139/82 94 Room Air 01/09/17 14:44 139/82 01/09/17 14:43 166/133 01/09/17 13:47 132/59 01/09/17 13:46 132/59 01/09/17 13:46 87/61 01/09/17 13:45 76 20 95 01/09/17 13:26 19 01/09/17 13:06 94 Nasal Cannula 3.0 01/09/17 13:06 87 Room Air 01/09/17 13:01 101/70 01/09/17 12:56 75 16 91 01/09/17 12:26 80 22 83 01/09/17 12:11 78 01/09/17 12:01 101/73 01/09/17 11:48 94 Room Air 01/09/17 11:46 94 Room Air 01/09/17 11:29 36.9 84 28 134/56 95 Room Air General Appearance: WD/WN, + moderate distress Head: normocephalic, atraumatic Eyes: PERRL, EOMI Neck: supple, no JVD Respiratory/Chest: + decreased breath sounds, + accessory muscle use, + rhonchi Cardiovascular: regular rate, rhythm, no murmur Abdomen/GI: normal bowel sounds, + tenderness, + distended, + guarding Back: no CVA tenderness, no muscle spasm Extremities/Musculoskelatal: + pedal edema, + swelling, + pertinent finding ( mild redness to lower legs) Neurologic/Psych: alert, oriented x 3 Skin: warm/dry, no rash Diagnostics Laboratory Results Results Past 24 Hours Test 01/09/17 12:15 01/09/17 14:40 Range/Units White Blood Count 9.58 4.8-10.8 K/uL Red Blood Count 3.48 4.2-5.4 M/uL Hemoglobin 9.7 12.0-16.0 g/dL Hematocrit 29.3 37-47 % Mean Corpuscular Volume 84.2 80-100 fL Mean Corpuscular Hemoglobin 27.9 25-34 pg Mean Corpuscular Hemoglobin Concent 33.1 32-36 g/dl Platelet Count 343 130-400 K/uL Mean Platelet Volume 9.0 7.4-10.4 fL Neutrophils (%) (Auto) 65.1 % Lymphocytes (%) (Auto) 21.5 % Monocytes (%) (Auto) 8.6 % Eosinophils (%) (Auto) 3.7 % Basophils (%) (Auto) 0.2 % Neutrophils # (Auto) 6.24 1.4-6.5 K/uL Lymphocytes # (Auto) 2.06 1.2-3.4 K/uL Monocytes # (Auto) 0.82 0.11-0.59 K/uL Eosinophils # (Auto) 0.35 0-0.5 K/uL Basophils # (Auto) 0.02 0-0.2 K/uL RDW Standard Deviation 49.6 36.4-46.3 fL RDW Coefficient of Variation 16.2 11.5-14.5 % Immature Granulocyte % (Auto) 0.9 % Immature Granulocyte # (Auto) 0.09 0.00-0.02 K/uL Prothrombin Time 10.7 9.0-12.0 SECONDS Prothromb Time International Ratio 1.0 0.9-1.1 Activated Partial Thromboplast Time 32.5 21.0-31.0 SECONDS Partial Thromboplastin Ratio 1.3 Sodium Level 134 136-145 mmol/L Potassium Level 3.3 3.5-5.1 mmol/L Chloride Level 95 98-107 mmol/L Carbon Dioxide Level 32 21-32 mmol/L Anion Gap 7.0 3-11 mmol/L Blood Urea Nitrogen 32 7-18 mg/dl Creatinine 1.80 0.60-1.20 mg/dl Est Creatinine Clear Calc Drug Dose 54.1 ml/min Estimated GFR () 36.1 Estimated GFR (Non- 31.1 BUN/Creatinine Ratio 17.8 10-20 Random Glucose 70 70-99 mg/dl Calcium Level 9.0 8.5-10.1 mg/dl Total Bilirubin 0.3 0.2-1 mg/dl Aspartate Amino Transf (AST/SGOT) 21 15-37 U/L Alanine Aminotransferase (ALT/SGPT) 15 12-78 U/L Alkaline Phosphatase 99 45-117 U/L Troponin I < 0.015 0-0.045 ng/ml Pro-B-Type Natriuretic Peptide 966 0-900 pg/ml Total Protein 7.8 6.4-8.2 gm/dl Albumin 3.0 3.4-5.0 gm/dl Globulin 4.8 2.5-4.0 gm/dl Albumin/Globulin Ratio 0.6 0.9-2 Urine Color YELLOW Urine Appearance CLEAR CLEAR Urine pH 7.5 4.5-7.5 Urine Specific [place] 1.013 1.000-1.030 Urine Protein NEG NEG Urine Glucose (UA) NEG NEG Urine Ketones NEG NEG Urine Occult Blood NEG NEG Urine Nitrite NEG NEG Urine Bilirubin NEG NEG Urine Urobilinogen NEG NEG Urine Leukocyte Esterase NEG NEG Diagnostic Radiology Noted mild hypokalemia acute renal injury mild anemia normal blood glucose normal urinalysis other (chest x-ray shows pulmonary vascular congestion) Normal EKG Impression Assessment and Plan 56-year-old female here with acute hypoxic respiratory failure is Hypoxic respiratory failure likely multifactorial some being acute diastolic heart failure, underlying intrinsic lung disease, possibly bronchitis. For the diastolic heart failure we will institute Bumex therapy at 2 mg IV twice a day augment potassium and magnesium he's a Blount catheter with heart failure instructions given and daily weights repeat echocardiogram and consider cardiology consult is Physical lung disease the patient will be given duo nebs formoterol consider spirometry sputum culture Possible bronchitis the patient started on renal dose levofloxacin Rib fractures patient be given parenteral and oral opiate analgesia as well as Tylenol considering Lidoderm patch Oral thrush nystatin swish and swallow be continued Recent diagnosis of peptic ulcer Protonix 40 twice a day There is no sign of active bleeding and hemoglobin has been stable over the last 2 checks renal dose and Lexapro will be used for DVT prevention is a patient is at significant risk. VTE Prophylaxis VTE Risk Assessment Done? Y/N: Yes Risk Level: Moderate
[2017-01-09] MEDS: OXYCODONE/ACETAMINOPHEN 10/325MG TAB PO PRN (17:32)
[2017-01-09] MEDS ORDERED: ENOXAPARIN 30 MG/0.3 ML SYR SC SCH (18:00)
[2017-01-09] MEDS ORDERED: MAGNESIUM SULFATE 1GM / D5W 1 GM in PREMIXED IN D5W 100 ML IV SCH (18:00)
[2017-01-09] MEDS: POTASSIUM CHLR 10 MEQ / WTR 10 MEQ in PREMIXED WATER 100 ML IV SCH ×3 (18:41→19:32)
[2017-01-09] MEDS: BUMETANIDE IV 2 MG in SYRINGE 0 ML IV SCH (18:42)
[2017-01-09] MEDS: METHYLPREDNISOLONE IV 40 MG in SYRINGE 0 ML IV SCH (18:42)
[2017-01-09] MEDS: FORMOTEROL FUMA NEBULIZER SOLN 20 MCG/2 ML VIAL INH SCH (19:26)
[2017-01-09] MEDS: NYSTATIN SUSP 500,000 U/5 ML UDC PO SCH ×2 (19:28→20:52)
[2017-01-09] MEDS: LIDODERM (LIDOCAINE) PATCH 5% TD SCH (19:29)
[2017-01-09] MEDS: POTASSIUM CHLORIDE 20 MEQ TABCR PO SCH ×2 (19:30→20:53)
[2017-01-09 20:14] VITALS: BP 162/75; PULSE 78; TEMP 36.8; O2SAT 92; Ht 165.1 cm; Wt 156.0 kg
[2017-01-09] MEDS: ENOXAPARIN 40 MG/0.4 ML SYR SC SCH (20:49)
[2017-01-09] MEDS: FLUTICASONE PROPIONATE NA SPR 16 GM BTL NAE SCH (20:49)
[2017-01-09] MEDS: BuPROPion SR 100 MG TABCR PO SCH (20:49)
[2017-01-09] MEDS: TRAZODONE HCL 50 MG TAB PO SCH (20:49)
[2017-01-09] MEDS: GABAPENTIN 400 MG CAP PO SCH (20:50)
[2017-01-09] MEDS: MAGNESIUM OXIDE 400 MG TAB PO SCH (20:50)
[2017-01-09] MEDS: DULOXETINE HCL 60 MG CAP PO SCH (20:50)
[2017-01-09] MEDS: NORTRIPTYLINE HCL 25 MG CAP PO SCH (20:51)
[2017-01-09] MEDS: PANTOprazole SOD 40 MG TAB PO SCH (20:52)
[2017-01-09] MEDS: OXYCODONE HCL IR 5 MG TAB (IMMEDIATE RELEASE) PO PRN (20:59)
[2017-01-09] MEDS ORDERED: PANTOprazole SOD 40 MG TAB PO SCH (21:00)
[2017-01-09 21:27] VITALS: PULSE 83; O2SAT 91
[2017-01-09 23:38] VITALS: BP 132/72; PULSE 77; TEMP 36.5; O2SAT 97
[2017-01-10] VITALS (9 sets, daily range): BP systolic 120–131; BP diastolic 54–73; PULSE 71–88; TEMP 36.5–36.7; O2SAT 92–96
[2017-01-10] MEDS: METHYLPREDNISOLONE IV 40 MG in SYRINGE 0 ML IV SCH ×2 (05:38→17:48)
[2017-01-10] MEDS: POTASSIUM CHLORIDE 20 MEQ TABCR PO SCH ×4 (05:39→21:06)
[2017-01-10 06:21] LABS: HEMATOCRIT 32.7 % (37-47); MEAN CELL VOLUME 84.3 fL (80-100); MEAN CORPUSCULAR HEMOGLOBIN 27.8 pg (25-34); MEAN PLATELET VOLUME 10.3 fL (7.4-10.4); PLATELET COUNT 293 K/uL (130-400); RED BLOOD COUNT 3.88 M/uL (4.2-5.4); WHITE BLOOD COUNT 5.97 K/uL (4.8-10.8)
[2017-01-10 07:01] LABS: BLOOD UREA NITROGEN 32 mg/dl (7-18); BUN/CREATININE RATIO 18.6 (10-20); CALCIUM 8.8 mg/dl (8.5-10.1); CARBON DIOXIDE 32 mmol/L (21-32); CHLORIDE 93 mmol/L (98-107); GLUCOSE 153 mg/dl (70-99); MAGNESIUM 2.5 mg/dl (1.8-2.4); POTASSIUM 3.5 mmol/L (3.5-5.1); SODIUM 133 mmol/L (136-145)
[2017-01-10] MEDS: ALBUT/IPRATROP 3MG/0.5MG NEB 3 ML VIAL INH SCH ×4 (07:09→18:15)
[2017-01-10] MEDS: FORMOTEROL FUMA NEBULIZER SOLN 20 MCG/2 ML VIAL INH SCH ×2 (07:10→18:15)
[2017-01-10] MEDS: OXYCODONE HCL IR 5 MG TAB (IMMEDIATE RELEASE) PO PRN ×2 (07:31→16:41)
[2017-01-10] MEDS: ASPIRIN 81 MG ECTAB PO SCH (08:06)
[2017-01-10] MEDS: DULOXETINE HCL 60 MG CAP PO SCH ×2 (08:06→21:05)
[2017-01-10] MEDS: PANTOprazole SOD 40 MG TAB PO SCH ×2 (08:06→21:05)
[2017-01-10] MEDS: GABAPENTIN 400 MG CAP PO SCH ×3 (08:06→21:05)
[2017-01-10] MEDS: AMILORIDE/HCTZ 5-50 MG TAB PO SCH (08:06)
[2017-01-10] MEDS: BuPROPion SR 100 MG TABCR PO SCH ×2 (08:07→21:06)
[2017-01-10] MEDS: DOCUSATE SODIUM 100 MG CAP PO SCH (08:07)
[2017-01-10] MEDS: NYSTATIN SUSP 500,000 U/5 ML UDC PO SCH ×4 (08:07→21:04)
[2017-01-10] MEDS: MAGNESIUM OXIDE 400 MG TAB PO SCH ×2 (08:07→21:04)
[2017-01-10] MEDS: BUMETANIDE IV 2 MG in SYRINGE 0 ML IV SCH ×2 (08:15→16:44)
[2017-01-10] MEDS: OXYCODONE/ACETAMINOPHEN 10/325MG TAB PO PRN ×2 (09:30→23:50)
[2017-01-10] MEDS ORDERED: LIDOCAINE HCL 2% VISC SOLN 20 ML UDC MT ONE (10:00)
[2017-01-10] MEDS: MoRPHine SULFATE 2 MG/ML CARP IV PRN (10:04)
[2017-01-10] MEDS ORDERED: NURSING VERBAL MED ORDER ONE ×2 (10:45→15:15)
--- NOTE | 2017-01-10 12:02 | Progress Note ---
Subjective Date of Service: Jan 10, 2017. Subjective Pt evaluation today including: conversation w/ patient, physical exam, chart review, lab review, review of studies, review of inpatient medication list Pt seems anxious on interview Reports pain on right lateral border of tongue No fevers or chills Reports improvement in breathing Tolerating CPAP Problem List Medical Problems: (1) Contusion of lower extremity Status: Acute (2) Contusion of multiple sites Status: Acute (3) Fall Status: Acute (4) Fall Status: Acute (5) Hypokalemia Status: Acute (6) Hypoxia Status: Acute (7) Hypoxia Status: Acute (8) Left sided chest pain Status: Acute (9) Lumbar contusion Status: Acute (10) Morbid obesity Status: Acute (11) Multiple fractures of ribs of left side Status: Acute (12) Pulmonary edema Status: Acute (13) Pulmonary edema Status: Acute (14) Rib fracture Status: Acute (15) SOB (shortness of breath) Status: Acute Review of Systems Constitutional: No fever, No chills, No sweats, No weight loss Eyes: No worsening of vision, No eye pain, No redness, No discharge ENT: No hearing loss, No unusual epistaxis, No nasal symptoms, No sore throat Respiratory: + cough, + sputum, + dyspnea on exertion, No wheezing, No shortness of breath Cardiac: + edema, No chest pain, No orthopnea, No PND Abdomen: No pain, No nausea, No vomiting, No diarrhea Musculoskeletal: No joint pain, No muscle pain, No swelling, No calf pain Female : No dysuria, No urinary frequency, No hematuria, No incontinence Neurologic: No memory loss, No paralysis, No weakness, No numbness/tingling Psychiatric: No depression symptoms, No anhedonism, No anxiety, No insomnia Endo: No fatigue, No excessive thirst Skin: No rash, No itch Objective Vital Signs Date Time Temp Pulse Resp B/P (MAP) Pulse Ox O2 Delivery O2 Flow Rate FiO2 01/10/17 11:30 94 Room Air CPAP 01/10/17 11:23 72 16 94 Nasal Cannula 2.0 01/10/17 07:30 96 Room Air CPAP 01/10/17 07:27 36.5 75 22 124/54 (77) 96 Room Air 5.0 01/10/17 07:15 84 16 94 Room Air 21 01/10/17 04:00 Room Air CPAP 01/10/17 03:55 36.6 71 18 120/58 (78) 94 Room Air CPAP 01/10/17 00:00 Room Air CPAP 01/09/17 23:38 36.5 77 18 132/72 (92) 97 CPAP 01/09/17 21:27 83 91 6.0 01/09/17 20:14 36.8 78 20 162/75 92 Room Air 01/09/17 16:45 36.9 73 18 158/79 97 01/09/17 15:05 73 18 97 01/09/17 15:00 158/79 01/09/17 14:56 73 16 96 01/09/17 14:44 74 18 139/82 94 Room Air 01/09/17 14:44 139/82 01/09/17 14:43 166/133 01/09/17 13:47 132/59 01/09/17 13:46 132/59 01/09/17 13:46 87/61 01/09/17 13:45 76 20 95 01/09/17 13:26 19 01/09/17 13:06 94 Nasal Cannula 3.0 01/09/17 13:06 87 Room Air 01/09/17 13:01 101/70 01/09/17 12:56 75 16 91 01/09/17 12:26 80 22 83 01/09/17 12:11 78 01/09/17 12:01 101/73 Physical Exam General Appearance: WD/WN, no apparent distress, + obese Eyes: normal inspection, PERRL, EOMI, sclerae normal Neck: supple, no adenopathy, thyroid normal, no JVD Respiratory/Chest: chest non-tender, no respiratory distress, no accessory muscle use, + decreased breath sounds Cardiovascular: regular rate, rhythm, no gallop Abdomen: normal bowel sounds, non tender, soft, no organomegaly Extremities: normal range of motion, non-tender, normal inspection, + slow capillary refill Neurologic/Psychiatric: no motor/sensory deficits, alert, normal mood/affect, oriented x 3 Skin: normal color, warm/dry, no rash Lymphatic: no adenopathy Laboratory Results Last 24 Hours Test 01/09/17 12:15 01/09/17 14:40 01/09/17 22:05 01/10/17 05:54 White Blood Count 9.58 K/uL 5.97 K/uL Red Blood Count 3.48 M/uL 3.88 M/uL Hemoglobin 9.7 g/dL 10.8 g/dL Hematocrit 29.3 % 32.7 % Mean Corpuscular Volume 84.2 fL 84.3 fL Mean Corpuscular Hemoglobin 27.9 pg 27.8 pg Mean Corpuscular Hemoglobin Concent 33.1 g/dl 33.0 g/dl Platelet Count 343 K/uL 293 K/uL Mean Platelet Volume 9.0 fL 10.3 fL Neutrophils (%) (Auto) 65.1 % Lymphocytes (%) (Auto) 21.5 % Monocytes (%) (Auto) 8.6 % Eosinophils (%) (Auto) 3.7 % Basophils (%) (Auto) 0.2 % Neutrophils # (Auto) 6.24 K/uL Lymphocytes # (Auto) 2.06 K/uL Monocytes # (Auto) 0.82 K/uL Eosinophils # (Auto) 0.35 K/uL Basophils # (Auto) 0.02 K/uL RDW Standard Deviation 49.6 fL 49.2 fL RDW Coefficient of Variation 16.2 % 16.0 % Immature Granulocyte % (Auto) 0.9 % Immature Granulocyte # (Auto) 0.09 K/uL Prothrombin Time 10.7 SECONDS Prothromb Time International Ratio 1.0 Activated Partial Thromboplast Time 32.5 SECONDS Partial Thromboplastin Ratio 1.3 Sodium Level 134 mmol/L 133 mmol/L Potassium Level 3.3 mmol/L 3.5 mmol/L Chloride Level 95 mmol/L 93 mmol/L Carbon Dioxide Level 32 mmol/L 32 mmol/L Anion Gap 7.0 mmol/L 8.0 mmol/L Blood Urea Nitrogen 32 mg/dl 32 mg/dl Creatinine 1.80 mg/dl 1.70 mg/dl Est Creatinine Clear Calc Drug Dose 54.1 ml/min 57.3 ml/min Estimated GFR () 36.1 38.7 Estimated GFR (Non- 31.1 33.4 BUN/Creatinine Ratio 17.8 18.6 Random Glucose 70 mg/dl 153 mg/dl Calcium Level 9.0 mg/dl 8.8 mg/dl Total Bilirubin 0.3 mg/dl Aspartate Amino Transf (AST/SGOT) 21 U/L Alanine Aminotransferase (ALT/SGPT) 15 U/L Alkaline Phosphatase 99 U/L Troponin I < 0.015 ng/ml < 0.015 ng/ml < 0.015 ng/ml Pro-B-Type Natriuretic Peptide 966 pg/ml Total Protein 7.8 gm/dl Albumin 3.0 gm/dl Globulin 4.8 gm/dl Albumin/Globulin Ratio 0.6 Urine Color YELLOW Urine Appearance CLEAR Urine pH 7.5 Urine Specific [place] 1.013 Urine Protein NEG Urine Glucose (UA) NEG Urine Ketones NEG Urine Occult Blood NEG Urine Nitrite NEG Urine Bilirubin NEG Urine Urobilinogen NEG Urine Leukocyte Esterase NEG Magnesium Level 2.5 mg/dl Chemistry Specimen Hemolysis Assessment and Plan 56-year-old female here with acute hypoxic respiratory failure is Hypoxic respiratory failure likely multifactorial some being acute diastolic heart failure, anxiety, underlying intrinsic lung disease. Tolerating CPAP, added lidoderm patch for improvement of pain control. VSS. Sputum cx obtained. For the diastolic heart failure we will cont Bumex therapy at 2 mg IV twice a day, appropriate urine output, no worsening shortness of breath Physical lung disease the patient will be given duo nebs formoterol consider spirometry sputum culture Possible bronchitis the patient started on renal dose levofloxacin Rib fractures patient be given parenteral and oral opiate analgesia as well as Tylenol considering Lidoderm patch Oral thrush nystatin swish and swallow be continued Recent diagnosis of peptic ulcer Protonix 40 twice a day There is no sign of active bleeding and hemoglobin has been stable over the last 2 checks renal dose and Lexapro will be used for DVT prevention is a patient is at significant risk.
[2017-01-10] MEDS: MoRPHine SULFATE 4 MG/ML 1 ML CARP\\VIAL IV PRN ×2 (13:53→21:01)
[2017-01-10] MEDS ORDERED: PERFLUTREN LIPID MICROSPHERE (DEFINITY) IV ONE (14:39)
[2017-01-10] MEDS ORDERED: NURSING DECISION MEDICATION ORDER SCH (15:15)
[2017-01-10] MEDS ORDERED: MICONAZOLE NITRATE POWDER 43 GM EXT PRN (15:45)
[2017-01-10] MEDS: LIDOCAINE HCL 2% VISC SOLN 20 ML UDC MT SCH ×2 (16:43→21:04)
--- NOTE | 2017-01-10 17:11 | ECHOCARDIOGRAM REPORT ---
*NOTICE TO RECEIVING REPUBLICAN AGENCY This information is strictly Confidential and protected under [place] law. [place] law prohibits you from making any further disclosure of this information unless further disclosure is expressly permitted by the written consent of the person to whom it pertains or is authorized by law. A general authorization for the release of medical or other information is not sufficient for this purpose. Hospital accepts no responsibility if the information is made available to any other person, INCLUDING THE PATIENT. Interpretation Summary * Name: EDIS GARAY Study Date: 01/10/2017 02:06 PM BP: 120/58 mmHg * Patient Location: [facility] HR: 71 * : 1960 (M/d/yyyy) Gender: Female Height: 65 in * Age: 56 yrs Ethnicity: CA Weight: 346 lb * Ordering Physician: Joe Bardales * Referring Physician: Self, Referred * Performed By: Wendie Teague RDCS * * Reason For Study: CHF * BSA: 2.5 m2 * -- Conclusions -- * 1. Normal left ventricular size with hyperdynamic systolic function. EF 65-70%. No regional wall motion abnormalities visualized. No significant left ventricular hypertrophy. Type 2 diastolic dysfunction. * 2. The left atrium is mildly dilated. * 3. No significant valvular abnormalities visualized, however valves were not well seen. * 4. Technically difficult study, enhanced with IV Definity. * 5. Compared to prior study on 08/30/2016, LV systolic function is now hyperdynamic. Procedure Details * A complete two-dimensional transthoracic echocardiogram was performed (2D, M-mode, Doppler and color flow Doppler). * The study was technically limited. * The study was technically difficult. * Limited views were obtained. * There were technical limitations due to patient'sbody habitus * A contrast injection of Definity was performed to improve assessment of LV function. * Contrast was injected into an intravenous site in the right arm. * One vial of Definity ultrasound contrast was diluted in normal saline to a total volume of 10 ml. A total of '3' ml of solution was administered during imaging. * Lot # [id number] of Definity utilized for procedure. * Expiration date JAN 09. * The attending nurse who injected the contrast agent was Eli Giles RN. Left Ventricle * Normal left ventricular size with hyperdynamic systolic function. EF 65-70%. No regional wall motion abnormalities visualized. No significant left ventricular hypertrophy. Type 2 diastolic dysfunction. Right Ventricle * The right ventricle is not well visualized. * The right ventricular systolic function is normal as assessed by tricuspid annular plane systolic excursion (TAPSE) (normal >1.5 cm). Atria * The left atrium is mildly dilated. * Right atrium not well visualized. Mitral Valve * The mitral valve is not well visualized. * There is no mitral valve stenosis. * Significant mitral regurgitation is absent. Tricuspid Valve * The tricuspid valve is not well visualized. * There is no tricuspid stenosis. * Significant tricuspid regurgitation is absent. Aortic Valve * The aortic valve is not well visualized. * No hemodynamically significant valvular aortic stenosis. * There is no significant aortic regurgitation. Pulmonic Valve * The pulmonic valve is not well visualized. * There is no pulmonic valvular stenosis. Great Vessels * The aortic root is normal size. * Ascending aorta of normal dimension Pericardium/Pleural * There is no pericardial effusion. Great Vessels * Normal inferior vena cava size and collapsability with sniff indicates a normal right atrial pressure of 3 mmHg MMode 2D Measurements and Calculations IVSd 0.93 cm LVIDd 4.4 cm LVIDs 2.4 cm LVPWd 1.0 cm IVS/LVPW 0.90 FS 46.2 % EDV(Teich) 88.8 ml ESV(Teich) 19.7 ml EF(Teich) 77.8 % EDV(cubed) 86.6 ml ESV(cubed) 13.5 ml EF(cubed) 84.4 % LV mass(C)d 145.8 grams LV mass(C)dI 58.4 grams/m\S\2 SV(Teich) 69.1 ml SI(Teich) 27.7 ml/m\S\2 SV(cubed) 73.1 ml SI(cubed) 29.3 ml/m\S\2 Ao root diam 3.1 cm Ao root area 7.7 cm\S\2 asc Aorta Diam 2.3 cm LVAd ap4 25.5 cm\S\2 LVLd ap4 7.6 cm EDV(MOD-sp4) 68.9 ml EDV(sp4-el) 72.3 ml LVAs ap4 14.6 cm\S\2 LVLs ap4 7.6 cm ESV(MOD-sp4) 23.1 ml ESV(sp4-el) 24.0 ml EF(MOD-sp4) 66.6 % EF(sp4-el) 66.9 % LVAd ap2 24.3 cm\S\2 LVLd ap2 7.5 cm EDV(MOD-sp2) 64.3 ml EDV(sp2-el) 67.1 ml LVAs ap2 12.8 cm\S\2 LVLs ap2 6.6 cm ESV(MOD-sp2) 20.4 ml ESV(sp2-el) 21.0 ml EF(MOD-sp2) 68.3 % EF(sp2-el) 68.7 % LVLd %diff -2.37 % EDV(MOD-bp) 67.0 ml LVLs %diff -14.91 % ESV(MOD-bp) 23.2 ml EF(MOD-bp) 65.3 % SV(MOD-sp4) 45.9 ml SI(MOD-sp4) 18.4 ml/m\S\2 SV(MOD-sp2) 43.9 ml SI(MOD-sp2) 17.6 ml/m\S\2 SV(MOD-bp) 43.8 ml SI(MOD-bp) 17.5 ml/m\S\2 SV(sp4-el) 48.3 ml SI(sp4-el) 19.4 ml/m\S\2 SV(sp2-el) 46.1 ml SI(sp2-el) 18.4 ml/m\S\2 Doppler Measurements and Calculations MV E max august 108.2 cm/sec MV A max august 108.2 cm/sec MV E/A 1.0 MV dec time 0.27 sec Ao V2 max 218.7 cm/sec Ao max PG 19.1 mmHg Ao max PG (full) 9.7 mmHg Ao V2 mean 138.8 cm/sec Ao mean PG 8.8 mmHg Ao mean PG (full) 4.3 mmHg Ao V2 VTI 41.1 cm LV V1 max PG 9.5 mmHg LV V1 mean PG 4.5 mmHg LV V1 max 153.8 cm/sec LV V1 mean 98.0 cm/sec LV V1 VTI 33.8 cm SV(Ao) 315.3 ml SI(Ao) 126.3 ml/m\S\2 PA V2 max 137.2 cm/sec PA max PG 7.5 mmHg
[2017-01-10] MEDS: ENOXAPARIN 40 MG/0.4 ML SYR SC SCH (17:48)
[2017-01-10] MEDS: LIDODERM (LIDOCAINE) PATCH 5% TD SCH (17:49)
[2017-01-10] MEDS ORDERED: LEVOFLOXACIN / D5W 750 MG in PREMIXED IN D5W 150 ML IV SCH (18:00)
[2017-01-10] MEDS: FLUTICASONE PROPIONATE NA SPR 16 GM BTL NAE SCH (21:04)
[2017-01-10] MEDS: NORTRIPTYLINE HCL 25 MG CAP PO SCH (21:05)
[2017-01-10] MEDS: TRAZODONE HCL 50 MG TAB PO SCH (21:06)
[2017-01-11] VITALS (7 sets, daily range): BP systolic 137–141; BP diastolic 60–74; PULSE 72–85; TEMP 36.8–37; O2SAT 92–93
[2017-01-11] MEDS: POTASSIUM CHLORIDE 20 MEQ TABCR PO SCH ×2 (06:04→11:30)
[2017-01-11] MEDS: METHYLPREDNISOLONE IV 40 MG in SYRINGE 0 ML IV SCH (06:21)
[2017-01-11] MEDS: OXYCODONE HCL IR 5 MG TAB (IMMEDIATE RELEASE) PO PRN (06:26)
[2017-01-11] MEDS: FORMOTEROL FUMA NEBULIZER SOLN 20 MCG/2 ML VIAL INH SCH (07:07)
[2017-01-11] MEDS: ALBUT/IPRATROP 3MG/0.5MG NEB 3 ML VIAL INH SCH ×2 (07:07→11:15)
[2017-01-11] MEDS: NYSTATIN SUSP 500,000 U/5 ML UDC PO SCH (08:22)
[2017-01-11] MEDS: PANTOprazole SOD 40 MG TAB PO SCH (08:22)
[2017-01-11] MEDS: AMILORIDE/HCTZ 5-50 MG TAB PO SCH (08:22)
[2017-01-11] MEDS: GABAPENTIN 400 MG CAP PO SCH (08:22)
[2017-01-11] MEDS: DULOXETINE HCL 60 MG CAP PO SCH (08:23)
[2017-01-11] MEDS: ASPIRIN 81 MG ECTAB PO SCH (08:23)
[2017-01-11] MEDS: DOCUSATE SODIUM 100 MG CAP PO SCH (08:23)
[2017-01-11] MEDS: LIDOCAINE HCL 2% VISC SOLN 20 ML UDC MT SCH (08:23)
[2017-01-11] MEDS: MAGNESIUM OXIDE 400 MG TAB PO SCH (08:23)
[2017-01-11] MEDS: BuPROPion SR 100 MG TABCR PO SCH (08:23)
[2017-01-11] MEDS: OXYCODONE/ACETAMINOPHEN 10/325MG TAB PO PRN (08:35)
[2017-01-11 08:36] LABS: BLOOD UREA NITROGEN 37 mg/dl (7-18); BUN/CREATININE RATIO 23.4 (10-20); CALCIUM 9.3 mg/dl (8.5-10.1); CARBON DIOXIDE 31 mmol/L (21-32); CHLORIDE 96 mmol/L (98-107); GLUCOSE 122 mg/dl (70-99); SODIUM 133 mmol/L (136-145)
[2017-01-11] MEDS: BUMETANIDE IV 2 MG in SYRINGE 0 ML IV SCH (08:42)
[2017-01-11] MEDS: MoRPHine SULFATE 2 MG/ML CARP IV PRN (10:17)
[2017-01-11] MEDS ORDERED: LDDP5 TD (11:10)
[2017-01-11] MEDS ORDERED: MGCCMP100 MT (11:10)
--- NOTE | 2017-01-11 11:13 | Discharge Instructions ---
Discharge Instructions Date of Service Jan 11, 2017. Admission Reason for Admission: Acute And Chronic Respiratory Failure With Hypoxia Discharge Discharge Diagnosis / Problem: Acute on chronic respiratory failure Discharge Goals Goal(s): Decrease discomfort, Improve function, Increase independence, Improve disease control, Learn about illness, Diagnostic testing, Therapeutic intervention, Prevent Disease Progression Activity Recommendations Activity Limitations: resume your previous activity Exercise/Sports Limitations: none . Instructions / Follow-Up Instructions / Follow-Up patient to be discharged home likely shortness of breath from anxiety instructed that she can take extra 1/2 - 1 tablet of bumex if noticing 1-2 lb weight gain in one day prescriptions also sent to pharmacy for lidocaine mouthwash and lidoderm patch, please use as directed please follow up with dr. larios in 1-2 weeks Current Hospital Diet Patient's current hospital diet: Low Sodium Diet (2gm Na) Discharge Diet Recommended Diet: Low Sodium Diet (2gm Na) Pending Studies Studies pending at discharge: no Laboratory Results Lipid Panel Test 11/06/16 07:10 Range/Units Triglycerides Level 116 0-150 mg/dl Cholesterol Level 169 0-200 mg/dl HDL Cholesterol 53 mg/dl Cholesterol/HDL Ratio 3.2 LDL Cholesterol, Calculated 93 mg/dl Medical Emergencies . Who to Call and When: Medical Emergencies: If at any time you feel your situation is an emergency, please call 911 immediately. . Non-Emergent Contact Non-Emergency issues call your: Primary Care Provider Call Non-Emergent contact if: your pain is worsening . . "Provider Documentation" section prepared by Surya Zuniga. . VTE Core Measure Inpt VTE Proph given/why not?: Enoxaparin (Lovenox)SQ
--- NOTE | 2017-01-11 13:46 | Discharge Summary ---
Discharge Summary Date of Service Jan 11, 2017. Discharge Summary Admission Date: Jan 09, 2017 at 15:59 Discharge Date: Jan 11, 2017 Discharge Disposition: Home Principal Diagnosis: Acute on chronic resp failure Immunizations: Have You Had Influenza Vaccine: Yes History of Tetanus Vaccine?: No History of Pneumococcal: No History of Hepatitis B Vaccine: No Medication Reconciliation New Medications: Lidocaine (Lidocaine) 1 Patch Tdsy 1 PATCH TD DAILY@1800, #30 TABS Maalox/Diphen/Visc. Sascha/Glyc (Lidocaine Viscous) 100 Ml Btl 20 ML MT QID, #1 BTL Continued Medications: Albuterol Sulf (Ventolin) 2 Mg/5 Ml Syrp 2 MG NEB QID PRN for Shortness of Breath Albuterol Sulfate (Proair Respiclick) 108 Mcg/Act Aer 2 PUFFS INH QID PRN for Shortness of Breath Amiloride/Hctz (Amiloride/Hydrochlorothia 5-50 mg) 1 Ea Tab 1 TAB PO QAM Aspirin (Aspirin Ec) 81 Mg Tab 81 MG PO QAM Bumetanide (Bumex) 2 Mg Tab 2 MG PO BID, TAB Bupropion Hcl (Wellbutrin Sr) 200 Mg Tab 200 MG PO BID, TAB Cholecalciferol (Vitamin D) 5,000 Unit Tab 5000 INTER.UNIT PO QAM Cyanocobalamin (Cyanocobalamin) 1,000 Mcg/Ml Inj 1000 MCG IM MONTHLY Diphenhydramine Hcl (Benadryl Allergy) 25 Mg Cap 3 CAP PO HS Docusate Sodium (Colace) 100 Mg Cap 100 MG PO QAM, CAP Duloxetine HCl (Cymbalta) 60 Mg Cap 60 MG PO BID Fluticasone Propionate (Nasal) (Flonase Allergy Relief) 50 Mcg/Act Spr 2 SPRAYS EDITH HS Gabapentin (Neurontin) 400 Mg Cap 400 MG PO TID, CAP Ipratropium-Albuterol (Duoneb) 3 Ml Nebu 1 TREATMENT INH Q4H, INHA Lamotrigine (Lamictal) 100 Mg Tab 100 MG PO BID, TAB Magnesium Hydroxide (Milk Of Magnesia) 30 Ml Susp 30 ML PO DAILY PRN for Constipation, ML Magnesium Oxide (Mag-Ox) 400 Mg Tab 400 MG PO BID, TAB Meclizine HCl (Meclizine 25) 25 Mg Tab 1 TAB PO PRN for Dizziness or Vertigo Metolazone (Zaroxolyn) 2.5 Mg Tab 2.5 MG PO BID TAKE HALF HOUR BEFORE BUMEX Mometasone Furoate-Formoterol (Dulera 200/5 Mcg) 1 Aer Aer 2 PUFFS INH BID, GM Nortriptyline (Pamelor) 50 Mg Cap 50 MG PO HS, CAP Oxycodone/Acetaminophen 10MG/325MG (Percocet 10MG/325MG) Tab 1 TAB PO Q6 PRN for Pain, TAB Pantoprazole (Protonix) 40 Mg Tab 40 MG PO BID, TAB Potassium Ext Rel (Klor-Con) 20 Meq Tabcr 40 MEQ PO ACHS, TAB Trazodone Hcl (Desyrel) 50 Mg Tab 50 MG PO HS, TAB Discontinued Medications: Azithromycin (Zithromax Z-Derrick) 250 Mg Tab 0 PO UD, #1 PKT 2 TABS DAY 1, THEN 1 TAB DAILY FOR 4 DAYS Sulfa/Trimethoprim (Bactrim Ds 800MG/160MG) Tab 1 TAB PO BID, #6 TAB ENDS 01-10-17 Discharge Exam Review of Systems: Constitutional: No fever, No chills, No sweats, No weight loss, No weakness Respiratory: No cough, No sputum, No wheezing, No shortness of breath, No dyspnea on exertion, No dyspnea at rest Cardiovascular: + edema, No chest pain, No orthopnea, No PND Abdomen: No pain, No nausea, No vomiting, No diarrhea, No constipation Musculoskeletal: No joint pain, No muscle pain, No swelling, No calf pain Genitourinary - Female: No dysuria, No urinary frequency, No urinary urgency , No urinary incontinence Neurologic: No memory loss, No paralysis, No weakness, No numbness/tingling Psychiatric: No depression symptoms, No anhedonism, No anxiety, No insomnia Endocrine: No fatigue, No excessive thirst, No excessive urination Physical Exam: General Appearance: WD/WN, no apparent distress Eyes: normal inspection, PERRL, EOMI, sclerae normal Neck: supple, no adenopathy, thyroid normal, no JVD Respiratory/Chest: chest non-tender, no respiratory distress, no accessory muscle use, + decreased breath sounds Cardiovascular: no edema, no gallop, no JVD, no murmur, + tachycardia Abdomen / GI: normal bowel sounds, soft, no organomegaly Neurologic/Psychiatric: no motor/sensory deficits, alert, normal mood/affect , oriented x 3 Hospital Course 56-year-old female here with acute hypoxic respiratory failure is Hypoxic respiratory failure likely multifactorial some being acute diastolic heart failure, anxiety, underlying intrinsic lung disease. Tolerating CPAP, added lidoderm patch for improvement of pain control. VSS. Sputum cx obtained. For the diastolic heart failure we will cont Bumex therapy at 2 mg IV twice a day, appropriate urine output, no worsening shortness of breath Appropirate diuresis, instructed can take extra 1/2 to 1 tablet of bumex if 1-2 lb weight gain or worsening swelling in legs Physical lung disease the patient will be given duo nebs formoterol consider spirometry sputum culture Possible bronchitis the patient started on renal dose levofloxacin Rib fractures patient be given parenteral and oral opiate analgesia as well as Tylenol considering Lidoderm patch Oral thrush nystatin swish and swallow be continued Recent diagnosis of peptic ulcer Protonix 40 twice a day There is no sign of active bleeding and hemoglobin has been stable over the last 2 checks renal dose and Lexapro will be used for DVT prevention is a patient is at significant risk. Total Time Spent: Greater than 30 minutes This includes examination of the patient, discharge planning, medication reconciliation, and communication with other providers. Discharge Instructions Please refer to the electronic Patient Visit Report (Discharge Instructions) for additional information. Additional Copies To Troy Aparicio M.D.
[2017-01-12] MEDS ORDERED: METHYLPREDNISOLONE IV 40 MG in SYRINGE 0 ML IV SCH (09:00)
== END 2017-01-11 13:29 | disposition home or self-care (01) | DRG 189 ==
LOC: C.EDB 11:28 → C.MED 15:59 → ENRESERV 16:10
PROVIDERS: ADMIT Internal Medicine; ATTEND Hospitalist
DX: J96.21 Acute and chronic respiratory failure with hypoxia (principal); I50.31 Acute diastolic (congestive) heart failure; B37.0 Candidal stomatitis; Z68.43 Body mass index [BMI] 50.0-59.9, adult; J40 Bronchitis, not specified as acute or chronic; J98.4 Other disorders of lung; K27.9 Peptic ulcer, site unspecified, unspecified as acute or chronic, without hemorrhage or perforation; F41.9 Anxiety disorder, unspecified; G47.30 Sleep apnea, unspecified; S22.42XD Multiple fractures of ribs, left side, subsequent encounter for fracture with routine healing; W19.XXXD Unspecified fall, subsequent encounter; E66.01 Morbid (severe) obesity due to excess calories; Z87.891 Personal history of nicotine dependence; Z86.14 Personal history of Methicillin resistant Staphylococcus aureus infection; Z79.2 Long term (current) use of antibiotics; Z79.82 Long term (current) use of aspirin; Z79.899 Other long term (current) drug therapy; Z88.1 Allergy status to other antibiotic agents; Z81.8 Family history of other mental and behavioral disorders; Z82.49 Family history of ischemic heart disease and other diseases of the circulatory system; E87.6 Hypokalemia; M17.9 Osteoarthritis of knee, unspecified

== ENCOUNTER → 2017-03-03 | Outpatient (CLI) | payer OTHER, MEDICARE ==
[~2017-03-03] MED LIST changes: -AZITTAB PO; +LDDP5 TD; +MGCCMP100 MT; +OXYC-106 PO; -OXYC1TAB3 PO; -SULF800T23 PO
== END | disposition home or self-care (01) ==
LOC: C.LABSPEC 11:11
PROVIDERS: ATTEND Urology
DX: N39.0 Urinary tract infection, site not specified (principal); R31.9 Hematuria, unspecified

== ENCOUNTER → 2017-05-13 | Outpatient (CLI) | payer OTHER, MEDICARE ==
[~2017-05-13] MED LIST changes: +TRAZ-120 PO; -TRAZ1TAB5 PO
[2017-05-13 11:58] LABS: HEMATOCRIT 34.1 % (37-47); MEAN CELL VOLUME 83.4 fL (80-100); MEAN CORPUSCULAR HEMOGLOBIN 26.2 pg (25-34); MEAN CORPUSCULAR HGB CONC 31.4 g/dl (32-36); MEAN PLATELET VOLUME 9.7 fL (7.4-10.4); PLATELET COUNT 358 K/uL (130-400); RED BLOOD COUNT 4.09 M/uL (4.2-5.4)
[2017-05-13 12:06] LABS: ALT/SGPT 14 U/L (12-78); AST/SGOT 14 U/L (15-37); BLOOD UREA NITROGEN 44 mg/dl (7-18); BUN/CREATININE RATIO 24.6 (10-20); CALCIUM 8.9 mg/dl (8.5-10.1); CARBON DIOXIDE 28 mmol/L (21-32); CHLORIDE 103 mmol/L (98-107); CREATININE 1.77 mg/dl (0.60-1.20); GLUCOSE 90 mg/dl (70-99); MAGNESIUM 2.7 mg/dl (1.8-2.4); POTASSIUM 3.8 mmol/L (3.5-5.1); SODIUM 136 mmol/L (136-145)
[2017-05-13 12:16] LABS: ALB/GLOB RATIO 0.7 (0.9-2); ALKALINE PHOSPHATASE 85 U/L (45-117); THYROID STIMULATING HORMONE 0.211 uIu/ml (0.300-4.500)
[2017-05-13 12:41] LABS: ESTIMATED AVERAGE GLUCOSE 117 mg/dl; HA1C FLAG Normal (Normal)
== END | disposition home or self-care (01) ==
LOC: C.LABSPEC 10:48
PROVIDERS: ATTEND Family Medicine
DX: E04.1 Nontoxic single thyroid nodule (principal); E78.2 Mixed hyperlipidemia; I12.9 Hypertensive chronic kidney disease with stage 1 through stage 4 chronic kidney disease, or unspecified chronic kidney disease; N18.3 Chronic kidney disease, stage 3 (moderate); E55.9 Vitamin D deficiency, unspecified; D51.8 Other vitamin B12 deficiency anemias

== ENCOUNTER 2017-08-19 07:33 | Inpatient (IN) | payer OTHER, MEDICARE ==
[~2017-08-19] VITALS: Ht 165.1 cm; Wt 138.6 kg
[2017-08-19] MEDS ORDERED: ONDANSETRON INJ 2 MG/ML 2 ML VIAL IV STA (07:47)
[2017-08-19] MEDS ORDERED: SODIUM CHLORIDE 0.9% 1000ML 1,000 ML IV STA (07:47)
[2017-08-19] MEDS ORDERED: HYDROmorphone INJ 1 MG/ML SYR IV STA (08:01)
[2017-08-19 08:26] LABS: BASO % 0.2 %; BASO ABS # 0.03 K/uL (0-0.2); EOS % 0.5 %; EOS ABS # 0.09 K/uL (0-0.5); HEMATOCRIT 33.8 % (37-47); HEMOGLOBIN 10.6 g/dL (12.0-16.0); IG# 0.07 K/uL (0.00-0.02); LYMPH % 8.9 %; LYMPH ABS # 1.52 K/uL (1.2-3.4); MEAN CELL VOLUME 81.8 fL (80-100); MEAN CORPUSCULAR HEMOGLOBIN 25.7 pg (25-34); MEAN CORPUSCULAR HGB CONC 31.4 g/dl (32-36); MEAN PLATELET VOLUME 9.2 fL (7.4-10.4); MONO ABS # 0.85 K/uL (0.11-0.59); NEUT ABS # 14.49 K/uL (1.4-6.5); PLATELET COUNT 443 K/uL (130-400); RED CELL DISTRIBUTION WIDTH SD 48.2 fL (36.4-46.3); WHITE BLOOD COUNT 17.05 K/uL (4.8-10.8)
[2017-08-19 08:32] LABS: PTT PATIENT 32.4 SECONDS (21.0-31.0)
[2017-08-19] MEDS ORDERED: HYDROmorphone INJ 0.5 MG/0.5 ML SYR IV STA (08:42)
[2017-08-19] MEDS ORDERED: DIPH-437 PO (08:45)
[2017-08-19] MEDS ORDERED: LEVO88TA PO (08:45)
[2017-08-19] MEDS ORDERED: SPIR25TA PO (08:45)
[2017-08-19] MEDS ORDERED: NITR-5 PO (08:45)
[2017-08-19 08:51] LABS: POTASSIUM 5.1 mmol/L (3.5-5.1); SODIUM 130 mmol/L (136-145)
[2017-08-19 08:52] LABS: ALBUMIN 3.1 gm/dl (3.4-5.0); ALKALINE PHOSPHATASE 100 U/L (45-117); ALT/SGPT 15 U/L (12-78); BLOOD UREA NITROGEN 44 mg/dl (7-18); CARBON DIOXIDE 25 mmol/L (21-32); CREATININE 1.99 mg/dl (0.60-1.20); GLUCOSE 111 mg/dl (70-99); TOTAL PROTEIN 8.3 gm/dl (6.4-8.2)
--- NOTE | 2017-08-19 08:52 | DIAGNOSTIC IMAGING REPORT ---
CHEST ONE VIEW PORTABLE CLINICAL HISTORY: Altered mental status. Weakness. Trauma. COMPARISON STUDY: 01/09/2017 FINDINGS: The heart is at the upper limits of normal in size. Slight interstitial prominence is likely accentuated due to the patient's body habitus and supine nature the study. There is minor left midlung zone atelectasis. There is no lobar consolidation. There are no significant pleural effusions.[ IMPRESSION: No active disease in the chest. Electronically signed by: Bandar Palacios M.D. 08/19/2017 8:50 AM Dictated Date/Time: 08/19/2017 8:50 AM
--- NOTE | 2017-08-19 08:53 | DIAGNOSTIC IMAGING REPORT ---
R KNEE 1 OR 2 VIEWS ROUTINE CLINICAL HISTORY: 57 years-old Female presenting with fall, leg pain. TECHNIQUE: Frontal and lateral views of the right knee were obtained. COMPARISON: 08/29/2016. FINDINGS: Obliquely oriented fracture of the distal femoral metaphysis which extends from the posterior medial cortex proximally to the anterior lateral cortex distally. This approaches the lateral femoral condylar component of the total right knee arthroplasty. The distal fracture fragment is displaced laterally x 6 mm with approximately 1 to 2 cm of foreshortening. Osteopenia suggested. No abnormality at the previously suggested site of radiolucency in the lateral tibial plateau. No gross malalignment of the arthroplasty allowing for suboptimal positioning. IMPRESSION: 1. Acute obliquely oriented, mildly displaced and mildly foreshortened fracture of the distal femoral metaphysis, which approaches the right total knee arthroplasty. Electronically signed by: Antonio Vazquez M.D. 08/19/2017 8:52 AM Dictated Date/Time: 08/19/2017 8:50 AM
--- NOTE | 2017-08-19 08:54 | DIAGNOSTIC IMAGING REPORT ---
R FEMUR 2 VIEWS ROUTINE CLINICAL HISTORY: Right knee pain. Trauma. COMPARISON: None. DISCUSSION: THERE IS A RIGHT KNEE PROSTHESIS. THERE IS AN OBLIQUE FRACTURE OF THE DISTAL FEMUR EXTENDING DISTALLY TO THE LEVEL OF THE PROSTHESIS. THERE IS 24 DEGREES OF ANGULATION AT THE FRACTURE SITE. THERE IS 9 MM OF MAXIMAL DISPLACEMENT. IMPRESSION: 1. Acute oblique fracture of the distal femur extending to the level of the femoral component of the prosthesis. There is 24 degrees of angulation and 9 mm of maximal displacement Electronically signed by: Bandar Palacios M.D. 08/19/2017 8:53 AM Dictated Date/Time: 08/19/2017 8:51 AM
--- NOTE | 2017-08-19 08:54 | DIAGNOSTIC IMAGING REPORT ---
RIGHT TIBIA AND FIBULA 2 VIEWS CLINICAL HISTORY: Right leg pain. FINDINGS: AP and crosstable lateral views of the right tibia and fibula are correlated compared to study dated 07/29/2016. The skeletal structures are osteopenic. No fracture is identified. A right knee arthroplasty is partially visualized. The ankle joint is grossly maintained. Mild soft tissue edema is present in the calf. IMPRESSION: Mild soft tissue swelling with no radiographic evidence of right tibial or fibular fracture. Electronically signed by: Luiz Welsh M.D. 08/19/2017 8:53 AM Dictated Date/Time: 08/19/2017 8:51 AM
[2017-08-19 08:56] LABS: AST/SGOT 17 U/L (15-37)
--- NOTE | 2017-08-19 08:58 | DIAGNOSTIC IMAGING REPORT ---
SINGLE VIEW PELVIS CLINICAL HISTORY: Change in mental status. Fall. FINDINGS: An AP pelvic radiograph is correlated with pelvic CT dated 12/21/2014. The skeletal structures are osteopenic. There is no radiographic evidence of fracture involving the hips or bony pelvis. Mild arthritic change and joint space narrowing is seen in the hips. Enthesophytes arise from the greater trochanters of the proximal femora and the anterior superior iliac spine bilaterally. Mild sclerotic change is noted in the sacroiliac joints. The overlying soft tissues are within normal limits. There is no evidence of bowel obstruction. IMPRESSION: There is no radiographic evidence of acute fracture involving the hips or bony pelvis. Electronically signed by: Luiz Welsh M.D. 08/19/2017 8:56 AM Dictated Date/Time: 08/19/2017 8:55 AM
--- NOTE | 2017-08-19 09:18 | DIAGNOSTIC IMAGING REPORT ---
HEAD WITHOUT CONTRAST (CT) CLINICAL HISTORY: 57 years-old Female presenting with EVALUATE ALTERED MENTAL STATUS/WEAKNESS, dizziness, fall. TECHNIQUE: Multidetector CT imaging of the head was performed without the use of intravenous contrast. IV contrast: None. A dose lowering technique was used consistent with the principles of ALARA (as low as reasonably achievable). COMPARISON: 09/15/2016. CT DOSE (mGy.cm): The estimated cumulative dose is 1277.12 mGycm. FINDINGS: [employer] topogram: Unremarkable. Ventricles and sulci normal in size. Brain parenchyma normal in appearance with preserved wilson-white differentiation. No mass effect or midline shift. No hemorrhage or acute territorial infarct. No extra-axial fluid collection. Paranasal sinuses and mastoid air cells clear. Calvarium intact. IMPRESSION: 1. No acute intracranial abnormality. Electronically signed by: Antonio Vazquez M.D. 08/19/2017 9:17 AM Dictated Date/Time: 08/19/2017 9:15 AM
--- NOTE | 2017-08-19 09:22 | DIAGNOSTIC IMAGING REPORT ---
CERVICAL SPINE W/O CLINICAL HISTORY: 57 years-old Female presenting with syncope w/ fall . TECHNIQUE: Multidetector CT of the cervical spine was performed without the use of intravenous contrast. IV contrast: None. A dose lowering technique was used consistent with the principles of ALARA (as low as reasonably achievable). COMPARISON: 07/29/2016. CT DOSE (mGy.cm): The estimated cumulative dose is 645.02 mGycm. FINDINGS: [employer] topogram: Unremarkable. Normal cervical lordosis. No acute fracture or subluxation. Degenerative changes noted in the upper thoracic spine. Cervical spine is essentially free of significant degenerative change. No osseous neural foraminal or spinal canal narrowing. Skull base intact. Degenerative changes of the atlantodental articulation. Exophytic left thyroid lobe nodule measuring 3 cm. IMPRESSION: 1. No acute osseous injury of the cervical spine. 2. Exophytic 3 cm left thyroid lobe nodule. Electronically signed by: Antonio Vazquez M.D. 08/19/2017 9:21 AM Dictated Date/Time: 08/19/2017 9:17 AM
[2017-08-19] MEDS ORDERED: OXYCODONE HCL IR 5 MG TAB (IMMEDIATE RELEASE) PO PRN (11:15)
[2017-08-19] MEDS ORDERED: KETOROLAC TROMETHAMINE 30 MG/ML VIAL IV STA (11:27)
[2017-08-19] MEDS ORDERED: HYDROmorphone INJ 1 MG/ML SYR IV ONE (11:30)
[2017-08-19] MEDS: ONDANSETRON INJ 2 MG/ML 2 ML VIAL IV PRN (11:33)
[2017-08-19] MEDS: OXYCODONE HCL IR 5 MG TAB (IMMEDIATE RELEASE) PO PRN ×2 (11:34→23:17)
--- NOTE | 2017-08-19 11:44 | History and Physical ---
History & Physical Date & Time of Service: Aug 19, 2017 at 11:24 Chief Complaint: Fall/Leg Pain Primary Care Physician: Troy Aparicio M.D. History of Present Illness Source: patient Ms. Cathryn Cho is a 57-year-old morbidly obese woman (BMI 55) who presents to [facility] for further evaluation. Patient was in her usual state of health until earlier today. She was bending over to look for phone but sustained a fall onto her right side. Patient does not recall injuring her head and denies loss of consciousness. She endorses severe right knee pain. Pain is localized and nonradiating with a 10/10 severity. No alleviating factors and pain is aggravated with movement and weightbearing. In the emergency department she has received hydromorphone 0.5 mg IV and 1 mg IV with some improvement in pain. Several imaging studies were obtained. Noncontrasted CT shows no acute intracranial abnormalities. However right knee radiograph shows an acute distal femoral fracture at the metaphysis which approaches the right total knee arthroplasty. No fracture seen in fibula or tibia. Orthopedic surgery service has been consulted. Anticipate surgery 20 August 2017. Past Medical/Surgical History Medical Problems: (1) Acute and chronic respiratory failure with hypoxia (2) Acute chest wall pain (3) Acute diastolic heart failure (4) Contusion of lower extremity (5) Contusion of multiple sites (6) DJD (degenerative joint disease) of knee (7) Fall (8) Fall (9) Fracture (10) Gastric ulceration (11) GASTRIC ULCERATION (12) Hypokalemia (13) Hypoxia (14) Hypoxia (15) Left sided chest pain (16) Lumbar contusion (17) Morbid obesity (18) Multiple fractures of ribs of left side (19) Precordial chest pain (20) Pulmonary edema (21) Pulmonary edema (22) Rib fracture (23) Rotator cuff rupture, complete (24) SOB (shortness of breath) Surgical Problems: (1) Hx of gastric bypass (2) Hx of hysterectomy (3) Hx of shoulder surgery Family History FHx: aneurysm FHx: dementia Social History Smoking Status: Unknown if Ever Smoked Marital Status: Occupational Status: unemployed Immunizations History of Influenza Vaccine: Yes History of Tetanus Vaccine?: No History of Pneumococcal: No History of Hepatitis B Vaccine: No Allergies Coded Allergies: Adhesives (Verified Allergy, Intermediate, REDNESS WITH BANDAIDS, 01/09/17) Cephalexin (Verified Allergy, Unknown, ?, 01/09/17) Home Medications Scheduled Amiloride/Hctz (Amiloride/Hydrochlorothia 5-50 mg), 1 TAB PO QAM Aspirin (Aspirin Ec), 81 MG PO QAM Bumetanide (Bumex), 2 MG PO QAM Bupropion Hcl (Wellbutrin Sr), 200 MG PO BID Cholecalciferol (Vitamin D), 5,000 INTER.UNIT PO QAM Cyanocobalamin (Cyanocobalamin), 1,000 MCG IM MONTHLY Diphenhydramine Hcl (Benadryl Allergy), 50 MG PO HS Duloxetine HCl (Cymbalta), 60 MG PO BID Fluticasone Propionate (Nasal) (Flonase Allergy Relief), 2 SPRAYS EDITH HS Gabapentin (Neurontin), 400 MG PO TID Ipratropium-Albuterol (Duoneb), 1 TREATMENT INH Q4H Lamotrigine (Lamictal), 100 MG PO BID Levothyroxine Sodium (Synthroid), 88 MCG PO DAILY Magnesium Oxide (Mag-Ox), 400 MG PO BID Mometasone Furoate-Formoterol (Dulera 200/5 Mcg), 2 PUFFS INH BID Nitrofurantoin Monohyd Macrocr (Macrobid), 100 MG PO HS Nortriptyline (Pamelor), 50 MG PO HS Pantoprazole (Protonix), 40 MG PO BID Potassium Ext Rel (Klor-Con), 20 MEQ PO ACHS Spironolactone (Aldactone), 25 MG PO BID Trazodone Hcl (Desyrel), 50 MG PO HS Scheduled PRN Albuterol Sulfate (Proair Respiclick), 2 PUFFS INH QID PRN for Shortness of Breath Meclizine HCl (Meclizine 25), 1 TAB PO for Dizziness or Vertigo Oxycodone/Acetaminophen 10MG/325MG (Percocet 10MG/325MG), 1 TAB PO Q6 PRN for Pain Review of Systems Constitutional: No fever, No chills, No sweats, No weight loss, No weakness, No fatigue, No problem reported Eyes: No worsening of vision, No eye pain, No redness, No discharge, No diplopia, No problem reported ENT: No hearing loss, No unusual epistaxis, No nasal symptoms, No sore throat, No tinnitus, No dental problems, No trouble swallowing, No problem reported Respiratory: No cough, No sputum, No wheezing, No shortness of breath, No dyspnea on exertion, No dyspnea at rest, No hemoptysis, No problem reported Cardiovascular: No chest pain, No orthopnea, No PND, No edema, No claudication , No palpitations, No problem reported Abdomen: No pain, No nausea, No vomiting, No diarrhea, No constipation, No GI bleeding, No problem reported Musculoskeletal: + joint pain (right knee) Genitourinary - Female: No dysuria, No urinary frequency, No urinary urgency, No urinary incontinence, No urinary retention, No hematuria, No dysmenorrhea, No menorrhagia, No metrorrhagia, No rash, No vaginal bleeding, No vaginal discharge, No vaginal itching, No vulvodynia, No , No problem reported Neurologic: No memory loss, No paralysis, No weakness, No numbness/tingling, No vertigo, No balance problems, No problem reported Psychiatric: No depression symptoms, No anhedonism, No anxiety, No insomnia, No substance abuse, No problem reported Endocrine: No fatigue, No excessive thirst, No excessive urination, No problem reported Hematologic / Lymphatic: No abnormal bleeding/bruising, No clotting problems, No swollen lymph nodes, No night sweats, No problem reported Integumentary: No rash, No itch, No new/changing skin lesions, No color change , No bleeding, No problem reported Physical Exam Vital Signs Date Time Temp Pulse Resp B/P (MAP) Pulse Ox O2 Delivery O2 Flow Rate FiO2 08/19/17 10:28 78 18 94 08/19/17 10:23 78 15 94 08/19/17 10:18 78 24 95 08/19/17 10:13 78 15 95 08/19/17 10:08 77 17 95 08/19/17 10:03 78 20 91 08/19/17 10:02 68/53 08/19/17 10:00 78 08/19/17 09:57 79 18 162/62 96 Room Air 08/19/17 09:56 162/62 08/19/17 08:19 95 Room Air 08/19/17 07:47 36.2 110 22 134/91 96 Room Air General Appearance: + mild distress (due to pain) Head: normocephalic, atraumatic Eyes: PERRL, EOMI Neck: supple Respiratory/Chest: chest non-tender, lungs clear, normal breath sounds, no respiratory distress (reaching appropriate oxygen saturations on room air; diminished BS at bases 2/2 body habitus) Cardiovascular: regular rate, rhythm, no edema, no gallop, no JVD, no murmur, normal peripheral pulses Abdomen/GI: normal bowel sounds, non tender, soft Extremities/Musculoskelatal: + pertinent finding ((R) knee with significant pain with active and passive movement; neurovascularly intact) 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, no motor/sensory deficits, oriented x 3 Skin: normal color, warm/dry Diagnostics Laboratory Results Results Past 24 Hours Test 08/19/17 08:05 08/19/17 11:02 Range/Units White Blood Count 17.05 4.8-10.8 K/uL Red Blood Count 4.13 4.2-5.4 M/uL Hemoglobin 10.6 12.0-16.0 g/dL Hematocrit 33.8 37-47 % Mean Corpuscular Volume 81.8 80-100 fL Mean Corpuscular Hemoglobin 25.7 25-34 pg Mean Corpuscular Hemoglobin Concent 31.4 32-36 g/dl Platelet Count 443 130-400 K/uL Mean Platelet Volume 9.2 7.4-10.4 fL Neutrophils (%) (Auto) 85.0 % Lymphocytes (%) (Auto) 8.9 % Monocytes (%) (Auto) 5.0 % Eosinophils (%) (Auto) 0.5 % Basophils (%) (Auto) 0.2 % Neutrophils # (Auto) 14.49 1.4-6.5 K/uL Lymphocytes # (Auto) 1.52 1.2-3.4 K/uL Monocytes # (Auto) 0.85 0.11-0.59 K/uL Eosinophils # (Auto) 0.09 0-0.5 K/uL Basophils # (Auto) 0.03 0-0.2 K/uL RDW Standard Deviation 48.2 36.4-46.3 fL RDW Coefficient of Variation 16.0 11.5-14.5 % Immature Granulocyte % (Auto) 0.4 % Immature Granulocyte # (Auto) 0.07 0.00-0.02 K/uL Prothrombin Time 10.5 9.0-12.0 SECONDS Prothromb Time International Ratio 1.0 0.9-1.1 Activated Partial Thromboplast Time 32.4 21.0-31.0 SECONDS Partial Thromboplastin Ratio 1.2 Sodium Level 130 136-145 mmol/L Potassium Level 5.1 3.5-5.1 mmol/L Chloride Level 97 98-107 mmol/L Carbon Dioxide Level 25 21-32 mmol/L Anion Gap 8.0 3-11 mmol/L Blood Urea Nitrogen 44 7-18 mg/dl Creatinine 1.99 0.60-1.20 mg/dl Est Creatinine Clear Calc Drug Dose 46.9 ml/min Estimated GFR () 31.7 Estimated GFR (Non- 27.4 BUN/Creatinine Ratio 22.3 10-20 Random Glucose 111 70-99 mg/dl Calcium Level 9.0 8.5-10.1 mg/dl Magnesium Level 2.9 1.8-2.4 mg/dl Total Bilirubin 0.4 0.2-1 mg/dl Direct Bilirubin 0.1 0-0.2 mg/dl Aspartate Amino Transf (AST/SGOT) 17 15-37 U/L Alanine Aminotransferase (ALT/SGPT) 15 12-78 U/L Alkaline Phosphatase 100 45-117 U/L Troponin I < 0.015 0-0.045 ng/ml Total Protein 8.3 6.4-8.2 gm/dl Albumin 3.1 3.4-5.0 gm/dl Thyroid Stimulating Hormone (TSH) 4.940 0.300-4.500 uIu/ml Diagnostic Radiology Right Knee Radiograph FINDINGS: Obliquely oriented fracture of the distal femoral metaphysis which extends from the posterior medial cortex proximally to the anterior lateral cortex distally. This approaches the lateral femoral condylar component of the total right knee arthroplasty. The distal fracture fragment is displaced laterally x 6 mm with approximately 1 to 2 cm of foreshortening. Osteopenia suggested. No abnormality at the previously suggested site of radiolucency in the lateral tibial plateau. No gross malalignment of the arthroplasty allowing for suboptimal positioning. IMPRESSION: 1. Acute obliquely oriented, mildly displaced and mildly foreshortened fracture of the distal femoral metaphysis, which approaches the right total knee arthroplasty Right Tib/Fib Radiograph FINDINGS: AP and crosstable lateral views of the right tibia and fibula are correlated compared to study dated 07/29/2016. The skeletal structures are osteopenic. No fracture is identified. A right knee arthroplasty is partially visualized. The ankle joint is grossly maintained. Mild soft tissue edema is present in the calf. IMPRESSION: Mild soft tissue swelling with no radiographic evidence of right tibial or fibular fracture. Head CT w/o contrast IMPRESSION: 1. No acute intracranial abnormality. Impression Assessment and Plan Anjum is a 57/F who sustained a Right distal femoral fracture at the level of the metaphysis after fall. Orthopedic surgery service has been consulted and anticipate surgery Admit: Med/Surg VS qShift Diet: Low Sodium; NPO mn Activity: with assistance DVT ppx: SQ Heparin and SCD; pharmacologic ppx to be held at mn Precautions: FALL 1) Right distal femoral Fracture - confirmed by radiograph - rec'd intravenous hydromorphone and ketorolac - will attempt to contact pain with PO oxycodone - Ortho service on board - NPO after midnight 2) Hypothyroidism; Hx of thyroidectomy - resume levothyroxine 88 mcg PO daily - TSH 4.940; might need uptitration - f/u as OP 3) Heart FAilure; Grade II Diastolic Dysfunction - last Echo 10-Jan-2017; EF 65-70% - resume bumetanide 2 mg PO daily - resume amiloride/HCTZ 5/50 mg PO daily - resume ASA 81 mg PO daily Resuscitation Status VTE Prophylaxis Will order VTE Prophylaxis: Yes
[2017-08-19 12:14] LABS: CALCIUM 9.2 mg/dl (8.5-10.1); CREATININE 1.74 mg/dl (0.60-1.20); POTASSIUM 4.6 mmol/L (3.5-5.1)
[2017-08-19] MEDS ORDERED: ALBUTEROL HFA 8 GM INHALER INH PRN (12:30)
--- NOTE | 2017-08-19 12:32 | Anesthesiology Progress Note ---
Anesthesia Progress Note Date of Service Aug 19, 2017. Progress Notes Patient sustained right distal femur fracture after a fall today. Patient has allergies to adhesives and cephalexin. No bloodthinner as an outpatient. PSH sig for multiple surgeries (GETA with MAC 2 and grade 2 views and SAB for b/l TKA in 2012). Denied anesthesia issues. PMH sig for morbid obesity, asthma, SOB with ambulation, JANELLE on CPAP, HTN, GERD, PUD, CKD, depression, anxiety, anemia, former smoker. EKG NSR with HR of 75. Echo 12/2016 type 2 diastolic dysfunction. Airway exam notable for MP 2, full dentures. Plan for GETA vs SAB. Consent obtained. Questions answered.
[2017-08-19 12:56] VITALS: BP 136/85; PULSE 81; TEMP 36.9; Ht 165.1 cm; Wt 138.6 kg
[2017-08-19] MEDS: HEPARIN SOD 5000 UNIT/0.5 ML CARP SQ SCH ×2 (13:56→22:00)
--- NOTE | 2017-08-19 14:19 | EMERGENCY ROOM VISIT NOTE ---
History Report prepared by Rudy: Manish Molina Under the Supervision of: Dr. Jd Yo D.O. First contact with patient: 07:38 Stated Complaint: FALL/LEG PAIN History of Present Illness The patient is a 57 year old female who presents to the Emergency Room with complaints of constant right knee pain s/p fall occurring 2.5 hours ago. 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 She states that she felt lightheaded prior to the fall. The patient is unsure if she hit her head. She is unsure if she lost consciousness. She does not remember the fall. The patient denies right hip or ankle pain. Nothing has improved her pain. Pain is a 10/10 and is sharp stabbing in nature. Source of History: patient Onset: 2.5 hours ago Position: knee (right) Timing: constant Modifying Factors (Relieving): other (none) Note: Negative: right hip or ankle pain. Review of Systems See HPI for pertinent positives & negatives. A total of 10 systems reviewed and were otherwise negative. Past Medical & Surgical Medical Problems: (1) Acute and chronic respiratory failure with hypoxia (2) Acute diastolic heart failure (3) DJD (degenerative joint disease) of knee (4) Fracture (5) Gastric ulceration (6) GASTRIC ULCERATION (7) Precordial chest pain Surgical Problems: (1) Hx of gastric bypass (2) Hx of hysterectomy (3) Hx of shoulder surgery Family History FHx: aneurysm FHx: dementia Social History Smoking Status: Former Smoker Alcohol Use: none Marital Status: Housing Status: lives with family Occupation Status: unemployed Current/Historical Medications Scheduled Amiloride/Hctz (Amiloride/Hydrochlorothia 5-50 mg), 1 TAB PO QAM Aspirin (Aspirin Ec), 81 MG PO QAM Bumetanide (Bumex), 2 MG PO QAM Bupropion Hcl (Wellbutrin Sr), 200 MG PO BID Cholecalciferol (Vitamin D), 5,000 INTER.UNIT PO QAM Cyanocobalamin (Cyanocobalamin), 1,000 MCG IM MONTHLY Diphenhydramine Hcl (Benadryl Allergy), 50 MG PO HS Duloxetine HCl (Cymbalta), 60 MG PO BID Fluticasone Propionate (Nasal) (Flonase Allergy Relief), 2 SPRAYS EDITH HS Gabapentin (Neurontin), 400 MG PO TID Ipratropium-Albuterol (Duoneb), 1 TREATMENT INH Q4H Lamotrigine (Lamictal), 100 MG PO BID Levothyroxine Sodium (Synthroid), 88 MCG PO DAILY Magnesium Oxide (Mag-Ox), 400 MG PO BID Mometasone Furoate-Formoterol (Dulera 200/5 Mcg), 2 PUFFS INH BID Nitrofurantoin Monohyd Macrocr (Macrobid), 100 MG PO HS Nortriptyline (Pamelor), 50 MG PO HS Pantoprazole (Protonix), 40 MG PO BID Potassium Ext Rel (Klor-Con), 20 MEQ PO ACHS Spironolactone (Aldactone), 25 MG PO BID Trazodone Hcl (Desyrel), 50 MG PO HS Scheduled PRN Albuterol Sulfate (Proair Respiclick), 2 PUFFS INH QID PRN for Shortness of Breath Meclizine HCl (Meclizine 25), 1 TAB PO for Dizziness or Vertigo Oxycodone/Acetaminophen 10MG/325MG (Percocet 10MG/325MG), 1 TAB PO Q6 PRN for Pain Allergies Coded Allergies: Adhesives (Verified Allergy, Intermediate, REDNESS WITH BANDAIDS, 01/09/17) Cephalexin (Verified Allergy, Unknown, ?, 01/09/17) Physical Exam Vital Signs Date Time Temp Pulse Resp B/P (MAP) Pulse Ox O2 Delivery O2 Flow Rate FiO2 08/19/17 11:15 137/67 08/19/17 11:03 79 17 98 08/19/17 11:02 137/67 08/19/17 10:33 78 16 93 08/19/17 10:28 78 18 94 08/19/17 10:23 78 15 94 08/19/17 10:18 78 24 95 08/19/17 10:13 78 15 95 08/19/17 10:08 77 17 95 08/19/17 10:03 78 20 91 08/19/17 10:02 68/53 08/19/17 10:00 78 08/19/17 09:57 79 18 162/62 96 Room Air 08/19/17 09:56 162/62 08/19/17 08:19 95 Room Air 08/19/17 07:47 36.2 110 22 134/91 96 Room Air Physical Exam GENERAL: Laying on bed on [address], morbidly obese, mild distress, holding knee in flexion. HEAD: normal cephalic, atraumatic EYE EXAM: normal conjunctiva, PERRL and EOM's grossly intact OROPHARYNX: no exudate, no erythema, lips, buccal mucosa, and tongue normal and mucous membranes are moist. No dentition. EARS: TMs clear b/l NECK: supple, no nuchal rigidity, no adenopathy, non-tender CHEST: stable to compression anteriorly and posteriorly LUNGS: Distant, clear to auscultation. Normal chest wall mechanics HEART: no murmurs, S1 normal and S2 normal ABDOMEN: abdomen soft, non-tender, normo-active bowel sounds, no masses, no rebound or guarding. PELVIS: stable to compression anteriorly and posteriorly BACK: Back is symmetrical on inspection and there is no deformity, no midline tenderness, no CVA tenderness. UPPER EXTREMITIES: full active and passive range of motion of all joints without tenderness to palpation LOWER EXTREMITIES: full active and passive range of motion of all joints without tenderness to palpation with the exception of the right hip and right knee which is held in flexion. Mild pain on palpation of the right anterior knee. NEURO EXAM: Normal sensorium, cranial nerves II-XII grossly intact, normal speech, no gross weakness of arms, GCS: 15. Medical Decision & Procedures ER Provider Diagnostic Interpretation: Radiology results as stated below per my review and the radiologist's interpretation: RIGHT TIBIA AND FIBULA 2 VIEWS FINDINGS: AP and crosstable lateral views of the right tibia and fibula are correlated compared to study dated 07/29/2016. The skeletal structures are osteopenic. No fracture is identified. A right knee arthroplasty is partially visualized. The ankle joint is grossly maintained. Mild soft tissue edema is present in the calf. IMPRESSION: Mild soft tissue swelling with no radiographic evidence of right tibial or fibular fracture. Electronically signed by: Luiz Welsh M.D. 08/19/2017 8:53 AM R FEMUR 2 VIEWS ROUTINE DISCUSSION: THERE IS A RIGHT KNEE PROSTHESIS. THERE IS AN OBLIQUE FRACTURE OF THE DISTAL FEMUR EXTENDING DISTALLY TO THE LEVEL OF THE PROSTHESIS. THERE IS 24 DEGREES OF ANGULATION AT THE FRACTURE SITE. THERE IS 9 MM OF MAXIMAL DISPLACEMENT. IMPRESSION: 1. Acute oblique fracture of the distal femur extending to the level of the femoral component of the prosthesis. There is 24 degrees of angulation and 9 mm of maximal displacement Electronically signed by: Bandar Palacios M.D. 08/19/2017 8:53 AM CHEST ONE VIEW PORTABLE FINDINGS: The heart is at the upper limits of normal in size. Slight interstitial prominence is likely accentuated due to the patient's body habitus and supine nature the study. There is minor left midlung zone atelectasis. There is no lobar consolidation. There are no significant pleural effusions.[ IMPRESSION: No active disease in the chest. Electronically signed by: Bandar Palacios M.D. 08/19/2017 8:50 AM R KNEE 1 OR 2 VIEWS ROUTINE FINDINGS: Obliquely oriented fracture of the distal femoral metaphysis which extends from the posterior medial cortex proximally to the anterior lateral cortex distally. This approaches the lateral femoral condylar component of the total right knee arthroplasty. The distal fracture fragment is displaced laterally x 6 mm with approximately 1 to 2 cm of foreshortening. Osteopenia suggested. No abnormality at the previously suggested site of radiolucency in the lateral tibial plateau. No gross malalignment of the arthroplasty allowing for suboptimal positioning. IMPRESSION: 1. Acute obliquely oriented, mildly displaced and mildly foreshortened fracture of the distal femoral metaphysis, which approaches the right total knee arthroplasty. Electronically signed by: Antonio Vazquez M.D. 08/19/2017 8:52 AM SINGLE VIEW PELVIS FINDINGS: An AP pelvic radiograph is correlated with pelvic CT dated 12/21/2014. The skeletal structures are osteopenic. There is no radiographic evidence of fracture involving the hips or bony pelvis. Mild arthritic change and joint space narrowing is seen in the hips. Enthesophytes arise from the greater trochanters of the proximal femora and the anterior superior iliac spine bilaterally. Mild sclerotic change is noted in the sacroiliac joints. The overlying soft tissues are within normal limits. There is no evidence of bowel obstruction. IMPRESSION: There is no radiographic evidence of acute fracture involving the hips or bony pelvis. Electronically signed by: Luiz Welsh M.D. 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 Ventricles and sulci normal in size. Brain parenchyma normal in appearance with preserved wilson-white differentiation. No mass effect or midline shift. No hemorrhage or acute territorial infarct. No extra-axial fluid collection. Paranasal sinuses and mastoid air cells clear. Calvarium intact. IMPRESSION: 1. No acute intracranial abnormality. Electronically signed by: Antonio Vazquez M.D. 08/19/2017 9:17 AM CERVICAL SPINE W/O FINDINGS: Dentistry Professor topogram: Unremarkable. Normal cervical lordosis. No acute fracture or subluxation. Degenerative changes noted in the upper thoracic spine. Cervical spine is essentially free of significant degenerative change. No osseous neural foraminal or spinal canal narrowing. Skull base intact. Degenerative changes of the atlantodental articulation. Exophytic left thyroid lobe nodule measuring 3 cm. IMPRESSION: 1. No acute osseous injury of the cervical spine. 2. Exophytic 3 cm left thyroid lobe nodule. Electronically signed by: Antonio Vazquez M.D. 08/19/2017 9:21 AM Laboratory Results 08/19/17 08:05 Red Blood Count 4.13, Mean Corpuscular Volume 81.8, Mean Corpuscular Hemoglobin 25.7, Mean Corpuscular Hemoglobin Concent 31.4, Mean Platelet Volume 9.2, Neutrophils (%) (Auto) 85.0, Lymphocytes (%) (Auto) 8.9, Monocytes (%) (Auto) 5.0, Eosinophils (%) (Auto) 0.5, Basophils (%) (Auto) 0.2, Neutrophils # (Auto) 14.49, Lymphocytes # (Auto) 1.52, Monocytes # (Auto) 0.85, Eosinophils # (Auto) 0.09, Basophils # (Auto) 0.03 Test 08/19/17 08:05 White Blood Count 17.05 K/uL (4.8-10.8) Red Blood Count 4.13 M/uL (4.2-5.4) Hemoglobin 10.6 g/dL (12.0-16.0) Hematocrit 33.8 % (37-47) Mean Corpuscular Volume 81.8 fL (80-100) Mean Corpuscular Hemoglobin 25.7 pg (25-34) Mean Corpuscular Hemoglobin Concent 31.4 g/dl (32-36) Platelet Count 443 K/uL (130-400) Mean Platelet Volume 9.2 fL (7.4-10.4) Neutrophils (%) (Auto) 85.0 % Lymphocytes (%) (Auto) 8.9 % Monocytes (%) (Auto) 5.0 % Eosinophils (%) (Auto) 0.5 % Basophils (%) (Auto) 0.2 % Neutrophils # (Auto) 14.49 K/uL (1.4-6.5) Lymphocytes # (Auto) 1.52 K/uL (1.2-3.4) Monocytes # (Auto) 0.85 K/uL (0.11-0.59) Eosinophils # (Auto) 0.09 K/uL (0-0.5) Basophils # (Auto) 0.03 K/uL (0-0.2) RDW Standard Deviation 48.2 fL (36.4-46.3) RDW Coefficient of Variation 16.0 % (11.5-14.5) Immature Granulocyte % (Auto) 0.4 % Immature Granulocyte # (Auto) 0.07 K/uL (0.00-0.02) Prothrombin Time 10.5 SECONDS (9.0-12.0) Prothromb Time International Ratio 1.0 (0.9-1.1) Activated Partial Thromboplast Time 32.4 SECONDS (21.0-31.0) Partial Thromboplastin Ratio 1.2 Magnesium Level 2.9 mg/dl (1.8-2.4) Total Bilirubin 0.4 mg/dl (0.2-1) Direct Bilirubin 0.1 mg/dl (0-0.2) Aspartate Amino Transf (AST/SGOT) 17 U/L (15-37) Alanine Aminotransferase (ALT/SGPT) 15 U/L (12-78) Alkaline Phosphatase 100 U/L (45-117) Troponin I < 0.015 ng/ml (0-0.045) Total Protein 8.3 gm/dl (6.4-8.2) Albumin 3.1 gm/dl (3.4-5.0) Thyroid Stimulating Hormone (TSH) 4.940 uIu/ml (0.300-4.500) Laboratory results per my review. Medications Administered Medications (Trade) Dose Ordered Sig/Lilly Route Start Time Stop Time Status Last Admin Dose Admin Sodium Chloride 1,000 ml @ 999 mls/hr Q1H1M STAT IV 08/19/17 07:47 08/19/17 08:47 DC 08/19/17 08:17 999 MLS/HR Ondansetron HCl (Zofran Inj) 4 mg NOW STAT IV 08/19/17 07:47 08/19/17 07:50 DC 08/19/17 08:18 4 MG Hydromorphone HCl (Dilaudid Inj) 1 mg NOW STAT IV 08/19/17 08:01 08/19/17 08:02 DC 08/19/17 08:18 1 MG Hydromorphone HCl (Dilaudid Inj) 0.5 mg NOW STAT IV 08/19/17 08:42 08/19/17 08:43 DC 08/19/17 08:45 0.5 MG Ondansetron HCl (Zofran Inj) 4 mg Q6H PRN IV 08/19/17 11:15 09/18/17 11:14 08/19/17 11:33 4 MG Oxycodone HCl (Roxicodone Immediate Rel Tab) 10 mg Q4H PRN PO 08/19/17 11:15 09/02/17 11:14 08/19/17 11:34 10 MG ECG Per My Interpretation Indication: syncope Rate (beats per minute): 75 Rhythm: sinus rhythm Findings: no ectopy, other (Normal axis) ED Course ED COURSE: Vital signs were reviewed and showed tachycardia The patients medical record was reviewed The above diagnostic studies were performed and reviewed. ED treatments and interventions as stated above. 0742: The patient was evaluated in room B6. A complete history and physical examination was performed. 0747: Ordered Zofran Inj 4 mg IV, Sodium Chloride 1000 ml @ 999 mls/hr IV. 0801: Ordered Dilaudid Inj 1 mg IV. 0842: Ordered Dilaudid Inj 0.5 mg IV. 1020: Upon reevaluation, the patient is resting. I discussed my findings with the patient and she understands and agrees with the treatment plan. Based on the patients age, coexisting illnesses, exam and lab findings the decision to treat as an inpatient was made. The patient remained stable while under my care. The patient will be evaluated for further management. Medical Decision Differential diagnosis includes etiologies such as vasovagal event, infection, hypoglycemia, electrolyte abnormalities, cardiac sources, intracerebral event, toxicologic, neurologic, as well as others were entertained. Patient is a 57-year-old female that presents the ER along a syncopal episode when she bent over via EMS for severe right knee pain. On exam there is no obvious deformity but she is acutely tender. Neurovascularly intact. CBC shows a leukocytosis of 2000. Creatinine was 1.9. TSH was elevated. Troponin was negative. X-rays of the right distal femur show an obvious fracture. CT head and cervical spine were negative. Patient was updated at bedside. She was given multiple rounds of narcotics. She was admitted to internal medicine with orthopedics following along for the right distal femur fracture. Medication Reconcilliation Current Medication List: was personally reviewed by me Blood Pressure Screening Patient's blood pressure: Elevated blood pressure Blood pressure disposition: Referred to PCP Consults Time Called: 1000 Consulting Physician: Davy Murray PA-C - Orthopedics Returned Call: [phone] I reviewed the patient's case with Davy Murray PA-C. He will evaluate the patient. Additional Consults: Time Called: 1018 Consulted Physician: Dr. Salome [facility] Hospitalist Returned Call: [phone] Additional Comments: I reviewed the patient's case with Dr. Mcmahon. RC will evaluate the patient for further management. Impression Primary Impression: Right femoral fracture Additional Impressions: Fall Leukocytosis Scribe Attestation The scribe's documentation has been prepared under my direction and personally reviewed by me in its entirety. I confirm that the note above accurately reflects all work, treatment, procedures, and medical decision making performed by me. Departure Information Dispostion Being Evaluated By Hospitalist Troy Estrada M.D. (PCP) Problem Qualifiers Primary Impression: Right femoral fracture Encounter type: initial encounter Femur location: unspecified portion of femur Fracture type: closed Fracture morphology: other fracture Qualified Codes: S72.8X1A - Other fracture of right femur, initial encounter for closed fracture Additional Impressions: Fall Encounter type: initial encounter Qualified Codes: W19.XXXA - Unspecified fall, initial encounter Leukocytosis Leukocytosis type: unspecified Qualified Codes: D72.829 - Elevated white blood cell count, unspecified
[2017-08-19 15:15] VITALS: BP 122/66; PULSE 77; TEMP 36.7; O2SAT 93
[2017-08-19] MEDS ORDERED: LORAZEPAM INJ 0.5 MG in SYRINGE 0.25 ML IV PRN (15:15)
[2017-08-19] MEDS: MoRPHine SULFATE 4 MG/ML 1 ML CARP\\VIAL IV PRN ×2 (15:43→21:30)
[2017-08-19] MEDS: DULERA~ORDER AWAITING ACTION SCH ×2 (15:48→23:33)
--- NOTE | 2017-08-19 16:06 | Orthopedic Consultation ---
Orthopedic Consultation Date of Consultation: Aug 19, 2017. Attending Physician: Delmi Louis M.D. Reason for Consultation: Right distal periprosthetic femur fracture History of Present Illness Patient is a 57-year-old white female with history of having bilateral total knee arthroplasties [place] [address] Barajas. She states that she has been suffering from lightheadedness and dizziness off and on for some time now of which she is in the process for workup. She has had falls in the past. Today she states that she was bending over in her chair to look for something on the floor, when she fell out of the chair. It happened quickly, and she does not exactly remember the fall. She remembers looking up and seeing that she had fallen. She apparently had not hit her head and does not think she lost consciousness. She had severe pain in her right thigh and knee. She was unable to ambulate. She was brought to [facility] ED where she was seen by the staff, x-rays were taken, and was found that she had a distal periprosthetic femur fracture of the right femur. We have been asked to see her for this fracture. Past Medical/Surgical History Medical Problems: (1) Contusion of lower extremity Status: Acute (2) Contusion of multiple sites Status: Acute (3) Fall Status: Acute (4) Fall Status: Acute (5) Fall Status: Acute (6) Hypokalemia Status: Acute (7) Hypoxia Status: Acute (8) Hypoxia Status: Acute (9) Left sided chest pain Status: Acute (10) Leukocytosis Status: Acute (11) Lumbar contusion Status: Acute (12) Morbid obesity Status: Acute (13) Multiple fractures of ribs of left side Status: Acute (14) Pulmonary edema Status: Acute (15) Pulmonary edema Status: Acute (16) Rib fracture Status: Acute (17) Right femoral fracture Status: Acute (18) SOB (shortness of breath) Status: Acute PATIENT WITH H/O BILATERAL SHOULDER SURGERY, GASTRIC BYPASS IN 2004, RECENT THYROIDECTOMY AND CHOLECYSTECTOMY, HYSTERECTOMY, BILATERAL TKA 2011 Family History FHx: aneurysm FHx: dementia Social History Smoking Status: Former Smoker Marital Status: Housing Status: lives with family Occupation Status: unemployed Allergies Coded Allergies: Adhesives (Verified Allergy, Intermediate, REDNESS WITH BANDAIDS, 01/09/17) Cephalexin (Verified Allergy, Unknown, ?, 01/09/17) Home Medications Scheduled Amiloride/Hctz (Amiloride/Hydrochlorothia 5-50 mg), 1 TAB PO QAM Aspirin (Aspirin Ec), 81 MG PO QAM Bumetanide (Bumex), 2 MG PO QAM Bupropion Hcl (Wellbutrin Sr), 200 MG PO BID Cholecalciferol (Vitamin D), 5,000 INTER.UNIT PO QAM Cyanocobalamin (Cyanocobalamin), 1,000 MCG IM MONTHLY Diphenhydramine Hcl (Benadryl Allergy), 50 MG PO HS Duloxetine HCl (Cymbalta), 60 MG PO BID Fluticasone Propionate (Nasal) (Flonase Allergy Relief), 2 SPRAYS EDITH HS Gabapentin (Neurontin), 400 MG PO TID Ipratropium-Albuterol (Duoneb), 1 TREATMENT INH Q4H Lamotrigine (Lamictal), 100 MG PO BID Levothyroxine Sodium (Synthroid), 88 MCG PO DAILY Magnesium Oxide (Mag-Ox), 400 MG PO BID Mometasone Furoate-Formoterol (Dulera 200/5 Mcg), 2 PUFFS INH BID Nitrofurantoin Monohyd Macrocr (Macrobid), 100 MG PO HS Nortriptyline (Pamelor), 50 MG PO HS Pantoprazole (Protonix), 40 MG PO BID Potassium Ext Rel (Klor-Con), 20 MEQ PO ACHS Spironolactone (Aldactone), 25 MG PO BID Trazodone Hcl (Desyrel), 50 MG PO HS Scheduled PRN Albuterol Sulfate (Proair Respiclick), 2 PUFFS INH QID PRN for Shortness of Breath Meclizine HCl (Meclizine 25), 1 TAB PO for Dizziness or Vertigo Oxycodone/Acetaminophen 10MG/325MG (Percocet 10MG/325MG), 1 TAB PO Q6 PRN for Pain Current Inpatient Medications Current Inpatient Medications Medications (Trade) Dose Ordered Sig/Lilly Route Start Time Stop Time Status Last Admin Dose Admin Heparin Sodium (Porcine) (Heparin Sq 5000 Unit/0.5ml) 5,000 unit Q8H SQ 08/19/17 14:00 08/20/17 13:59 08/19/17 13:56 5,000 UNIT Ondansetron HCl (Zofran Inj) 4 mg Q6H PRN IV 08/19/17 11:15 09/18/17 11:14 08/19/17 11:33 4 MG Oxycodone HCl (Roxicodone Immediate Rel Tab) 5 mg Q4H PRN PO 08/19/17 11:15 09/02/17 11:14 Oxycodone HCl (Roxicodone Immediate Rel Tab) 10 mg Q4H PRN PO 08/19/17 11:15 09/02/17 11:14 08/19/17 11:34 10 MG Amiloride/HCTZ (Moduretic 5-50MG Tab) 1 tab QAM PO 08/20/17 09:00 09/19/17 08:59 Bumetanide (Bumex Tab) 2 mg QAM PO 08/20/17 09:00 09/19/17 08:59 Bupropion HCl (Wellbutrin-Sr Tab) 200 mg BID PO 08/19/17 21:00 09/18/17 20:59 Diphenhydramine HCl (Benadryl Cap) 50 mg HS PO 08/19/17 21:00 09/18/17 20:59 Duloxetine HCl (Cymbalta Cap) 60 mg BID PO 08/19/17 21:00 09/18/17 20:59 Fluticasone Propionate (Flonase Nasal [place]) 2 sprays HS EDITH 08/19/17 21:00 09/18/17 20:59 Lamotrigine (Lamictal Tab) 100 mg BID PO 08/19/17 21:00 09/18/17 20:59 Levothyroxine Sodium (Synthroid Tab) 88 mcg DAILYBB PO 08/20/17 06:00 09/19/17 05:59 Nortriptyline HCl (Pamelor Cap) 50 mg HS PO 08/19/17 21:00 09/18/17 20:59 Pantoprazole Sodium (Protonix Tab) 40 mg BID PO 08/19/17 21:00 09/18/17 20:59 Spironolactone (Aldactone Tab) 25 mg BIDM PO 08/19/17 17:45 09/18/17 17:44 Trazodone HCl (Desyrel Tab) 50 mg HS PO 08/19/17 21:00 09/18/17 20:59 Albuterol (Ventolin Hfa Inhaler) 2 puffs QID PRN INH 08/19/17 12:30 09/18/17 12:29 Cholecalciferol (Vitamin D Tab) 5,000 inter.unit QAM PO 08/20/17 09:00 09/19/17 08:59 Miscellaneous Information (Order Awaiting Action) 1 ea QS N/A 08/19/17 16:00 09/18/17 15:59 Morphine Sulfate (MoRPHine SULFATE INJ) 4 mg Q4HWA PRN IV 08/19/17 14:45 09/02/17 14:44 Lorazepam 0.5 mg/ Syringe 0.5 ml @ 0.5 mls/min Q8H PRN IV 08/19/17 15:15 09/18/17 15:14 Review of Systems As per admitting history and physical Physical Exam Date Time Temp Pulse Resp B/P (MAP) Pulse Ox O2 Delivery O2 Flow Rate FiO2 08/19/17 15:15 36.7 77 22 122/66 (84) 93 Room Air 08/19/17 12:56 36.9 81 16 136/85 Room Air 08/19/17 12:27 36.2 79 16 145/105 98 08/19/17 11:40 79 16 08/19/17 11:35 80 18 08/19/17 11:30 81 17 145/105 08/19/17 11:27 153/79 08/19/17 11:25 89 15 08/19/17 11:20 78 17 08/19/17 11:15 137/67 08/19/17 11:03 79 17 98 08/19/17 11:02 137/67 08/19/17 10:33 78 16 93 08/19/17 10:28 78 18 94 08/19/17 10:23 78 15 94 08/19/17 10:18 78 24 95 08/19/17 10:13 78 15 95 08/19/17 10:08 77 17 95 08/19/17 10:03 78 20 91 08/19/17 10:02 68/53 08/19/17 10:00 78 08/19/17 09:57 79 18 162/62 96 Room Air 08/19/17 09:56 162/62 08/19/17 08:19 95 Room Air 08/19/17 07:47 36.2 110 22 134/91 96 Room Air On my initial examination in the emergency room, she is lying in bed and complaining of pain in her right distal femur area and knee. There is a rolled up blanket under the knee for comfort. She has swelling of the knee at this time and is tender on palpation over the distal portion of the femur. No attempts are made to move the right lower extremity at the knee or hip due to fracture. She is able to move the right ankle and toes without difficulty. She denies any decreased sensation in the foot or toes of the right foot. Her right foot is slightly cool to the touch but capillary refill is less than 2 seconds. And I can appreciate a dorsalis pedis pulse. She denies any pain of the left lower extremity at this time. Range of motion is within normal limits. Bilateral upper extremity range of motion is within normal limits. She does have some mild shoulder discomfort which she states is normal for her. She denies any neck pain or back pain at this time. Laboratory Results Last 24 Hours Test 08/19/17 08:05 08/19/17 11:48 White Blood Count 17.05 K/uL Red Blood Count 4.13 M/uL Hemoglobin 10.6 g/dL Hematocrit 33.8 % Mean Corpuscular Volume 81.8 fL Mean Corpuscular Hemoglobin 25.7 pg Mean Corpuscular Hemoglobin Concent 31.4 g/dl Platelet Count 443 K/uL Mean Platelet Volume 9.2 fL Neutrophils (%) (Auto) 85.0 % Lymphocytes (%) (Auto) 8.9 % Monocytes (%) (Auto) 5.0 % Eosinophils (%) (Auto) 0.5 % Basophils (%) (Auto) 0.2 % Neutrophils # (Auto) 14.49 K/uL Lymphocytes # (Auto) 1.52 K/uL Monocytes # (Auto) 0.85 K/uL Eosinophils # (Auto) 0.09 K/uL Basophils # (Auto) 0.03 K/uL RDW Standard Deviation 48.2 fL RDW Coefficient of Variation 16.0 % Immature Granulocyte % (Auto) 0.4 % Immature Granulocyte # (Auto) 0.07 K/uL Prothrombin Time 10.5 SECONDS Prothromb Time International Ratio 1.0 Activated Partial Thromboplast Time 32.4 SECONDS Partial Thromboplastin Ratio 1.2 Sodium Level 130 mmol/L 130 mmol/L Potassium Level 5.1 mmol/L 4.6 mmol/L Chloride Level 97 mmol/L 100 mmol/L Carbon Dioxide Level 25 mmol/L 25 mmol/L Anion Gap 8.0 mmol/L 5.0 mmol/L Blood Urea Nitrogen 44 mg/dl 43 mg/dl Creatinine 1.99 mg/dl 1.74 mg/dl Est Creatinine Clear Calc Drug Dose 46.9 ml/min 53.7 ml/min Estimated GFR () 31.7 37.3 Estimated GFR (Non- 27.4 32.2 BUN/Creatinine Ratio 22.3 24.6 Random Glucose 111 mg/dl 126 mg/dl Calcium Level 9.0 mg/dl 9.2 mg/dl Magnesium Level 2.9 mg/dl Total Bilirubin 0.4 mg/dl Direct Bilirubin 0.1 mg/dl Aspartate Amino Transf (AST/SGOT) 17 U/L Alanine Aminotransferase (ALT/SGPT) 15 U/L Alkaline Phosphatase 100 U/L Troponin I < 0.015 ng/ml Total Protein 8.3 gm/dl Albumin 3.1 gm/dl Thyroid Stimulating Hormone (TSH) 4.940 uIu/ml Assessment & Plan Assessment: Right distal periprosthetic femur fracture Plan: Dr. Membreno will see the patient this evening but will not be available to do the surgery. I have spoken to Dr. Flores about this case. He is in agreement to go ahead and do the case. Patient will need an open reduction, internal fixation with Synthes periarticular locking plate with possible use of cerclage wires. She will be kept at bedrest and Ulrich's traction has been applied to the right lower extremity. Thank you for this consult.
[2017-08-19] MEDS: SPIRONOLACTONE 25 MG TAB PO SCH (17:45)
[2017-08-19] MEDS: DULOXETINE HCL 60 MG CAP PO SCH (21:00)
[2017-08-19] MEDS: PANTOprazole SOD 40 MG TAB PO SCH (21:00)
[2017-08-19] MEDS: NORTRIPTYLINE HCL 25 MG CAP PO SCH (21:00)
[2017-08-19] MEDS: BuPROPion SR 100 MG TABCR PO SCH (21:00)
[2017-08-19] MEDS: TRAZODONE HCL 50 MG TAB PO SCH (21:00)
[2017-08-19] MEDS: FLUTICASONE PROPIONATE NA SPR 16 GM BTL NAE SCH (21:00)
[2017-08-19 23:01] VITALS: BP 145/74; PULSE 74; TEMP 36.6; O2SAT 91
[2017-08-20] MEDS: MoRPHine SULFATE 4 MG/ML 1 ML CARP\\VIAL IV PRN ×2 (01:44→06:10)
[2017-08-20] MEDS: OXYCODONE HCL IR 5 MG TAB (IMMEDIATE RELEASE) PO PRN ×3 (05:16→15:07)
[2017-08-20] MEDS: LEVOTHYROXINE 88 MCG TAB PO SCH (05:18)
[2017-08-20 05:48] LABS: HEMATOCRIT 31.5 % (37-47); MEAN CELL VOLUME 82.5 fL (80-100); MEAN CORPUSCULAR HEMOGLOBIN 26.2 pg (25-34); MEAN CORPUSCULAR HGB CONC 31.7 g/dl (32-36); MEAN PLATELET VOLUME 9.2 fL (7.4-10.4); PLATELET COUNT 434 K/uL (130-400); RED CELL DISTRIBUTION WIDTH SD 48.5 fL (36.4-46.3); WHITE BLOOD COUNT 13.06 K/uL (4.8-10.8)
[2017-08-20 06:17] LABS: CALCIUM 9.1 mg/dl (8.5-10.1); CREATININE 1.86 mg/dl (0.60-1.20)
[2017-08-20] MEDS: ONDANSETRON INJ 2 MG/ML 2 ML VIAL IV PRN (07:32)
[2017-08-20 07:38] VITALS: BP 146/68; PULSE 81; TEMP 37; O2SAT 94
[2017-08-20] MEDS: DULERA~ORDER AWAITING ACTION SCH ×2 (08:00→16:00)
[2017-08-20] MEDS: SPIRONOLACTONE 25 MG TAB PO SCH ×2 (08:30→23:25)
[2017-08-20] MEDS ORDERED: ASPIRIN 81 MG ECTAB PO SCH (09:00)
[2017-08-20] MEDS: AMILORIDE/HCTZ 5-50 MG TAB PO SCH (09:00)
[2017-08-20] MEDS: BUMETANIDE 1 MG TAB PO SCH (09:00)
[2017-08-20] MEDS: CHOLECALCIFEROL 1000 INTER.UNIT TAB PO SCH (09:00)
[2017-08-20] MEDS: DULOXETINE HCL 60 MG CAP PO SCH ×2 (09:18→23:26)
[2017-08-20] MEDS: BuPROPion SR 100 MG TABCR PO SCH ×2 (09:19→23:26)
[2017-08-20] MEDS: PANTOprazole SOD 40 MG TAB PO SCH ×2 (09:22→23:26)
[2017-08-20] MEDS ORDERED: HYDROmorphone INJ 2 MG/ML SYR/VIAL IV ONE (10:30)
[2017-08-20] MEDS ORDERED: NURSING VERBAL MED ORDER ONE ×5 (10:30→22:30)
[2017-08-20] MEDS ORDERED: HYDROmorphone INJ 2 MG/ML SYR/VIAL IV STA (12:45)
[2017-08-20 15:23] VITALS: BP 138/82; PULSE 84; TEMP 36.8; O2SAT 92
[2017-08-20] MEDS ORDERED: EpHEDrine SULFATE INJ 50 MG/ML AMP IV PRN (16:30)
[2017-08-20] MEDS ORDERED: FENTANYL CITRATE INJ 50 MCG/1 ML 2 ML VIAL IV PRN (16:30)
[2017-08-20] MEDS ORDERED: HYDROmorphone INJ 2 MG/ML SYR/VIAL IV PRN (16:30)
[2017-08-20] MEDS ORDERED: ONDANSETRON INJ 2 MG/ML 2 ML VIAL IV PRN ×2 (16:30→22:00)
[2017-08-20] MEDS ORDERED: ATROPINE SULFATE 0.1 MG/ML 5ML SYR IV PRN (16:30)
[2017-08-20] MEDS ORDERED: LACTATED RINGER'S 1000ML 1,000 ML IV SCH (16:45)
[2017-08-20] MEDS ORDERED: DEXTROSE 5% 1000ML 1,000 ML IV SCH (16:45)
[2017-08-20] MEDS ORDERED: FENTANYL CITRATE INJ 50 MCG/1 ML 2 ML VIAL IV ONE (17:15)
[2017-08-20] MEDS ORDERED: ONDANSETRON INJ 2 MG/ML 2 ML VIAL ONE (17:30)
[2017-08-20] MEDS ORDERED: DEXAMETHASONE SOD INJ 4 MG/ML VIAL ONE (17:30)
[2017-08-20] MEDS ORDERED: PROPOFOL IV EMULSION 10 MG/ML 20 ML VIAL IV ONE (17:30)
[2017-08-20] MEDS ORDERED: SUCCINYLCHOLINE CHLORIDE 20 MG/ML 10 ML VIAL IV ONE ×2 (17:30→18:55)
[2017-08-20] MEDS ORDERED: LIDOCAINE HCL 2% 2 ML VIAL (20MG/ML) ONE (17:30)
[2017-08-20] MEDS ORDERED: FENTANYL CITRATE INJ 50 MCG/1 ML 2 ML VIAL ONE ×5 (17:37→22:11)
[2017-08-20] MEDS ORDERED: MIDAZOLAM HCL 1 MG/ML 2ML VIAL ONE (17:37)
[2017-08-20] MEDS ORDERED: KETAMINE HCL INJ 50 MG/ML 10 ML VIAL ONE (17:38)
[2017-08-20] MEDS ORDERED: CEFAZOLIN SOD 3000MG/22.5 ML IV PUSH IV ONE (17:51)
[2017-08-20] MEDS ORDERED: BACITRACIN 50000 UNIT VIAL ONE (17:56)
--- NOTE | 2017-08-20 17:57 | History & Physical Bridge Note ---
H&P Re-Evaluation Bridge Note: I have examined the patient, reviewed the History & Physical and in the interval since the performance of the History & Physical I have noted the following changes of clinical significance: No changes noted
[2017-08-20] MEDS ORDERED: ROPIVACAINE 5MG/ML 30 ML 150 MG, BUPIVACAINE/EPINEPHR 0.5% MPF 30 ML, KETOROLAC TROMETH... INFIL SCH ×7 (18:00)
--- NOTE | 2017-08-20 18:01 | Orthopedic Progress Note ---
Orthopedic Progress Note Date of Service Aug 20, 2017. Subjective Additional Notes: Patient seen in preoperative holding, accompanied by family members, complaining of pain to the right lower extremity. Sustained a fall 1 day prior from standing height. Denies numbness tingling in right lower extremity. Denies pain to additional extremities. Denies hitting head or loss consciousness. Objective NAD, alert and oriented 3 Right lower extremity neurovascular sensory intact positive EHL/FHL/TA/GS, SILT grossly, CR< 2 seconds, compartments soft NT, hip and knee ROM deferred secondary to fracture, skin intact. Date Time Temp Pulse Resp B/P (MAP) Pulse Ox O2 Delivery O2 Flow Rate FiO2 08/20/17 17:28 91 95 Nasal Cannula 2 08/20/17 16:21 36.7 82 18 166/71 (102) 92 Room Air 08/20/17 15:23 36.8 84 22 138/82 (100) 92 Room Air 08/20/17 07:38 37.0 81 23 146/68 (94) 94 Room Air 08/20/17 07:30 Room Air 08/19/17 23:45 Room Air 08/19/17 23:01 36.6 74 18 145/74 (97) 91 Room Air Laboratory Results 24 Hours: Test 08/20/17 05:33 Hematocrit 31.5 % Hemoglobin 10.0 g/dL Prothromb Time International Ratio 1.0 Prothrombin Time 10.1 SECONDS Assessment & Plan Assessment: Right jose-prosthetic distal femur fracture. Plan: I indicated the patient for open reduction internal fixation of the right distal femur. I explained the risks and benefits in their entirety to the patient and family at bedside which include but not limited to infection, bleeding, blood clots, damage to surrounding nerves and vessels soft tissue and bone, malunion, nonunion, failure of the implant, need for additional surgery. The patient and family collectively agreed to proceed with surgical intervention and consent was obtained at this time.
[2017-08-20] MEDS ORDERED: CLINDAMYCIN PHOS 150 MG/ML 2 ML VIAL ONE ×2 (18:03→18:28)
[2017-08-20] MEDS ORDERED: ALBUTEROL HFA INHALER 8.5 GM INH ONE (18:30)
[2017-08-20] MEDS ORDERED: ROCURONIUM BROMIDE 10 MG/ML 5 ML VIAL IV ONE (18:55)
[2017-08-20] MEDS ORDERED: ALBUMIN HUMAN 5% 12.5 GM/250 ML VIAL IV ONE (19:12)
[2017-08-20] MEDS ORDERED: VANCOMYCIN CONSULT ACTIVE PRN (19:45)
[2017-08-20] MEDS ORDERED: VANCOMYCIN IV 2,000 MG in SODIUM CHLORIDE 0.9% 500ML 500 ML IV STA (19:49)
[2017-08-20] MEDS ORDERED: NEOSTIGMINE METHYLSULFATE 5 MG/5 ML SYR ONE (20:13)
[2017-08-20] MEDS ORDERED: GLYCOPYRROLATE INJ 0.2 MG/ML VIAL ONE (20:13)
--- NOTE | 2017-08-20 21:37 | DIAGNOSTIC IMAGING REPORT ---
R FEMUR 2 VIEWS ROUTINE CLINICAL HISTORY: 57 years-old Female presenting with RT ORIF DISTAL FEMUR. TECHNIQUE: 5 fluoroscopic spot image(s) obtained as part of an intraoperative procedure. COMPARISON: 07/22/2017. FINDINGS/IMPRESSION: There has been interval plate and screw and cerclage wire fixation of the periprosthetic oblique fracture of the distal right femur. No residual displacement or malalignment. Grossly normal appearing total right knee arthroplasty with patellar resurfacing. Please see surgical report for further details. Fluoroscopy dosage (mGy): 12.91. Fluoroscopy time: 109.5 seconds. Number of fluoroscopic spot images: 5. Electronically signed by: Antoino Vazquez M.D. 08/20/2017 9:35 PM Dictated Date/Time: 08/20/2017 9:34 PM
--- NOTE | 2017-08-20 21:49 | [facility] Post Operative Brief Note ---
Immediate Operative Summary Operative Date Aug 20, 2017. Pre-Operative Diagnosis Right distal periprosthetic femur fracture Post-Operative Diagnosis Right distal periprosthetic femur fracture Procedure(s) Performed Open Reduction Internal Fixation Right Distal Femur Surgeon Dr. Flores Software Quality Automation Engineer Surgeon(s) Saida Schafer PA-C Estimated Blood Loss 450cc Findings Consistent with Post-Op Diagnosis Fluids (cc crystalloids) 1500 crystaloid, 500 albumin Specimens None Drains None Anesthesia Type General Complication(s) none Disposition Accompanied Pt To Recover: no Disposition: Recovery Room / PACU
[2017-08-20] MEDS ORDERED: MoRPHine SULFATE 4 MG/ML 1 ML CARP\\VIAL IV PRN (22:00)
[2017-08-20] MEDS ORDERED: CLINDAMYCIN IV 900 MG in DEXTROSE 5% 50ML 50 ML IV SCH (22:00)
[2017-08-20] MEDS ORDERED: COUGH DROP (SUGAR FREE) LOZ 24 LOZ/1 BOX LOZ PRN (22:00)
[2017-08-20] MEDS ORDERED: LABETALOL HCL IV 5 MG/ML 20ML IV ONE (22:19)
--- NOTE | 2017-08-20 22:40 | DIAGNOSTIC IMAGING REPORT ---
R FEMUR 2 VIEWS ROUTINE CLINICAL HISTORY: 57 years-old Female presenting with s/p ORIF distal femur . TECHNIQUE: Frontal and lateral views of the right femur were obtained. COMPARISON: 08/19/2017. FINDINGS: There has been interval plate and screw and cerclage wire fixation of the distal right femoral metadiaphysis across the obliquely oriented periprosthetic fracture. Redemonstration of total right knee arthroplasty with patellar resurfacing. No malalignment or diastases at the fracture site. Expected soft tissue emphysema. The right hip joint and knee joint are congruent. IMPRESSION: Expected postsurgical changes status post internal fixation of the obliquely oriented periprosthetic distal metadiaphyseal fracture of the right femur. Electronically signed by: Antonio Vazquez M.D. 08/20/2017 10:39 PM Dictated Date/Time: 08/20/2017 10:38 PM
--- NOTE | 2017-08-20 22:52 | Progress Note ---
Subjective Date of Service: Aug 20, 2017. Subjective Pt evaluation today including: conversation w/ patient 57 yo female is here with an acute distal femoral fracture at the metaphysis. Patient today is scheduled for surgical repair. Patient reports significant pain in her affected right leg. Patient denies any fever, chills, nausea, vomiting. Problem List Medical Problems: (1) Contusion of lower extremity Status: Acute (2) Contusion of multiple sites Status: Acute (3) Fall Status: Acute (4) Fall Status: Acute (5) Fall Status: Acute (6) Hypokalemia Status: Acute (7) Hypoxia Status: Acute (8) Hypoxia Status: Acute (9) Left sided chest pain Status: Acute (10) Leukocytosis Status: Acute (11) Lumbar contusion Status: Acute (12) Morbid obesity Status: Acute (13) Multiple fractures of ribs of left side Status: Acute (14) Pulmonary edema Status: Acute (15) Pulmonary edema Status: Acute (16) Rib fracture Status: Acute (17) Right femoral fracture Status: Acute (18) SOB (shortness of breath) Status: Acute Review of Systems Constitutional: No fever Eyes: No worsening of vision ENT: No hearing loss Respiratory: No cough Cardiac: No chest pain Abdomen: No pain Musculoskeletal: + see HPI, + joint pain, + muscle pain Heme: No abnormal bleeding/bruising Endo: No fatigue Skin: No rash All Other Systems: Reviewed and Negative Objective Vital Signs Date Time Temp Pulse Resp B/P (MAP) Pulse Ox O2 Delivery O2 Flow Rate FiO2 08/20/17 22:26 155/62 08/20/17 22:25 68 08/20/17 22:25 68 100 08/20/17 22:21 165/73 08/20/17 22:20 82 08/20/17 22:20 82 100 08/20/17 22:16 171/72 08/20/17 22:15 83 08/20/17 22:15 83 100 08/20/17 22:10 84 08/20/17 22:10 84 172/72 100 08/20/17 22:06 151/77 08/20/17 22:05 85 08/20/17 22:05 85 100 08/20/17 22:00 83 08/20/17 22:00 83 175/63 100 08/20/17 21:56 173/69 08/20/17 21:55 86 100 08/20/17 21:55 87 08/20/17 21:55 37.2 86 22 173/69 100 Oxymask 10 08/20/17 17:28 91 95 Nasal Cannula 2 08/20/17 16:21 36.7 82 18 166/71 (102) 92 Room Air 08/20/17 15:35 Room Air 08/20/17 15:23 36.8 84 22 138/82 (100) 92 Room Air 08/20/17 07:38 37.0 81 23 146/68 (94) 94 Room Air 08/20/17 07:30 Room Air 08/19/17 23:45 Room Air 08/19/17 23:01 36.6 74 18 145/74 (97) 91 Room Air Physical Exam Comments: General Appearance: Patient continues to appear to be in mild distress Head: normocephalic, atraumatic Eyes: PERRL, EOMI Neck: supple Respiratory/Chest: chest non-tender, lungs clear, normal breath sounds, no respiratory distress (reaching appropriate oxygen saturations on room air; diminished BS at bases 2/2 body habitus) Cardiovascular: regular rate, rhythm, no edema, no gallop, no JVD, no murmur, normal peripheral pulses Abdomen/GI: normal bowel sounds, non tender, soft Extremities/Musculoskelatal: + pertinent finding ((R) knee with significant pain with active and passive movement; neurovascularly intact) Neurologic/Psych: manager spa II-XII nml as tested, no motor/sensory deficits, oriented x 3 Skin: normal color, warm/dry Laboratory Results Last 24 Hours Test 08/20/17 05:33 White Blood Count 13.06 K/uL Red Blood Count 3.82 M/uL Hemoglobin 10.0 g/dL Hematocrit 31.5 % Mean Corpuscular Volume 82.5 fL Mean Corpuscular Hemoglobin 26.2 pg Mean Corpuscular Hemoglobin Concent 31.7 g/dl RDW Standard Deviation 48.5 fL RDW Coefficient of Variation 16.0 % Platelet Count 434 K/uL Mean Platelet Volume 9.2 fL Prothrombin Time 10.1 SECONDS Prothromb Time International Ratio 1.0 Sodium Level 131 mmol/L Potassium Level 4.0 mmol/L Chloride Level 99 mmol/L Carbon Dioxide Level 26 mmol/L Anion Gap 6.0 mmol/L Blood Urea Nitrogen 44 mg/dl Creatinine 1.86 mg/dl Est Creatinine Clear Calc Drug Dose 47.8 ml/min Estimated GFR () 34.4 Estimated GFR (Non- 29.7 BUN/Creatinine Ratio 23.5 Random Glucose 137 mg/dl Calcium Level 9.1 mg/dl Assessment and Plan Anjum is a 57/F who sustained a Right distal femoral fracture at the level of the metaphysis after fall. Orthopedic surgery service has been consulted and anticipate surgery Admit: Med/Surg 1) Right distal femoral Fracture - confirmed by radiograph - rec'd intravenous hydromorphone and ketorolac - Pain appears to not be adequately controlled. - Patient will be going to OR today. - will attempt to contact pain with PO oxycodone - Ortho service on board - Surgery today 2) Hypothyroidism; Hx of thyroidectomy - resume levothyroxine 88 mcg PO daily - TSH 4.940; might need up titration - f/u as OP - But will defer this to outpatient. 3) Heart Failure; Grade II Diastolic Dysfunction - last Echo 10-Jan-2017; EF 65-70% - resume bumetanide 2 mg PO daily - resume amiloride/HCTZ 5/50 mg PO daily - resume ASA 81 mg PO daily VS qShift Diet: Low Sodium; NPO mn Activity: with assistance DVT ppx: SQ Heparin and SCD; pharmacologic ppx to be held at mn Precautions: FALL Continued [facility] stay due to: other (surgery) Discharge planning: rehab hospital
--- NOTE | 2017-08-20 22:54 | Orthopedic Progress Note ---
Orthopedic Progress Note Date of Service Aug 20, 2017. Subjective Additional Notes: Patient seen in PACU, comfortable, pain well controlled, no acute issues. Objective NAD, AOx3 RLE NVSI +EHL/FHL, SILT grossly, CR< 2 seconds, + 2 DP pulse with doppler. compartments soft NT, KI in place, drain x 2 intact Date Time Temp Pulse Resp B/P (MAP) Pulse Ox O2 Delivery O2 Flow Rate FiO2 08/20/17 22:26 155/62 08/20/17 22:25 68 08/20/17 22:25 68 100 08/20/17 22:21 165/73 08/20/17 22:20 82 08/20/17 22:20 82 100 08/20/17 22:16 171/72 08/20/17 22:15 83 08/20/17 22:15 83 100 08/20/17 22:10 84 08/20/17 22:10 84 172/72 100 08/20/17 22:06 151/77 08/20/17 22:05 85 08/20/17 22:05 85 100 08/20/17 22:00 83 08/20/17 22:00 83 175/63 100 08/20/17 21:56 173/69 08/20/17 21:55 86 100 08/20/17 21:55 87 08/20/17 21:55 37.2 86 22 173/69 100 Oxymask 10 08/20/17 17:28 91 95 Nasal Cannula 2 08/20/17 16:21 36.7 82 18 166/71 (102) 92 Room Air 08/20/17 15:35 Room Air 08/20/17 15:23 36.8 84 22 138/82 (100) 92 Room Air 08/20/17 07:38 37.0 81 23 146/68 (94) 94 Room Air 08/20/17 07:30 Room Air 08/19/17 23:45 Room Air 08/19/17 23:01 36.6 74 18 145/74 (97) 91 Room Air Laboratory Results 24 Hours: Test 08/20/17 05:33 Hematocrit 31.5 % Hemoglobin 10.0 g/dL Prothromb Time International Ratio 1.0 Prothrombin Time 10.1 SECONDS Assessment & Plan Assessment: s/p ORIF right distal femur for Right jose-prosthetic distal femur fracture. Plan: -clinda x 24 -DVT PPX: Lovenox 40mg -NWB RLE -Maintain KI -Monitor drain output -PT/OT -PO XR: Anatomic alignment of fracture, well aligned, well fixed orthopedic implants without new fracture or dislocation of the hip or knee. -am labs
[2017-08-20 23:16] VITALS: BP 131/51; PULSE 71; TEMP 37.1; O2SAT 99
[2017-08-20 23:20] VITALS: O2SAT 99
[2017-08-20] MEDS: FLUTICASONE PROPIONATE NA SPR 16 GM BTL NAE SCH (23:25)
[2017-08-20] MEDS: NORTRIPTYLINE HCL 25 MG CAP PO SCH (23:26)
[2017-08-20] MEDS: TRAZODONE HCL 50 MG TAB PO SCH (23:26)
--- NOTE | 2017-08-20 23:35 | Anesthesiology Progress Note ---
Anesthesia Post Op Note Date & Time Aug 20, 2017 at 23:35 Vital Signs Pain Intensity: 6.0 Vital Signs Past 12 Hours Date Time Temp Pulse Resp B/P (MAP) Pulse Ox O2 Delivery O2 Flow Rate FiO2 08/20/17 23:20 99 Nasal Cannula 3.0 08/20/17 23:16 37.1 71 18 131/51 (77) 99 Nasal Cannula 3.0 08/20/17 23:07 37.0 98 Nasal Cannula 3 08/20/17 23:00 146/71 08/20/17 22:57 68 99 08/20/17 22:57 68 08/20/17 22:55 135/70 08/20/17 22:52 68 100 08/20/17 22:52 68 08/20/17 22:51 132/56 08/20/17 22:47 68 100 08/20/17 22:47 68 08/20/17 22:45 153/66 08/20/17 22:42 67 08/20/17 22:42 67 100 08/20/17 22:40 142/59 08/20/17 22:37 67 08/20/17 22:37 67 100 08/20/17 22:35 141/52 08/20/17 22:33 137/48 08/20/17 22:32 67 100 08/20/17 22:32 67 08/20/17 22:30 177/60 08/20/17 22:27 69 08/20/17 22:27 68 08/20/17 22:26 155/62 08/20/17 22:25 68 08/20/17 22:25 68 100 08/20/17 22:21 165/73 08/20/17 22:20 82 08/20/17 22:20 82 100 08/20/17 22:16 171/72 08/20/17 22:15 83 08/20/17 22:15 83 100 08/20/17 22:10 84 08/20/17 22:10 84 172/72 100 08/20/17 22:06 151/77 08/20/17 22:05 85 08/20/17 22:05 85 100 08/20/17 22:00 83 08/20/17 22:00 83 175/63 100 08/20/17 21:56 173/69 08/20/17 21:55 86 100 08/20/17 21:55 87 08/20/17 21:55 37.2 86 22 173/69 100 Oxymask 10 08/20/17 17:28 91 95 Nasal Cannula 2 08/20/17 16:21 36.7 82 18 166/71 (102) 92 Room Air 08/20/17 15:35 Room Air 08/20/17 15:23 36.8 84 22 138/82 (100) 92 Room Air Notes Mental Status: alert / awake / arousable, participated in evaluation Pt Amnestic to Procedure: Yes Nausea / Vomiting: adequately controlled Pain: adequately controlled Airway Patency, RR, SpO2: stable & adequate BP & HR: stable & adequate Hydration State: stable & adequate Anesthetic Complications: no major complications apparent
[2017-08-20 23:45] VITALS: BP 158/67; PULSE 73; TEMP 36.8; O2SAT 92
[2017-08-21] VITALS (11 sets, daily range): BP systolic 95–144; BP diastolic 42–79; PULSE 63–80; TEMP 36.7–36.9; O2SAT 92–97
[2017-08-21] MEDS: CLINDAMYCIN IV 900 MG in DEXTROSE 5% 50ML 44 ML IV SCH ×2 (00:07→09:36)
[2017-08-21] MEDS: SODIUM CHLORIDE 0.9% 1000ML 1,000 ML IV SCH ×2 (00:07→07:53)
[2017-08-21] MEDS: LEVOTHYROXINE 88 MCG TAB PO SCH (05:37)
[2017-08-21] MEDS: OXYCODONE HCL IR 5 MG TAB (IMMEDIATE RELEASE) PO PRN ×5 (05:39→22:46)
[2017-08-21] MEDS: DULERA~ORDER AWAITING ACTION SCH ×3 (08:00→15:53)
[2017-08-21 08:52] LABS: HEMOGLOBIN 7.5 g/dL (12.0-16.0); MEAN CELL VOLUME 81.6 fL (80-100); MEAN CORPUSCULAR HEMOGLOBIN 25.5 pg (25-34); MEAN CORPUSCULAR HGB CONC 31.3 g/dl (32-36); MEAN PLATELET VOLUME 9.2 fL (7.4-10.4); PLATELET COUNT 450 K/uL (130-400); RED CELL DISTRIBUTION WIDTH CV 16.1 % (11.5-14.5); RED CELL DISTRIBUTION WIDTH SD 48.5 fL (36.4-46.3); WHITE BLOOD COUNT 14.19 K/uL (4.8-10.8)
[2017-08-21 09:22] LABS: CALCIUM 8.4 mg/dl (8.5-10.1); CREATININE 1.59 mg/dl (0.60-1.20)
[2017-08-21] MEDS: BUMETANIDE 1 MG TAB PO SCH (09:38)
[2017-08-21] MEDS: SPIRONOLACTONE 25 MG TAB PO SCH ×2 (09:39→17:59)
[2017-08-21] MEDS: BuPROPion SR 100 MG TABCR PO SCH ×2 (09:39→21:12)
[2017-08-21] MEDS: CHOLECALCIFEROL 1000 INTER.UNIT TAB PO SCH (09:40)
[2017-08-21] MEDS: PANTOprazole SOD 40 MG TAB PO SCH ×2 (09:41→21:12)
[2017-08-21] MEDS: DULOXETINE HCL 60 MG CAP PO SCH ×2 (09:41→21:10)
--- NOTE | 2017-08-21 09:44 | Orthopedic Progress Note ---
Orthopedic Progress Note Date of Service Aug 21, 2017. Subjective Additional Notes: Patient seen laying in bed, comfortable, pain well controlled, no acute issues overnight. Denies SOB, CP, Nausea, Vomiting or feeling light headed. Objective NAD, AOx3 RLE NVSI +EHL/FHL/TA/GS SILT grossly, CR< 2 seconds, +2 dp pulse with doppler. compartment soft NT, dressing CDI, KI and HMV drain intact and maintaining suction. Date Time Temp Pulse Resp B/P (MAP) Pulse Ox O2 Delivery O2 Flow Rate FiO2 08/21/17 07:17 36.9 63 20 118/58 (78) 93 Room Air 08/21/17 03:29 36.9 63 16 116/73 (87) 93 Room Air 08/21/17 02:15 36.8 73 19 124/63 (83) 93 Room Air 08/21/17 01:15 36.7 66 16 95/54 (68) 92 Room Air 08/20/17 23:45 36.8 73 15 158/67 (97) 92 Nasal Cannula 3.0 08/20/17 23:20 99 Nasal Cannula 3.0 08/20/17 23:16 37.1 71 18 131/51 (77) 99 Nasal Cannula 3.0 08/20/17 23:16 99 Nasal Cannula 3.0 08/20/17 23:07 37.0 98 Nasal Cannula 3 08/20/17 23:00 146/71 08/20/17 22:57 68 99 08/20/17 22:57 68 08/20/17 22:55 135/70 08/20/17 22:52 68 100 08/20/17 22:52 68 08/20/17 22:51 132/56 08/20/17 22:47 68 100 08/20/17 22:47 68 08/20/17 22:45 153/66 08/20/17 22:42 67 08/20/17 22:42 67 100 08/20/17 22:40 142/59 08/20/17 22:37 67 08/20/17 22:37 67 100 08/20/17 22:35 141/52 08/20/17 22:33 137/48 08/20/17 22:32 67 100 08/20/17 22:32 67 08/20/17 22:30 177/60 08/20/17 22:27 69 08/20/17 22:27 68 08/20/17 22:26 155/62 08/20/17 22:25 68 08/20/17 22:25 68 100 08/20/17 22:21 165/73 08/20/17 22:20 82 08/20/17 22:20 82 100 08/20/17 22:16 171/72 08/20/17 22:15 83 08/20/17 22:15 83 100 08/20/17 22:10 84 08/20/17 22:10 84 172/72 100 08/20/17 22:06 151/77 08/20/17 22:05 85 08/20/17 22:05 85 100 08/20/17 22:00 83 08/20/17 22:00 83 175/63 100 08/20/17 21:56 173/69 08/20/17 21:55 86 100 08/20/17 21:55 87 08/20/17 21:55 37.2 86 22 173/69 100 Oxymask 10 08/20/17 17:28 91 95 Nasal Cannula 2 08/20/17 16:21 36.7 82 18 166/71 (102) 92 Room Air 08/20/17 15:35 Room Air 08/20/17 15:23 36.8 84 22 138/82 (100) 92 Room Air Laboratory Results 24 Hours: Test 08/21/17 08:17 Hematocrit 24.0 % Hemoglobin 7.5 g/dL Assessment & Plan Assessment: s/p ORIF right distal femur for Right jose-prosthetic distal femur fracture. POD#1 -Post-op anemia Plan: -clinda x 24 -DVT PPX: Lovenox 40mg -NWB RLE -Maintain KI, may remove for hygiene -Monitor drain output, 100cc out -PT/OT -PO XR: Anatomic alignment of fracture, well aligned, well fixed orthopedic implants without new fracture or dislocation of the hip or knee. -am labs - hgb 7.5, patient currently asymptomatic and vital signs are WNL, would continue to monitor unless becomes symptomatic, recheck h/h this afternoon.
[2017-08-21] MEDS: AMILORIDE/HCTZ 5-50 MG TAB PO SCH (09:45)
[2017-08-21] MEDS: ENOXAPARIN 40 MG/0.4 ML SYR SQ SCH (09:51)
--- NOTE | 2017-08-21 09:56 | Anesthesiology Progress Note ---
Anesthesia Post Op Note Date & Time Aug 21, 2017 at 09:56 Vital Signs Vital Signs Past 12 Hours Date Time Temp Pulse Resp B/P (MAP) Pulse Ox O2 Delivery O2 Flow Rate FiO2 08/21/17 09:44 73 139/79 (99) 08/21/17 07:17 36.9 63 20 118/58 (78) 93 Room Air 08/21/17 03:29 36.9 63 16 116/73 (87) 93 Room Air 08/21/17 02:15 36.8 73 19 124/63 (83) 93 Room Air 08/21/17 01:15 36.7 66 16 95/54 (68) 92 Room Air 08/20/17 23:45 36.8 73 15 158/67 (97) 92 Nasal Cannula 3.0 08/20/17 23:20 99 Nasal Cannula 3.0 08/20/17 23:16 37.1 71 18 131/51 (77) 99 Nasal Cannula 3.0 08/20/17 23:16 99 Nasal Cannula 3.0 08/20/17 23:07 37.0 98 Nasal Cannula 3 08/20/17 23:00 146/71 08/20/17 22:57 68 99 08/20/17 22:57 68 08/20/17 22:55 135/70 08/20/17 22:52 68 100 08/20/17 22:52 68 08/20/17 22:51 132/56 08/20/17 22:47 68 100 08/20/17 22:47 68 08/20/17 22:45 153/66 08/20/17 22:42 67 08/20/17 22:42 67 100 08/20/17 22:40 142/59 08/20/17 22:37 67 08/20/17 22:37 67 100 08/20/17 22:35 141/52 08/20/17 22:33 137/48 08/20/17 22:32 67 100 08/20/17 22:32 67 08/20/17 22:30 177/60 08/20/17 22:27 69 08/20/17 22:27 68 08/20/17 22:26 155/62 08/20/17 22:25 68 08/20/17 22:25 68 100 08/20/17 22:21 165/73 08/20/17 22:20 82 08/20/17 22:20 82 100 08/20/17 22:16 171/72 08/20/17 22:15 83 08/20/17 22:15 83 100 08/20/17 22:10 84 08/20/17 22:10 84 172/72 100 08/20/17 22:06 151/77 08/20/17 22:05 85 08/20/17 22:05 85 100 08/20/17 22:00 83 08/20/17 22:00 83 175/63 100 Notes Mental Status: alert / awake / arousable, participated in evaluation Pt Amnestic to Procedure: Yes Nausea / Vomiting: adequately controlled Pain: adequately controlled Airway Patency, RR, SpO2: stable & adequate BP & HR: stable & adequate Hydration State: stable & adequate Anesthetic Complications: no major complications apparent
--- NOTE | 2017-08-21 10:18 | [facility] Operative Report ---
Operative Report Operative Date Aug 20, 2017. Pre-Operative Diagnosis Right distal periprosthetic femur fracture Post-Operative Diagnosis Right distal periprosthetic femur fracture Procedure(s) Performed Open Reduction Internal Fixation Right Distal Femur Surgeon Dr. Flores Retirement Administrator Surgeon(s) Saida Schafer PA-C Estimated Blood Loss 450cc Findings see dictated op note Fluids 1500 crystaloid, 500 albumin Specimens None Drains None Anesthesia Type General Complication(s) none Disposition no Recovery Room / PACU Description of Procedure Following induction of adequate general anesthesia, the patient's left leg was prepped and draped in usual sterile manner. A well-padded sterile tourniquet was applied to the proximal aspect of the thigh. Utilizing c-arm fluoroscopy the fracture site was identified and marked. An esmarch was applied to the leg and tourniquet insufflated to 300mmHg. An incision was made at the level of the fracture along the lateral aspect of the femur. Subcutaneous tissue was sharply dissected, electrocautery was used for hemostasis. Fascia was incised throughout the length of the wound and the vastus lateralis was swept from the posterior iliotibial band with blunt dissection. Subperiosteal dissection was carried out to expose the femoral fracture. At this time the tourniquet was released and removed from the proximal thigh. The lateral incision was extended both proximally and distally to allow for adequate exposure of the fracture site. Self-retainers were placed to aid in visualization. After the fracture site was identified and cleaned of any blood clots and debris using a combination of rotation and longitudinal traction, adequate reduction of the long portion of the fracture was achieved. Fracture reduction and positioning was assessed under C-arm fluoroscopy. The fracture initially held provisionally using three sequentially placed 1.7 cerclage cables. Anatomic fracture reduction was confirmed utilizing c-arm fluoroscopy. Next, a 10-hole distal femoral locking plate was placed about the lateral aspect of the femur and held using a Ver[place]rugge bone clamp The distal locking guide was placed in the anterior and distal screw hole and held provisionally using a K-wire. Proximal fixation was obtained by placement of a single k-wire through wire guide and plate. Adequate positioning of the plate both in the distal and proximal aspects as well as anterior and posterior were assessed utilizing C- arm fluoroscopy. Once we were satisfied with our fracture reduction and plate placement, I turned my attention to the distal aspect of the locking plate. Distal fixation was carried out utilizing 1-7.3mm x 70mm cannulated screw was placed followed by 2- 5.0mm x 25mm screws, 1-5.0x60mm screw and 1-5.0x65mm screw. Placement was verified under C-arm fluoroscopy. Finally I turned my attention back to the proximal locking plate and 1-4.5 x40mm cortical screw was placed just proximal to the fracture site which reduced the plate to the bone. Next 1-5.0x38mm locking screw and 2-40mmx5.0 locking screws were placed. Final positioning of the plate and screws was confirmed utilizing the c-arm fluoroscopy. The wound was copiously irrigated with sterile saline solution with bacitracin. Fascia was closed using #1 Vicryl , subcutaneous tissue was closed using 2-0 Vicryl over a drain, and skin was closed with dixie. Sterile dressing of adaptec, 4x4s, ABDs and foam tape was applied. Patient was placed in a knee immobilizer at this time. Patient was extubated while in the OR and was transported to PACU in stable condition. The patient tolerated the procedure well. Due to the complex nature of the procedure, the entire surgery was performed with the operational assistance of Junie Schafer PA-C. The it administrative assistant, under direct supervision, was involved in the actual performance of all aspects of the surgical procedure including hemostasis, tissue retraction and incision, instrument management, patient positioning, and wound closure. I attest to the content of the Intraoperative Record and any orders documented therein. Any exceptions are noted below.
[2017-08-21] MEDS ORDERED: NURSING VERBAL MED ORDER ONE (13:15)
[2017-08-21 15:49] LABS: HEMATOCRIT 23.4 % (37-47); HEMOGLOBIN 7.1 g/dL (12.0-16.0)
[2017-08-21] MEDS: ACETAMINOPHEN 325 MG TAB PO PRN (15:50)
[2017-08-21 19:44] LABS: HEMATOCRIT 22.8 % (37-47); HEMOGLOBIN 7.2 g/dL (12.0-16.0)
[2017-08-21] MEDS: FLUTICASONE PROPIONATE NA SPR 16 GM BTL NAE SCH (21:10)
[2017-08-21] MEDS: DOCUSATE SODIUM/SENNA 50/8.6MG TAB PO SCH (21:11)
[2017-08-21] MEDS: TRAZODONE HCL 50 MG TAB PO SCH (21:11)
[2017-08-21] MEDS: NORTRIPTYLINE HCL 25 MG CAP PO SCH (21:12)
--- NOTE | 2017-08-21 22:20 | Progress Note ---
Subjective Date of Service: Aug 21, 2017. Subjective Pt evaluation today including: conversation w/ patient 57 yo female reports feeling significantly better today. Patient reports pain is well controlled. Patient denies any fatigue, nausea, vomiting, SOB. Problem List Medical Problems: (1) Contusion of lower extremity Status: Acute (2) Contusion of multiple sites Status: Acute (3) Fall Status: Acute (4) Fall Status: Acute (5) Fall Status: Acute (6) Hypokalemia Status: Acute (7) Hypoxia Status: Acute (8) Hypoxia Status: Acute (9) Left sided chest pain Status: Acute (10) Leukocytosis Status: Acute (11) Lumbar contusion Status: Acute (12) Morbid obesity Status: Acute (13) Multiple fractures of ribs of left side Status: Acute (14) Pulmonary edema Status: Acute (15) Pulmonary edema Status: Acute (16) Rib fracture Status: Acute (17) Right femoral fracture Status: Acute (18) SOB (shortness of breath) Status: Acute Review of Systems Constitutional: No fever Eyes: No worsening of vision ENT: No hearing loss Respiratory: No cough Cardiac: No chest pain Abdomen: No pain Musculoskeletal: + joint pain Neurologic: No memory loss Psychiatric: No depression symptoms Heme: No abnormal bleeding/bruising Endo: No fatigue Skin: No itch All Other Systems: Reviewed and Negative Objective Vital Signs Date Time Temp Pulse Resp B/P (MAP) Pulse Ox O2 Delivery O2 Flow Rate FiO2 08/21/17 16:00 97 Room Air 08/21/17 15:51 36.8 72 16 134/65 (88) 97 Room Air 08/21/17 13:11 36.9 72 18 107/42 (63) 94 Room Air 08/21/17 09:44 73 139/79 (99) 08/21/17 07:45 Room Air 08/21/17 07:17 36.9 63 20 118/58 (78) 93 Room Air 08/21/17 03:29 36.9 63 16 116/73 (87) 93 Room Air 08/21/17 02:15 36.8 73 19 124/63 (83) 93 Room Air 08/21/17 01:15 36.7 66 16 95/54 (68) 92 Room Air 08/20/17 23:45 36.8 73 15 158/67 (97) 92 Nasal Cannula 3.0 08/20/17 23:20 99 Nasal Cannula 3.0 08/20/17 23:16 37.1 71 18 131/51 (77) 99 Nasal Cannula 3.0 08/20/17 23:16 99 Nasal Cannula 3.0 08/20/17 23:07 37.0 98 Nasal Cannula 3 08/20/17 23:00 146/71 08/20/17 22:57 68 99 08/20/17 22:57 68 08/20/17 22:55 135/70 08/20/17 22:52 68 100 08/20/17 22:52 68 08/20/17 22:51 132/56 08/20/17 22:47 68 100 08/20/17 22:47 68 08/20/17 22:45 153/66 08/20/17 22:42 67 08/20/17 22:42 67 100 08/20/17 22:40 142/59 08/20/17 22:37 67 08/20/17 22:37 67 100 08/20/17 22:35 141/52 08/20/17 22:33 137/48 08/20/17 22:32 67 100 08/20/17 22:32 67 08/20/17 22:30 177/60 08/20/17 22:27 69 08/20/17 22:27 68 08/20/17 22:26 155/62 08/20/17 22:25 68 08/20/17 22:25 68 100 08/20/17 22:21 165/73 Physical Exam Comments: General Appearance: Patient continues to appear to be in mild distress Head: normocephalic, atraumatic Eyes: PERRL, EOMI Neck: supple Respiratory/Chest: chest non-tender, lungs clear, normal breath sounds, no respiratory distress (reaching appropriate oxygen saturations on room air; diminished BS at bases 2/2 body habitus) Cardiovascular: regular rate, rhythm, no edema, no gallop, no JVD, no murmur, normal peripheral pulses Abdomen/GI: normal bowel sounds, non tender, soft Extremities/Musculoskelatal: + pertinent finding dressing on r leg with suction noted Neurologic/Psych: supervisor of officials II-XII nml as tested, no motor/sensory deficits, oriented x 3 Skin: normal color, warm/dry Laboratory Results Last 24 Hours Test 08/21/17 08:17 3/30/18 15:38 08/21/17 19:19 White Blood Count 14.19 K/uL Red Blood Count 2.94 M/uL Hemoglobin 7.5 g/dL 7.1 g/dL 7.2 g/dL Hematocrit 24.0 % 23.4 % 22.8 % Mean Corpuscular Volume 81.6 fL Mean Corpuscular Hemoglobin 25.5 pg Mean Corpuscular Hemoglobin Concent 31.3 g/dl RDW Standard Deviation 48.5 fL RDW Coefficient of Variation 16.1 % Platelet Count 450 K/uL Mean Platelet Volume 9.2 fL Sodium Level 133 mmol/L Potassium Level 4.0 mmol/L Chloride Level 100 mmol/L Carbon Dioxide Level 25 mmol/L Anion Gap 8.0 mmol/L Blood Urea Nitrogen 34 mg/dl Creatinine 1.59 mg/dl Est Creatinine Clear Calc Drug Dose 55.9 ml/min Estimated GFR () 41.6 Estimated GFR (Non- 35.9 BUN/Creatinine Ratio 21.1 Random Glucose 105 mg/dl Calcium Level 8.4 mg/dl Assessment and Plan Jane.Tabitha is a 57/F who sustained a Right distal femoral fracture at the level of the metaphysis after fall. Orthopedic surgery service has been consulted and anticipate surgery Admit: Med/Surg 1) Right distal femoral Fracture S/P repair - Day #1 post opc - Pain appears to be adequately controlled. - will continue current pain med - Ortho service on board 2)Anemia likely from blood loss from surgery and fracture Hemoglobin has remained above 7. will continue to monitor hemoglobin level. will hold transfusion for now and recheck at 7 Consent is obtained today. 3) Hypothyroidism; Hx of thyroidectomy - resume levothyroxine 88 mcg PO daily - TSH 4.940; might need up titration - f/u as OP - But will defer this to outpatient. 4) Heart Failure; Grade II Diastolic Dysfunction - last Echo 10-Jan-2017; EF 65-70% - resume bumetanide 2 mg PO daily - resume amiloride/HCTZ 5/50 mg PO daily - resume ASA 81 mg PO daily VS qShift Diet: Low Sodium; NPO mn Activity: with assistance DVT ppx: SQ Heparin and SCD; pharmacologic ppx to be held at ms Precautions: FALL Continued [facility] stay due to: other Discharge planning: uncertain
[2017-08-22] VITALS (11 sets, daily range): BP systolic 120–142; BP diastolic 58–77; PULSE 66–77; TEMP 36.5–37.1; O2SAT 93–100
[2017-08-22] MEDS: OXYCODONE HCL IR 5 MG TAB (IMMEDIATE RELEASE) PO PRN ×5 (02:43→14:06)
[2017-08-22] MEDS: LEVOTHYROXINE 88 MCG TAB PO SCH (05:23)
[2017-08-22] MEDS: ACETAMINOPHEN 325 MG TAB PO PRN (05:24)
[2017-08-22 07:38] LABS: HEMATOCRIT 28.6 % (37-47); HEMOGLOBIN 9.4 g/dL (12.0-16.0); MEAN CELL VOLUME 83.9 fL (80-100); MEAN CORPUSCULAR HEMOGLOBIN 27.6 pg (25-34); MEAN CORPUSCULAR HGB CONC 32.9 g/dl (32-36); MEAN PLATELET VOLUME 9.4 fL (7.4-10.4); PLATELET COUNT 388 K/uL (130-400); RED CELL DISTRIBUTION WIDTH CV 15.7 % (11.5-14.5); RED CELL DISTRIBUTION WIDTH SD 48.1 fL (36.4-46.3); WHITE BLOOD COUNT 10.87 K/uL (4.8-10.8)
[2017-08-22] MEDS: DULERA~ORDER AWAITING ACTION SCH ×3 (07:55→15:22)
--- NOTE | 2017-08-22 08:11 | Orthopedic Progress Note ---
Orthopedic Progress Note Date of Service Aug 22, 2017. Subjective Post OP Day: 2 Reports: feeling well Objective N/V intact, dressing C/D/I, toes mobile Date Time Temp Pulse Resp B/P (MAP) Pulse Ox O2 Delivery O2 Flow Rate FiO2 08/22/17 04:27 37.0 71 16 142/69 98 08/22/17 03:24 37.0 71 16 131/72 95 08/22/17 02:30 36.8 71 16 137/77 93 08/22/17 02:15 36.7 66 16 131/76 95 08/22/17 02:00 36.7 66 14 133/75 95 08/22/17 01:00 36.6 66 16 126/68 95 08/22/17 00:00 36.6 68 16 120/67 94 08/21/17 23:30 36.8 70 16 113/46 95 08/21/17 23:15 Room Air 08/21/17 23:00 36.9 71 14 144/53 94 08/21/17 22:45 36.9 80 16 142/74 94 08/21/17 16:00 97 Room Air 08/21/17 15:51 36.8 72 16 134/65 (88) 97 Room Air 08/21/17 13:11 36.9 72 18 107/42 (63) 94 Room Air 08/21/17 09:44 73 139/79 (99) Laboratory Results 24 Hours: Test 08/21/17 08:17 08/21/17 15:38 08/21/17 19:19 08/22/17 07:24 Hematocrit 24.0 % 23.4 % 22.8 % 28.6 % Hemoglobin 7.5 g/dL 7.1 g/dL 7.2 g/dL 9.4 g/dL Assessment & Plan Assessment: 57 yo female stable POD #2 s/p ORIF right distal femur for Right jose- prosthetic distal femur fracture, acute blood loss anemia improved s/p transfusion Plan: -clinda x 24 -DVT PPX: Lovenox 40mg -NWB RLE -Maintain KI, may remove for hygiene -PT/OT- pt encouraged to get OOB and try walker but difficult due to obesity and lack of strength -PO XR: Anatomic alignment of fracture, well aligned, well fixed orthopedic implants without new fracture or dislocation of the hip or knee. -D/C planning- to [facility] when stable per medicine
--- NOTE | 2017-08-22 08:13 | Consultant Recommendations ---
Business Database Analyst Recommendations Date of Service Aug 22, 2017. Business Database Analyst Recommendations Nonweightbearing right LE with walker. Maintain knee immobilizer at all times except may remove for daily hygiene. Follow-up with Dr Flores ~ 2 weeks.
[2017-08-22] MEDS: AMILORIDE/HCTZ 5-50 MG TAB PO SCH (09:51)
[2017-08-22] MEDS: SPIRONOLACTONE 25 MG TAB PO SCH ×2 (09:51→17:55)
[2017-08-22] MEDS: BuPROPion SR 100 MG TABCR PO SCH ×2 (09:53→20:19)
[2017-08-22] MEDS: PANTOprazole SOD 40 MG TAB PO SCH ×2 (09:54→20:20)
[2017-08-22] MEDS: CHOLECALCIFEROL 1000 INTER.UNIT TAB PO SCH (09:54)
[2017-08-22] MEDS: DULOXETINE HCL 60 MG CAP PO SCH ×2 (09:55→20:20)
[2017-08-22] MEDS: BUMETANIDE 1 MG TAB PO SCH (09:55)
[2017-08-22] MEDS: ENOXAPARIN 40 MG/0.4 ML SYR SQ SCH (09:56)
--- NOTE | 2017-08-22 16:13 | Progress Note ---
Subjective Date of Service: Aug 22, 2017. Subjective Pt evaluation today including: conversation w/ patient, physical exam, chart review, lab review, review of studies, review of inpatient medication list Voiding: no voiding problems Patient is seen and examined by me. Patient hemoglobin improved for 7.2-9.4. Patient is feeling better and lying comfortably in bed. Patient denies chest pain, shortness of breath, dizziness, palpitation or loss of consciousness. Patient denies blurry vision and headache. Patient denies abdominal pain, nausea, vomiting and diarrhea. Patient pain is well controlled with medications. Problem List Medical Problems: (1) Contusion of lower extremity Status: Acute (2) Contusion of multiple sites Status: Acute (3) Fall Status: Acute (4) Fall Status: Acute (5) Fall Status: Acute (6) Hypokalemia Status: Acute (7) Hypoxia Status: Acute (8) Hypoxia Status: Acute (9) Left sided chest pain Status: Acute (10) Leukocytosis Status: Acute (11) Lumbar contusion Status: Acute (12) Morbid obesity Status: Acute (13) Multiple fractures of ribs of left side Status: Acute (14) Pulmonary edema Status: Acute (15) Pulmonary edema Status: Acute (16) Rib fracture Status: Acute (17) Right femoral fracture Status: Acute (18) SOB (shortness of breath) Status: Acute Review of Systems All Other Systems: Reviewed and Negative Medications Medications (Trade) Dose Ordered Sig/Lilly Route Start Time Stop Time Status Last Admin Dose Admin Senna/Docusate Sodium (Senokot S Tab) 2 tab HS PO 08/21/17 21:00 09/20/17 20:59 08/21/17 21:11 2 TAB Objective Vital Signs Date Time Temp Pulse Resp B/P (MAP) Pulse Ox O2 Delivery O2 Flow Rate FiO2 08/22/17 15:31 36.5 71 18 141/58 (85) 97 08/22/17 08:50 36.9 71 18 133/74 (93) 97 Room Air 08/22/17 08:45 Room Air 08/22/17 04:27 37.0 71 16 142/69 98 08/22/17 03:24 37.0 71 16 131/72 95 08/22/17 02:30 36.8 71 16 137/77 93 08/22/17 02:15 36.7 66 16 131/76 95 08/22/17 02:00 36.7 66 14 133/75 95 08/22/17 01:00 36.6 66 16 126/68 95 08/22/17 00:00 36.6 68 16 120/67 94 08/21/17 23:30 36.8 70 16 113/46 95 08/21/17 23:15 Room Air 08/21/17 23:00 36.9 71 14 144/53 94 08/21/17 22:45 36.9 80 16 142/74 94 Physical Exam General Appearance: WD/WN, no apparent distress, + obese Eyes: EOMI Respiratory/Chest: lungs clear Cardiovascular: regular rate, rhythm, no murmur Abdomen: normal bowel sounds, soft Neurologic/Psychiatric: alert, normal mood/affect, oriented x 3 Laboratory Results Last 24 Hours Test 08/21/17 19:19 08/22/17 07:24 Hemoglobin 7.2 g/dL 9.4 g/dL Hematocrit 22.8 % 28.6 % White Blood Count 10.87 K/uL Red Blood Count 3.41 M/uL Mean Corpuscular Volume 83.9 fL Mean Corpuscular Hemoglobin 27.6 pg Mean Corpuscular Hemoglobin Concent 32.9 g/dl RDW Standard Deviation 48.1 fL RDW Coefficient of Variation 15.7 % Platelet Count 388 K/uL Mean Platelet Volume 9.4 fL Assessment and Plan Anjum is a 57/F who sustained a Right distal femoral fracture at the level of the metaphysis after fall. Orthopedic surgery service has been consulted and anticipate surgery . 1) Right distal femoral Fracture S/P repair - Day #2 post opc - Pain appears to be adequately controlled. - Will continue current pain med - Ortho service on board 2)Anemia likely from blood loss from surgery and fracture -Hemoglobin improved from 7.2-9.4. -We will continue to monitor H&H -If hemoglobin remains stable by tomorrow we will discharge on Thursday to rehab. 3) Hypothyroidism; Hx of thyroidectomy - resume levothyroxine 88 mcg PO daily - TSH 4.940; might need up titration - f/u as OP - But will defer this to outpatient. 4) Heart Failure; Grade II Diastolic Dysfunction - last Echo 10-Jan-2017; EF 65-70% - resume bumetanide 2 mg PO daily - resume amiloride/HCTZ 5/50 mg PO daily - resume ASA 81 mg PO daily VS qShift Diet: Low Sodium; NPO mn Activity: with assistance DVT ppx: SQ Heparin and SCD; pharmacologic ppx to be held at mn Precautions: FALL Continued [facility] stay due to: ambulation difficulties Discharge planning: uncertain
[2017-08-22] MEDS: FLUTICASONE PROPIONATE NA SPR 16 GM BTL NAE SCH (20:18)
[2017-08-22] MEDS: NORTRIPTYLINE HCL 25 MG CAP PO SCH (20:20)
[2017-08-22] MEDS: TRAZODONE HCL 50 MG TAB PO SCH (20:21)
[2017-08-22] MEDS: DOCUSATE SODIUM/SENNA 50/8.6MG TAB PO SCH (20:21)
[2017-08-23 01:21] VITALS: O2SAT 100
[2017-08-23] MEDS: LEVOTHYROXINE 88 MCG TAB PO SCH (05:34)
[2017-08-23 05:48] VITALS: BP_SYST 141; BP_SYST 154; BP_SYST 157; BP_DIAS 75; BP_DIAS 78; BP_DIAS 86; PULSE 84; PULSE 97; PULSE 98
[2017-08-23 06:56] LABS: HEMATOCRIT 29.4 % (37-47); HEMOGLOBIN 9.6 g/dL (12.0-16.0)
[2017-08-23] MEDS: DULERA~ORDER AWAITING ACTION SCH ×2 (07:35)
[2017-08-23 08:00] VITALS: BP 154/75; PULSE 83; TEMP 37; O2SAT 98
[2017-08-23] MEDS: AMILORIDE/HCTZ 5-50 MG TAB PO SCH (08:53)
[2017-08-23] MEDS: BUMETANIDE 1 MG TAB PO SCH (08:54)
[2017-08-23] MEDS: CHOLECALCIFEROL 1000 INTER.UNIT TAB PO SCH (08:55)
[2017-08-23] MEDS: SPIRONOLACTONE 25 MG TAB PO SCH (08:55)
--- NOTE | 2017-08-23 08:55 | Orthopedic Progress Note ---
Orthopedic Progress Note Date of Service Aug 23, 2017. Subjective Post OP Day: 3 Reports: complaints (Belly is upset this AM. Denies chest pain or SOB) Objective N/V intact, dressing C/D/I, toes mobile Date Time Temp Pulse Resp B/P (MAP) Pulse Ox O2 Delivery O2 Flow Rate FiO2 08/23/17 08:00 37.0 83 20 154/75 (101) 98 Room Air 08/23/17 05:48 84 154/78 (103) 98 141/75 (97) 97 157/86 (109) 08/23/17 01:21 100 CPAP 3.0 08/22/17 23:06 37.1 77 16 137/76 (96) 100 CPAP 08/22/17 20:16 36.8 71 18 127/75 (92) 97 Room Air 08/22/17 15:31 36.5 71 18 141/58 (85) 97 08/22/17 15:19 Room Air Laboratory Results 24 Hours: Test 08/23/17 06:40 Hematocrit 29.4 % Hemoglobin 9.6 g/dL Assessment & Plan Assessment: 57 yo female stable POD #3 s/p ORIF right distal femur for Right jose- prosthetic distal femur fracture, pt slow to move with PT Plan: -clinda x 24 -DVT PPX: Lovenox 40mg -NWB RLE -Maintain KI, may remove for hygiene -PT/OT- pt encouraged to get OOB and try walker but difficult due to obesity and lack of strength -PO XR: Anatomic alignment of fracture, well aligned, well fixed orthopedic implants without new fracture or dislocation of the hip or knee. -D/C planning- stable per ortho, to [facility] when stable per medicine - Ortho to sign-off
[2017-08-23] MEDS: PANTOprazole SOD 40 MG TAB PO SCH (08:56)
[2017-08-23] MEDS: BuPROPion SR 100 MG TABCR PO SCH (08:56)
[2017-08-23] MEDS: DULOXETINE HCL 60 MG CAP PO SCH (08:56)
[2017-08-23] MEDS: ENOXAPARIN 40 MG/0.4 ML SYR SQ SCH (10:29)
[2017-08-23 13:27] VITALS: BP 154/75; PULSE 83; TEMP 37; O2SAT 98
--- NOTE | 2017-08-23 13:34 | Discharge Instructions ---
Discharge Instructions Date of Service Aug 23, 2017. Admission Reason for Admission: Fracture Discharge Discharge Diagnosis / Problem: farcture, anemia Discharge Goals Goal(s): Decrease discomfort, Improve function, Increase independence, Improve disease control, Improve nutritional status, Diagnostic testing, Therapeutic intervention Activity Recommendations Activity Limitations: as noted below Lifting Limitations: gradually increase as tolerated Exercise/Sports Limitations: as tolerated May Resume Sexual Activity: when tolerated Shower/Bathe: no limitations Driving or Machine Use: as per ortho . Current Hospital Diet Patient's current hospital diet: Regular Diet Discharge Diet Recommended Diet: AHA Diet (Heart Healthy) Procedures Procedures Performed: Open Reduction Internal Fixation Right Distal Femur Pending Studies Studies pending at discharge: no Medical Emergencies . Who to Call and When: Medical Emergencies: If at any time you feel your situation is an emergency, please call 911 immediately. . Non-Emergent Contact Non-Emergency issues call your: Primary Care Provider Call Non-Emergent contact if: temperature is above 101.5, your pain is concerning you, wound has increased pain . . "Provider Documentation" section prepared by Wily Lee . Chemical Dependency Counselor Recommendations Chemical Dependency Counselor Recommendations: Nonweightbearing right LE with walker. Maintain knee immobilizer at all times except may remove for daily hygiene. Follow-up with Dr Flores ~ 2 weeks.
--- NOTE | 2017-08-23 13:41 | Discharge Summary ---
Discharge Summary Date of Service Aug 23, 2017. Discharge Summary Admission Date: Aug 19, 2017 at 11:16 Discharge Date: Aug 23, 2017 Discharge Disposition: senior care facility Principal Diagnosis: frature Problems/Secondary Diagnoses: Anemia post surgery Immunizations: Have You Had Influenza Vaccine: Yes History of Tetanus Vaccine?: No History of Pneumococcal: No History of Hepatitis B Vaccine: No Consultations: Orthopedic Medication Reconciliation Continued Medications: Albuterol Sulfate (Proair Respiclick) 108 Mcg/Act Aer 2 PUFFS INH QID PRN for Shortness of Breath Amiloride/Hctz (Amiloride/Hydrochlorothia 5-50 mg) 1 Ea Tab 1 TAB PO QAM Aspirin (Aspirin Ec) 81 Mg Tab 81 MG PO QAM Bumetanide (Bumex) 2 Mg Tab 2 MG PO QAM, TAB Bupropion Hcl (Wellbutrin Sr) 200 Mg Tab 200 MG PO BID, TAB Cholecalciferol (Vitamin D) 5,000 Unit Tab 5000 INTER.UNIT PO QAM Cyanocobalamin (Cyanocobalamin) 1,000 Mcg/Ml Inj 1000 MCG IM MONTHLY Diphenhydramine Hcl (Benadryl Allergy) 25 Mg Cap 50 MG PO HS Duloxetine HCl (Cymbalta) 60 Mg Cap 60 MG PO BID Fluticasone Propionate (Nasal) (Flonase Allergy Relief) 50 Mcg/Act Spr 2 SPRAYS EDITH HS Gabapentin (Neurontin) 400 Mg Cap 400 MG PO TID, CAP Ipratropium-Albuterol (Duoneb) 3 Ml Nebu 1 TREATMENT INH Q4H, INHA Lamotrigine (Lamictal) 100 Mg Tab 100 MG PO BID, TAB Levothyroxine Sodium (Synthroid) 88 Mcg Tab 88 MCG PO DAILY Magnesium Oxide (Mag-Ox) 400 Mg Tab 400 MG PO BID, TAB Meclizine HCl (Meclizine 25) 25 Mg Tab 1 TAB PO PRN for Dizziness or Vertigo Mometasone Furoate-Formoterol (Dulera 200/5 Mcg) 1 Aer Aer 2 PUFFS INH BID, GM Nitrofurantoin Monohyd Macrocr (Macrobid) 100 Mg Cap 100 MG PO HS Nortriptyline (Pamelor) 50 Mg Cap 50 MG PO HS, CAP Oxycodone/Acetaminophen 10MG/325MG (Percocet 10MG/325MG) Tab 1 TAB PO Q6 PRN for Pain, TAB Pantoprazole (Protonix) 40 Mg Tab 40 MG PO BID, TAB Potassium Ext Rel (Klor-Con) 20 Meq Tabcr 20 MEQ PO ACHS, TAB Spironolactone (Aldactone) 25 Mg Tab 25 MG PO BID Trazodone Hcl (Desyrel) 50 Mg Tab 50 MG PO HS, TAB Referrals At Discharge Follow up Referrals: Family Practice Referral - Within 2 Weeks with Troy Aparicio M.D. Discharge Exam Physical Exam: General Appearance: WD/WN, no apparent distress, + obese Eyes: EOMI Neck: supple, no adenopathy Respiratory/Chest: lungs clear, normal breath sounds, no respiratory distress, no accessory muscle use Cardiovascular: regular rate, rhythm, no murmur Abdomen / GI: normal bowel sounds, non tender, soft, no organomegaly Neurologic/Psychiatric: alert, normal mood/affect, oriented x 3 Skin: no rash Lymphatic: no adenopathy Hospital Course Anjum is a 57/F who sustained a Right distal femoral fracture at the level of the metaphysis after fall. Orthopedic surgery service has been consulted and anticipate surgery . 1) Right distal femoral Fracture S/P repair - Day #2 post opc - Pain appears to be adequately controlled. - Will continue current pain med - Ortho service on board 2)Anemia likely from blood loss from surgery and fracture -Hemoglobin improved from 9.7. - discharge to rehab, will follow up with pcp and repeat cbc. 3) Hypothyroidism; Hx of thyroidectomy - resume levothyroxine 88 mcg PO daily - TSH 4.940; might need up titration - f/u as OP - But will defer this to outpatient. 4) Heart Failure; Grade II Diastolic Dysfunction - last Echo 10-Jan-2017; EF 65-70% - resume bumetanide 2 mg PO daily - resume amiloride/HCTZ 5/50 mg PO daily - resume ASA 81 mg PO daily VS qShift Diet: Low Sodium; NPO mn Activity: with assistance DVT ppx: SQ Heparin and SCD; pharmacologic ppx to be held at mn Precautions: FALL Total Time Spent: Greater than 30 minutes This includes examination of the patient, discharge planning, medication reconciliation, and communication with other providers. Discharge Instructions Please refer to the electronic Patient Visit Report (Discharge Instructions) for additional information.
== END 2017-08-23 16:14 | DRG 481 ==
LOC: EDBD 07:33 → C.EDB 07:34 → C.MSW 11:16 → ENRESERV 11:40
PROVIDERS: ADMIT Internal Medicine; ATTEND Internal Medicine
PROC: 0QSB04Z Reposition Right Lower Femur with Internal Fixation Device, Open Approach (ICD-10-PCS; principal; 2017-08-20 07:30)
DX: S72.491A Other fracture of lower end of right femur, initial encounter for closed fracture (principal); M97.11XA Periprosthetic fracture around internal prosthetic right knee joint, initial encounter; Z68.43 Body mass index [BMI] 50.0-59.9, adult; I50.32 Chronic diastolic (congestive) heart failure; D62 Acute posthemorrhagic anemia; E66.01 Morbid (severe) obesity due to excess calories; E03.9 Hypothyroidism, unspecified; Z87.891 Personal history of nicotine dependence; Z79.82 Long term (current) use of aspirin; Z79.899 Other long term (current) drug therapy; Z88.1 Allergy status to other antibiotic agents; Z91.81 History of falling; W18.30XA Fall on same level, unspecified, initial encounter

== ENCOUNTER → 2017-09-30 | Outpatient (CLI) | payer OTHER, MEDICARE ==
[~2017-09-30] MED LIST changes: -ALBU2SYP9 NEB; -DOCU-94 PO; -LDDP5 TD; +LEVO88TA PO; -METO2.5T PO; -MGCCMP100 MT; -MOML PO; +NITR-5 PO; -OXYC-106 PO; +OXYC10TA80 PO; +POTA-639 PO; -POTA20TA16 PO; +SPIR25TA PO
--- NOTE | 2017-09-30 17:59 | DIAGNOSTIC IMAGING REPORT ---
VENOUS DOPP LOWER EXT UNILAT CLINICAL HISTORY: 57 years-old Female presenting with S/P ORIF. TECHNIQUE: Real-time grayscale and color and spectral Doppler ultrasound imaging of the veins of the right lower extremity was performed. Compression and augmentation were also utilized. COMPARISON: 11/04/2016. FINDINGS: Right: Common femoral vein: Patent. Greater saphenous vein: Patent. Deep femoral vein: Patent. Femoral vein: Patent. Popliteal vein: Patent. Calf veins: Limited visualization. Other: Complex hypoechoic 6.5 x 1.9 x 2.5 cm collection at the lateral aspect of the knee. No internal color Doppler flow to suggest a solid mass. IMPRESSION: 1. No evidence of deep venous thrombosis. 2. Hypoechoic complex 6.5 cm collection, indeterminate but possibly hematoma given the recent surgery. Sterility cannot be confirmed. Electronically signed by: Antonio Vazquez M.D. 09/30/2017 5:57 PM Dictated Date/Time: 09/30/2017 5:55 PM
== END | disposition home or self-care (01) ==
LOC: C.ULTR 16:58
PROVIDERS: ATTEND Orthopaedic Surgery
DX: Z96.7 Presence of other bone and tendon implants (principal)

== ENCOUNTER → 2017-12-30 | Outpatient (CLI) | payer OTHER, MEDICARE ==
[~2017-12-30] MED LIST changes: +ALLO100T PO; -AMLH/550 PO; +AMOX1TAB43 PO; +ASCA500 PO; -ASPI81TA28 PO; +ATV5 PO; +CALC0.2510 PO; +CLC100 PO; +CRFUDL PO; +CYT100 PO; -DIPH25CA65 PO; +FLV1 PO; +FSLUDL325 PO; -GABA400C PO; +HYDR-4079 PO; +IPRA-64 INH; -IPRASOL4 INH; +LDDP5 TD; +NRN300 PO; -OXYC10TA80 PO; +PANT1TAB4 PO; -PANT40TA PO; -SPIR25TA PO; -TRAZ-120 PO
== END | disposition home or self-care (01) ==
LOC: C.LABPBG 13:35
PROVIDERS: ATTEND Urology
DX: N39.0 Urinary tract infection, site not specified (principal)